=== PATIENT | female | born 1990 | race Caucasian/White ===

== ENCOUNTER 2023-03-22 18:08 | Observation (INO) ==
--- NOTE | 2023-03-22 18:42 | ED Triage Note ---
Date of Service March 22, 2023 History of Present Illness This patient was briefly evaluated while in triage. An abbreviated physical exam was performed. This patient is a 32-year-old Female who presents to the ED for evaluation of yellowing of her skin and eyes. She states she noticed it about a week ago. She denies any history of liver disease but states it runs in her family. She states she was drinking every day but does not state how much. She has not been drinking recently. She reports slight upper abdominal pain. Physical Exam VITALS: Vitals are noted on the nurse's note and reviewed by myself. GENERAL: This is a 32-year-old female, in no acute distress, well-developed well-nourished. SKIN: Jaundice noted. EYES: Scleral icterus noted. NEURO: Patient was alert and oriented to person place and time. Initial orders for labs and / or imaging were placed and patient was placed in the waiting area until a bed is available. Please see further documentation for the full ED course.
[2023-03-22 21:02] LABS: Basophils # (auto) 0.07 K/uL (0.00-0.20); Basophils % (auto) 0.7 %; Eosinophils # (auto) 0.07 K/uL (0.00-0.50); Eosinophils % (auto) 0.7 %; Hematocrit (blood only) 33.6 % (37.0-47.0); Hemoglobin 12.5 g/dl (12.0-16.0); Immature Granulocytes # (auto) 0.15 K/uL (0.01-0.20); Immature Granulocytes % (auto) 1.4 %; Lymphocytes # (auto) 1.87 K/uL (1.20-3.40); Mean Corpuscular Hemoglobin 39.7 pg (25.0-34.0); Mean Corpuscular Hgb Conc 37.2 g/dL (32.0-36.0); Mean Corpuscular Volume 106.7 fL (80.0-100.0); Mean Platelet Volume 12.1 fL (9.4-12.4); Monocytes # (auto) 0.95 K/uL (0.11-0.59); Monocytes % (auto) 9.1 %; Neutrophils % (auto) 70.1 %; Platelet Count 245 K/uL (130-400); RDW Coefficient of Variation 20.1 % (11.5-14.5); RDW Standard Deviation 78.6 fL (36.4-46.3); Red Blood Count 3.15 M/uL (4.20-5.40); White Blood Count 10.41 K/ul (4.8-10.8)
[2023-03-22 21:22] LABS: BUN Creatinine Ratio 14.3 (10-20); Calcium 9.5 mg/dl (8.6-10.3); Creatinine Clr Calc Pharmacy 95.1 ml/min; Potassium 3.5 mmol/L (3.5-5.1)
[2023-03-22 21:42] LABS: Albumin Level 3.6 gm/dl (3.4-5.0); Bilirubin,Total 20.4 mg/dl (0.2-1.0); Total Protein 7.2 gm/dl (6.0-8.3)
[2023-03-22 22:10] LABS: INR 1.3 (0.9-1.1); Prothrombin Time 13.8 Seconds (9.0-12.0)
--- NOTE | 2023-03-22 22:29 | Emergency Department Note ---
History of Present Illness General Chief complaint: Illness Stated complaint: JAUNDICE SKIN, EYES YELLOW,TOP ABDOMEN/BACK PAIN Time Seen by Provider: 03/22/23 22:27 History of Present Illness This is a 32-year-old female presenting to the emergency department for evaluation of jaundice that started over the past several days. Patient believes herself to be usually healthy, and has been living in the [facility] for the past 3 years. She does not regularly follow with a family doctor, but is under the care of a methadone clinic. She does not take other medications or herbal supplements. Patient states that she did have a period over the past few weeks where she has been drinking heavily, often third of a bottle of hard liquor a day. No fevers or chills. She is with some mild epigastric discomfort but no pain. She is without history of abdominal surgery. She presents today as her eyes became yellow. Allergies Allergy/AdvReac Type Severity Reaction Status Date / Time adhesive Allergy Hives Verified 03/23/23 03:03 Past Med/Surg History Medical History Methadone use Surgical History No significant past surgical history Social History Smoking Status: Current every day smoker Tobacco Type: Cigarettes Do You Dip or Chew Tobacco: No; Hx Alcohol Use: Yes Alcohol type: hard liquor Hx Substance Use: No Preferred Language: Kiswahili Communication Ability: Effective Professor Of Graphic Design Required: No Beliefs That Will Affect Care: None Current Living Situation: Family Other Information That Helps Us Care for You: No Feels Safe at Home: Yes Safety Concerns: Feels Safe At This Time Assistive Devices: None Review of Systems A total of 10 systems reviewed and were otherwise negative Physical Exam Vital Signs Vital Signs - 24 hr 03/22/23 18:41 03/22/23 21:10 03/22/23 22:48 Temperature 36.5 C Temperature Source Temporal Artery Scan Pulse Rate 111 H 110 H Pulse Rate [Finger] 85 Pulse Rate from SpO2 Sensor Respiratory Rate 19 Blood Pressure 118/80 Blood Pressure [Right Arm] 110/87 Blood Pressure Mean 92 Blood Pressure Mean [Right Arm] 94 Pulse Oximetry 96 97 Oxygen Delivery Method Room Air Room Air Sepsis Recent Fever Within 48 Hours No Sepsis New/Unexplained Change in Mental Status N/A Sepsis Action Taken by Nursing No Action Required 03/22/23 22:49 03/22/23 23:00 03/23/23 00:00 Temperature Temperature Source Pulse Rate 111 H 104 H 91 H Pulse Rate [Finger] Pulse Rate from SpO2 Sensor 111 H 103 H Respiratory Rate 14 15 18 Blood Pressure 125/98 122/86 119/81 Blood Pressure [Right Arm] Blood Pressure Mean 107 98 93 Blood Pressure Mean [Right Arm] Pulse Oximetry 95 95 93 Oxygen Delivery Method Sepsis Recent Fever Within 48 Hours Sepsis New/Unexplained Change in Mental Status Sepsis Action Taken by Nursing 03/23/23 01:00 Temperature Temperature Source Pulse Rate 87 Pulse Rate [Finger] Pulse Rate from SpO2 Sensor 88 Respiratory Rate 17 Blood Pressure 97/70 L Blood Pressure [Right Arm] Blood Pressure Mean 79 Blood Pressure Mean [Right Arm] Pulse Oximetry 93 Oxygen Delivery Method Sepsis Recent Fever Within 48 Hours Sepsis New/Unexplained Change in Mental Status Sepsis Action Taken by Nursing VITALS: Vitals are noted on the nurse's note and reviewed by myself. Vital signs stable. GENERAL: Ill-appearing white female who is answering questions appropriately. HEAD: Normocephalic atraumatic. EARS: External ear normal. External auditory canals clear, tympanic membranes pearly aguilar without erythema or effusion bilaterally. EYES: Pupils equal round and reactive to light and accommodation. Conjunctivae with marked icterus NOSE: Patent, turbinates without inflammation or discharge. MOUTH: Mucous membranes moist. Tonsils are not enlarged. Pharynx without erythema, blood, or exudate. Uvula midline. Airway patent. NECK: Supple without nuchal rigidity. No lymphadenopathy. No thyromegaly. Cervical spine is nontender. HEART: Regular rate and rhythm without murmurs gallops or rubs. LUNGS: Clear to auscultation bilaterally without wheezes, rales or rhonchi. No retractions or accessory muscle use. ABDOMEN: Positive normal bowel sounds x 4. Soft, nontender, without masses or organomegaly. No guarding or rebound tenderness. MUSCULOSKELETAL: No muscle atrophy, erythema, or edema noted. Full range of motion in all extremities. NEURO: Patient was alert and oriented to person place and time. CN II through XII grossly intact. GCS 15. SKIN: The skin was with diffuse jaundice Course Administered Medications Discontinued Medications Ioversol (Optiray 320 100ml) 100 ml IV ONCE ONE Stop: 03/22/23 23:39 Last Admin: 03/22/23 23:38 Dose: 90 ml Documented By: CYNTHIA Medical Decision Making Differential Diagnosis Differential diagnosis: Etiologies such as biliary colic, cholecystitis, hepatitis, pancreatitis, cardiac disease, pancreatitis, gastritis, peptic ulcer disease, appendicitis, cystitis, diverticulitis, mesenteric ischemia, inflammatory bowel disease, ileus, bowel obstruction, testicular/adnexal torsion, aortic pathology, shingles, as well as others were considered Laboratory Data 03/22/23 20:40 03/22/23 20:40 Lab Results 03/22/23 03/22/23 03/22/23 Range/Units 20:40 20:40 20:40 WBC 10.41 (4.8-10.8) K/ul RBC 3.15 L (4.20-5.40) M/uL Hgb 12.5 (12.0-16.0) g/dl Hct 33.6 L (37.0-47.0) % MCV 106.7 H (80.0-100.0) fL MCH 39.7 H (25.0-34.0) pg MCHC 37.2 H (32.0-36.0) g/dL RDW Std Deviation 78.6 H (36.4-46.3) fL RDW Coeff of Sylvester 20.1 H (11.5-14.5) % Plt Count 245 (130-400) K/uL MPV 12.1 (9.4-12.4) fL Immature Gran % (Auto) 1.4 % Neut % (Auto) 70.1 % Lymph % (Auto) 18.0 % [place] % (Auto) 9.1 % Eos % (Auto) 0.7 % Baso % (Auto) 0.7 % Neut # (Auto) 7.30 H (1.40-6.50) K/uL Lymph # (Auto) 1.87 (1.20-3.40) K/uL [place] # (Auto) 0.95 H (0.11-0.59) K/uL Eos # (Auto) 0.07 (0.00-0.50) K/uL Baso # (Auto) 0.07 (0.00-0.20) K/uL Immature Gran # (Auto) 0.15 (0.01-0.20) K/uL Polychromasia 2+ Macrocytosis Present Target Cells 2+ ESR (0-20) mm/hr PT 13.8 H (9.0-12.0) Seconds INR 1.3 H (0.9-1.1) Sodium 135 L (136-145) mmol/L Potassium 3.5 (3.5-5.1) mmol/L Chloride 95 L (98-107) mmol/L Carbon Dioxide 29 (21-32) mmol/L Anion Gap 11 (3-11) BUN 10 (6-23) mg/dl Creatinine 0.70 (0.6-1.2) mg/dl Est Cr Clr Drug Dosing 95.1 ml/min Est GFR ( Amer) 131.0 ml/min Est GFR (Non-Af Amer) 113.0 ml/min BUN/Creatinine Ratio 14.3 (10-20) Glucose 89 (70-99(Fasting)) mg/dl Calcium 9.5 (8.6-10.3) mg/dl Total Bilirubin 20.4 H (0.2-1.0) mg/dl Direct Bilirubin 12.1 H (0-0.2) mg/dl AST 591 H (13-39) U/L ALT 136 H (7-52) U/L Alkaline Phosphatase 297 H (34-104) U/L Ammonia C-Reactive Protein 4.73 H (0-0.5) mg/dl Total Protein 7.2 (6.0-8.3) gm/dl Albumin 3.6 (3.4-5.0) gm/dl HCG, Qual (Negative) Urine Color Urine Appearance (Clear) Urine pH (4.5-7.5) Ur Specific [place] (1.000-1.030) Urine Protein (Negative) Urine Glucose (UA) (Negative) Urine Ketones (Negative) Urine Blood (Negative) Urine Nitrite (Negative) Urine Bilirubin (Negative) Urine Urobilinogen (Negative) Ur Leukocyte Esterase (Negative) Urine RBC (0-4) /hpf Urine WBC (0-5) /hpf Ur Epithelial Cells (0-5) /lpf Ur Renal Epithelial Cell (0-5) /lpf Amorphous Sediment (None Prsent) Urine Bacteria (Negative) Salicylates (3.0-30) mg/dl Urine Opiates Screen (Neg) Ur Methadone, Qual (Neg) Acetaminophen (10-30) ug/ml Urine Barbiturates (Neg) Ur Phencyclidine (PCP) (Neg) U Amphetamin/Meth Scrn (Neg) MDMA (Ecstasy) Screen (Neg) U Benzodiazepines Scrn (Neg) Ur Cocaine Metabolite (Neg) U Marijuana (THC) Screen (Neg) Ethyl Alcohol mg/dL (<10.0) mg/dl Adenovirus (PCR) (NotDetected) Anaplasma Smear B. pertussis DNA (PCR) (NotDetected) B.parapertussis DNA PCR (NotDetected) C. pneumoniae DNA (PCR) (NotDetected) Coronavirus OC43 (PCR) (NotDetected) Coronavirus HKU1 (PCR) (NotDetected) Coronavirus 229E (PCR) (NotDetected) SARS-CoV-2 (PCR) (NotDetected) Coronavirus NL63 (PCR) (NotDetected) Monoscreen (Negative) Human Metapneumovir PCR (NotDetected) Influenza Type A (PCR) (NotDetected) Influenza Type B (PCR) (NotDetected) M. pneumoniae (PCR) (NotDetected) Parainfluenza 1 (PCR) (NotDetected) Parainfluenza 2 (PCR) (NotDetected) Parainfluenza 3 (PCR) (NotDetected) Parainfluenza 4 (PCR) (NotDetected) RSV (PCR) (NotDetected) Entero/Rhino (PCR) (NotDetected) 03/22/23 03/22/23 03/22/23 Range/Units 20:40 20:40 22:50 WBC (4.8-10.8) K/ul RBC (4.20-5.40) M/uL Hgb (12.0-16.0) g/dl Hct (37.0-47.0) % MCV (80.0-100.0) fL MCH (25.0-34.0) pg MCHC (32.0-36.0) g/dL RDW Std Deviation (36.4-46.3) fL RDW Coeff of Sylvester (11.5-14.5) % Plt Count (130-400) K/uL MPV (9.4-12.4) fL Immature Gran % (Auto) % Neut % (Auto) % Lymph % (Auto) % [place] % (Auto) % Eos % (Auto) % Baso % (Auto) % Neut # (Auto) (1.40-6.50) K/uL Lymph # (Auto) (1.20-3.40) K/uL [place] # (Auto) (0.11-0.59) K/uL Eos # (Auto) (0.00-0.50) K/uL Baso # (Auto) (0.00-0.20) K/uL Immature Gran # (Auto) (0.01-0.20) K/uL Polychromasia Macrocytosis Target Cells ESR 94 H (0-20) mm/hr PT (9.0-12.0) Seconds INR (0.9-1.1) Sodium (136-145) mmol/L Potassium (3.5-5.1) mmol/L Chloride (98-107) mmol/L Carbon Dioxide (21-32) mmol/L Anion Gap (3-11) BUN (6-23) mg/dl Creatinine (0.6-1.2) mg/dl Est Cr Clr Drug Dosing ml/min Est GFR ( Amer) ml/min Est GFR (Non-Af Amer) ml/min BUN/Creatinine Ratio (10-20) Glucose (70-99(Fasting)) mg/dl Calcium (8.6-10.3) mg/dl Total Bilirubin (0.2-1.0) mg/dl Direct Bilirubin (0-0.2) mg/dl AST (13-39) U/L ALT (7-52) U/L Alkaline Phosphatase (34-104) U/L Ammonia C-Reactive Protein (0-0.5) mg/dl Total Protein (6.0-8.3) gm/dl Albumin (3.4-5.0) gm/dl HCG, Qual Negative (Negative) Urine Color Urine Appearance (Clear) Urine pH (4.5-7.5) Ur Specific [place] (1.000-1.030) Urine Protein (Negative) Urine Glucose (UA) (Negative) Urine Ketones (Negative) Urine Blood (Negative) Urine Nitrite (Negative) Urine Bilirubin (Negative) Urine Urobilinogen (Negative) Ur Leukocyte Esterase (Negative) Urine RBC (0-4) /hpf Urine WBC (0-5) /hpf Ur Epithelial Cells (0-5) /lpf Ur Renal Epithelial Cell (0-5) /lpf Amorphous Sediment (None Prsent) Urine Bacteria (Negative) Salicylates (3.0-30) mg/dl Urine Opiates Screen (Neg) Ur Methadone, Qual (Neg) Acetaminophen (10-30) ug/ml Urine Barbiturates (Neg) Ur Phencyclidine (PCP) (Neg) U Amphetamin/Meth Scrn (Neg) MDMA (Ecstasy) Screen (Neg) U Benzodiazepines Scrn (Neg) Ur Cocaine Metabolite (Neg) U Marijuana (THC) Screen (Neg) Ethyl Alcohol mg/dL (<10.0) mg/dl Adenovirus (PCR) Not Detected (NotDetected) Anaplasma Smear B. pertussis DNA (PCR) Not Detected (NotDetected) B.parapertussis DNA PCR Not Detected (NotDetected) C. pneumoniae DNA (PCR) Not Detected (NotDetected) Coronavirus OC43 (PCR) Not Detected (NotDetected) Coronavirus HKU1 (PCR) Not Detected (NotDetected) Coronavirus 229E (PCR) Not Detected (NotDetected) SARS-CoV-2 (PCR) Not Detected (NotDetected) Coronavirus NL63 (PCR) Not Detected (NotDetected) Monoscreen (Negative) Human Metapneumovir PCR Not Detected (NotDetected) Influenza Type A (PCR) Not Detected (NotDetected) Influenza Type B (PCR) Not Detected (NotDetected) M. pneumoniae (PCR) Not Detected (NotDetected) Parainfluenza 1 (PCR) Not Detected (NotDetected) Parainfluenza 2 (PCR) Not Detected (NotDetected) Parainfluenza 3 (PCR) Not Detected (NotDetected) Parainfluenza 4 (PCR) Not Detected (NotDetected) RSV (PCR) Not Detected (NotDetected) Entero/Rhino (PCR) Not Detected (NotDetected) 08/28/23 08/28/23 08/28/23 Range/Units 22:50 22:50 23:06 WBC (4.8-10.8) K/ul RBC (4.20-5.40) M/uL Hgb (12.0-16.0) g/dl Hct (37.0-47.0) % MCV (80.0-100.0) fL MCH (25.0-34.0) pg MCHC (32.0-36.0) g/dL RDW Std Deviation (36.4-46.3) fL RDW Coeff of Sylvester (11.5-14.5) % Plt Count (130-400) K/uL MPV (9.4-12.4) fL Immature Gran % (Auto) % Neut % (Auto) % Lymph % (Auto) % [place] % (Auto) % Eos % (Auto) % Baso % (Auto) % Neut # (Auto) (1.40-6.50) K/uL Lymph # (Auto) (1.20-3.40) K/uL [place] # (Auto) (0.11-0.59) K/uL Eos # (Auto) (0.00-0.50) K/uL Baso # (Auto) (0.00-0.20) K/uL Immature Gran # (Auto) (0.01-0.20) K/uL Polychromasia Macrocytosis Target Cells ESR (0-20) mm/hr PT (9.0-12.0) Seconds INR (0.9-1.1) Sodium (136-145) mmol/L Potassium (3.5-5.1) mmol/L Chloride (98-107) mmol/L Carbon Dioxide (21-32) mmol/L Anion Gap (3-11) BUN (6-23) mg/dl Creatinine (0.6-1.2) mg/dl Est Cr Clr Drug Dosing ml/min Est GFR ( Amer) ml/min Est GFR (Non-Af Amer) ml/min BUN/Creatinine Ratio (10-20) Glucose (70-99(Fasting)) mg/dl Calcium (8.6-10.3) mg/dl Total Bilirubin (0.2-1.0) mg/dl Direct Bilirubin (0-0.2) mg/dl AST (13-39) U/L ALT (7-52) U/L Alkaline Phosphatase (34-104) U/L Ammonia TNP C-Reactive Protein (0-0.5) mg/dl Total Protein (6.0-8.3) gm/dl Albumin (3.4-5.0) gm/dl HCG, Qual (Negative) Urine Color Brown Urine Appearance Cloudy A (Clear) Urine pH (4.5-7.5) Ur Specific [place] 1.026 (1.000-1.030) Urine Protein (Negative) Urine Glucose (UA) (Negative) Urine Ketones (Negative) Urine Blood (Negative) Urine Nitrite (Negative) Urine Bilirubin (Negative) Urine Urobilinogen (Negative) Ur Leukocyte Esterase (Negative) Urine RBC 0-4 (0-4) /hpf Urine WBC 0-5 (0-5) /hpf Ur Epithelial Cells 5-10 H (0-5) /lpf Ur Renal Epithelial Cell 10-20 H (0-5) /lpf Amorphous Sediment Present A (None Prsent) Urine Bacteria 1+ H (Negative) Salicylates (3.0-30) mg/dl Urine Opiates Screen Neg (Neg) Ur Methadone, Qual Pos H (Neg) Acetaminophen (10-30) ug/ml Urine Barbiturates Neg (Neg) Ur Phencyclidine (PCP) Neg (Neg) U Amphetamin/Meth Scrn Neg (Neg) MDMA (Ecstasy) Screen Neg (Neg) U Benzodiazepines Scrn Neg (Neg) Ur Cocaine Metabolite Neg (Neg) U Marijuana (THC) Screen Neg (Neg) Ethyl Alcohol mg/dL (<10.0) mg/dl Adenovirus (PCR) (NotDetected) Anaplasma Smear B. pertussis DNA (PCR) (NotDetected) B.parapertussis DNA PCR (NotDetected) C. pneumoniae DNA (PCR) (NotDetected) Coronavirus OC43 (PCR) (NotDetected) Coronavirus HKU1 (PCR) (NotDetected) Coronavirus 229E (PCR) (NotDetected) SARS-CoV-2 (PCR) (NotDetected) Coronavirus NL63 (PCR) (NotDetected) Monoscreen (Negative) Human Metapneumovir PCR (NotDetected) Influenza Type A (PCR) (NotDetected) Influenza Type B (PCR) (NotDetected) M. pneumoniae (PCR) (NotDetected) Parainfluenza 1 (PCR) (NotDetected) Parainfluenza 2 (PCR) (NotDetected) Parainfluenza 3 (PCR) (NotDetected) Parainfluenza 4 (PCR) (NotDetected) RSV (PCR) (NotDetected) Entero/Rhino (PCR) (NotDetected) 03/22/23 03/22/23 03/23/23 Range/Units 23:06 23:06 00:02 WBC (4.8-10.8) K/ul RBC (4.20-5.40) M/uL Hgb (12.0-16.0) g/dl Hct (37.0-47.0) % MCV (80.0-100.0) fL MCH (25.0-34.0) pg MCHC (32.0-36.0) g/dL RDW Std Deviation (36.4-46.3) fL RDW Coeff of Sylvester (11.5-14.5) % Plt Count (130-400) K/uL MPV (9.4-12.4) fL Immature Gran % (Auto) % Neut % (Auto) % Lymph % (Auto) % [place] % (Auto) % Eos % (Auto) % Baso % (Auto) % Neut # (Auto) (1.40-6.50) K/uL Lymph # (Auto) (1.20-3.40) K/uL [place] # (Auto) (0.11-0.59) K/uL Eos # (Auto) (0.00-0.50) K/uL Baso # (Auto) (0.00-0.20) K/uL Immature Gran # (Auto) (0.01-0.20) K/uL Polychromasia Macrocytosis Target Cells ESR (0-20) mm/hr PT (9.0-12.0) Seconds INR (0.9-1.1) Sodium (136-145) mmol/L Potassium (3.5-5.1) mmol/L Chloride (98-107) mmol/L Carbon Dioxide (21-32) mmol/L Anion Gap (3-11) BUN (6-23) mg/dl Creatinine (0.6-1.2) mg/dl Est Cr Clr Drug Dosing ml/min Est GFR ( Amer) ml/min Est GFR (Non-Af Amer) ml/min BUN/Creatinine Ratio (10-20) Glucose (70-99(Fasting)) mg/dl Calcium (8.6-10.3) mg/dl Total Bilirubin (0.2-1.0) mg/dl Direct Bilirubin (0-0.2) mg/dl AST (13-39) U/L ALT (7-52) U/L Alkaline Phosphatase (34-104) U/L Ammonia C-Reactive Protein (0-0.5) mg/dl Total Protein (6.0-8.3) gm/dl Albumin (3.4-5.0) gm/dl HCG, Qual (Negative) Urine Color Urine Appearance (Clear) Urine pH (4.5-7.5) Ur Specific [place] (1.000-1.030) Urine Protein (Negative) Urine Glucose (UA) (Negative) Urine Ketones (Negative) Urine Blood (Negative) Urine Nitrite (Negative) Urine Bilirubin (Negative) Urine Urobilinogen (Negative) Ur Leukocyte Esterase (Negative) Urine RBC (0-4) /hpf Urine WBC (0-5) /hpf Ur Epithelial Cells (0-5) /lpf Ur Renal Epithelial Cell (0-5) /lpf Amorphous Sediment (None Prsent) Urine Bacteria (Negative) Salicylates < 3.0 L (3.0-30) mg/dl Urine Opiates Screen (Neg) Ur Methadone, Qual (Neg) Acetaminophen < 3 L (10-30) ug/ml Urine Barbiturates (Neg) Ur Phencyclidine (PCP) (Neg) U Amphetamin/Meth Scrn (Neg) MDMA (Ecstasy) Screen (Neg) U Benzodiazepines Scrn (Neg) Ur Cocaine Metabolite (Neg) U Marijuana (THC) Screen (Neg) Ethyl Alcohol mg/dL 10.3 H (<10.0) mg/dl Adenovirus (PCR) (NotDetected) Anaplasma Smear B. pertussis DNA (PCR) (NotDetected) B.parapertussis DNA PCR (NotDetected) C. pneumoniae DNA (PCR) (NotDetected) Coronavirus OC43 (PCR) (NotDetected) Coronavirus HKU1 (PCR) (NotDetected) Coronavirus 229E (PCR) (NotDetected) SARS-CoV-2 (PCR) (NotDetected) Coronavirus NL63 (PCR) (NotDetected) Monoscreen Negative (Negative) Human Metapneumovir PCR (NotDetected) Influenza Type A (PCR) (NotDetected) Influenza Type B (PCR) (NotDetected) M. pneumoniae (PCR) (NotDetected) Parainfluenza 1 (PCR) (NotDetected) Parainfluenza 2 (PCR) (NotDetected) Parainfluenza 3 (PCR) (NotDetected) Parainfluenza 4 (PCR) (NotDetected) RSV (PCR) (NotDetected) Entero/Rhino (PCR) (NotDetected) 03/23/23 Range/Units 00:02 WBC (4.8-10.8) K/ul RBC (4.20-5.40) M/uL Hgb (12.0-16.0) g/dl Hct (37.0-47.0) % MCV (80.0-100.0) fL MCH (25.0-34.0) pg MCHC (32.0-36.0) g/dL RDW Std Deviation (36.4-46.3) fL RDW Coeff of Sylvester (11.5-14.5) % Plt Count (130-400) K/uL MPV (9.4-12.4) fL Immature Gran % (Auto) % Neut % (Auto) % Lymph % (Auto) % [place] % (Auto) % Eos % (Auto) % Baso % (Auto) % Neut # (Auto) (1.40-6.50) K/uL Lymph # (Auto) (1.20-3.40) K/uL [place] # (Auto) (0.11-0.59) K/uL Eos # (Auto) (0.00-0.50) K/uL Baso # (Auto) (0.00-0.20) K/uL Immature Gran # (Auto) (0.01-0.20) K/uL Polychromasia Macrocytosis Target Cells ESR (0-20) mm/hr PT (9.0-12.0) Seconds INR (0.9-1.1) Sodium (136-145) mmol/L Potassium (3.5-5.1) mmol/L Chloride (98-107) mmol/L Carbon Dioxide (21-32) mmol/L Anion Gap (3-11) BUN (6-23) mg/dl Creatinine (0.6-1.2) mg/dl Est Cr Clr Drug Dosing ml/min Est GFR ( Amer) ml/min Est GFR (Non-Af Amer) ml/min BUN/Creatinine Ratio (10-20) Glucose (70-99(Fasting)) mg/dl Calcium (8.6-10.3) mg/dl Total Bilirubin (0.2-1.0) mg/dl Direct Bilirubin (0-0.2) mg/dl AST (13-39) U/L ALT (7-52) U/L Alkaline Phosphatase (34-104) U/L Ammonia C-Reactive Protein (0-0.5) mg/dl Total Protein (6.0-8.3) gm/dl Albumin (3.4-5.0) gm/dl HCG, Qual (Negative) Urine Color Urine Appearance (Clear) Urine pH (4.5-7.5) Ur Specific [place] (1.000-1.030) Urine Protein (Negative) Urine Glucose (UA) (Negative) Urine Ketones (Negative) Urine Blood (Negative) Urine Nitrite (Negative) Urine Bilirubin (Negative) Urine Urobilinogen (Negative) Ur Leukocyte Esterase (Negative) Urine RBC (0-4) /hpf Urine WBC (0-5) /hpf Ur Epithelial Cells (0-5) /lpf Ur Renal Epithelial Cell (0-5) /lpf Amorphous Sediment (None Prsent) Urine Bacteria (Negative) Salicylates (3.0-30) mg/dl Urine Opiates Screen (Neg) Ur Methadone, Qual (Neg) Acetaminophen (10-30) ug/ml Urine Barbiturates (Neg) Ur Phencyclidine (PCP) (Neg) U Amphetamin/Meth Scrn (Neg) MDMA (Ecstasy) Screen (Neg) U Benzodiazepines Scrn (Neg) Ur Cocaine Metabolite (Neg) U Marijuana (THC) Screen (Neg) Ethyl Alcohol mg/dL (<10.0) mg/dl Adenovirus (PCR) (NotDetected) Anaplasma Smear See Comment B. pertussis DNA (PCR) (NotDetected) B.parapertussis DNA PCR (NotDetected) C. pneumoniae DNA (PCR) (NotDetected) Coronavirus OC43 (PCR) (NotDetected) Coronavirus HKU1 (PCR) (NotDetected) Coronavirus 229E (PCR) (NotDetected) SARS-CoV-2 (PCR) (NotDetected) Coronavirus NL63 (PCR) (NotDetected) Monoscreen (Negative) Human Metapneumovir PCR (NotDetected) Influenza Type A (PCR) (NotDetected) Influenza Type B (PCR) (NotDetected) M. pneumoniae (PCR) (NotDetected) Parainfluenza 1 (PCR) (NotDetected) Parainfluenza 2 (PCR) (NotDetected) Parainfluenza 3 (PCR) (NotDetected) Parainfluenza 4 (PCR) (NotDetected) RSV (PCR) (NotDetected) Entero/Rhino (PCR) (NotDetected) Imaging Data Radiologist's Impression: Abdomen/Pelvis CT 03/22/23 22:32 Exam(s): CT ABDOMEN + PELVIS With Contrast IV Amt: 90 ML OPTIRAY 320 EXAM: CT Abdomen and Pelvis With Intravenous Contrast CLINICAL HISTORY: Reason for exam: jaundice, elevated bilirubin. TECHNIQUE: Axial computed tomography images of the abdomen and pelvis with intravenous contrast. Automated exposure control was utilized for the study. A dose lowering technique was utilized adhering to the principles of ALARA. CONTRAST: Patient received 90 ML OPTIRAY 320 of IV contrast COMPARISON: No relevant prior studies available. FINDINGS: Lung bases: Unremarkable. No mass. No consolidation. ABDOMEN: Liver: There is advanced severe hepatic steatosis, please correlate for steatohepatitis. Gallbladder and bile ducts: Moderate distention of the gallbladder is noted. No calcified stones. No ductal dilation. Pancreas: Unremarkable. No mass. No ductal dilation. Spleen: Unremarkable. No splenomegaly. Adrenals: Unremarkable. No mass. Kidneys and ureters: Unremarkable. No solid mass. No hydronephrosis. Stomach and bowel: Unremarkable. No obstruction. No mucosal thickening. PELVIS: Appendix: No findings to suggest acute appendicitis. Bladder: Unremarkable. No mass. Reproductive: Unremarkable as visualized. ABDOMEN and PELVIS: Intraperitoneal space: Unremarkable. No free air. No significant fluid collection. Bones/joints: No acute fracture. No dislocation. Soft tissues: There is an umbilical piercing. Vasculature: Unremarkable. No abdominal aortic aneurysm. Lymph nodes: Unremarkable. No enlarged lymph nodes. IMPRESSION: There is advanced severe hepatic steatosis with engorgement of the liver, please correlate for steatohepatitis. Electronically signed by: Maldonado Lockhart MD 03/22/23 23:47 PM MDM Narrative Physical exam and history were performed. Nursing notes, EMR, and Medication List were personally reviewed. No social concerns were identified as barriers to patients care. Patient appears to have jaundice bringing her to the ER. On examination the patient does not appear well. She is markedly jaundiced. History is concerning as this could be related to alcohol use or some other underlying condition. IV access was established and labs were obtained. She was hydrated with normal saline and sent to CT scan for imaging of her belly. Patient's blood work is as above and was reviewed.She does not have an elevated white blood cell count. She is without significant anemia. Transaminases are markedly elevated with an AST of 591, ALT 136, and alk phos 297. Inflammatory markers are elevated as well. INR is 1.3. Sodium is 135. She is not . Urine is without evidence of infection. Drug abuse screen is positive for methadone, which was expected. Tylenol and salicylate testing is negative. Alc ohol is detected at 10.3. Bio fire negative. [place] negative. Hepatitis panel is pending at the time of this dictation. CT scan of the abdomen and pelvis is as above and was reviewed. It does not show obvious acute surgical process explaining her discomfort. Ammonia was ordered, however her bilirubin is 20, and the ammonia will need to be a send out lab to get results. Overall the patient does not appear well for discharge home. Her calculated MELD-Na score is 22 placing her at significant 3-month mortality. The case was discussed with the on-call hospitalist team, who agreed to evaluate the patient here in the ER. Please see their dictation for further patient course, plan, or disposition. The chart was completed utilizing [employer] Voice [employer]ognition Software. Grammatical errors, random word insertions, pronoun errors, and incomplete sentences are an occasional consequence of this system due to software limitations, ambient noise, and hardware issues. Any formal questions or concerns about the content, text, or information contained within the body of this dictation should be directly addressed to the provider for clarification. . Impression & Plan Elevated LFTs, Jaundice, Elevated bilirubin, Alcohol use Discharge Plan Visit Data Chief Complaint: Illness Stated Complaint: JAUNDICE SKIN, EYES YELLOW,TOP ABDOMEN/BACK PAIN ED Provider: Delta Granado ED Midlevel Provider: Thompson Nascimento Discharge Problem: Elevated LFTs, Jaundice, Elevated bilirubin, Alcohol use Patient Disposition: Admitted As Inpatient Discharge Instructions Interventions: ED Discharge Assessment Last Done: 03/23/23 02:19
[2023-03-22 22:54] LABS: Pregnancy Test, Serum Negative (Negative)
[2023-03-22 23:01] LABS: C Reactive Protein 4.73 mg/dl (0-0.5)
[2023-03-22 23:08] LABS: Macrocytosis Present; Polychromasia 2+; Target Cells 2+
[2023-03-22 23:10] LABS: Appearance Urine Cloudy (Clear); Color Urine Brown; Specific Gravity Urine 1.026 (1.000-1.030)
[2023-03-22 23:13] LABS: Bilirubin Direct 12.1 mg/dl (0-0.2)
[2023-03-22 23:15] LABS: Amorphous Sediment Urine Present (None Prsent); Bacteria Urine 1+ (Negative); RBC Urine 0-4 /hpf (0-4); WBC Urine 0-5 /hpf (0-5)
[2023-03-22] MEDS ORDERED: OPTIRAY 320 100ml IV ONE (23:38)
--- NOTE | 2023-03-22 23:49 | CT Scan Report ---
Exam(s): CT ABDOMEN + PELVIS With Contrast IV Amt: 90 ML OPTIRAY 320 EXAM: CT Abdomen and Pelvis With Intravenous Contrast CLINICAL HISTORY: Reason for exam: jaundice, elevated bilirubin. TECHNIQUE: Axial computed tomography images of the abdomen and pelvis with intravenous contrast. Automated exposure control was utilized for the study. A dose lowering technique was utilized adhering to the principles of ALARA. CONTRAST: Patient received 90 ML OPTIRAY 320 of IV contrast COMPARISON: No relevant prior studies available. FINDINGS: Lung bases: Unremarkable. No mass. No consolidation. ABDOMEN: Liver: There is advanced severe hepatic steatosis, please correlate for steatohepatitis. Gallbladder and bile ducts: Moderate distention of the gallbladder is noted. No calcified stones. No ductal dilation. Pancreas: Unremarkable. No mass. No ductal dilation. Spleen: Unremarkable. No splenomegaly. Adrenals: Unremarkable. No mass. Kidneys and ureters: Unremarkable. No solid mass. No hydronephrosis. Stomach and bowel: Unremarkable. No obstruction. No mucosal thickening. PELVIS: Appendix: No findings to suggest acute appendicitis. Bladder: Unremarkable. No mass. Reproductive: Unremarkable as visualized. ABDOMEN and PELVIS: Intraperitoneal space: Unremarkable. No free air. No significant fluid collection. Bones/joints: No acute fracture. No dislocation. Soft tissues: There is an umbilical piercing. Vasculature: Unremarkable. No abdominal aortic aneurysm. Lymph nodes: Unremarkable. No enlarged lymph nodes. IMPRESSION: There is advanced severe hepatic steatosis with engorgement of the liver, please correlate for steatohepatitis. Electronically signed by: Maldonado Lockhart MD 03/22/23 23:47 PM
[2023-03-23 00:03] LABS: Adenovirus PCR Not Detected (NotDetected); Bordetella parapertussis PCR Not Detected (NotDetected); Bordetella pertussis PCR Not Detected (NotDetected); Chlamydia pneumoniae PCR Not Detected (NotDetected); Coronavirus 229E PCR Not Detected (NotDetected); Coronavirus CoV-2 (COVID19)PCR Not Detected (NotDetected); Coronavirus HKU1 PCR Not Detected (NotDetected); Coronavirus NL63 PCR Not Detected (NotDetected); Coronavirus OC43PCR Not Detected (NotDetected); Human Metapneumovirus PCR Not Detected (NotDetected); Influenza A PCR Not Detected (NotDetected); Influenza B PCR Not Detected (NotDetected); Mycoplasma pneumoniae PCR Not Detected (NotDetected); Parainfluenza Virus 1 PCR Not Detected (NotDetected); Parainfluenza Virus 2 PCR Not Detected (NotDetected); Parainfluenza Virus 3 PCR Not Detected (NotDetected); Parainfluenza Virus 4 PCR Not Detected (NotDetected); Respiratory Syncytial VirusPCR Not Detected (NotDetected); Rhinovirus/Enterovirus PCR Not Detected (NotDetected)
[2023-03-23 00:14] LABS: Amphetamines+Metham, Urine Neg (Neg); Barbiturates, Urine Neg (Neg); Benzodiazepine, Urine Neg (Neg); Cocaine, Urine Neg (Neg); MDMA (Ecstacy), Urine Neg (Neg); Methadone, Urine Pos (Neg); Opiate, Urine Neg (Neg); Phencyclidine, Urine Neg (Neg)
[2023-03-23 00:30] LABS: Acetaminophen < 3 ug/ml (10-30); Salicylate < 3.0 mg/dl (3.0-30)
--- NOTE | 2023-03-23 01:35 | History & Physical Report ---
Date of Service March 23, 2023 Assessment & Plan (1) Jaundice: Plan: 32 year old female w/ PmHx methadone use admitted for severe hepatic steatosis and hyperbilirubinemia. Jaundice: -AST 591, ALT 136, T bili 20.4, D bili 12.1, INR 1.3, PT 13.8. -CT A&P w/ evidence for severe hepatic steatosis w/ engorgement of liver. -History and lab work points towards alcohol induced hyperbilirubinemia and transaminitis. -Last drink 03/17 (6 days ago), alcohol level 10.3, no withdrawal symptoms currently. Will put on AWSS protocol. -MELD score 22, Maddrey 28.3. Will start patient on prednisolone 40mg daily. -Daily thiamine, folate PO ordered. -Consulted GI, will appreciate recs. -Admit to med/surg. Abnormal urinalysis: -UA with difficulty reading due to bilirubin/discoloration. -No urinary symptoms currently, will hold off on treatment for now. Elevated MCV: -MCV 106.7 in the ED, hgb 12.5. -Will obtain B12, Folate, MMA to rule out deficiency. Methadone use: -Continued home methadone 68mg daily. F/E/N/GI: Regular diet. DVT Prophylaxis: patient ambulatory, no need for chemoprophylaxis currently. Code status: Full Dispo: Med/surg (2) Methadone use: (3) Abnormal urinalysis: (4) Elevated MCV: History of Present Illness Chief Complaint: Jaundice Primary Care Provider: NO PCP Shraddha is a 32 year old female with a past medical history of methadone use and alcohol use disorder coming in for jaundice that had been going on for a couple weeks. Patient states that she has been drinking more heavily the past year to year and half mostly everyday when she gets home from work where she'll drink a quarter of vodka. She says that she did not used to drink this much before however started drinking when she came up here and felt lonely being away from most of her family and friends. She has never gone to rehab for alcohol use disorder and has not had issues with alcohol use in the past. She does have a history of alcohol abuse in her father and liver disease in her family. She states a couple weeks ago she started to notice her urine getting darker and more brown, this then followed with yellowing of her eyes and then yellowing of her skin. She became concerned about this and decided to come to the ED. She has also had accompanying abdominal pain in the upper quadrants that is an ache and comes and goes. She has not had much bowel issues however has had constipation over the past few days. She has a past history of UTI's and accompanying back pain at times due to these. She has not had the chance to establish with a PCP in the area since moving to [place] from [place]. She said she moved to escape drug abuse issues for her kids sake however found it was somewhat prevalent here too to her surprise. She moved to the area with her two sons, their father and his parents. She feels safe at home but is just lonely, no thoughts of harming herself or suicidal ideation. She has felt a few chills and some shaky hands at times but not persistent. Her last drink was last Wednesday (03/17 6 days prior). She takes methadone and is on 68mg daily of the liquid, following with a provider in the area for this. She states she would like to get off the methadone. She was willing to establish with a provider in the area for PCP but was not interested at this time in pursuin alcohol rehab saying she doesn't think she needs it and that this is a good wake up call for her. Denies any urinary symptoms such as dysuria, frequency, incontinence however has intermittent back pain. In the ED Hgb 12.5, MCV 106.7, WBC 10.41, PT 13.8, INR 1.3, AST 591, ALT 136, T. bili 20.4, D. bili 12.1, alk phos 297, alcohol level 10.3. CT A&P had evidence for advanced severe hepatic steatosis w/ engorgement of liver. Allergies Allergy/AdvReac Type Severity Reaction Status Date / Time adhesive Allergy Hives Verified 03/23/23 03:03 Home Medications Medication Instructions Recorded Confirmed Type methadone 68 mg PO DAILY 03/23/23 03/23/23 History Past Med/Surg History Medical History Methadone use Surgical History No significant past surgical history Social History Smoking Status: Current every day smoker Tobacco Type: Cigarettes Do You Dip or Chew Tobacco: No; Hx Alcohol Use: Yes Alcohol type: hard liquor Hx Substance Use: No Preferred Language: Pashto Communication Ability: Effective Drafting Detailer Required: No Beliefs That Will Affect Care: None Current Living Situation: Family Other Information That Helps Us Care for You: No Feels Safe at Home: Yes Safety Concerns: Feels Safe At This Time Assistive Devices: None Review of Systems Review of Systems: As per HPI. Physical Exam Constitutional: WD/WN, vitals as above Eyes: PERRLA, icteric sclera Respiratory: normal respiratory effort, lungs clear to auscultation Cardiovascular: RRR, no murmur, no edema Gastrointestinal (Abdomen): BS+, soft, tender to palpation in the upper quadrants with palpable liver 1cm below the rib cage. Skin: Jaundiced skin. Neurologic: No asterixis present. Psychiatric: A+Ox3, euthymic affect Results & Data Results & Data Vital Signs (Past 12 Hours) Vital Signs Temp Pulse Pulse Resp BP BP Pulse Ox 03/23/23 00:00 91 H 18 119/81 93 03/22/23 23:00 104 H 15 122/86 95 03/22/23 22:49 111 H 14 125/98 95 03/22/23 22:48 110 H 03/22/23 21:10 85 110/87 97 03/22/23 18:41 36.5 C 111 H 19 118/80 96 O2 Del Method 03/23/23 00:00 03/22/23 23:00 03/22/23 22:49 03/22/23 22:48 03/22/23 21:10 Room Air 03/22/23 18:41 Room Air Supervising Physician Co-Signing Physician Notes Attending addendum: I have physically seen this patient, have supervised the medical residents activities, and agree with the H&P unless as otherwise noted. Assessment and Plan: Alcoholic liver failure/severe hepatic steatosis/h yperbilirubinemia/transaminitis- She reports her last alcohol intake was 6 days ago Alcohol level on admission 10.3 Urine drug screen positive for methadone Viral PCR negative Infectious hepatitis panel: A, B, C all pending Thiamine 100 mg IV daily Folic acid 1 mg IV daily SANTOS S protocol MELD score 22, Maryann 28.3. Start prednisone 40 mg p.o. daily Consult gastroenterology Methadone use-verify dose Reports methadone 68 mg daily remaining orders and notations as noted Resident Activity Tracking Resident Involvement: Resident Care Provided Care Provided: Adult [facility]
[2023-03-23] MEDS ORDERED: POLYETHYLENE (MIRALAX) 17 GM PACK PO PRN (02:39)
[2023-03-23] MEDS ORDERED: ONDANSETRON INJ 2 MG/ML 2 ML VIAL IV PRN (02:39)
[2023-03-23] MEDS ORDERED: LORazepam 2 MG/1 ML VIAL IV PRN (02:39)
[2023-03-23] MEDS ORDERED: Patient's ALLERGY Info needs ENTERED SCH (02:45)
--- NOTE | 2023-03-23 07:14 | Hospitalist Progress Note ---
Date of Service March 23, 2023 Assessment & Plan (1) Jaundice: Plan: 32 year old female w/ PmHx methadone use admitted for severe hepatic steatosis and hyperbilirubinemia. Jaundice Alcohol hepatitis Severe hepatic stenosis -AST 512, ALT 113, T Bili 19.2 decreasing trend on admission -CT A&P w/ evidence for severe hepatic steatosis w/ engorgement of liver. -History and lab work points towards alcohol induced hyperbilirubinemia and t ransaminitis. -Last drink 03/17 (6 days ago), alcohol level 10.3, no withdrawal symptoms currently. Will put on AWSS protocol. -MELD score 22 (predict mortality), Maddrey 28.3. Will start patient on prednisolone 40mg daily. -Today Maddrey score: 27.5. On prednisolone 40 mg daily -> 32 will benefit of glucocorticoids -Daily thiamine, folate PO ordered. -Consulted GI, She will need for close GI follow-up as an outpatient. Alcohol use disorder -The patient is an alcoholic and admits to one third of a bottle of vodka daily for greater than 1 year. -Mild symptoms of withdrawal at the moment: anxiety, restlessness, headaches -Last drink 03/17 (6 days ago), alcohol level 10.3, no withdrawal symptoms currently. Will put on AWSS protocol. -MELD score 22 (predict mortality), Maddrey 28.3. Will start patient on prednisolone 40mg daily. -Today Maddrey score: 27.5. On prednisolone 40 mg daily -> 32 will benefit of glucocorticoids -Patient contemplating quitting alcohol, do not want to start rehab at the moment. -AWSS: 1 (low risk) -Case management on case Elevated MCV: -MCV 106.7 in the ED, hgb 12.5. -Will obtain B12, Folate, MMA to rule out deficiency. - Low folate levels B12: 1148 -Continue Folic acid vitamin Abnormal urinalysis: -UA with difficulty reading due to bilirubin/discoloration. -UA contaminated -No urinary symptoms currently, will hold off on treatment for now. Elevated MCV: -MCV 106.7 in the ED, hgb 12.5. -Will obtain B12, Folate, MMA to rule out deficiency. - Low folate levels B12: 1148 MEthylmalonic acid: pending Methadone use: -9 years -[facility] -Continued home methadone 68mg daily. Patient need to return methadone that was given to he on that Clinic. Hypokalemia K of 3.0 Potassium Chloride 40 meq PO given today Follow labs am F/E/N/GI: Regular diet. DVT Prophylaxis: patient ambulatory, no need for chemoprophylaxis currently. Code status: Full Dispo: Med/surg (2) Methadone use: (3) Abnormal urinalysis: (4) Elevated MCV: Admission and Anticipated Discharge Date Admission Date: March 23, 2023 Supervising Physician Co-Signing Physician Notes I personally examined the patient and verified all jose points of history and exam, discussed case, and agree with decision making with Dr Vaughn Danielle feeling OK lots of bloating vitals noted nad quite jaundiced CT reviewed very large liver acute EtOH hepatitis superimposed on chronic EtOH steatohepatitis - steroids for now, supportive care, EtOH cessation Subjective Shraddha is a 32 year old female with a past medical history of methadone use and alcohol use disorder coming in for jaundice that had been going on for a couple weeks. Patient states that she has been drinking more heavily the past year to year and half mostly everyday when she gets home from work where she'll drink a third of vodka. She has never gone to rehab for alcohol use disorder and has not had issues with alcohol use in the past. She does have a history of alcohol abuse in her father and liver disease in her family. She states a couple weeks ago she started to notice her urine getting darker and more brown, this then followed with yellowing of her eyes and then yellowing of her skin. She became concerned about this and decided to come to the ED. She has also had accompanying abdominal pain in the upper quadrants that is an ache and comes and goes. She has not had much bowel issues however has had constipation over the past few days. She has a past history of UTI's and accompanying back pain at times due to these. She has not had the chance to establish with a PCP in the area since moving to [place] from [place]. She said she moved to escape drug abuse issues for her kids sake however found it was somewhat prevalent here too to her surprise. She moved to the area with her two sons, their father and his parents. She feels safe at home but is just lonely, no thoughts of harming herself or suicidal ideation. She has felt a few chills and some shaky hands at times but not persistent. Her last drink was last Wednesday (03/17 6 days prior). She takes methadone and is on 68mg daily of the liquid, following with a provider in the area for this. She states she would like to get off the methadone. She was willing to establish with a provider in the area for PCP but was not interested at this time in pursuing alcohol rehab saying she doesn't think she needs it and that this is a good wake up call for her. Denies any urinary symptoms such as dysuria, frequency, incontinence however has intermittent back pain. Review of Systems Review of Systems: As per HPI Physical Exam Constitutional: WD/WN, vitals as above Eyes: PERRLA, She is visibly jaundiced and skin and sclera. Respiratory: normal respiratory effort, lungs clear to auscultation Cardiovascular: RRR, no murmur, no edema Gastrointestinal (Abdomen): Inspection/Auscultation: abdomen normal to inspection and normal bowel sounds Percussion/Palpation: + abdomen rigid and + hepatosplenomegaly BS+, Abdomen softly rounded. Skin: Jaundiced skin. Neurologic: No asterixis present. Psychiatric: A+Ox3, euthymic affect Results & Data Results & Data Vital Signs (Past 12 Hours) Vital Signs Temp Pulse Pulse Resp BP BP BP 03/23/23 02:39 37.2 C 82 16 113/75 03/23/23 02:00 89 17 102/67 03/23/23 01:00 87 17 97/70 L 03/23/23 00:00 91 H 18 119/81 03/22/23 23:00 104 H 15 122/86 03/22/23 22:49 111 H 14 125/98 03/22/23 22:48 110 H 03/22/23 21:10 85 110/87 Pulse Ox O2 Del Method 03/23/23 02:39 95 Room Air 03/23/23 02:00 94 03/23/23 01:00 93 03/23/23 00:00 93 03/22/23 23:00 95 03/22/23 22:49 95 03/22/23 22:48 03/22/23 21:10 97 Room Air Resident Activity Tracking Resident Involvement: Resident Care Provided Care Provided: Adult Hospital Medicine
[2023-03-23 07:28] LABS: Basophils # (auto) 0.07 K/uL (0.00-0.20); Eosinophils # (auto) 0.08 K/uL (0.00-0.50); Eosinophils % (auto) 1.1 %; Hematocrit (blood only) 30.2 % (37.0-47.0); Hemoglobin 11.2 g/dl (12.0-16.0); Immature Granulocytes # (auto) 0.08 K/uL (0.01-0.20); Immature Granulocytes % (auto) 1.1 %; Lymphocytes # (auto) 1.63 K/uL (1.20-3.40); Lymphocytes % (auto) 22.9 %; Mean Corpuscular Hemoglobin 39.4 pg (25.0-34.0); Mean Corpuscular Hgb Conc 37.1 g/dL (32.0-36.0); Mean Corpuscular Volume 106.3 fL (80.0-100.0); Mean Platelet Volume 12.1 fL (9.4-12.4); Monocytes # (auto) 0.74 K/uL (0.11-0.59); Monocytes % (auto) 10.4 %; Neutrophils # (auto) 4.51 K/uL (1.40-6.50); Neutrophils % (auto) 63.5 %; Nucleated RBC # (auto) 0.03 K/uL (0.00-0.12); Nucleated RBC % (auto) 0.4 %; Platelet Count 200 K/uL (130-400); RDW Coefficient of Variation 20.1 % (11.5-14.5); RDW Standard Deviation 78.6 fL (36.4-46.3); Red Blood Count 2.84 M/uL (4.20-5.40); White Blood Count 7.11 K/ul (4.8-10.8)
[2023-03-23 07:50] LABS: Albumin Level 3.1 gm/dl (3.4-5.0); BUN Creatinine Ratio 13.3 (10-20); Bilirubin,Total 19.2 mg/dl (0.2-1.0); Calcium 8.7 mg/dl (8.6-10.3); Creatinine Clr Calc Pharmacy 110.8 ml/min; Est GFR (African American) 137.8 ml/min; Est GFR (Non-African American) 118.9 ml/min; Total Protein 6.1 gm/dl (6.0-8.3)
[2023-03-23 07:51] LABS: Macrocytosis Present; Polychromasia 1+; Target Cells 2+
[2023-03-23 08:07] LABS: Folate (Folic Acid),Ser orPlas 2.96 ng/ml (>5.38)
[2023-03-23] MEDS: THIAMINE HCL 100 MG TAB PO SCH (08:15)
[2023-03-23] MEDS: FOLIC ACID 1 MG TAB PO SCH (08:15)
[2023-03-23] MEDS: LIDOCAINE 5% 1 PATCH TD SCH (08:16)
[2023-03-23] MEDS: prednisoLONE sod phosphate 15 MG/5 ML PO SCH (08:17)
--- NOTE | 2023-03-23 09:03 | Gastrointestinal Consultation ---
Supervising physician's note Case discussed with Radha Nascimento NP, chart reviewed, patient seen and examined. Pleasant young woman who has been drinking heavily, daily over the past year or more due to "depression". Came to the hospital because of jaundice. Has no symptoms from her GI tract other than fullness in stomach on pressure. No nausea or vomiting. No fever or chills. Never had issues like this before Profoundly icteric She has alcoholic hepatitis and has been started on prednisone. She really has no reason she needs to be in the hospital without any symptoms that keep her here. Jaundice does not mean a patient needs to be in the hospital. The only issue of concern will be if she withdraws. I have emphasized to her that she will not survive if she keeps drinking the way she is. I have spent a total of 20 minutes of discrete time in the activities of this case today Figueroa Clifton Jr, MD, FACG Date of Consultation March 23, 2023 Assessment & Plan (1) Elevated LFTs: Elevated LFTs: The patient presented to the emergency department due to jaundice was found to have significant transaminitis, hyperbilirubinemia (TB 19.2, AST 512, ALT 113, AP 236) consistent with alcoholic hepatitis. CT abdomen pelvis demonstrated hepatomegaly and severe hepatic steatosis. The patient is an alcoholic and admits to one third of a bottle of vodka daily for greater than 1 year. She was started on prednisone 40 mg daily due to Maddrey score of 28.3 by hospitalist service. Her MELD score on admission was 22. Stressed the importance of alcohol cessation. Patient is reluctant to do inpatient alcohol rehab or outpatient therapy. Supportive care measures while inpatient and monitor for withdrawal symptoms. She will need for close GI follow-up as an outpatient. Elevated MCV: Likely related to alcohol use Case reviewed with Dr. Clifton. Please refer to supervising physician addendum for further recommendations. I have spent 45 minutes of discrete time performing the activities of this visit which include but are not limited to review of the medical record, obtaining a history, physical exam, and entering information in the electronic record. (2) Elevated bilirubin: (3) Alcohol use: (4) Jaundice: History of Present Illness Attending Physician: Vladislav Meyers DO History of Present Illness Patient is a pleasant 32-year-old female who presented to the emergency department after increasing jaundice over several weeks. She was subsequently admitted due to transaminitis, jaundice, hyperbilirubinemia. The GI service was consulted due to history. The patient reports that she has been drinking about a third of a bottle of vodka daily for greater than 1 year. 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 She states after moving to the area from [place], she lost her support system and began drinking. She is interested in quitting but reluctant to do inpatient rehab or outpatient intensive therapy. Her last drink was Wednesday or last week. The patient denies any fever, chills, night sweats, weight loss. She has had some intermittent heartburn. Denies nausea or vomiting. No anticoagulation, aspirin, NSAID, APAP use routinely. Denies any herbal supplementation or [id number] supplementation. She has some tenderness in her upper abdomen. Last bowel movement was approximately 2 days ago. Denies any melena or hematochezia. She is visibly jaundiced and skin and sclera. Abdomen softly rounded. She is unmarried with 2 children ages 7 and 12. 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 She has worked there approximately 3 years. She is a current smoker smoking 6 to 8 cigarettes/day. Denies any recreational drug use. Alcohol history as noted above. Allergies Allergy/AdvReac Type Severity Reaction Status Date / Time adhesive Allergy Hives Verified 03/23/23 03:03 Home Medications Medication Instructions Recorded Confirmed Type methadone 68 mg PO DAILY 03/23/23 03/23/23 History Patient History Medical History Methadone use Surgical History No significant past surgical history Social History Smoking Status: Current every day smoker Tobacco Type: Cigarettes Do You Dip or Chew Tobacco: No; Hx Alcohol Use: Yes Alcohol type: hard liquor Hx Substance Use: No Preferred Language: Mongolian Communication Ability: Effective It Consultant Required: No Beliefs That Will Affect Care: None Current Living Situation: Family Other Information That Helps Us Care for You: No Feels Safe at Home: Yes Safety Concerns: Feels Safe At This Time Assistive Devices: None Review of Systems Review of Systems: All systems reviewed & are unremarkable except as noted in Subjective Physical Exam Constitutional: WD/WN, vitals as above Eyes: + scleral abnormality (jaundice) Neck: normal visual inspection Respiratory: normal respiratory effort, lungs clear to auscultation Cardiovascular: RRR, no murmur, no edema Gastrointestinal (Abdomen): Inspection/Auscultation: abdomen normal to inspection and normal bowel sounds Percussion/Palpation: + abdomen tender (bilateral upper abdomen), abdomen soft and + hepatomegaly; no guarding and abdomen not rigid Musculoskeletal: no cyanosis or clubbing, extremities motor strength 5/5 Skin: + jaundice Neurologic: PERRL, EOMI, accommodation nl, no face palsy, no dysarthria Psychiatric: A+Ox3, euthymic affect Results & Data Vital Signs (Past 12 Hours) Vital Signs Temp Pulse Pulse Resp BP BP BP 03/23/23 08:14 36.8 C 71 17 102/65 03/23/23 02:39 37.2 C 82 16 113/75 03/23/23 02:00 89 17 102/67 03/23/23 01:00 87 17 97/70 L 03/23/23 00:00 91 H 18 119/81 03/22/23 23:00 104 H 15 122/86 03/22/23 22:49 111 H 14 125/98 03/22/23 22:48 110 H 03/22/23 21:10 85 110/87 Pulse Ox O2 Del Method 03/23/23 08:14 93 Room Air 03/23/23 02:39 95 Room Air 03/23/23 02:00 94 03/23/23 01:00 93 03/23/23 00:00 93 03/22/23 23:00 95 03/22/23 22:49 95 03/22/23 22:48 03/22/23 21:10 97 Room Air Laboratory Results Laboratory Results - last 24 hr 03/22/23 03/22/23 03/22/23 20:40 20:40 20:40 WBC 10.41 RBC 3.15 L Hgb 12.5 Hct 33.6 L MCV 106.7 H MCH 39.7 H MCHC 37.2 H RDW Std Deviation 78.6 H RDW Coeff of Sylvester 20.1 H Plt Count 245 MPV 12.1 Immature Gran % (Auto) 1.4 Neut % (Auto) 70.1 Lymph % (Auto) 18.0 [place] % (Auto) 9.1 Eos % (Auto) 0.7 Baso % (Auto) 0.7 Neut # (Auto) 7.30 H Lymph # (Auto) 1.87 [place] # (Auto) 0.95 H Eos # (Auto) 0.07 Baso # (Auto) 0.07 Immature Gran # (Auto) 0.15 Absolute Nucleated RBC Nucleated RBC % (auto) Polychromasia 2+ Macrocytosis Present Target Cells 2+ ESR PT 13.8 H INR 1.3 H Sodium 135 L Potassium 3.5 Chloride 95 L Carbon Dioxide 29 Anion Gap 11 BUN 10 Creatinine 0.70 Est Cr Clr Drug Dosing 95.1 Est GFR ( Amer) 131.0 Est GFR (Non-Af Amer) 113.0 BUN/Creatinine Ratio 14.3 Glucose 89 Calcium 9.5 Total Bilirubin 20.4 H Direct Bilirubin 12.1 H AST 591 H ALT 136 H Alkaline Phosphatase 297 H Ammonia C-Reactive Protein 4.73 H Total Protein 7.2 Albumin 3.6 Globulin Albumin/Globulin Ratio Vitamin B12 Methylmalonic Acid Folate HCG, Qual Urine Color Urine Appearance Urine pH Ur Specific [place] Urine Protein Urine Glucose (UA) Urine Ketones Urine Blood Urine Nitrite Urine Bilirubin Urine Urobilinogen Ur Leukocyte Esterase Urine RBC Urine WBC Ur Epithelial Cells Ur Renal Epithelial Cell Amorphous Sediment Urine Bacteria Salicylates Urine Opiates Screen Ur Methadone, Qual U Methadone Metabolites Ur Methadone Confirm Acetaminophen Urine Barbiturates Ur Phencyclidine (PCP) U Amphetamin/Meth Scrn MDMA (Ecstasy) Screen U Benzodiazepines Scrn Ur Cocaine Metabolite U Marijuana (THC) Screen Drug Screen Comment Ethyl Alcohol mg/dL Adenovirus (PCR) Anaplasma Smear A. phagocytophilum DNA B. pertussis DNA (PCR) B.parapertussis DNA PCR C. pneumoniae DNA (PCR) Coronavirus OC43 (PCR) Coronavirus HKU1 (PCR) Coronavirus 229E (PCR) SARS-CoV-2 (PCR) Coronavirus NL63 (PCR) Hepatitis A IgM Ab Hep Bs Antigen Hep Bs Ag Confirmation Hep B Core IgM Ab Hepatitis C Ab (EIA) Monoscreen Human Metapneumovir PCR Influenza Type A (PCR) Influenza Type B (PCR) M. pneumoniae (PCR) Parainfluenza 1 (PCR) Parainfluenza 2 (PCR) Parainfluenza 3 (PCR) Parainfluenza 4 (PCR) RSV (PCR) Entero/Rhino (PCR) Miscellaneous Test 03/22/23 03/22/23 03/22/23 20:40 20:40 22:50 WBC RBC Hgb Hct MCV MCH MCHC RDW Std Deviation RDW Coeff of Sylvester Plt Count MPV Immature Gran % (Auto) Neut % (Auto) Lymph % (Auto) [place] % (Auto) Eos % (Auto) Baso % (Auto) Neut # (Auto) Lymph # (Auto) [place] # (Auto) Eos # (Auto) Baso # (Auto) Immature Gran # (Auto) Absolute Nucleated RBC Nucleated RBC % (auto) Polychromasia Macrocytosis Target Cells ESR 94 H PT INR Sodium Potassium Chloride Carbon Dioxide Anion Gap BUN Creatinine Est Cr Clr Drug Dosing Est GFR ( Amer) Est GFR (Non-Af Amer) BUN/Creatinine Ratio Glucose Calcium Total Bilirubin Direct Bilirubin AST ALT Alkaline Phosphatase Ammonia C-Reactive Protein Total Protein Albumin Globulin Albumin/Globulin Ratio Vitamin B12 Methylmalonic Acid Folate HCG, Qual Negative Urine Color Urine Appearance Urine pH Ur Specific [place] Urine Protein Urine Glucose (UA) Urine Ketones Urine Blood Urine Nitrite Urine Bilirubin Urine Urobilinogen Ur Leukocyte Esterase Urine RBC Urine WBC Ur Epithelial Cells Ur Renal Epithelial Cell Amorphous Sediment Urine Bacteria Salicylates Urine Opiates Screen Ur Methadone, Qual U Methadone Metabolites Ur Methadone Confirm Acetaminophen Urine Barbiturates Ur Phencyclidine (PCP) U Amphetamin/Meth Scrn MDMA (Ecstasy) Screen U Benzodiazepines Scrn Ur Cocaine Metabolite U Marijuana (THC) Screen Drug Screen Comment Ethyl Alcohol mg/dL Adenovirus (PCR) Not Detected Anaplasma Smear A. phagocytophilum DNA B. pertussis DNA (PCR) Not Detected B.parapertussis DNA PCR Not Detected C. pneumoniae DNA (PCR) Not Detected Coronavirus OC43 (PCR) Not Detected Coronavirus HKU1 (PCR) Not Detected Coronavirus 229E (PCR) Not Detected SARS-CoV-2 (PCR) Not Detected Coronavirus NL63 (PCR) Not Detected Hepatitis A IgM Ab Hep Bs Antigen Hep Bs Ag Confirmation Hep B Core IgM Ab Hepatitis C Ab (EIA) Monoscreen Human Metapneumovir PCR Not Detected Influenza Type A (PCR) Not Detected Influenza Type B (PCR) Not Detected M. pneumoniae (PCR) Not Detected Parainfluenza 1 (PCR) Not Detected Parainfluenza 2 (PCR) Not Detected Parainfluenza 3 (PCR) Not Detected Parainfluenza 4 (PCR) Not Detected RSV (PCR) Not Detected Entero/Rhino (PCR) Not Detected Miscellaneous Test 03/22/23 03/22/23 03/22/23 22:50 22:50 22:50 WBC RBC Hgb Hct MCV MCH MCHC RDW Std Deviation RDW Coeff of Sylvester Plt Count MPV Immature Gran % (Auto) Neut % (Auto) Lymph % (Auto) [place] % (Auto) Eos % (Auto) Baso % (Auto) Neut # (Auto) Lymph # (Auto) [place] # (Auto) Eos # (Auto) Baso # (Auto) Immature Gran # (Auto) Absolute Nucleated RBC Nucleated RBC % (auto) Polychromasia Macrocytosis Target Cells ESR PT INR Sodium Potassium Chloride Carbon Dioxide Anion Gap BUN Creatinine Est Cr Clr Drug Dosing Est GFR ( Amer) Est GFR (Non-Af Amer) BUN/Creatinine Ratio Glucose Calcium Total Bilirubin Direct Bilirubin AST ALT Alkaline Phosphatase Ammonia C-Reactive Protein Total Protein Albumin Globulin Albumin/Globulin Ratio Vitamin B12 Methylmalonic Acid Folate HCG, Qual Urine Color Brown Urine Appearance Cloudy A Urine pH Ur Specific [place] 1.026 Urine Protein Urine Glucose (UA) Urine Ketones Urine Blood Urine Nitrite Urine Bilirubin Urine Urobilinogen Ur Leukocyte Esterase Urine RBC 0-4 Urine WBC 0-5 Ur Epithelial Cells 5-10 H Ur Renal Epithelial Cell 10-20 H Amorphous Sediment Present A Urine Bacteria 1+ H Salicylates Urine Opiates Screen Neg Ur Methadone, Qual Pos H U Methadone Metabolites Pending Ur Methadone Confirm Pending Acetaminophen Urine Barbiturates Neg Ur Phencyclidine (PCP) Neg U Amphetamin/Meth Scrn Neg MDMA (Ecstasy) Screen Neg U Benzodiazepines Scrn Neg Ur Cocaine Metabolite Neg U Marijuana (THC) Screen Neg Drug Screen Comment Pending Ethyl Alcohol mg/dL Adenovirus (PCR) Anaplasma Smear A. phagocytophilum DNA B. pertussis DNA (PCR) B.parapertussis DNA PCR C. pneumoniae DNA (PCR) Coronavirus OC43 (PCR) Coronavirus HKU1 (PCR) Coronavirus 229E (PCR) SARS-CoV-2 (PCR) Coronavirus NL63 (PCR) Hepatitis A IgM Ab Hep Bs Antigen Hep Bs Ag Confirmation Hep B Core IgM Ab Hepatitis C Ab (EIA) Monoscreen Human Metapneumovir PCR Influenza Type A (PCR) Influenza Type B (PCR) M. pneumoniae (PCR) Parainfluenza 1 (PCR) Parainfluenza 2 (PCR) Parainfluenza 3 (PCR) Parainfluenza 4 (PCR) RSV (PCR) Entero/Rhino (PCR) Miscellaneous Test 03/22/23 03/22/23 03/22/23 23:06 23:06 23:06 WBC RBC Hgb Hct MCV MCH MCHC RDW Std Deviation RDW Coeff of Sylvester Plt Count MPV Immature Gran % (Auto) Neut % (Auto) Lymph % (Auto) [place] % (Auto) Eos % (Auto) Baso % (Auto) Neut # (Auto) Lymph # (Auto) [place] # (Auto) Eos # (Auto) Baso # (Auto) Immature Gran # (Auto) Absolute Nucleated RBC Nucleated RBC % (auto) Polychromasia Macrocytosis Target Cells ESR PT INR Sodium Potassium Chloride Carbon Dioxide Anion Gap BUN Creatinine Est Cr Clr Drug Dosing Est GFR ( Amer) Est GFR (Non-Af Amer) BUN/Creatinine Ratio Glucose Calcium Total Bilirubin Direct Bilirubin AST ALT Alkaline Phosphatase Ammonia TNP C-Reactive Protein Total Protein Albumin Globulin Albumin/Globulin Ratio Vitamin B12 Methylmalonic Acid Folate HCG, Qual Urine Color Urine Appearance Urine pH Ur Specific [place] Urine Protein Urine Glucose (UA) Urine Ketones Urine Blood Urine Nitrite Urine Bilirubin Urine Urobilinogen Ur Leukocyte Esterase Urine RBC Urine WBC Ur Epithelial Cells Ur Renal Epithelial Cell Amorphous Sediment Urine Bacteria Salicylates < 3.0 L Urine Opiates Screen Ur Methadone, Qual U Methadone Metabolites Ur Methadone Confirm Acetaminophen < 3 L Urine Barbiturates Ur Phencyclidine (PCP) U Amphetamin/Meth Scrn MDMA (Ecstasy) Screen U Benzodiazepines Scrn Ur Cocaine Metabolite U Marijuana (THC) Screen Drug Screen Comment Ethyl Alcohol mg/dL 10.3 H Adenovirus (PCR) Anaplasma Smear A. phagocytophilum DNA B. pertussis DNA (PCR) B.parapertussis DNA PCR C. pneumoniae DNA (PCR) Coronavirus OC43 (PCR) Coronavirus HKU1 (PCR) Coronavirus 229E (PCR) SARS-CoV-2 (PCR) Coronavirus NL63 (PCR) Hepatitis A IgM Ab Hep Bs Antigen Hep Bs Ag Confirmation Hep B Core IgM Ab Hepatitis C Ab (EIA) Monoscreen Human Metapneumovir PCR Influenza Type A (PCR) Influenza Type B (PCR) M. pneumoniae (PCR) Parainfluenza 1 (PCR) Parainfluenza 2 (PCR) Parainfluenza 3 (PCR) Parainfluenza 4 (PCR) RSV (PCR) Entero/Rhino (PCR) Miscellaneous Test 03/22/23 03/23/23 03/23/23 23:06 00:02 00:02 WBC RBC Hgb Hct MCV MCH MCHC RDW Std Deviation RDW Coeff of Sylvester Plt Count MPV Immature Gran % (Auto) Neut % (Auto) Lymph % (Auto) [place] % (Auto) Eos % (Auto) Baso % (Auto) Neut # (Auto) Lymph # (Auto) [place] # (Auto) Eos # (Auto) Baso # (Auto) Immature Gran # (Auto) Absolute Nucleated RBC Nucleated RBC % (auto) Polychromasia Macrocytosis Target Cells ESR PT INR Sodium Potassium Chloride Carbon Dioxide Anion Gap BUN Creatinine Est Cr Clr Drug Dosing Est GFR ( Amer) Est GFR (Non-Af Amer) BUN/Creatinine Ratio Glucose Calcium Total Bilirubin Direct Bilirubin AST ALT Alkaline Phosphatase Ammonia C-Reactive Protein Total Protein Albumin Globulin Albumin/Globulin Ratio Vitamin B12 Methylmalonic Acid Folate HCG, Qual Urine Color Urine Appearance Urine pH Ur Specific [place] Urine Protein Urine Glucose (UA) Urine Ketones Urine Blood Urine Nitrite Urine Bilirubin Urine Urobilinogen Ur Leukocyte Esterase Urine RBC Urine WBC Ur Epithelial Cells Ur Renal Epithelial Cell Amorphous Sediment Urine Bacteria Salicylates Urine Opiates Screen Ur Methadone, Qual U Methadone Metabolites Ur Methadone Confirm Acetaminophen Urine Barbiturates Ur Phencyclidine (PCP) U Amphetamin/Meth Scrn MDMA (Ecstasy) Screen U Benzodiazepines Scrn Ur Cocaine Metabolite U Marijuana (THC) Screen Drug Screen Comment Ethyl Alcohol mg/dL Adenovirus (PCR) Anaplasma Smear A. phagocytophilum DNA Pending B. pertussis DNA (PCR) B.parapertussis DNA PCR C. pneumoniae DNA (PCR) Coronavirus OC43 (PCR) Coronavirus HKU1 (PCR) Coronavirus 229E (PCR) SARS-CoV-2 (PCR) Coronavirus NL63 (PCR) Hepatitis A IgM Ab Pending Hep Bs Antigen Pending Hep Bs Ag Confirmation Pending Hep B Core IgM Ab Pending Hepatitis C Ab (EIA) Pending Monoscreen Negative Human Metapneumovir PCR Influenza Type A (PCR) Influenza Type B (PCR) M. pneumoniae (PCR) Parainfluenza 1 (PCR) Parainfluenza 2 (PCR) Parainfluenza 3 (PCR) Parainfluenza 4 (PCR) RSV (PCR) Entero/Rhino (PCR) Miscellaneous Test 03/23/23 03/23/23 03/23/23 00:02 02:10 06:45 WBC 7.11 RBC 2.84 L Hgb 11.2 L Hct 30.2 L MCV 106.3 H MCH 39.4 H MCHC 37.1 H RDW Std Deviation 78.6 H RDW Coeff of Sylvester 20.1 H Plt Count 200 MPV 12.1 Immature Gran % (Auto) 1.1 Neut % (Auto) 63.5 Lymph % (Auto) 22.9 [place] % (Auto) 10.4 Eos % (Auto) 1.1 Baso % (Auto) 1.0 Neut # (Auto) 4.51 Lymph # (Auto) 1.63 [place] # (Auto) 0.74 H Eos # (Auto) 0.08 Baso # (Auto) 0.07 Immature Gran # (Auto) 0.08 Absolute Nucleated RBC 0.03 Nucleated RBC % (auto) 0.4 Polychromasia 1+ Macrocytosis Present Target Cells 2+ ESR PT INR Sodium Potassium Chloride Carbon Dioxide Anion Gap BUN Creatinine Est Cr Clr Drug Dosing Est GFR ( Amer) Est GFR (Non-Af Amer) BUN/Creatinine Ratio Glucose Calcium Total Bilirubin Direct Bilirubin AST ALT Alkaline Phosphatase Ammonia C-Reactive Protein Total Protein Albumin Globulin Albumin/Globulin Ratio Vitamin B12 Methylmalonic Acid Folate HCG, Qual Urine Color Urine Appearance Urine pH Ur Specific [place] Urine Protein Urine Glucose (UA) Urine Ketones Urine Blood Urine Nitrite Urine Bilirubin Urine Urobilinogen Ur Leukocyte Esterase Urine RBC Urine WBC Ur Epithelial Cells Ur Renal Epithelial Cell Amorphous Sediment Urine Bacteria Salicylates Urine Opiates Screen Ur Methadone, Qual U Methadone Metabolites Ur Methadone Confirm Acetaminophen Urine Barbiturates Ur Phencyclidine (PCP) U Amphetamin/Meth Scrn MDMA (Ecstasy) Screen U Benzodiazepines Scrn Ur Cocaine Metabolite U Marijuana (THC) Screen Drug Screen Comment Ethyl Alcohol mg/dL Adenovirus (PCR) Anaplasma Smear See Comment A. phagocytophilum DNA B. pertussis DNA (PCR) B.parapertussis DNA PCR C. pneumoniae DNA (PCR) Coronavirus OC43 (PCR) Coronavirus HKU1 (PCR) Coronavirus 229E (PCR) SARS-CoV-2 (PCR) Coronavirus NL63 (PCR) Hepatitis A IgM Ab Hep Bs Antigen Hep Bs Ag Confirmation Hep B Core IgM Ab Hepatitis C Ab (EIA) Monoscreen Human Metapneumovir PCR Influenza Type A (PCR) Influenza Type B (PCR) M. pneumoniae (PCR) Parainfluenza 1 (PCR) Parainfluenza 2 (PCR) Parainfluenza 3 (PCR) Parainfluenza 4 (PCR) RSV (PCR) Entero/Rhino (PCR) Miscellaneous Test Pending 03/23/23 03/23/23 03/23/23 06:45 06:45 06:45 WBC RBC Hgb Hct MCV MCH MCHC RDW Std Deviation RDW Coeff of Sylvester Plt Count MPV Immature Gran % (Auto) Neut % (Auto) Lymph % (Auto) [place] % (Auto) Eos % (Auto) Baso % (Auto) Neut # (Auto) Lymph # (Auto) [place] # (Auto) Eos # (Auto) Baso # (Auto) Immature Gran # (Auto) Absolute Nucleated RBC Nucleated RBC % (auto) Polychromasia Macrocytosis Target Cells ESR PT INR Sodium 136 Potassium 3.0 L Chloride 96 L Carbon Dioxide 30 Anion Gap 10 BUN 8 Creatinine 0.60 Est Cr Clr Drug Dosing 110.8 Est GFR ( Amer) 137.8 Est GFR (Non-Af Amer) 118.9 BUN/Creatinine Ratio 13.3 Glucose 75 Calcium 8.7 Total Bilirubin 19.2 H Direct Bilirubin AST 512 H ALT 113 H Alkaline Phosphatase 236 H Ammonia C-Reactive Protein Total Protein 6.1 Albumin 3.1 L Globulin 3.0 Albumin/Globulin Ratio 1.0 Vitamin B12 1148 H Methylmalonic Acid Pending Folate 2.96 L HCG, Qual Urine Color Urine Appearance Urine pH Ur Specific [place] Urine Protein Urine Glucose (UA) Urine Ketones Urine Blood Urine Nitrite Urine Bilirubin Urine Urobilinogen Ur Leukocyte Esterase Urine RBC Urine WBC Ur Epithelial Cells Ur Renal Epithelial Cell Amorphous Sediment Urine Bacteria Salicylates Urine Opiates Screen Ur Methadone, Qual U Methadone Metabolites Ur Methadone Confirm Acetaminophen Urine Barbiturates Ur Phencyclidine (PCP) U Amphetamin/Meth Scrn MDMA (Ecstasy) Screen U Benzodiazepines Scrn Ur Cocaine Metabolite U Marijuana (THC) Screen Drug Screen Comment Ethyl Alcohol mg/dL Adenovirus (PCR) Anaplasma Smear A. phagocytophilum DNA B. pertussis DNA (PCR) B.parapertussis DNA PCR C. pneumoniae DNA (PCR) Coronavirus OC43 (PCR) Coronavirus HKU1 (PCR) Coronavirus 229E (PCR) SARS-CoV-2 (PCR) Coronavirus NL63 (PCR) Hepatitis A IgM Ab Hep Bs Antigen Hep Bs Ag Confirmation Hep B Core IgM Ab Hepatitis C Ab (EIA) Monoscreen Human Metapneumovir PCR Influenza Type A (PCR) Influenza Type B (PCR) M. pneumoniae (PCR) Parainfluenza 1 (PCR) Parainfluenza 2 (PCR) Parainfluenza 3 (PCR) Parainfluenza 4 (PCR) RSV (PCR) Entero/Rhino (PCR) Miscellaneous Test Diagnostic Findings Abdomen/Pelvis CT 03/22/23 22:32 Exam(s): CT ABDOMEN + PELVIS With Contrast IV Amt: 90 ML OPTIRAY 320 EXAM: CT Abdomen and Pelvis With Intravenous Contrast CLINICAL HISTORY: Reason for exam: jaundice, elevated bilirubin. TECHNIQUE: Axial computed tomography images of the abdomen and pelvis with intravenous contrast. Automated exposure control was utilized for the study. A dose lowering technique was utilized adhering to the principles of ALARA. CONTRAST: Patient received 90 ML OPTIRAY 320 of IV contrast COMPARISON: No relevant prior studies available. FINDINGS: Lung bases: Unremarkable. No mass. No consolidation. ABDOMEN: Liver: There is advanced severe hepatic steatosis, please correlate for steatohepatitis. Gallbladder and bile ducts: Moderate distention of the gallbladder is noted. No calcified stones. No ductal dilation. Pancreas: Unremarkable. No mass. No ductal dilation. Spleen: Unremarkable. No splenomegaly. Adrenals: Unremarkable. No mass. Kidneys and ureters: Unremarkable. No solid mass. No hydronephrosis. Stomach and bowel: Unremarkable. No obstruction. No mucosal thickening. PELVIS: Appendix: No findings to suggest acute appendicitis. Bladder: Unremarkable. No mass. Reproductive: Unremarkable as visualized. ABDOMEN and PELVIS: Intraperitoneal space: Unremarkable. No free air. No significant fluid collection. Bones/joints: No acute fracture. No dislocation. Soft tissues: There is an umbilical piercing. Vasculature: Unremarkable. No abdominal aortic aneurysm. Lymph nodes: Unremarkable. No enlarged lymph nodes. IMPRESSION: There is advanced severe hepatic steatosis with engorgement of the liver, please correlate for steatohepatitis. Electronically signed by: Maldonado Lockhart MD 03/22/23 23:47 PM
[2023-03-23] MEDS ORDERED: POTASSIUM CHLORIDE CRTAB 20 MEQ TABCR PO STA (09:30)
[2023-03-23] MEDS: METHADONE ORAL SOLN 2 MG/ML PO SCH (10:05)
[2023-03-23] MEDS: PATIENT'S OWN CONTROLLED MED 1 PO SCH (10:05)
[2023-03-23] MEDS: NICOTINE 14 MG/24 HR PATCH TD SCH (18:42)
--- NOTE | 2023-03-23 21:26 | Billing Data ---
Date of Service March 23, 2023 Coding Level of Care Code 20684 INT INP/OBS CARE
[2023-03-24 07:15] LABS: Basophils # (auto) 0.07 K/uL (0.00-0.20); Basophils % (auto) 0.8 %; Eosinophils # (auto) 0.06 K/uL (0.00-0.50); Eosinophils % (auto) 0.7 %; Hematocrit (blood only) 30.8 % (37.0-47.0); Hemoglobin 11.6 g/dl (12.0-16.0); Immature Granulocytes # (auto) 0.14 K/uL (0.01-0.20); Immature Granulocytes % (auto) 1.5 %; Lymphocytes # (auto) 2.15 K/uL (1.20-3.40); Lymphocytes % (auto) 23.7 %; Mean Corpuscular Hemoglobin 39.3 pg (25.0-34.0); Mean Corpuscular Hgb Conc 37.7 g/dL (32.0-36.0); Mean Corpuscular Volume 104.4 fL (80.0-100.0); Mean Platelet Volume 12.4 fL (9.4-12.4); Monocytes # (auto) 0.87 K/uL (0.11-0.59); Monocytes % (auto) 9.6 %; Neutrophils # (auto) 5.77 K/uL (1.40-6.50); Neutrophils % (auto) 63.7 %; Platelet Count 221 K/uL (130-400); RDW Coefficient of Variation 20.2 % (11.5-14.5); RDW Standard Deviation 76.4 fL (36.4-46.3); Red Blood Count 2.95 M/uL (4.20-5.40); White Blood Count 9.06 K/ul (4.8-10.8)
[2023-03-24 07:40] LABS: Albumin Level 2.9 gm/dl (3.4-5.0); BUN Creatinine Ratio 17.9 (10-20); Bilirubin,Total 16.9 mg/dl (0.2-1.0); Creatinine Clr Calc Pharmacy 118.7 ml/min; Est GFR (Non-African American) 121.7 ml/min; Magnesium 1.6 mg/dl (1.7-2.4); Potassium 3.3 mmol/L (3.5-5.1); Total Protein 5.9 gm/dl (6.0-8.3)
--- NOTE | 2023-03-24 07:40 | Hospitalist Progress Note ---
Date of Service March 24, 2023 Assessment & Plan (1) Jaundice: Plan: 32 year old female w/ PmHx methadone use admitted for severe hepatic steatosis and hyperbilirubinemia. Jaundice Alcohol hepatitis Severe hepatic stenosis - Bili 19.2 decreasing trend on admission -Transaminis in decreasing trend -CT A&P w/ evidence for severe hepatic steatosis w/ engorgement of liver. -History and lab work points towards alcohol induced hyperbilirubinemia and transaminitis. -Last drink 03/17 (6 days ago), alcohol level 10.3, no withdrawal symptoms currently. Will put on AWSS protocol. -MELD score 22 (predict mortality), Maddrey 28.3. - prednisolone 40mg daily. -Daily thiamine, folate PO ordered. -Consulted GI, She will need for close GI follow-up as an outpatient. Follow up outpatient with PCP was arranged -CMP daily Alcohol use disorder -The patient is an alcoholic and admits to one third of a bottle of vodka daily for greater than 1 year. -Mild symptoms of withdrawal at the moment: anxiety, restlessness, headaches -Last drink 03/17 (6 days ago), alcohol level 10.3, no withdrawal symptoms currently. Will put on AWSS protocol. -MELD score 22 (predict mortality), Maddrey 28.3. Will start patient on prednisolone 40mg daily. -Today Maddrey score: 27.5. On prednisolone 40 mg daily -> 32 will benefit of glucocorticoids -Patient contemplating quitting alcohol, do not want to start rehab at the moment. -AWSS: 1 (low risk) -Case management on case Elevated MCV: -MCV 106.7 in the ED, hgb 12.5. -Will obtain B12, Folate, MMA to rule out deficiency. - Low folate levels B12: 1148 -Continue Folic acid vitamin Abnormal urinalysis: -UA with difficulty reading due to bilirubin/discoloration. -UA contaminated -No urinary symptoms currently, will hold off on treatment for now. Elevated MCV: -MCV 106.7 in the ED, hgb 12.5. -Will obtain B12, Folate, MMA to rule out deficiency. - Low folate levels B12: 1148 MEthylmalonic acid: pending Methadone use: -9 years -[facility] -Continued home methadone 68mg daily. Patient need to return methadone that was given to he on that Clinic. Hypokalemia K of 3.0 Potassium Chloride 40 meq PO given today Follow labs am F/E/N/GI: Regular diet. DVT Prophylaxis: patient ambulatory, no need for chemoprophylaxis currently. Code status: Full Dispo: Med/surg (2) Methadone use: (3) Abnormal urinalysis: (4) Elevated MCV: Admission and Anticipated Discharge Date Admission Date: March 23, 2023 Supervising Physician Co-Signing Physician Notes I personally examined the patient and verified all jose points of history and exam, discussed case, and agree with decision making with Dr Vaughn Danielle Feeling better. Notes that she drinks as self-medication for anxiety. vitals noted nad quite jaundiced but probably a little bit less than yesterday, labs noted, bilirubin trending down. Breathing unlabored no accessory muscle use good effort. acute EtOH hepatitis superimposed on chronic EtOH steatohepatitis - steroids for now, supportive care, EtOH cessation. Discussed alternate means of stress management. Probably home tomorrow. Outpatient follow-up getting set up. Norberto Llanes is a 32 year old female with a past medical history of methadone use and alcohol use disorder coming in for jaundice that had been going on for a couple weeks. Patient states that she has been drinking more heavily the past year to year and half mostly everyday when she gets home from work where she'll drink a third of vodka. She has never gone to rehab for alcohol use disorder and has not had issues with alcohol use in the past. She does have a history of alcohol abuse in her father and liver disease in her family. She states a couple weeks ago she started to notice her urine getting darker and more brown, this then followed with yellowing of her eyes and then yellowing of her skin. She became concerned about this and decided to come to the ED. She has also had accompanying abdominal pain in the upper quadrants that is an ache and comes and goes. She has not had much bowel issues however has had constipation over the past few days. She has a past history of UTI's and accompanying back pain at times due to these. She has not had the chance to establish with a PCP in the area since moving to [place] from [place]. She said she moved to escape drug abuse issues for her kids sake however found it was somewhat prevalent here too to her surprise. She moved to the area with her two sons, their father and his parents. She feels safe at home but is just lonely, no thoughts of harming herself or suicidal ideation. She has felt a few chills and some shaky hands at times but not persistent. Her last drink was last Wednesday (03/17 6 days prior). She takes methadone and is on 68mg daily of the liquid, following with a provider in the area for this. She states she would like to get off the methadone. She was willing to establish with a provider in the area for PCP but was not interested at this time in pursuing alcohol rehab saying she doesn't think she needs it and that this is a good wake up call for her. Denies any urinary symptoms such as dysuria, frequency, incontinence however has intermittent back pain. 03/24 Patient evaluated today, AAOx3. Patient with no previous PCP. We coordinate appointment for 04/[address] Zana Wayne. Patient denied today sob, nausea, vomits, anxiety, diarrhea, abdominal pain or any other symtoms. Review of Systems Review of Systems: per HPI Physical Exam Constitutional: WD/WN, vitals as above Respiratory: normal respiratory effort, lungs clear to auscultation Cardiovascular: RRR, no murmur, no edema Gastrointestinal (Abdomen): Inspection/Auscultation: abdomen normal to in spection and normal bowel sounds Percussion/Palpation: + abdomen rigid and + hepatosplenomegaly Psychiatric: A+Ox3, euthymic affect Results & Data Results & Data Vital Signs (Past 12 Hours) Vital Signs Temp Pulse Resp BP Pulse Ox O2 Del Method 03/24/23 03:30 36.9 C 68 18 101/69 97 Room Air 03/23/23 23:36 36.8 C 58 L 16 107/71 96 Room Air 03/23/23 19:40 36.8 C 63 16 108/68 95 Room Air
[2023-03-24 07:46] LABS: Macrocytosis Present; Polychromasia 1+; Target Cells 2+
[2023-03-24] MEDS: THIAMINE HCL 100 MG TAB PO SCH (08:21)
[2023-03-24] MEDS: FOLIC ACID 1 MG TAB PO SCH (08:21)
[2023-03-24] MEDS: NICOTINE 14 MG/24 HR PATCH TD SCH (08:22)
[2023-03-24] MEDS: LIDOCAINE 5% 1 PATCH TD SCH (08:22)
[2023-03-24] MEDS: prednisoLONE sod phosphate 15 MG/5 ML PO SCH (08:23)
[2023-03-24] MEDS: MAGNESIUM SULFATE / D5W 1 GM/100 ML BAG IV SCH ×2 (08:23→10:12)
[2023-03-24] MEDS: METHADONE ORAL SOLN 2 MG/ML PO SCH (08:23)
[2023-03-24] MEDS: PATIENT'S OWN CONTROLLED MED 1 PO SCH (08:24)
--- NOTE | 2023-03-24 09:04 | Gastroenterology Progress Note ---
Supervising physician's note Case discussed with Radha Nascimento NP, chart reviewed. Patient seen See Radha's notes for full details. She has alcoholic hepatitis and jaundice. No sign of withdrawal. Okay to go home from GI standpoint barring withdrawal symptoms I spent a total of 10 minutes taking care of all details. Figueroa Clifton Jr, MD, [facility] [place] Date of Service March 24, 2023 Assessment & Plan (1) Elevated LFTs: Plan: Alcoholic hepatitis: LFTs improving this morning (TB 16.9, AST 429, ALT 103, AP 223). Prednisone per hospitalist. Stressed the importance of alcohol cessation. Supportive care measures while inpatient and monitor for withdrawal symptoms. She will need for close GI follow-up as an outpatient. Elevated MCV: Likely related to alcohol use Case reviewed with Dr. Clifton. Please refer to supervising physician addendum for further recommendations. I have spent 15 minutes of discrete time performing the activities of this visit which include but are not limited to review of the medical record, obtaining a history, physical exam, and entering information in the electronic record. (2) Elevated bilirubin: (3) Alcohol use: (4) Jaundice: Admission and Anticipated Discharge Date Admission Date: March 23, 2023 Subjective Patient awake alert and oriented this morning. Sitting position of comfort on the bed eating her breakfast. Has 0 complaints this morning. Denies nausea or vomiting. Some upper abdominal pressure and bloating feeling continues. She has not had bowel movement. Continues MiraLAX. Review of Systems Review of Systems: All systems reviewed & are unremarkable except as noted in Subjective Physical Exam Gastrointestinal (Abdomen): Inspection/Auscultation: abdomen normal to inspection and normal bowel sounds Percussion/Palpation: + abdomen tender (bilateral upper abdomen), abdomen soft and + hepatomegaly; no guarding and abdomen not rigid Results & Data Vital Signs (Past 12 Hours) Vital Signs Temp Pulse Resp BP Pulse Ox O2 Del Method 03/24/23 07:45 36.5 C 60 20 97/62 L 96 Room Air 03/24/23 03:30 36.9 C 68 18 101/69 97 Room Air 03/23/23 23:36 36.8 C 58 L 16 107/71 96 Room Air Laboratory Results Laboratory Results - last 24 hr 03/24/23 03/24/23 06:31 06:31 WBC 9.06 RBC 2.95 L Hgb 11.6 L Hct 30.8 L MCV 104.4 H MCH 39.3 H MCHC 37.7 H RDW Std Deviation 76.4 H RDW Coeff of Sylvester 20.2 H Plt Count 221 MPV 12.4 Immature Gran % (Auto) 1.5 Neut % (Auto) 63.7 Lymph % (Auto) 23.7 [place] % (Auto) 9.6 Eos % (Auto) 0.7 Baso % (Auto) 0.8 Neut # (Auto) 5.77 Lymph # (Auto) 2.15 [place] # (Auto) 0.87 H Eos # (Auto) 0.06 Baso # (Auto) 0.07 Immature Gran # (Auto) 0.14 Polychromasia 1+ Macrocytosis Present Target Cells 2+ Sodium 136 Potassium 3.3 L Chloride 99 Carbon Dioxide 31 Anion Gap 6 BUN 10 Creatinine 0.56 L Est Cr Clr Drug Dosing 118.7 Est GFR ( Amer) 141.0 Est GFR (Non-Af Amer) 121.7 BUN/Creatinine Ratio 17.9 Glucose 64 L Calcium 9.0 Magnesium 1.6 L Total Bilirubin 16.9 H AST 429 H ALT 103 H Alkaline Phosphatase 223 H Total Protein 5.9 L Albumin 2.9 L Globulin 3.0 Albumin/Globulin Ratio 1.0
[2023-03-24 11:27] LABS: HBSAG NON-REACTIVE (NON-REACTIVE); Hepatitis A Antibody IgM NON-REACTIVE (NON-REACTIVE); Hepatitis B Core Antibody IgM NON-REACTIVE (NON-REACTIVE)
[2023-03-24] MEDS ORDERED: POLYETHYLENE (MIRALAX) 17 GM PACK PO STA (15:43)
[2023-03-24 16:13] LABS: Methadone, Ur Metabolite >10000 ng/mL (<100)
[2023-03-24] MEDS ORDERED: POLYETHYLENE (MIRALAX) 17 GM PACK PO PRN (18:33)
--- NOTE | 2023-03-24 19:33 | Billing Data ---
Date of Service March 24, 2023 Coding Level of Care Code 05319 SUB INP/OBS CARE MIN
--- NOTE | 2023-03-25 07:45 | Hospitalist Progress Note ---
Date of Service March 25, 2023 Assessment & Plan (1) Jaundice: Plan: 32 year old female w/ PmHx methadone use admitted for severe hepatic steatosis and hyperbilirubinemia. Jaundice Alcohol hepatitis Severe hepatic stenosis - Bili 19.2 decreasing trend on admission -Transaminis in decreasing trend -CT A&P w/ evidence for severe hepatic steatosis w/ engorgement of liver. -History and lab work points towards alcohol induced hyperbilirubinemia and transaminitis. -Last drink 03/17 (6 days ago), alcohol level 10.3, no withdrawal symptoms currently. Will put on AWSS protocol. -MELD score 22 (predict mortality), Maddrey 28.3. - prednisolone 40mg daily. -Daily thiamine, folate PO ordered. -Consulted GI, She will need for close GI follow-up as an outpatient. Follow up outpatient with PCP was arranged -CMP daily Alcohol use disorder -The patient is an alcoholic and admits to one third of a bottle of vodka daily for greater than 1 year. -Mild symptoms of withdrawal at the moment: anxiety, restlessness, headaches -Last drink 03/17 (6 days ago), alcohol level 10.3, no withdrawal symptoms currently. Will put on AWSS protocol. -MELD score 22 (predict mortality), Maddrey 28.3. Will start patient on prednisolone 40mg daily. -Today Maddrey score: 27.5. On prednisolone 40 mg daily -> 32 will benefit of glucocorticoids -Patient contemplating quitting alcohol, do not want to start rehab at the moment. -AWSS: 1 (low risk) -Case management on case Elevated MCV: -MCV 106.7 in the ED, hgb 12.5. -Will obtain B12, Folate, MMA to rule out deficiency. - Low folate levels B12: 1148 -Continue Folic acid vitamin Abnormal urinalysis: -UA with difficulty reading due to bilirubin/discoloration. -UA contaminated -No urinary symptoms currently, will hold off on treatment for now. Elevated MCV: -MCV 106.7 in the ED, hgb 12.5. -Will obtain B12, Folate, MMA to rule out deficiency. - Low folate levels B12: 1148 MEthylmalonic acid: pending Methadone use: -9 years -[facility] -Continued home methadone 68mg daily. Patient need to return methadone that was given to he on that Clinic. Hypokalemia K of 3.0 Potassium Chloride 40 meq PO given today Follow labs am F/E/N/GI: Regular diet. DVT Prophylaxis: patient ambulatory, no need for chemoprophylaxis currently. Code status: Full Dispo: Med/surg (2) Methadone use: (3) Abnormal urinalysis: (4) Elevated MCV: Admission and Anticipated Discharge Date Admission Date: March 23, 2023 Norberto Llanes is a 32 year old female with a past medical history of methadone use and alcohol use disorder coming in for jaundice that had been going on for a couple weeks. Patient states that she has been drinking more heavily the past year to year and half mostly everyday when she gets home from work where she'll drink a third of vodka. She has never gone to rehab for alcohol use disorder and has not had issues with alcohol use in the past. She does have a history of alcohol abuse in her father and liver disease in her family. She states a couple weeks ago she started to notice her urine getting darker and more brown, this then followed with yellowing of her eyes and then yellowing of her skin. She became concerned about this and decided to come to the ED. She has also had accompanying abdominal pain in the upper quadrants that is an ache and comes and goes. She has not had much bowel issues however has had constipation over the past few days. She has a past history of UTI's and accompanying back pain at times due to these. She has not had the chance to establish with a PCP in the area since moving to [place] from [place]. She said she moved to escape drug abuse issues for her kids sake however found it was somewhat prevalent here too to her surprise. She moved to the area with her two sons, their father and his parents. She feels safe at home but is just lonely, no thoughts of harming herself or suicidal ideation. She has felt a few chills and some shaky hands at times but not persistent. Her last drink was last Wednesday (03/17 6 days prior). She takes methadone and is on 68mg daily of the liquid, following with a provider in the area for this. She states she would like to get off the methadone. She was willing to establish with a provider in the area for PCP but was not interested at this time in pursuing alcohol rehab saying she doesn't think she needs it and that this is a good wake up call for her. Denies any urinary symptoms such as dysuria, frequency, incontinence however has intermittent back pain. 03/24 Patient evaluated today, AAOx3. Patient with no previous PCP. We coordinate appointment for 04/[address] Zana Wayne. Patient denied today sob, nausea, vomits, anxiety, diarrhea, abdominal pain or any other symtoms. Physical Exam Constitutional: WD/WN, vitals as above Respiratory: normal respiratory effort, lungs clear to auscultation Cardiovascular: RRR, no murmur, no edema Gastrointestinal (Abdomen): Inspection/Auscultation: abdomen normal to inspection and normal bowel sounds Percussion/Palpation: + abdomen rigid and + hepatosplenomegaly Psychiatric: A+Ox3, euthymic affect Results & Data Results & Data Vital Signs (Past 12 Hours) Vital Signs Temp Pulse Resp BP Pulse Ox O2 Del Method 03/24/23 21:30 36.8 C 67 18 106/73 97 Room Air
[2023-03-25] MEDS: THIAMINE HCL 100 MG TAB PO SCH (08:30)
[2023-03-25] MEDS: NICOTINE 14 MG/24 HR PATCH TD SCH (08:30)
[2023-03-25] MEDS: LIDOCAINE 5% 1 PATCH TD SCH (08:31)
[2023-03-25] MEDS: FOLIC ACID 1 MG TAB PO SCH (08:31)
[2023-03-25] MEDS: prednisoLONE sod phosphate 15 MG/5 ML PO SCH (08:32)
[2023-03-25] MEDS: PATIENT'S OWN CONTROLLED MED 1 PO SCH ×2 (08:33→10:11)
[2023-03-25 08:41] LABS: Basophils # (auto) 0.05 K/uL (0.00-0.20); Basophils % (auto) 0.6 %; Eosinophils # (auto) 0.07 K/uL (0.00-0.50); Eosinophils % (auto) 0.8 %; Hematocrit (blood only) 35.2 % (37.0-47.0); Hemoglobin 12.6 g/dl (12.0-16.0); Immature Granulocytes # (auto) 0.17 K/uL (0.01-0.20); Lymphocytes # (auto) 2.29 K/uL (1.20-3.40); Lymphocytes % (auto) 26.4 %; Mean Corpuscular Hemoglobin 39.1 pg (25.0-34.0); Mean Corpuscular Hgb Conc 35.8 g/dL (32.0-36.0); Mean Corpuscular Volume 109.3 fL (80.0-100.0); Mean Platelet Volume 12.3 fL (9.4-12.4); Monocytes % (auto) 8.1 %; Neutrophils # (auto) 5.41 K/uL (1.40-6.50); Neutrophils % (auto) 62.1 %; Platelet Count 253 K/uL (130-400); RDW Coefficient of Variation 19.8 % (11.5-14.5); RDW Standard Deviation 80.5 fL (36.4-46.3); Red Blood Count 3.22 M/uL (4.20-5.40); White Blood Count 8.69 K/ul (4.8-10.8)
[2023-03-25 09:07] LABS: Albumin Globulin Ratio 0.9 (0.9-2); Albumin Level 3.1 gm/dl (3.4-5.0); BUN Creatinine Ratio 18.6 (10-20); Bilirubin,Total 15.2 mg/dl (0.2-1.0); Calcium 8.9 mg/dl (8.6-10.3); Creatinine Clr Calc Pharmacy 112.7 ml/min; Est GFR (African American) 138.6 ml/min; Est GFR (Non-African American) 119.6 ml/min; Globulin 3.3 gm/dl (2.5-4.0); Potassium 3.2 mmol/L (3.5-5.1); Total Protein 6.4 gm/dl (6.0-8.3)
[2023-03-25 09:08] LABS: INR 1.3 (0.9-1.1); Prothrombin Time 13.6 Seconds (9.0-12.0)
[2023-03-25] MEDS: METHADONE ORAL SOLN 2 MG/ML PO SCH ×2 (10:04→10:09)
--- NOTE | 2023-03-25 12:04 | Discharge Summary ---
Date of Service March 25, 2023 Admission HPI Per Admitting Provider Shraddha is a 32 year old female with a past medical history of methadone use and alcohol use disorder coming in for jaundice that had been going on for a couple weeks. Patient states that she has been drinking more heavily the past year to year and half mostly everyday when she gets home from work where she'll drink a quarter of vodka. She says that she did not used to drink this much before however started drinking when she came up here and felt lonely being away from most of her family and friends. She has never gone to rehab for alcohol use disorder and has not had issues with alcohol use in the past. She does have a history of alcohol abuse in her father and liver disease in her family. She states a couple weeks ago she started to notice her urine getting darker and more brown, this then followed with yellowing of her eyes and then yellowing of her skin. She became concerned about this and decided to come to the ED. She has also had accompanying abdominal pain in the upper quadrants that is an ache and comes and goes. She has not had much bowel issues however has had constipation over the past few days. She has a past history of UTI's and accompanying back pain at times due to these. She has not had the chance to establish with a PCP in the area since moving to [place] from [place]. She said she moved to escape drug abuse issues for her kids sake however found it was somewhat prevalent here too to her surprise. She moved to the area with her two sons, their father and his parents. She feels safe at home but is just lonely, no thoughts of harming herself or suicidal ideation. She has felt a few chills and some shaky hands at times but not persistent. Her last drink was last Wednesday (03/17 6 days prior). She takes methadone and is on 68mg daily of the liquid, following with a provider in the area for this. She states she would like to get off the methadone. She was willing to establish with a provider in the area for PCP but was not interested at this time in pursuin alcohol rehab saying she doesn't think she needs it and that this is a good wake up call for her. Denies any urinary symptoms such as dysuria, frequency, incontinence however has intermittent back pain. In the ED Hgb 12.5, MCV 106.7, WBC 10.41, PT 13.8, INR 1.3, AST 591, ALT 136, T. bili 20.4, D. bili 12.1, alk phos 297, alcohol level 10.3. CT A&P had evidence for advanced severe hepatic steatosis w/ engorgement of liver. Admission Exam Per Admitting Provider Constitutional: WD/WN, vitals as above Eyes: PERRLA, icteric sclera Respiratory: normal respiratory effort, lungs clear to auscultation Cardiovascular: RRR, no murmur, no edema Gastrointestinal (Abdomen): BS+, soft, tender to palpation in the upper quadrants with palpable liver 1cm below the rib cage. Skin: Jaundiced skin. Neurologic: No asterixis present. Psychiatric: A+Ox3, euthymic affect Principal Diagnosis Severe hepatic stenosis Alcoholic hepatitis Discharge Exam Constitutional WD/WN, vitals as above Eyes + anicteric sclerae ENMT external ear and nose normal, oropharynx normal Respiratory normal respiratory effort, lungs clear to auscultation Cardiovascular RRR, no murmur, no edema Gastrointestinal (Abdomen) Inspection/Auscultation: abdomen normal to inspection Percussion/Palpation: abdomen soft and + hepatosplenomegaly Musculoskeletal no cyanosis or clubbing, extremities motor strength 5/5 Neurologic PERRL, EOMI, accommodation nl, no face palsy, no dysarthria Psychiatric A+Ox3, euthymic affect Discharge Data Allergies Allergy/AdvReac Type Severity Reaction Status Date / Time adhesive Allergy Hives Verified 03/23/23 03:03 Consultations 03/23/23 01:03 ED Decision to Admit Stat 03/23/23 02:39 Consult Gastroenterology Routine Ordered Studies Labs 03/22/23 03/22/23 03/22/23 20:40 20:40 20:40 WBC 10.41 RBC 3.15 L Hgb 12.5 Hct 33.6 L MCV 106.7 H MCH 39.7 H MCHC 37.2 H RDW Std Deviation 78.6 H RDW Coeff of Sylvester 20.1 H Plt Count 245 MPV 12.1 Immature Gran % (Auto) 1.4 Neut % (Auto) 70.1 Lymph % (Auto) 18.0 [place]verse % (Auto) 9.1 Eos % (Auto) 0.7 Baso % (Auto) 0.7 Neut # (Auto) 7.30 H Lymph # (Auto) 1.87 Traverse # (Auto) 0.95 H Eos # (Auto) 0.07 Baso # (Auto) 0.07 Immature Gran # (Auto) 0.15 Absolute Nucleated RBC Nucleated RBC % (auto) Polychromasia 2+ Macrocytosis Present Target Cells 2+ ESR PT 13.8 H INR 1.3 H Sodium 135 L Potassium 3.5 Chloride 95 L Carbon Dioxide 29 Anion Gap 11 BUN 10 Creatinine 0.70 Est Cr Clr Drug Dosing 95.1 Est GFR ( Amer) 131.0 Est GFR (Non-Af Amer) 113.0 BUN/Creatinine Ratio 14.3 Glucose 89 Calcium 9.5 Magnesium Total Bilirubin 20.4 H Direct Bilirubin 12.1 H AST 591 H ALT 136 H Alkaline Phosphatase 297 H Ammonia C-Reactive Protein 4.73 H Total Protein 7.2 Albumin 3.6 Globulin Albumin/Globulin Ratio Vitamin B12 Folate HCG, Qual Urine Color Urine Appearance Urine pH Ur Specific [place] Urine Protein Urine Glucose (UA) Urine Ketones Urine Blood Urine Nitrite Urine Bilirubin Urine Urobilinogen Ur Leukocyte Esterase Urine RBC Urine WBC Ur Epithelial Cells Ur Renal Epithelial Cell Amorphous Sediment Urine Bacteria Salicylates Urine Opiates Screen Ur Methadone, Qual U Methadone Metabolites Ur Methadone Confirm Acetaminophen Urine Barbiturates Ur Phencyclidine (PCP) U Amphetamin/Meth Scrn MDMA (Ecstasy) Screen U Benzodiazepines Scrn Ur Cocaine Metabolite U Marijuana (THC) Screen Drug Screen Comment Ethyl Alcohol mg/dL Adenovirus (PCR) Anaplasma Smear B. pertussis DNA (PCR) B.parapertussis DNA PCR C. pneumoniae DNA (PCR) Coronavirus OC43 (PCR) Coronavirus HKU1 (PCR) Coronavirus 229E (PCR) SARS-CoV-2 (PCR) Coronavirus NL63 (PCR) Hepatitis A IgM Ab Hep Bs Antigen Hep Bs Ag Confirmation Hep B Core IgM Ab Hepatitis C Ab (EIA) Monoscreen Human Metapneumovir PCR Influenza Type A (PCR) Influenza Type B (PCR) M. pneumoniae (PCR) Parainfluenza 1 (PCR) Parainfluenza 2 (PCR) Parainfluenza 3 (PCR) Parainfluenza 4 (PCR) RSV (PCR) Entero/Rhino (PCR) Miscellaneous Test 03/22/23 03/22/23 03/22/23 20:40 20:40 22:50 WBC RBC Hgb Hct MCV MCH MCHC RDW Std Deviation RDW Coeff of Sylvester Plt Count MPV Immature Gran % (Auto) Neut % (Auto) Lymph % (Auto) [place] % (Auto) Eos % (Auto) Baso % (Auto) Neut # (Auto) Lymph # (Auto) [place] # (Auto) Eos # (Auto) Baso # (Auto) Immature Gran # (Auto) Absolute Nucleated RBC Nucleated RBC % (auto) Polychromasia Macrocytosis Target Cells ESR 94 H PT INR Sodium Potassium Chloride Carbon Dioxide Anion Gap BUN Creatinine Est Cr Clr Drug Dosing Est GFR ( Amer) Est GFR (Non-Af Amer) BUN/Creatinine Ratio Glucose Calcium Magnesium Total Bilirubin Direct Bilirubin AST ALT Alkaline Phosphatase Ammonia C-Reactive Protein Total Protein Albumin Globulin Albumin/Globulin Ratio Vitamin B12 Folate HCG, Qual Negative Urine Color Urine Appearance Urine pH Ur Specific [place] Urine Protein Urine Glucose (UA) Urine Ketones Urine Blood Urine Nitrite Urine Bilirubin Urine Urobilinogen Ur Leukocyte Esterase Urine RBC Urine WBC Ur Epithelial Cells Ur Renal Epithelial Cell Amorphous Sediment Urine Bacteria Salicylates Urine Opiates Screen Ur Methadone, Qual U Methadone Metabolites Ur Methadone Confirm Acetaminophen Urine Barbiturates Ur Phencyclidine (PCP) U Amphetamin/Meth Scrn MDMA (Ecstasy) Screen U Benzodiazepines Scrn Ur Cocaine Metabolite U Marijuana (THC) Screen Drug Screen Comment Ethyl Alcohol mg/dL Adenovirus (PCR) Not Detected Anaplasma Smear B. pertussis DNA (PCR) Not Detected B.parapertussis DNA PCR Not Detected C. pneumoniae DNA (PCR) Not Detected Coronavirus OC43 (PCR) Not Detected Coronavirus HKU1 (PCR) Not Detected Coronavirus 229E (PCR) Not Detected SARS-CoV-2 (PCR) Not Detected Coronavirus NL63 (PCR) Not Detected Hepatitis A IgM Ab Hep Bs Antigen Hep Bs Ag Confirmation Hep B Core IgM Ab Hepatitis C Ab (EIA) Monoscreen Human Metapneumovir PCR Not Detected Influenza Type A (PCR) Not Detected Influenza Type B (PCR) Not Detected M. pneumoniae (PCR) Not Detected Parainfluenza 1 (PCR) Not Detected Parainfluenza 2 (PCR) Not Detected Parainfluenza 3 (PCR) Not Detected Parainfluenza 4 (PCR) Not Detected RSV (PCR) Not Detected Entero/Rhino (PCR) Not Detected Miscellaneous Test 03/22/23 03/22/23 03/22/23 22:50 22:50 22:50 WBC RBC Hgb Hct MCV MCH MCHC RDW Std Deviation RDW Coeff of Sylvester Plt Count MPV Immature Gran % (Auto) Neut % (Auto) Lymph % (Auto) [place] % (Auto) Eos % (Auto) Baso % (Auto) Neut # (Auto) Lymph # (Auto) [place] # (Auto) Eos # (Auto) Baso # (Auto) Immature Gran # (Auto) Absolute Nucleated RBC Nucleated RBC % (auto) Polychromasia Macrocytosis Target Cells ESR PT INR Sodium Potassium Chloride Carbon Dioxide Anion Gap BUN Creatinine Est Cr Clr Drug Dosing Est GFR ( Amer) Est GFR (Non-Af Amer) BUN/Creatinine Ratio Glucose Calcium Magnesium Total Bilirubin Direct Bilirubin AST ALT Alkaline Phosphatase Ammonia C-Reactive Protein Total Protein Albumin Globulin Albumin/Globulin Ratio Vitamin B12 Folate HCG, Qual Urine Color Brown Urine Appearance Cloudy A Urine pH Ur Specific [place] 1.026 Urine Protein Urine Glucose (UA) Urine Ketones Urine Blood Urine Nitrite Urine Bilirubin Urine Urobilinogen Ur Leukocyte Esterase Urine RBC 0-4 Urine WBC 0-5 Ur Epithelial Cells 5-10 H Ur Renal Epithelial Cell 10-20 H Amorphous Sediment Present A Urine Bacteria 1+ H Salicylates Urine Opiates Screen Neg Ur Methadone, Qual Pos H U Methadone Metabolites >55579 H Ur Methadone Confirm 8740 H Acetaminophen Urine Barbiturates Neg Ur Phencyclidine (PCP) Neg U Amphetamin/Meth Scrn Neg MDMA (Ecstasy) Screen Neg U Benzodiazepines Scrn Neg Ur Cocaine Metabolite Neg U Marijuana (THC) Screen Neg Drug Screen Comment SEE NOTE Ethyl Alcohol mg/dL Adenovirus (PCR) Anaplasma Smear B. pertussis DNA (PCR) B.parapertussis DNA PCR C. pneumoniae DNA (PCR) Coronavirus OC43 (PCR) Coronavirus HKU1 (PCR) Coronavirus 229E (PCR) SARS-CoV-2 (PCR) Coronavirus NL63 (PCR) Hepatitis A IgM Ab Hep Bs Antigen Hep Bs Ag Confirmation Hep B Core IgM Ab Hepatitis C Ab (EIA) Monoscreen Human Metapneumovir PCR Influenza Type A (PCR) Influenza Type B (PCR) M. pneumoniae (PCR) Parainfluenza 1 (PCR) Parainfluenza 2 (PCR) Parainfluenza 3 (PCR) Parainfluenza 4 (PCR) RSV (PCR) Entero/Rhino (PCR) Miscellaneous Test 03/22/23 03/22/23 03/22/23 23:06 23:06 23:06 WBC RBC Hgb Hct MCV MCH MCHC RDW Std Deviation RDW Coeff of Sylvester Plt Count MPV Immature Gran % (Auto) Neut % (Auto) Lymph % (Auto) [place] % (Auto) Eos % (Auto) Baso % (Auto) Neut # (Auto) Lymph # (Auto) [place] # (Auto) Eos # (Auto) Baso # (Auto) Immature Gran # (Auto) Absolute Nucleated RBC Nucleated RBC % (auto) Polychromasia Macrocytosis Target Cells ESR PT INR Sodium Potassium Chloride Carbon Dioxide Anion Gap BUN Creatinine Est Cr Clr Drug Dosing Est GFR ( Amer) Est GFR (Non-Af Amer) BUN/Creatinine Ratio Glucose Calcium Magnesium Total Bilirubin Direct Bilirubin AST ALT Alkaline Phosphatase Ammonia TNP C-Reactive Protein Total Protein Albumin Globulin Albumin/Globulin Ratio Vitamin B12 Folate HCG, Qual Urine Color Urine Appearance Urine pH Ur Specific [place] Urine Protein Urine Glucose (UA) Urine Ketones Urine Blood Urine Nitrite Urine Bilirubin Urine Urobilinogen Ur Leukocyte Esterase Urine RBC Urine WBC Ur Epithelial Cells Ur Renal Epithelial Cell Amorphous Sediment Urine Bacteria Salicylates < 3.0 L Urine Opiates Screen Ur Methadone, Qual U Methadone Metabolites Ur Methadone Confirm Acetaminophen < 3 L Urine Barbiturates Ur Phencyclidine (PCP) U Amphetamin/Meth Scrn MDMA (Ecstasy) Screen U Benzodiazepines Scrn Ur Cocaine Metabolite U Marijuana (THC) Screen Drug Screen Comment Ethyl Alcohol mg/dL 10.3 H Adenovirus (PCR) Anaplasma Smear B. pertussis DNA (PCR) B.parapertussis DNA PCR C. pneumoniae DNA (PCR) Coronavirus OC43 (PCR) Coronavirus HKU1 (PCR) Coronavirus 229E (PCR) SARS-CoV-2 (PCR) Coronavirus NL63 (PCR) Hepatitis A IgM Ab Hep Bs Antigen Hep Bs Ag Confirmation Hep B Core IgM Ab Hepatitis C Ab (EIA) Monoscreen Human Metapneumovir PCR Influenza Type A (PCR) Influenza Type B (PCR) M. pneumoniae (PCR) Parainfluenza 1 (PCR) Parainfluenza 2 (PCR) Parainfluenza 3 (PCR) Parainfluenza 4 (PCR) RSV (PCR) Entero/Rhino (PCR) Miscellaneous Test 03/22/23 03/23/23 03/23/23 23:06 00:02 00:02 WBC RBC Hgb Hct MCV MCH MCHC RDW Std Deviation RDW Coeff of Sylvester Plt Count MPV Immature Gran % (Auto) Neut % (Auto) Lymph % (Auto) [place] % (Auto) Eos % (Auto) Baso % (Auto) Neut # (Auto) Lymph # (Auto) [place] # (Auto) Eos # (Auto) Baso # (Auto) Immature Gran # (Auto) Absolute Nucleated RBC Nucleated RBC % (auto) Polychromasia Macrocytosis Target Cells ESR PT INR Sodium Potassium Chloride Carbon Dioxide Anion Gap BUN Creatinine Est Cr Clr Drug Dosing Est GFR ( Amer) Est GFR (Non-Af Amer) BUN/Creatinine Ratio Glucose Calcium Magnesium Total Bilirubin Direct Bilirubin AST ALT Alkaline Phosphatase Ammonia C-Reactive Protein Total Protein Albumin Globulin Albumin/Globulin Ratio Vitamin B12 Folate HCG, Qual Urine Color Urine Appearance Urine pH Ur Specific [place] Urine Protein Urine Glucose (UA) Urine Ketones Urine Blood Urine Nitrite Urine Bilirubin Urine Urobilinogen Ur Leukocyte Esterase Urine RBC Urine WBC Ur Epithelial Cells Ur Renal Epithelial Cell Amorphous Sediment Urine Bacteria Salicylates Urine Opiates Screen Ur Methadone, Qual U Methadone Metabolites Ur Methadone Confirm Acetaminophen Urine Barbiturates Ur Phencyclidine (PCP) U Amphetamin/Meth Scrn MDMA (Ecstasy) Screen U Benzodiazepines Scrn Ur Cocaine Metabolite U Marijuana (THC) Screen Drug Screen Comment Ethyl Alcohol mg/dL Adenovirus (PCR) Anaplasma Smear See Comment B. pertussis DNA (PCR) B.parapertussis DNA PCR C. pneumoniae DNA (PCR) Coronavirus OC43 (PCR) Coronavirus HKU1 (PCR) Coronavirus 229E (PCR) SARS-CoV-2 (PCR) Coronavirus NL63 (PCR) Hepatitis A IgM Ab NON-REACTIVE Hep Bs Antigen NON-REACTIVE Hep Bs Ag Confirmation TNP Hep B Core IgM Ab NON-REACTIVE Hepatitis C Ab (EIA) NON-REACTIVE Monoscreen Negative Human Metapneumovir PCR Influenza Type A (PCR) Influenza Type B (PCR) M. pneumoniae (PCR) Parainfluenza 1 (PCR) Parainfluenza 2 (PCR) Parainfluenza 3 (PCR) Parainfluenza 4 (PCR) RSV (PCR) Entero/Rhino (PCR) Miscellaneous Test 03/23/23 03/23/23 03/23/23 02:10 06:45 06:45 WBC 7.11 RBC 2.84 L Hgb 11.2 L Hct 30.2 L MCV 106.3 H MCH 39.4 H MCHC 37.1 H RDW Std Deviation 78.6 H RDW Coeff of Sylvester 20.1 H Plt Count 200 MPV 12.1 Immature Gran % (Auto) 1.1 Neut % (Auto) 63.5 Lymph % (Auto) 22.9 [place] % (Auto) 10.4 Eos % (Auto) 1.1 Baso % (Auto) 1.0 Neut # (Auto) 4.51 Lymph # (Auto) 1.63 [place] # (Auto) 0.74 H Eos # (Auto) 0.08 Baso # (Auto) 0.07 Immature Gran # (Auto) 0.08 Absolute Nucleated RBC 0.03 Nucleated RBC % (auto) 0.4 Polychromasia 1+ Macrocytosis Present Target Cells 2+ ESR PT INR Sodium 136 Potassium 3.0 L Chloride 96 L Carbon Dioxide 30 Anion Gap 10 BUN 8 Creatinine 0.60 Est Cr Clr Drug Dosing 110.8 Est GFR ( Amer) 137.8 Est GFR (Non-Af Amer) 118.9 BUN/Creatinine Ratio 13.3 Glucose 75 Calcium 8.7 Magnesium Total Bilirubin 19.2 H Direct Bilirubin AST 512 H ALT 113 H Alkaline Phosphatase 236 H Ammonia C-Reactive Protein Total Protein 6.1 Albumin 3.1 L Globulin 3.0 Albumin/Globulin Ratio 1.0 Vitamin B12 Folate HCG, Qual Urine Color Urine Appearance Urine pH Ur Specific [place] Urine Protein Urine Glucose (UA) Urine Ketones Urine Blood Urine Nitrite Urine Bilirubin Urine Urobilinogen Ur Leukocyte Esterase Urine RBC Urine WBC Ur Epithelial Cells Ur Renal Epithelial Cell Amorphous Sediment Urine Bacteria Salicylates Urine Opiates Screen Ur Methadone, Qual U Methadone Metabolites Ur Methadone Confirm Acetaminophen Urine Barbiturates Ur Phencyclidine (PCP) U Amphetamin/Meth Scrn MDMA (Ecstasy) Screen U Benzodiazepines Scrn Ur Cocaine Metabolite U Marijuana (THC) Screen Drug Screen Comment Ethyl Alcohol mg/dL Adenovirus (PCR) Anaplasma Smear B. pertussis DNA (PCR) B.parapertussis DNA PCR C. pneumoniae DNA (PCR) Coronavirus OC43 (PCR) Coronavirus HKU1 (PCR) Coronavirus 229E (PCR) SARS-CoV-2 (PCR) Coronavirus NL63 (PCR) Hepatitis A IgM Ab Hep Bs Antigen Hep Bs Ag Confirmation Hep B Core IgM Ab Hepatitis C Ab (EIA) Monoscreen Human Metapneumovir PCR Influenza Type A (PCR) Influenza Type B (PCR) M. pneumoniae (PCR) Parainfluenza 1 (PCR) Parainfluenza 2 (PCR) Parainfluenza 3 (PCR) Parainfluenza 4 (PCR) RSV (PCR) Entero/Rhino (PCR) Miscellaneous Test Cancelled 03/23/23 03/24/23 03/24/23 06:45 06:31 06:31 WBC 9.06 RBC 2.95 L Hgb 11.6 L Hct 30.8 L MCV 104.4 H MCH 39.3 H MCHC 37.7 H RDW Std Deviation 76.4 H RDW Coeff of Sylvester 20.2 H Plt Count 221 MPV 12.4 Immature Gran % (Auto) 1.5 Neut % (Auto) 63.7 Lymph % (Auto) 23.7 [place] % (Auto) 9.6 Eos % (Auto) 0.7 Baso % (Auto) 0.8 Neut # (Auto) 5.77 Lymph # (Auto) 2.15 [place] # (Auto) 0.87 H Eos # (Auto) 0.06 Baso # (Auto) 0.07 Immature Gran # (Auto) 0.14 Absolute Nucleated RBC Nucleated RBC % (auto) Polychromasia 1+ Macrocytosis Present Target Cells 2+ ESR PT INR Sodium 136 Potassium 3.3 L Chloride 99 Carbon Dioxide 31 Anion Gap 6 BUN 10 Creatinine 0.56 L Est Cr Clr Drug Dosing 118.7 Est GFR ( Amer) 141.0 Est GFR (Non-Af Amer) 121.7 BUN/Creatinine Ratio 17.9 Glucose 64 L Calcium 9.0 Magnesium 1.6 L Total Bilirubin 16.9 H Direct Bilirubin AST 429 H ALT 103 H Alkaline Phosphatase 223 H Ammonia C-Reactive Protein Total Protein 5.9 L Albumin 2.9 L Globulin 3.0 Albumin/Globulin Ratio 1.0 Vitamin B12 1148 H Folate 2.96 L HCG, Qual Urine Color Urine Appearance Urine pH Ur Specific [place] Urine Protein Urine Glucose (UA) Urine Ketones Urine Blood Urine Nitrite Urine Bilirubin Urine Urobilinogen Ur Leukocyte Esterase Urine RBC Urine WBC Ur Epithelial Cells Ur Renal Epithelial Cell Amorphous Sediment Urine Bacteria Salicylates Urine Opiates Screen Ur Methadone, Qual U Methadone Metabolites Ur Methadone Confirm Acetaminophen Urine Barbiturates Ur Phencyclidine (PCP) U Amphetamin/Meth Scrn MDMA (Ecstasy) Screen U Benzodiazepines Scrn Ur Cocaine Metabolite U Marijuana (THC) Screen Drug Screen Comment Ethyl Alcohol mg/dL Adenovirus (PCR) Anaplasma Smear B. pertussis DNA (PCR) B.parapertussis DNA PCR C. pneumoniae DNA (PCR) Coronavirus OC43 (PCR) Coronavirus HKU1 (PCR) Coronavirus 229E (PCR) SARS-CoV-2 (PCR) Coronavirus NL63 (PCR) Hepatitis A IgM Ab Hep Bs Antigen Hep Bs Ag Confirmation Hep B Core IgM Ab Hepatitis C Ab (EIA) Monoscreen Human Metapneumovir PCR Influenza Type A (PCR) Influenza Type B (PCR) M. pneumoniae (PCR) Parainfluenza 1 (PCR) Parainfluenza 2 (PCR) Parainfluenza 3 (PCR) Parainfluenza 4 (PCR) RSV (PCR) Entero/Rhino (PCR) Miscellaneous Test 03/24/23 03/25/23 03/25/23 11:24 08:02 08:02 WBC 8.69 RBC 3.22 L Hgb 12.6 Hct 35.2 L MCV 109.3 H MCH 39.1 H MCHC 35.8 RDW Std Deviation 80.5 H RDW Coeff of Sylvester 19.8 H Plt Count 253 MPV 12.3 Immature Gran % (Auto) 2.0 Neut % (Auto) 62.1 Lymph % (Auto) 26.4 [place] % (Auto) 8.1 Eos % (Auto) 0.8 Baso % (Auto) 0.6 Neut # (Auto) 5.41 Lymph # (Auto) 2.29 [place] # (Auto) 0.70 H Eos # (Auto) 0.07 Baso # (Auto) 0.05 Immature Gran # (Auto) 0.17 Absolute Nucleated RBC Nucleated RBC % (auto) Polychromasia Macrocytosis Target Cells ESR PT INR Sodium 135 L Potassium 3.2 L Chloride 97 L Carbon Dioxide 32 Anion Gap 6 BUN 11 Creatinine 0.59 L Est Cr Clr Drug Dosing 112.7 Est GFR ( Amer) 138.6 Est GFR (Non-Af Amer) 119.6 BUN/Creatinine Ratio 18.6 Glucose 65 L Calcium 8.9 Magnesium 2.0 Total Bilirubin 15.2 H Direct Bilirubin AST 408 H ALT 109 H Alkaline Phosphatase 228 H Ammonia C-Reactive Protein Total Protein 6.4 Albumin 3.1 L Globulin 3.3 Albumin/Globulin Ratio 0.9 Vitamin B12 Folate HCG, Qual Urine Color Urine Appearance Urine pH Ur Specific [place] Urine Protein Urine Glucose (UA) Urine Ketones Urine Blood Urine Nitrite Urine Bilirubin Urine Urobilinogen Ur Leukocyte Esterase Urine RBC Urine WBC Ur Epithelial Cells Ur Renal Epithelial Cell Amorphous Sediment Urine Bacteria Salicylates Urine Opiates Screen Ur Methadone, Qual U Methadone Metabolites Ur Methadone Confirm Acetaminophen Urine Barbiturates Ur Phencyclidine (PCP) U Amphetamin/Meth Scrn MDMA (Ecstasy) Screen U Benzodiazepines Scrn Ur Cocaine Metabolite U Marijuana (THC) Screen Drug Screen Comment Ethyl Alcohol mg/dL Adenovirus (PCR) Anaplasma Smear B. pertussis DNA (PCR) B.parapertussis DNA PCR C. pneumoniae DNA (PCR) Coronavirus OC43 (PCR) Coronavirus HKU1 (PCR) Coronavirus 229E (PCR) SARS-CoV-2 (PCR) Coronavirus NL63 (PCR) Hepatitis A IgM Ab Hep Bs Antigen Hep Bs Ag Confirmation Hep B Core IgM Ab Hepatitis C Ab (EIA) Monoscreen Human Metapneumovir PCR Influenza Type A (PCR) Influenza Type B (PCR) M. pneumoniae (PCR) Parainfluenza 1 (PCR) Parainfluenza 2 (PCR) Parainfluenza 3 (PCR) Parainfluenza 4 (PCR) RSV (PCR) Entero/Rhino (PCR) Miscellaneous Test REPORT 03/25/23 08:02 WBC RBC Hgb Hct MCV MCH MCHC RDW Std Deviation RDW Coeff of Sylvester Plt Count MPV Immature Gran % (Auto) Neut % (Auto) Lymph % (Auto) [place] % (Auto) Eos % (Auto) Baso % (Auto) Neut # (Auto) Lymph # (Auto) [place] # (Auto) Eos # (Auto) Baso # (Auto) Immature Gran # (Auto) Absolute Nucleated RBC Nucleated RBC % (auto) Polychromasia Macrocytosis Target Cells ESR PT 13.6 H INR 1.3 H Sodium Potassium Chloride Carbon Dioxide Anion Gap BUN Creatinine Est Cr Clr Drug Dosing Est GFR ( Amer) Est GFR (Non-Af Amer) BUN/Creatinine Ratio Glucose Calcium Magnesium Total Bilirubin Direct Bilirubin AST ALT Alkaline Phosphatase Ammonia C-Reactive Protein Total Protein Albumin Globulin Albumin/Globulin Ratio Vitamin B12 Folate HCG, Qual Urine Color Urine Appearance Urine pH Ur Specific [place] Urine Protein Urine Glucose (UA) Urine Ketones Urine Blood Urine Nitrite Urine Bilirubin Urine Urobilinogen Ur Leukocyte Esterase Urine RBC Urine WBC Ur Epithelial Cells Ur Renal Epithelial Cell Amorphous Sediment Urine Bacteria Salicylates Urine Opiates Screen Ur Methadone, Qual U Methadone Metabolites Ur Methadone Confirm Acetaminophen Urine Barbiturates Ur Phencyclidine (PCP) U Amphetamin/Meth Scrn MDMA (Ecstasy) Screen U Benzodiazepines Scrn Ur Cocaine Metabolite U Marijuana (THC) Screen Drug Screen Comment Ethyl Alcohol mg/dL Adenovirus (PCR) Anaplasma Smear B. pertussis DNA (PCR) B.parapertussis DNA PCR C. pneumoniae DNA (PCR) Coronavirus OC43 (PCR) Coronavirus HKU1 (PCR) Coronavirus 229E (PCR) SARS-CoV-2 (PCR) Coronavirus NL63 (PCR) Hepatitis A IgM Ab Hep Bs Antigen Hep Bs Ag Confirmation Hep B Core IgM Ab Hepatitis C Ab (EIA) Monoscreen Human Metapneumovir PCR Influenza Type A (PCR) Influenza Type B (PCR) M. pneumoniae (PCR) Parainfluenza 1 (PCR) Parainfluenza 2 (PCR) Parainfluenza 3 (PCR) Parainfluenza 4 (PCR) RSV (PCR) Entero/Rhino (PCR) Miscellaneous Test Abdomen/Pelvis CT 03/22/23 22:32 Exam(s): CT ABDOMEN + PELVIS With Contrast IV Amt: 90 ML OPTIRAY 320 EXAM: CT Abdomen and Pelvis With Intravenous Contrast CLINICAL HISTORY: Reason for exam: jaundice, elevated bilirubin. TECHNIQUE: Axial computed tomography images of the abdomen and pelvis with intravenous contrast. Automated exposure control was utilized for the study. A dose lowering technique was utilized adhering to the principles of ALARA. CONTRAST: Patient received 90 ML OPTIRAY 320 of IV contrast COMPARISON: No relevant prior studies available. FINDINGS: Lung bases: Unremarkable. No mass. No consolidation. ABDOMEN: Liver: There is advanced severe hepatic steatosis, please correlate for steatohepatitis. Gallbladder and bile ducts: Moderate distention of the gallbladder is noted. No calcified stones. No ductal dilation. Pancreas: Unremarkable. No mass. No ductal dilation. Spleen: Unremarkable. No splenomegaly. Adrenals: Unremarkable. No mass. Kidneys and ureters: Unremarkable. No solid mass. No hydronephrosis. Stomach and bowel: Unremarkable. No obstruction. No mucosal thickening. PELVIS: Appendix: No findings to suggest acute appendicitis. Bladder: Unremarkable. No mass. Reproductive: Unremarkable as visualized. ABDOMEN and PELVIS: Intraperitoneal space: Unremarkable. No free air. No significant fluid collection. Bones/joints: No acute fracture. No dislocation. Soft tissues: There is an umbilical piercing. Vasculature: Unremarkable. No abdominal aortic aneurysm. Lymph nodes: Unremarkable. No enlarged lymph nodes. IMPRESSION: There is advanced severe hepatic steatosis with engorgement of the liver, please correlate for steatohepatitis. Electronically signed by: Maldonado Lockhart MD 03/22/23 23:47 PM 03/22/23 22:32 CT abd pelvis IV con only Stat Hospital Course (1) Jaundice: (2) Methadone use: (3) Abnormal urinalysis: (4) Elevated MCV: (5) Elevated LFTs: (6) Elevated bilirubin: Plan This is a 32-year-old female with PMH of alcohol use disorder and methadone user that was admitted due to jaundice, nausea and abdominal pain. Patient was found to have Severe hepatic stenosis (on CT abdomen/pelvis) and hepatitis believed to be due to her current alcohol consumption On admission her AST 591, ALT 136, T bili 20.4, D bili 12.1, INR 1.3, PT 13.8. -MELD score 22, Maddrey 28.3. We start her on prednisolone 40mg daily. during the admission her abdominal pain improved, the transaminitis and the bilirubin were trending down. We discharge today with prescription to continue Prednisolone 40 mg daily for 4 days more (7 in total) and instructions to follow up CMP and INR/PT after the last day of steroid. She was also encourage to continue Folic Acid and Thiamine supplementations. If her Maddrey score improved she may discontinue the steroids Alcohol use disorder -The patient is an alcoholic and admits to one third of a bottle of vodka daily for greater than 1 year. -Mild symptoms of withdrawal during the admission: anxiety, restlessness, headaches -Last drink 03/17, alcohol level 10.3 on admission. -Patient contemplating quitting alcohol, do not want to start rehab at the moment. Elevated MCV: -MCV 106.7 in the ED, hgb 12.5. - Low folate levels, B12: 1148 -Continue Folic acid vitamin B12 Methadone use: -9 years -[facility] -Continued home methadone 68mg daily. Patient need to return the methadone from the days that she was admitted here to the clinic Hypokalemia K of 3.0 Resolved Potassium Chloride 40 meq PO given today Follow labs am Total Time Total Time Spent Total Time Spent (In Minutes): <30 Discharge Plan Discharge Items Patient Disposition: Home - Self-Care Reason For Visit: JAUNDICE Discharge Diagnosis: Severe hepatic stenosis Alcoholic hepatitis Activity: Resume your previous activity Non-emergency contact: Primary Care Provider Call non-emergency contact if: you have any medication questions Follow-up/Referrals: Zana Wayne PA-C [Outside Practitioners] - 04/05/23 10:30 am (Hospital follow up appointment CORRECT ADDRESS: [facility]: [address] [id number] ) PCP,NO [Primary Care Provider] - Diet: Regular Ambulatory Orders: Comprehensive Metabolic Panel (Routine) Timeframe: 20230330 Location: Determined by Patient Ordered By: Kumar Danielle Prothrombin Time INR (Routine) Timeframe: 20230330 Location: Determined by Patient Ordered By: Kumar Danielle Addtl Attending Provider Instructions: Yo presented to the emergency department for evaluation of jaundice that started day before. You were found with Severe hepatic stenosis and alcohol hepatitis (high levels of liver enzymes). You were treated with Prednisolone daily, this is helping you decreased inflammation on your liver. Your liver enzymes are in decreasing trend. Its very important for you to follow up with your PCP DEB Carvajal on April 05. You need to repeat your blood work the day after you finished your Prednisolone. We encourage you to stop your alcohol consumption for better response of the medication and full recover of your symptoms. New Medications Prednisolone Sodium 40 mg Daily for 4 days more Folic Acid Thiamin supplementation Continue these medications -Methadone 68 mg daily Take your medications as instructed; do not skip a dose of your medicines. Make sure all of your doctors know every medicine you are taking (including ulbc-kmh-ocupdyv medicines, vitamins, and supplements). Call your primary care provider before taking any new medicines (including prds-czq-keaahsm medicines, vitamins, and supplements), because some of these may interact with your current medications, or may make your symptoms worse. Tell your primary care provider if you cannot afford your medications. CALL 911 OR GO TO THE EMERGENCY DEPARTMENT if you experience any of the following: Sudden, severe abdominal pain or nausea/vomiting Severe chest pain, or chest pain that radiates (moves) to your jaw or arm Sudden, severe shortness of breath or difficulty breathing Thank you for allowing us to participate in your care. Pending Studies at Discharge: No Stand-Alone Forms: My [facility] [employer], Smoking Cessation Medications and DC Order Prescriptions: New folic acid 1 mg Tablet 1 mg PO QAM Qty: 30 0RF thiamine HCl (vitamin B1) 100 mg tablet 100 mg PO DAILY Qty: 30 0RF prednisolone sodium phosphate 15 mg/5 mL (3 mg/mL) Solution 40 mg PO DAILY 7 Days Qty: 93.333 0RF Continued methadone 68 mg PO DAILY Admission Data Admit Date/Time: 03/23/23 01:50 Attending Provider: Vladislav Meyers Admit Provider: Taz Gregg Primary Care Provider: PCP,NO Other Providers: Figueroa Clifton Jr ; Ian Gipson Supervising Physician Co-Signing Physician Notes I personally examined the patient and verified all jose points of history and exam, discussed case, and agree with decision making with Dr Vaughn Danielle Feeling better. feels up to going home. discussed stress management tools beyond EtOH vitals noted nad quite jaundiced but probably a little bit less than yesterday, labs noted, bilirubin trending down. Breathing unlabored no accessory muscle use good effort. acute EtOH hepatitis superimposed on chronic EtOH steatohepatitis - steroids for 7 days total, labs next week, EtOH cessation. Discussed alternate means of stress management. home today. Resident Activity Tracking Resident Involvement: Resident Care Provided Care Provided: Adult Hospital Medicine
[2023-03-25] MEDS ORDERED: POTASSIUM CHLORIDE CRTAB 20 MEQ TABCR PO STA (12:29)
--- NOTE | 2023-03-25 13:31 | Billing Data ---
Date of Service March 25, 2023 Coding Level of Care Code 34144 IN/OBS DISCH 30 MIN/LESS
== END 2023-03-25 15:59 | disposition home or self-care (01) ==
LOC: ED 18:08 → INTOOBSV 03-23 01:50 → 3W 03-23 01:50 → SUATTDRO 03-23 01:50 → 3W 03-23 02:19

== ENCOUNTER 2023-11-01 20:19 | Inpatient (IN) ==
--- NOTE | 2023-11-01 20:25 | ED Triage Note ---
Date of Service November 01, 2023 Provider in Triage Author: Lauro Purdy History of Present Illness This patient was briefly evaluated while in triage. An abbreviated physical exam was performed. This patient is a 33-year-old Female who presents to the ED for evaluation of jaundice. Patient does report a history of liver problems. Patient denies any nausea, vomiting or diarrhea. Patient reports that the jaundice started a week ago in her eyes. Quick review of prior medical record shows that the patient was admitted last February 2023 for jaundice secondary to severe hepatic steatosis. Patient also has a history of alcohol abuse. Physical Exam CONSTITUTIONAL: Healthy and well nourished. Alert and oriented X 3. HEENT: Scleral icterus is noted. RESPIRATORY: Clear to auscultation bilaterally with no wheezing, crackles, rhonchi or stridor. CARDIOVASCULAR: Regular rate and rhythm with no murmurs, rubs or gallops. GASTROINTESTINAL: Bowel sounds present in all quadrants. INTEGUMENTARY: Patient is jaundiced without any additional rash or other significant dermatologic conditions noted. HEMATOLOGIC: No ecchymosis or petechiae. PSYCHIATRIC: Positive affect. NEUROLOGIC: No focal neurologic deficits noted. Initial orders for labs and / or imaging were placed and patient was placed in the waiting area until a bed is available. Please see further documentation for the full ED course.
[2023-11-01] MEDS: SODIUM CHLORIDE 0.9% 1,000 ML IV STA (21:44)
[2023-11-01 22:14] LABS: Basophils # (auto) 0.08 K/uL (0.00-0.20); Basophils % (auto) 0.6 %; Eosinophils # (auto) 0.05 K/uL (0.00-0.50); Eosinophils % (auto) 0.4 %; Hematocrit (blood only) 33.6 % (37.0-47.0); Hemoglobin 11.8 g/dl (12.0-16.0); Immature Granulocytes # (auto) 0.12 K/uL (0.01-0.20); Lymphocytes # (auto) 1.32 K/uL (1.20-3.40); Lymphocytes % (auto) 10.6 %; Mean Corpuscular Hemoglobin 34.3 pg (25.0-34.0); Mean Corpuscular Hgb Conc 35.1 g/dL (32.0-36.0); Mean Corpuscular Volume 97.7 fL (80.0-100.0); Mean Platelet Volume 12.2 fL (9.4-12.4); Monocytes % (auto) 12.8 %; Neutrophils # (auto) 9.29 K/uL (1.40-6.50); Neutrophils % (auto) 74.6 %; Nucleated RBC # (auto) 0.02 K/uL (0.00-0.12); Nucleated RBC % (auto) 0.2 %; Platelet Count 226 K/uL (130-400); RDW Coefficient of Variation 17.2 % (11.5-14.5); RDW Standard Deviation 58.7 fL (36.4-46.3); Red Blood Count 3.44 M/uL (4.20-5.40); White Blood Count 12.46 K/ul (4.8-10.8)
[2023-11-01 22:15] LABS: Appearance Urine Cloudy (Clear); Color Urine Brown; Specific Gravity Urine 1.026 (1.000-1.030)
[2023-11-01 22:29] LABS: Bacteria Urine 2+ (None Seen); Mucus Urine Present (None Prsent); WBC Urine 21-50 /hpf (0-5)
--- NOTE | 2023-11-01 22:32 | Emergency Department Note ---
History of Present Illness General Chief complaint: Skin Problem Stated complaint: JAUNDICE/DISCOLORATION, LIVER Time Seen by Provider: 11/01/23 22:31 History of Present Illness This is a 33-year-old female presenting to the emergency department for evaluation of skin discoloration. The patient is an alcoholic, drinks roughly half of a cup to a full cup of hard liquor on a regular basis. Patient states that she had been doing better recently, only having alcohol on the weekends. Unfortunately the patient has increased to daily use. Patient states she has not had any alcohol to drink in the past 4 days, however when she got up this morning to get ready for work she noticed that her skin was very yellow. She does not have significant fevers or chills. No abdominal pain. Home Medications Medication Instructions Recorded Confirmed Type methadone 68 mg PO DAILY 03/23/23 03/23/23 History folic acid 1 mg tablet 1 mg PO QAM #30 tabs 03/25/23 Rx thiamine HCl (vitamin B1) 100 mg 100 mg PO DAILY #30 tabs 03/25/23 Rx tablet Allergies Allergy/AdvReac Type Severity Reaction Status Date / Time adhesive Allergy Hives Verified 03/23/23 03:03 Past Med/Surg History Medical History (Updated 11/02/23 @ 05:14 by Thompson Nascimento PA-C) Alcohol use disorder Elevated MCV Methadone use Surgical History No significant past surgical history Social History Smoking Status: Never smoker Tobacco Type: Cigarettes Do You Dip or Chew Tobacco: No; Hx Alcohol Use: Yes Alcohol type: hard liquor Hx Substance Use: No Preferred Language: Burundian Communication Ability: Effective Kelp [employer] 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 Required: No Beliefs That Will Affect Care: None Current Living Situation: Family Feels Safe at Home: Yes Assistive Devices: None Review of Systems A total of 10 systems reviewed and were otherwise negative Physical Exam Vital Signs Vital Signs - 24 hr 11/01/23 20:23 11/01/23 23:41 11/01/23 23:44 Temperature 37 C Temperature Source Temporal Artery Scan Pulse Rate 122 H 82 Pulse Rate [Apical] 82 Pulse Rate from SpO2 Sensor 80 Pulse Rhythm Regular Pulse Rhythm [Apical] Regular Pulse Strength Normal Pulse Strength [Apical] Normal Respiratory Rate 18 14 14 Respiratory Effort / Characteristics Non-Labored Spontaneous Non-Labored Respiratory Depth Normal Normal Respiratory Pattern Regular Regular Blood Pressure 161/97 H Blood Pressure [Right Arm] 94/70 L Blood Pressure Mean 118 Blood Pressure Mean [Right Arm] 78 Blood Pressure Position Sitting Blood Pressure Position [Right Arm] Sitting Pulse Oximetry 97 96 95 Oxygen Delivery Method Room Air Room Air Sepsis Recent Fever Within 48 Hours No Sepsis New/Unexplained Change in Mental Status N/A Sepsis Action Taken by Nursing No Action Required 11/01/23 23:44 11/02/23 00:00 11/02/23 00:07 Temperature Temperature Source Pulse Rate 77 86 84 Pulse Rate [Apical] Pulse Rate from SpO2 Sensor Pulse Rhythm Regular Pulse Rhythm [Apical] Pulse Strength Pulse Strength [Apical] Respiratory Rate 22 Respiratory Effort / Characteristics Respiratory Depth Respiratory Pattern Blood Pressure Blood Pressure [Right Arm] Blood Pressure Mean Blood Pressure Mean [Right Arm] Blood Pressure Position Blood Pressure Position [Right Arm] Pulse Oximetry 94 Oxygen Delivery Method Room Air Sepsis Recent Fever Within 48 Hours Sepsis New/Unexplained Change in Mental Status Sepsis Action Taken by Nursing 11/02/23 00:30 11/02/23 01:00 Temperature Temperature Source Pulse Rate 83 86 Pulse Rate [Apical] Pulse Rate from SpO2 Sensor 81 85 Pulse Rhythm Pulse Rhythm [Apical] Pulse Strength Pulse Strength [Apical] Respiratory Rate 17 13 Respiratory Effort / Characteristics Respiratory Depth Respiratory Pattern Blood Pressure Blood Pressure [Right Arm] Blood Pressure Mean Blood Pressure Mean [Right Arm] Blood Pressure Position Blood Pressure Position [Right Arm] Pulse Oximetry 95 96 Oxygen Delivery Method Sepsis Recent Fever Within 48 Hours Sepsis New/Unexplained Change in Mental Status Sepsis Action Taken by Nursing VITALS: Vitals are noted on the nurse's note and reviewed by myself. Vital signs stable. GENERAL: Well-developed, well-nourished, white female, who is in moderate distress. She appears somewhat anxious due to her stated complaints. HEAD: Normocephalic atraumatic. EARS: External ear normal. External auditory canals clear, tympanic membranes pearly aguilar without erythema or effusion bilaterally. EYES: Pupils equal round and reactive to light and accommodation. Conjunctivae with notable icterus. NOSE: Patent, turbinates without inflammation or discharge. MOUTH: Mucous membranes moist. Tonsils are not enlarged. Pharynx without erythema, blood, or exudate. Uvula midline. Airway patent. NECK: Supple without nuchal rigidity. No lymphadenopathy. No thyromegaly. Cervical spine is nontender. HEART: Regular rate and rhythm without murmurs gallops or rubs. LUNGS: Clear to auscultation bilaterally without wheezes, rales or rhonchi. No retractions or accessory muscle use. ABDOMEN: Positive normal bowel sounds x 4. Soft, nontender, without masses or organomegaly. No guarding or rebound tenderness. MUSCULOSKELETAL: No muscle atrophy, erythema, or edema noted. Full range of motion in all extremities. No tenderness to palpation. Normal gait. Strength 5/5 throughout. NEURO: Patient was alert and oriented to person place and time. CN II through XII grossly intact. SKIN: The skin was with profound jaundice Course Administered Medications Discontinued Medications Sodium Chloride (Nss) 1,000 mls @ 999 mls/hr IV .Q1H1M STA Stop: 11/01/23 21:26 Last Infusion: 11/01/23 22:46 Dose: Infused Documented By: Admin: 11/01/23 21:44 Dose: 999 mls/hr Documented By: BRISSA Multivitamins 10 ml/ Thiamine HCl 100 mg/ Folic Acid 1 mg/Sodium Chloride 1,011.2 mls @ 500 mls/hr IV .Q2H2M ONE Stop: 11/02/23 04:11 Last Admin: 11/02/23 03:10 Dose: 500 mls/hr Documented By: LOLI Phytonadione 10 mg/ Dextrose 51 mls @ 102 mls/hr IV ONE ONE Stop: 11/02/23 02:39 Last Infusion: 11/02/23 03:10 Dose: Infused Documented By: Admin: 11/02/23 02:32 Dose: 102 mls/hr Documented By: LOLI Ioversol (Optiray 320 100ml) 100 ml IV ONCE ONE Stop: 11/01/23 23:01 Last Admin: 11/01/23 23:00 Dose: 90 ml Documented By: CYNTHIA Potassium Chloride (Potassium Chloride Crtab 20 Meq Tabcr) 80 meq PO NOW STA Stop: 11/02/23 02:11 Last Admin: 11/02/23 02:31 Dose: 80 meq Documented By: LOLI Prednisolone Sodium Phosphate (Prednisolone Sod Phosphate 15 Mg/5 Ml) 40 mg PO DAILY STA Stop: 11/02/23 02:11 Last Admin: 11/02/23 02:32 Dose: 40 mg Documented By: PADDYW Medical Decision Making Differential Diagnosis Differential diagnosis: Etiologies such as biliary colic, cholecystitis, hepatitis, pancreatitis, cardiac disease, pancreatitis, gastritis, peptic ulcer disease, appendicitis, cystitis, diverticulitis, mesenteric ischemia, inflammatory bowel disease, ileus, bowel obstruction, testicular/adnexal torsion, aortic pathology, shingles, as well as others were considered Laboratory Data 11/02/23 02:54 11/02/23 02:54 Lab Results 11/01/23 11/01/23 Range/Units 21:38 21:42 WBC 12.46 H (4.8-10.8) K/ul RBC 3.44 L (4.20-5.40) M/uL Hgb 11.8 L (12.0-16.0) g/dl Hct 33.6 L (37.0-47.0) % MCV 97.7 (80.0-100.0) fL MCH 34.3 H (25.0-34.0) pg MCHC 35.1 (32.0-36.0) g/dL RDW Std Deviation 58.7 H (36.4-46.3) fL RDW Coeff of Sylvester 17.2 H (11.5-14.5) % Plt Count 226 (130-400) K/uL MPV 12.2 (9.4-12.4) fL Immature Gran % (Auto) 1.0 % Neut % (Auto) 74.6 % Lymph % (Auto) 10.6 % [place] % (Auto) 12.8 % Eos % (Auto) 0.4 % Baso % (Auto) 0.6 % Neut # (Auto) 9.29 H (1.40-6.50) K/uL Lymph # (Auto) 1.32 (1.20-3.40) K/uL [place] # (Auto) 1.60 H (0.11-0.59) K/uL Eos # (Auto) 0.05 (0.00-0.50) K/uL Baso # (Auto) 0.08 (0.00-0.20) K/uL Immature Gran # (Auto) 0.12 (0.01-0.20) K/uL Absolute Nucleated RBC 0.02 (0.00-0.12) K/uL Nucleated RBC % (auto) 0.2 % PT 23.5 H (9.0-12.0) Seconds INR 2.3 H (0.9-1.1) Sodium 133 L (136-145) mmol/L Potassium 3.1 L (3.5-5.1) mmol/L Chloride 92 L (98-107) mmol/L Carbon Dioxide 30 (21-32) mmol/L Anion Gap 11 (3-11) BUN 15 (6-23) mg/dl Creatinine 0.85 (0.6-1.2) mg/dl Est Cr Clr Drug Dosing 75.7 ml/min Est GFR ( Amer) 102.9 ml/min Est GFR (Non-Af Amer) 88.8 ml/min BUN/Creatinine Ratio 17.6 (10-20) Glucose 77 (70-99(Fasting)) mg/dl Calcium 9.2 (8.6-10.3) mg/dl Total Bilirubin 19.5 H (0.2-1.0) mg/dl AST 348 H (13-39) U/L ALT 92 H (7-52) U/L Alkaline Phosphatase 327 H (34-104) U/L Troponin I High Sens 9.2 (0-14) pg/ml Total Protein 7.2 (6.0-8.3) gm/dl Albumin 3.5 (3.4-5.0) gm/dl Globulin 3.7 (2.5-4.0) gm/dl Albumin/Globulin Ratio 0.9 (0.9-2) Lipase TNP Urine Color Brown Urine Appearance Cloudy A (Clear) Urine pH (4.5-7.5) Ur Specific [place] 1.026 (1.000-1.030) Urine Protein (Negative) Urine Glucose (UA) (Negative) Urine Ketones (Negative) Urine Blood (Negative) Urine Nitrite (Negative) Urine Bilirubin (Negative) Urine Urobilinogen (Negative) Ur Leukocyte Esterase (Negative) Urine RBC 6-10 H (0-2) /hpf Urine WBC 21-50 H (0-5) /hpf Ur Epithelial Cells 11-20 H (0-2) /hpf Urine Bacteria 2+ H (None Seen) Urine Mucus Present A (None Prsent) Ethyl Alcohol mg/dL < 10.0 (<10.0) mg/dl Imaging Data Radiologist's Impression: Abdomen/Pelvis CT 04/08/24 20:26 Exam(s): CT ABDOMEN + PELVIS With Contrast IV Amt: 90 ML OPTIRAY 320 EXAM: CT Abdomen and Pelvis With Intravenous Contrast CLINICAL HISTORY: Reason for exam: Jaundice. TECHNIQUE: Axial computed tomography images of the abdomen and pelvis with intravenous contrast. Automated exposure control was utilized for the study. A dose lowering technique was utilized adhering to the principles of ALARA. CONTRAST: Patient received 90 ML OPTIRAY 320 of IV contrast COMPARISON: 03/22/2023 FINDINGS: Lung bases: Unremarkable. No mass. No consolidation. ABDOMEN: Liver: Heterogeneous enhancement of the liver. Marked hepatomegaly.. There is edematous change to the hepatic resulting in compression of the retrohepatic IVC without its occlusion. Gallbladder and bile ducts: Unremarkable. No calcified stones. No ductal dilation. Pancreas: Unremarkable. No mass. No ductal dilation. Spleen: Unremarkable. No splenomegaly. Adrenals: Unremarkable. No mass. Kidneys and ureters: Unremarkable. No solid mass. No hydronephrosis. Stomach and bowel: Unremarkable. No obstruction. No mucosal thickening. PELVIS: Appendix: No findings to suggest acute appendicitis. Bladder: Unremarkable. No mass. Reproductive: Unremarkable as visualized. ABDOMEN and PELVIS: Intraperitoneal space: Unremarkable. No free air. No significant fluid collection. Bones/joints: No acute fracture. No dislocation. Soft tissues: Unremarkable. Vasculature: See above. Lymph nodes: Unremarkable. No enlarged lymph nodes. IMPRESSION: No significant interval change since 03/22/2023. Advanced severe hepatic steatosis is the most likely diagnosis. Electronically signed by: Vladislav Stevenson MD 11/02/23 00:13 AM [facility] [place] Narrative Physical exam and history were performed. Nursing notes, EMR, and Medication List were personally reviewed. No social concerns were identified as barriers to patients care. Patient appears to have jaundice on physical examination. Patient's presentation is quite concerning. IV access was established and labs were obtained. She was hydrated with normal saline. Patient's blood work is as above and was reviewed. She does not have a significantly elevated white blood cell count. She is not with significant anemia. She has a marked elevation of her transaminases or bilirubin. This would correlate with her clinical picture. Alcohol is negative. Patient's MELD score is 27, and MELD NA score is 29. This essentially puts her at 19.6% 3-month mortality. Overall the patient does not appear well for discharge home. Case was discussed with the on-call hospitalist who agreed to evaluate the patient here in the ER. Please see the hospitalist dictation for further patient course, plan, disposition. The chart was completed utilizing [employer] Speech Voice Recognition Software. Grammatical errors, random word insertions, pronoun errors, and incomplete sentences are an occasional consequence of this system due to software limitations, ambient noise, and hardware issues. Any formal questions or concerns about the content, text, or information contained within the body of this dictation should be directly addressed to the provider for clarification. . Impression & Plan Jaundice, Elevated LFTs, Elevated bilirubin, Alcohol use disorder Discharge Plan Visit Data Chief Complaint: Skin Problem Stated Complaint: JAUNDICE/DISCOLORATION, LIVER ED Provider: Jeff Reece ED Midlevel Provider: Thompson Nascimento Discharge Problem: Jaundice, Elevated LFTs, Elevated bilirubin, Alcohol use disorder Discharge Instructions Interventions: ED Discharge Assessment Last Done: 11/02/23 02:13
[2023-11-01 22:38] LABS: INR 2.3 (0.9-1.1); Prothrombin Time 23.5 Seconds (9.0-12.0)
[2023-11-01 22:43] LABS: Alanine Aminotransferase 92 U/L (7-52); Albumin Globulin Ratio 0.9 (0.9-2); Albumin Level 3.5 gm/dl (3.4-5.0); Alkaline Phosphatase 327 U/L (34-104); Anion Gap 11 (3-11); Aspartate Aminotransferase 348 U/L (13-39); BUN Creatinine Ratio 17.6 (10-20); Bilirubin,Total 19.5 mg/dl (0.2-1.0); Blood Urea Nitrogen 15 mg/dl (6-23); Calcium 9.2 mg/dl (8.6-10.3); Carbon Dioxide 30 mmol/L (21-32); Chloride 92 mmol/L (98-107); Creatinine Clr Calc Pharmacy 75.7 ml/min; Est GFR (African American) 102.9 ml/min; Est GFR (Non-African American) 88.8 ml/min; Globulin 3.7 gm/dl (2.5-4.0); Glucose 77 mg/dl (70-99(Fasting)); Potassium 3.1 mmol/L (3.5-5.1); Sodium 133 mmol/L (136-145); Total Protein 7.2 gm/dl (6.0-8.3); Troponin I High Sensitivity 9.2 pg/ml (0-14)
[2023-11-01] MEDS: OPTIRAY 320 100ml IV ONE (23:00)
--- NOTE | 2023-11-02 00:14 | CT Scan Report ---
Exam(s): CT ABDOMEN + PELVIS With Contrast IV Amt: 90 ML OPTIRAY 320 EXAM: CT Abdomen and Pelvis With Intravenous Contrast CLINICAL HISTORY: Reason for exam: Jaundice. TECHNIQUE: Axial computed tomography images of the abdomen and pelvis with intravenous contrast. Automated exposure control was utilized for the study. A dose lowering technique was utilized adhering to the principles of ALARA. CONTRAST: Patient received 90 ML OPTIRAY 320 of IV contrast COMPARISON: 03/22/2023 FINDINGS: Lung bases: Unremarkable. No mass. No consolidation. ABDOMEN: Liver: Heterogeneous enhancement of the liver. Marked hepatomegaly.. There is edematous change to the hepatic resulting in compression of the retrohepatic IVC without its occlusion. Gallbladder and bile ducts: Unremarkable. No calcified stones. No ductal dilation. Pancreas: Unremarkable. No mass. No ductal dilation. Spleen: Unremarkable. No splenomegaly. Adrenals: Unremarkable. No mass. Kidneys and ureters: Unremarkable. No solid mass. No hydronephrosis. Stomach and bowel: Unremarkable. No obstruction. No mucosal thickening. PELVIS: Appendix: No findings to suggest acute appendicitis. Bladder: Unremarkable. No mass. Reproductive: Unremarkable as visualized. ABDOMEN and PELVIS: Intraperitoneal space: Unremarkable. No free air. No significant fluid collection. Bones/joints: No acute fracture. No dislocation. Soft tissues: Unremarkable. Vasculature: See above. Lymph nodes: Unremarkable. No enlarged lymph nodes. IMPRESSION: No significant interval change since 03/22/2023. Advanced severe hepatic steatosis is the most likely diagnosis. Electronically signed by: Vladislav Stevenson MD 11/02/23 00:13 AM
--- NOTE | 2023-11-02 01:09 | History & Physical Report ---
Date of Service November 02, 2023 Assessment & Plan (1) Alcoholic hepatitis: Plan: 33yo female with EtOh use disorder presenting with acute alcoholic hepatitis. Patient reports drinking 3 large glasses of vodka daily (uncertain of amount, estimate to be appx 24 drinks daily). Her last drink was 5 days ago. She presents today with several days of progressive jaundice and scleral icterus. Labs are significant for elevated WBC=12.46, Hgb of 11.8 and Hct=33.6. Charo telets are normal at 226 INR elevated at 2.3, PT=23.5 Ro=862 DDH=520, ALT=92, VP=857, Tbili=19.5 CT of the abdomen as above Patient with MELD score of 29 points correlating with a 19.6% 3 month mortality Maddrey's Discriminant function markedly elevated at 77 points No ascites present on exam or mentioned on imaging. No evidence of encephalopathy at present. No evidence of infection or SBP. -Admit to PCU -Check Acetaminophen level. Check acute hepatitis panel. -Check Mg and PO4 now and daily -Vitamin K 10mEq IV administered - repeat INR in AM -Banana bag x 500mL -Protonix 40mg po daily - Thiamine 100mg po daily -Folate 1mg po daily -Will initiate steroid therapy for acute alcoholic hepatitis with elevated MDF=77. Prednisolone 40mg/day. -GI Consultation appreciated to assist with management. (2) Alcohol use disorder: Plan: Patient has not tried AA or rehab in the past. She is interested in AA at this time. I briefly discussed with her the importance of complete abstinence from EtOH and her high risk of mortality if she does not stop drinking. -Monitor closely for EtOH withdrawal - AWSS protocols in place -Monitor electrolytes for possible refeeding syndrome -Consider Case management consultation prior to discharge to assist with services available to her F/E/N - Banana bag x 500mL, K repletion, repeat BMP in AM, Low Na diet as tolerated Ppx - SCDs Code - Full Dispo - Admit to PCU History of Present Illness Chief Complaint: jaundice and icterus Primary Care Provider: Zana Wayne PA-C Shraddha Remy is a 33yo female with history of EtOH abuse presenting with scleral icterus and jaundice. Patient with history of EtOH abuse, fatty liver, on methadone currently. She was hospitalized at [facility] from 03/20/23 - 03/25/23 after presenting with acute alcoholic hepatitis. She reports that after being discharged from that hospital stay she was able to stay sober for 5 months. Over the last two months she has started drinking an increasingly large amount of vodka per day. Patient reports drinking 3 large glasses of vodka daily (difficult to fully quantify but her hand measures what appears to be an 8 oz glass - ?24 drinks/day). Her last drink was 5 days ago. She denies withdrawal symptoms - shakes, hallucinations, seizures or uneasiness. Over the last 3-4 days she has noted yellowing of her skin and eyes. Her urine has been dark in color. She had several episodes of diarrhea which were dark in color but did not appear to be bloody. She also reports some abdominal distention. She denies fever, chills, chest pain, cough or SOB. Denies abdominal pain, nausea, vomiting, constipation, melena/hematochezia or hematemesis. Denies swelling, orthopnea. Patient reports she has a referral to see GI/Hepatology in [place] but has not yet seen them. She has never participated in AA nor has she been to rehab. She is interested in AA now. 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 In the ER she is afebrile, tachycardic and hypertensive on arrival ER Course: NSS x 1L KCl 80mEq Vitamin K 10mg IV Prednisolone 40mg Allergies Allergy/AdvReac Type Severity Reaction Status Date / Time adhesive Allergy Hives Verified 03/23/23 03:03 Home Medications Medication Instructions Recorded Confirmed Type methadone 68 mg PO DAILY 03/23/23 03/23/23 History folic acid 1 mg tablet 1 mg PO QAM #30 tabs 03/25/23 Rx thiamine HCl (vitamin B1) 100 mg 100 mg PO DAILY #30 tabs 03/25/23 Rx tablet Past Med/Surg History Medical History (Updated 11/02/23 @ 02:51 by Kimmie Krueger DO) Alcohol use disorder Elevated MCV Methadone use Surgical History No significant past surgical history Social History Smoking Status: Never smoker Tobacco Type: Cigarettes Do You Dip or Chew Tobacco: No; Hx Alcohol Use: Yes Alcohol type: hard liquor Hx Substance Use: No Preferred Language: Spanish Communication Ability: Effective Utilization Review Nurse Required: No Beliefs That Will Affect Care: None Current Living Situation: Family Feels Safe at Home: Yes Assistive Devices: None Review of Systems Review of Systems: All systems reviewed & are unremarkable except as noted in HPI & below Physical Exam Physical Exam: General: patient appears slightly disheveled, ill in appearance, AA&O x 4 Skin: warm, dry, intact, +Scleral icterus, +Jaundice, +spider angiomata on chest, petechial rash on ankles bilaterally HEENT: NC/AT, PERRL, EOMI, +Scleral icterus, conjunctiva without injection, external ear normal to inspection and nontender, nares patent, moist mucus membranes, dentition intact, no oropharyngeal lesions, neck supple, trachea midline, no LAD, no thyromegaly, no JVD Heart: +S1/S2, regular, tachycardic, no m/r/g Lungs: equal air entry bilaterally, no rales/rhonchi/wheezes Abd: +BS, soft, NT, mildly distended, tympanic to percussion, no masses, +hepatomegaly Ext: warm, 2+ pulses in UE/LE bilaterally, no clubbing/cyanosis or edema Neuro: nonfocal, patient AA&O x 4, speech intact, no facial droop, moving all extremities on command with equal strength 5/5, no asterixis Results & Data Results & Data Vital Signs (Past 12 Hours) Vital Signs Temp Pulse Pulse Resp BP BP Pulse Ox 11/02/23 00:07 84 94 11/02/23 00:00 86 22 11/01/23 23:44 77 11/01/23 23:44 82 14 95 11/01/23 23:41 82 14 94/70 L 96 11/01/23 20:23 37 C 122 H 18 161/97 H 97 O2 Del Method 11/02/23 00:07 Room Air 11/02/23 00:00 11/01/23 23:44 11/01/23 23:44 11/01/23 23:41 Room Air 11/01/23 20:23 Room Air Laboratory Results Laboratory Results WBC 12.46 K/ul (4.8-10.8) H 11/01/23 21:42 RBC 3.44 M/uL (4.20-5.40) L 11/01/23 21:42 Hgb 11.8 g/dl (12.0-16.0) L 11/01/23 21:42 Hct 33.6 % (37.0-47.0) L 11/01/23 21:42 MCV 97.7 fL (80.0-100.0) 11/01/23 21:42 MCH 34.3 pg (25.0-34.0) H 11/01/23 21:42 MCHC 35.1 g/dL (32.0-36.0) 11/01/23 21:42 RDW Std Deviation 58.7 fL (36.4-46.3) H 11/01/23 21:42 RDW Coeff of Sylvester 17.2 % (11.5-14.5) H 11/01/23 21:42 Plt Count 226 K/uL (130-400) 11/01/23 21:42 MPV 12.2 fL (9.4-12.4) 11/01/23 21:42 Immature Gran % (Auto) 1.0 % 11/01/23 21:42 Neut % (Auto) 74.6 % 11/01/23 21:42 Lymph % (Auto) 10.6 % 11/01/23 21:42 Perkins % (Auto) 12.8 % 11/01/23 21:42 Eos % (Auto) 0.4 % 11/01/23 21:42 Baso % (Auto) 0.6 % 11/01/23 21:42 Neut # (Auto) 9.29 K/uL (1.40-6.50) H 11/01/23 21:42 Lymph # (Auto) 1.32 K/uL (1.20-3.40) 11/01/23 21:42 Perkins # (Auto) 1.60 K/uL (0.11-0.59) H 11/01/23 21:42 Eos # (Auto) 0.05 K/uL (0.00-0.50) 11/01/23 21:42 Baso # (Auto) 0.08 K/uL (0.00-0.20) 11/01/23 21:42 Immature Gran # (Auto) 0.12 K/uL (0.01-0.20) 11/01/23 21:42 Absolute Nucleated RBC 0.02 K/uL (0.00-0.12) 11/01/23 21:42 Nucleated RBC % (auto) 0.2 % 11/01/23 21:42 PT 23.5 Seconds (9.0-12.0) H 11/01/23 21:42 INR 2.3 (0.9-1.1) H 11/01/23 21:42 Sodium 133 mmol/L (136-145) L 11/01/23 21:42 Potassium 3.1 mmol/L (3.5-5.1) L 11/01/23 21:42 Chloride 92 mmol/L (98-107) L 11/01/23 21:42 Carbon Dioxide 30 mmol/L (21-32) 11/01/23 21:42 Anion Gap 11 (3-11) 11/01/23 21:42 BUN 15 mg/dl (6-23) 11/01/23 21:42 Creatinine 0.85 mg/dl (0.6-1.2) 11/01/23 21:42 Est Cr Clr Drug Dosing 75.7 ml/min 11/01/23 21:42 Est GFR ( Amer) 102.9 ml/min 11/01/23 21:42 Est GFR (Non-Af Amer) 88.8 ml/min 11/01/23 21:42 BUN/Creatinine Ratio 17.6 (10-20) 11/01/23 21:42 Glucose 77 mg/dl (70-99(Fasting)) 11/01/23 21:42 Calcium 9.2 mg/dl (8.6-10.3) 11/01/23 21:42 Total Bilirubin 19.5 mg/dl (0.2-1.0) H 11/01/23 21:42 AST 348 U/L (13-39) H 11/01/23 21:42 ALT 92 U/L (7-52) H 11/01/23 21:42 Alkaline Phosphatase 327 U/L (34-104) H 11/01/23 21:42 Troponin I High Sens 9.2 pg/ml (0-14) 11/01/23 21:42 Total Protein 7.2 gm/dl (6.0-8.3) 11/01/23 21:42 Albumin 3.5 gm/dl (3.4-5.0) 11/01/23 21:42 Globulin 3.7 gm/dl (2.5-4.0) 11/01/23 21:42 Albumin/Globulin Ratio 0.9 (0.9-2) 11/01/23 21:42 Lipase TNP 11/01/23 21:42 Urine Color Brown 11/01/23 21:38 Urine Appearance Cloudy (Clear) A 11/01/23 21:38 Urine pH (4.5-7.5) 11/01/23 21:38 Ur Specific Belmond 1.026 (1.000-1.030) 11/01/23 21:38 Urine Protein (Negative) 11/01/23 21:38 Urine Glucose (UA) (Negative) 11/01/23 21:38 Urine Ketones (Negative) 11/01/23 21:38 Urine Blood (Negative) 11/01/23 21:38 Urine Nitrite (Negative) 11/01/23 21:38 Urine Bilirubin (Negative) 11/01/23 21:38 Urine Urobilinogen (Negative) 11/01/23 21:38 Ur Leukocyte Esterase (Negative) 11/01/23 21:38 Urine RBC 6-10 /hpf (0-2) H 11/01/23 21:38 Urine WBC 21-50 /hpf (0-5) H 11/01/23 21:38 Ur Epithelial Cells 11-20 /hpf (0-2) H 11/01/23 21:38 Urine Bacteria 2+ (None Seen) H 11/01/23 21:38 Urine Mucus Present (None Prsent) A 11/01/23 21:38 Ethyl Alcohol mg/dL < 10.0 mg/dl (<10.0) 11/01/23 21:42 Impressions Abdomen/Pelvis CT 11/01/23 20:26 Exam(s): CT ABDOMEN + PELVIS With Contrast IV Amt: 90 ML OPTIRAY 320 EXAM: CT Abdomen and Pelvis With Intravenous Contrast CLINICAL HISTORY: Reason for exam: Jaundice. TECHNIQUE: Axial computed tomography images of the abdomen and pelvis with intravenous contrast. Automated exposure control was utilized for the study. A dose lowering technique was utilized adhering to the principles of ALARA. CONTRAST: Patient received 90 ML OPTIRAY 320 of IV contrast COMPARISON: 03/22/2023 FINDINGS: Lung bases: Unremarkable. No mass. No consolidation. ABDOMEN: Liver: Heterogeneous enhancement of the liver. Marked hepatomegaly.. There is edematous change to the hepatic resulting in compression of the retrohepatic IVC without its occlusion. Gallbladder and bile ducts: Unremarkable. No calcified stones. No ductal dilation. Pancreas: Unremarkable. No mass. No ductal dilation. Spleen: Unremarkable. No splenomegaly. Adrenals: Unremarkable. No mass. Kidneys and ureters: Unremarkable. No solid mass. No hydronephrosis. Stomach and bowel: Unremarkable. No obstruction. No mucosal thickening. PELVIS: Appendix: No findings to suggest acute appendicitis. Bladder: Unremarkable. No mass. Reproductive: Unremarkable as visualized. ABDOMEN and PELVIS: Intraperitoneal space: Unremarkable. No free air. No significant fluid collection. Bones/joints: No acute fracture. No dislocation. Soft tissues: Unremarkable. Vasculature: See above. Lymph nodes: Unremarkable. No enlarged lymph nodes. IMPRESSION: No significant interval change since 03/22/2023. Advanced severe hepatic steatosis is the most likely diagnosis. Electronically signed by: Vladislav Stevenson MD 11/02/23 00:13 AM Diagnostic Findings Laboratory Results WBC 12.46 K/ul (4.8-10.8) H 11/01/23 21:42 RBC 3.44 M/uL (4.20-5.40) L 11/01/23 21:42 Hgb 11.8 g/dl (12.0-16.0) L 11/01/23 21:42 Hct 33.6 % (37.0-47.0) L 11/01/23 21:42 MCV 97.7 fL (80.0-100.0) 11/01/23 21:42 MCH 34.3 pg (25.0-34.0) H 11/01/23 21:42 MCHC 35.1 g/dL (32.0-36.0) 11/01/23 21:42 RDW Std Deviation 58.7 fL (36.4-46.3) H 11/01/23 21:42 RDW Coeff of Sylvester 17.2 % (11.5-14.5) H 11/01/23 21:42 Plt Count 226 K/uL (130-400) 11/01/23 21:42 MPV 12.2 fL (9.4-12.4) 11/01/23 21:42 Immature Gran % (Auto) 1.0 % 11/01/23 21:42 Neut % (Auto) 74.6 % 11/01/23 21:42 Lymph % (Auto) 10.6 % 11/01/23 21:42 Perkins % (Auto) 12.8 % 11/01/23 21:42 Eos % (Auto) 0.4 % 11/01/23 21:42 Baso % (Auto) 0.6 % 11/01/23 21:42 Neut # (Auto) 9.29 K/uL (1.40-6.50) H 11/01/23 21:42 Lymph # (Auto) 1.32 K/uL (1.20-3.40) 11/01/23 21:42 Perkins # (Auto) 1.60 K/uL (0.11-0.59) H 11/01/23 21:42 Eos # (Auto) 0.05 K/uL (0.00-0.50) 11/01/23 21:42 Baso # (Auto) 0.08 K/uL (0.00-0.20) 11/01/23 21:42 Immature Gran # (Auto) 0.12 K/uL (0.01-0.20) 11/01/23 21:42 Absolute Nucleated RBC 0.02 K/uL (0.00-0.12) 11/01/23 21:42 Nucleated RBC % (auto) 0.2 % 11/01/23 21:42 PT 23.5 Seconds (9.0-12.0) H 11/01/23 21:42 INR 2.3 (0.9-1.1) H 11/01/23 21:42 Sodium 133 mmol/L (136-145) L 11/01/23 21:42 Potassium 3.1 mmol/L (3.5-5.1) L 11/01/23 21:42 Chloride 92 mmol/L (98-107) L 11/01/23 21:42 Carbon Dioxide 30 mmol/L (21-32) 11/01/23 21:42 Anion Gap 11 (3-11) 11/01/23 21:42 BUN 15 mg/dl (6-23) 11/01/23 21:42 Creatinine 0.85 mg/dl (0.6-1.2) 11/01/23 21:42 Est Cr Clr Drug Dosing 75.7 ml/min 11/01/23 21:42 Est GFR ( Amer) 102.9 ml/min 11/01/23 21:42 Est GFR (Non-Af Amer) 88.8 ml/min 11/01/23 21:42 BUN/Creatinine Ratio 17.6 (10-20) 11/01/23 21:42 Glucose 77 mg/dl (70-99(Fasting)) 11/01/23 21:42 Calcium 9.2 mg/dl (8.6-10.3) 11/01/23 21:42 Total Bilirubin 19.5 mg/dl (0.2-1.0) H 11/01/23 21:42 AST 348 U/L (13-39) H 11/01/23 21:42 ALT 92 U/L (7-52) H 11/01/23 21:42 Alkaline Phosphatase 327 U/L (34-104) H 11/01/23 21:42 Troponin I High Sens 9.2 pg/ml (0-14) 11/01/23 21:42 Total Protein 7.2 gm/dl (6.0-8.3) 11/01/23 21:42 Albumin 3.5 gm/dl (3.4-5.0) 11/01/23 21:42 Globulin 3.7 gm/dl (2.5-4.0) 11/01/23 21:42 Albumin/Globulin Ratio 0.9 (0.9-2) 11/01/23 21:42 Lipase TNP 11/01/23 21:42 Urine Color Brown 11/01/23 21:38 Urine Appearance Cloudy (Clear) A 11/01/23 21:38 Urine pH (4.5-7.5) 11/01/23 21:38 Ur Specific Belmond 1.026 (1.000-1.030) 11/01/23 21:38 Urine Protein (Negative) 11/01/23 21:38 Urine Glucose (UA) (Negative) 11/01/23 21:38 Urine Ketones (Negative) 11/01/23 21:38 Urine Blood (Negative) 11/01/23 21:38 Urine Nitrite (Negative) 11/01/23 21:38 Urine Bilirubin (Negative) 11/01/23 21:38 Urine Urobilinogen (Negative) 11/01/23 21:38 Ur Leukocyte Esterase (Negative) 11/01/23 21:38 Urine RBC 6-10 /hpf (0-2) H 11/01/23 21:38 Urine WBC 21-50 /hpf (0-5) H 11/01/23 21:38 Ur Epithelial Cells 11-20 /hpf (0-2) H 11/01/23 21:38 Urine Bacteria 2+ (None Seen) H 11/01/23 21:38 Urine Mucus Present (None Prsent) A 11/01/23 21:38 Ethyl Alcohol mg/dL < 10.0 mg/dl (<10.0) 11/01/23 21:42 Impressions Abdomen/Pelvis CT 11/01/23 20:26 Exam(s): CT ABDOMEN + PELVIS With Contrast IV Amt: 90 ML OPTIRAY 320 EXAM: CT Abdomen and Pelvis With Intravenous Contrast CLINICAL HISTORY: Reason for exam: Jaundice. TECHNIQUE: Axial computed tomography images of the abdomen and pelvis with intravenous contrast. Automated exposure control was utilized for the study. A dose lowering technique was utilized adhering to the principles of ALARA. CONTRAST: Patient received 90 ML OPTIRAY 320 of IV contrast COMPARISON: 03/22/2023 FINDINGS: Lung bases: Unremarkable. No mass. No consolidation. ABDOMEN: Liver: Heterogeneous enhancement of the liver. Marked hepatomegaly.. There is edematous change to the hepatic resulting in compression of the retrohepatic IVC without its occlusion. Gallbladder and bile ducts: Unremarkable. No calcified stones. No ductal dilation. Pancreas: Unremarkable. No mass. No ductal dilation. Spleen: Unremarkable. No splenomegaly. Adrenals: Unremarkable. No mass. Kidneys and ureters: Unremarkable. No solid mass. No hydronephrosis. Stomach and bowel: Unremarkable. No obstruction. No mucosal thickening. PELVIS: Appendix: No findings to suggest acute appendicitis. Bladder: Unremarkable. No mass. Reproductive: Unremarkable as visualized. ABDOMEN and PELVIS: Intraperitoneal space: Unremarkable. No free air. No significant fluid collection. Bones/joints: No acute fracture. No dislocation. Soft tissues: Unremarkable. Vasculature: See above. Lymph nodes: Unremarkable. No enlarged lymph nodes. IMPRESSION: No significant interval change since 03/22/2023. Advanced severe hepatic steatosis is the most likely diagnosis. Electronically signed by: Vladislav Stevenson MD 11/02/23 00:13 AM ECG Additional Comments: EKG shows NSR at 100bpm, QA=125, QRS=78, KKi=147 Code Status & VTE Plan VTE Prophylaxis Plan VTE Prophylaxis will be ordered: No PG Care Time/CCT Total # of Minutes Spent Total Time Spent with Patient: Total time spent is greater than 50% in coordination of care (as documented) at patient's floor/unit and/or counseling patient: Coding Level of Care Code 93455 INT INP/OBS CARE 3/75MIN Diagnoses Alcoholic hepatitis without ascites K70.10 Ascites presence: without ascites Alcohol use disorder F10.90 (1) Alcoholic hepatitis Ascites presence: without ascites Qualified Code(s): K70.10 - Alcoholic hepatitis without ascites
[2023-11-02] MEDS ORDERED: ONDANSETRON INJ 2 MG/ML 2 ML VIAL IV PRN (02:10)
[2023-11-02] MEDS: POTASSIUM CHLORIDE CRTAB 20 MEQ TABCR PO STA ×2 (02:31→10:40)
[2023-11-02] MEDS: PHYTONADIONE 10 MG in DEXTROSE 5% 50 ML IV ONE (02:32)
[2023-11-02] MEDS: prednisoLONE sod phosphate 15 MG/5 ML PO STA (02:32)
[2023-11-02] MEDS: MULTI-VITAMIN INFUSION 10 ML, THIAMINE HCL 100 MG, FOLIC ACID 1 MG in SODIUM CHLORIDE 0... IV ONE (03:10)
[2023-11-02 03:24] LABS: Basophils # (auto) 0.05 K/uL (0.00-0.20); Basophils % (auto) 0.5 %; Eosinophils # (auto) 0.14 K/uL (0.00-0.50); Eosinophils % (auto) 1.4 %; Hemoglobin 11.1 g/dl (12.0-16.0); Immature Granulocytes # (auto) 0.08 K/uL (0.01-0.20); Immature Granulocytes % (auto) 0.8 %; Lymphocytes # (auto) 1.43 K/uL (1.20-3.40); Lymphocytes % (auto) 14.4 %; Mean Corpuscular Hemoglobin 34.8 pg (25.0-34.0); Mean Corpuscular Hgb Conc 35.8 g/dL (32.0-36.0); Mean Corpuscular Volume 97.2 fL (80.0-100.0); Mean Platelet Volume 12.1 fL (9.4-12.4); Monocytes # (auto) 1.36 K/uL (0.11-0.59); Monocytes % (auto) 13.7 %; Neutrophils # (auto) 6.88 K/uL (1.40-6.50); Neutrophils % (auto) 69.2 %; Platelet Count 170 K/uL (130-400); RDW Coefficient of Variation 17.2 % (11.5-14.5); RDW Standard Deviation 59.5 fL (36.4-46.3); Red Blood Count 3.19 M/uL (4.20-5.40); White Blood Count 9.94 K/ul (4.8-10.8)
[2023-11-02 03:39] LABS: BUN Creatinine Ratio 15.9 (10-20); Calcium 8.4 mg/dl (8.6-10.3); Creatinine Clr Calc Pharmacy 78.4 ml/min; Est GFR (African American) 107.5 ml/min; Est GFR (Non-African American) 92.7 ml/min; Potassium 3.4 mmol/L (3.5-5.1)
[2023-11-02 03:50] LABS: Albumin Level 3.1 gm/dl (3.4-5.0); Bilirubin,Total 17.4 mg/dl (0.2-1.0); Magnesium 1.3 mg/dl (1.7-2.4); Phosphorus 3.1 mg/dl (2.5-4.9); Total Protein 6.3 gm/dl (6.0-8.3)
[2023-11-02 03:52] LABS: INR 2.3 (0.9-1.1); Prothrombin Time 23.8 Seconds (9.0-12.0)
[2023-11-02 04:59] LABS: Bilirubin Direct 12.5 mg/dl (0-0.2)
--- NOTE | 2023-11-02 08:12 | XRay Report ---
XR chest 1V portable HISTORY: Generalized abdominal pain. COMPARISON: None. FINDINGS: The lungs are clear. Cardiac silhouette is normal in size. No pleural effusions. No pneumot horax. IMPRESSION: No acute process. ACT 112: Negative or not required by law. Electronically signed by: Pola Dickinson M.D. 11/02/2023 8:10 AM
[2023-11-02] MEDS: THIAMINE HCL 100 MG TAB PO SCH (08:50)
[2023-11-02] MEDS: FOLIC ACID 1 MG TAB PO SCH (08:50)
[2023-11-02] MEDS: PANTOprazole 40 MG TAB PO SCH (08:50)
[2023-11-02] MEDS: NICOTINE 14 MG/24 HR PATCH TD SCH (08:50)
[2023-11-02] MEDS ORDERED: PATIENT'S OWN CONTROLLED MED 1 PO SCH (09:00)
[2023-11-02] MEDS: METHADONE ORAL SOLN 2 MG/ML PO SCH (09:12)
[2023-11-02] MEDS: MAGNESIUM SULFATE / D5W 1 GM/100 ML BAG IV SCH (10:40)
--- NOTE | 2023-11-02 13:01 | Gastrointestinal Consultation ---
Date of Consultation November 02, 2023 Assessment & Plan (1) Alcoholic hepatitis: 33 year old woman with alcoholic hepatitis. Already started on steroids for alcoholic hepatitis by primary team that may or may not work. There is no intervention from GI for this problem. Her liver will recover slowly. If it continues to worsen can consider referral for transplant consideration but she isn't much of a candidate because of her failure to remain abstinent and failure to attempt treatment yet. If her labs remain stable I would consider she going through inpatient treatment but that is her decision. History of Present Illness Reason for Consultation: alcoholic hepatitis Attending Physician: Ariane Luis MD History of Present Illness 33 year old female who was in the hospital last Fall with alcoholic hepatitis said she did well for about 5 months and then fell back into issues again. She has turned jaundiced and developed bloating so she is back for admission. She denies any GI complaints other than bloating Allergies Allergy/AdvReac Type Severity Reaction Status Date / Time adhesive Allergy Hives Verified 03/23/23 03:03 Home Medications Medication Instructions Recorded Confirmed Type folic acid 1 mg tablet 1 mg PO QAM #30 tabs 03/25/23 11/02/23 Rx thiamine HCl (vitamin B1) 100 mg 100 mg PO DAILY #30 tabs 03/25/23 11/02/23 Rx tablet methadone 10 mg/mL oral concentrate 64 mg PO DAILY 11/02/23 11/02/23 History Patient History Medical History Alcohol use disorder Elevated MCV Methadone use Surgical History No significant past surgical history Social History Smoking Status: Current every day smoker Tobacco Type: Cigarettes Do You Dip or Chew Tobacco: No; Hx Alcohol Use: Yes Alcohol type: hard liquor Hx Substance Use: Yes (+10 years ago) Preferred Language: Belarusian Communication Ability: Effective Police Shift Commander Required: No Beliefs That Will Affect Care: None Current Living Situation: Family Feels Safe at Home: Yes Safety Concerns: Feels Safe At This Time Assistive Devices: None Review of Systems Review of Systems: All systems reviewed & are unremarkable except as noted in HPI & below Physical Exam Physical Exam: markedly icteric, fidgety Constitutional: WD/WN, vitals as above Eyes: sclerae not anicteric Neck: trachea midline, no thyromegaly Respiratory: normal respiratory effort, lungs clear to auscultation Cardiovascular: RRR, no murmur, no edema Gastrointestinal (Abdomen): normal bowel sounds, soft, nontender, no hepatosplenomegaly Results & Data Vital Signs (Past 12 Hours) Vital Signs Temp Pulse Pulse Resp BP BP Pulse Ox 11/02/23 12:00 79 18 96 11/02/23 12:00 109/79 11/02/23 11:00 98/66 L 11/02/23 11:00 77 13 96 11/02/23 10:47 106/82 11/02/23 10:47 95 H 16 96 11/02/23 10:00 17 11/02/23 09:00 93 H 29 H 11/02/23 09:00 96/73 L 11/02/23 08:00 91/64 L 11/02/23 08:00 66 14 11/02/23 07:32 70 11/02/23 07:00 91/61 L 11/02/23 07:00 69 17 11/02/23 06:00 102/61 11/02/23 06:00 78 15 11/02/23 05:28 37.2 C 74 14 99/78 L 98 11/02/23 05:15 99/78 L 11/02/23 05:15 89 16 11/02/23 05:00 71 15 11/02/23 05:00 98/56 L 11/02/23 04:00 94/55 L 11/02/23 04:00 81 18 11/02/23 03:40 75 16 87/55 L 98 11/02/23 03:30 73 13 11/02/23 03:08 87/55 L 11/02/23 03:08 73 11/02/23 02:10 11/02/23 01:30 96 H 15 97 11/02/23 01:00 86 13 96 Pulse Ox O2 Del Method O2 Del Method 11/02/23 12:00 11/02/23 12:00 11/02/23 11:00 11/02/23 11:00 11/02/23 10:47 11/02/23 10:47 11/02/23 10:00 11/02/23 09:00 11/02/23 09:00 11/02/23 08:00 11/02/23 08:00 11/02/23 07:32 11/02/23 07:00 11/02/23 07:00 11/02/23 06:00 11/02/23 06:00 11/02/23 05:28 Room Air 11/02/23 05:15 11/02/23 05:15 11/02/23 05:00 11/02/23 05:00 11/02/23 04:00 11/02/23 04:00 11/02/23 03:40 Room Air 11/02/23 03:30 11/02/23 03:08 11/02/23 03:08 11/02/23 02:10 97 Room Air 11/02/23 01:30 11/02/23 01:00 Laboratory Results 11/02/23 11/02/23 11/01/23 Range/Units 04:10 02:54 21:42 WBC 9.94 12.46 H (4.8-10.8) K/ul RBC 3.19 L 3.44 L (4.20-5.40) M/uL Hgb 11.1 L 11.8 L (12.0-16.0) g/dl Hct 31.0 L 33.6 L (37.0-47.0) % MCV 97.2 97.7 (80.0-100.0) fL MCH 34.8 H 34.3 H (25.0-34.0) pg MCHC 35.8 35.1 (32.0-36.0) g/dL RDW Std Deviation 59.5 H 58.7 H (36.4-46.3) fL RDW Coeff of Sylvester 17.2 H 17.2 H (11.5-14.5) % Plt Count 170 226 (130-400) K/uL MPV 12.1 12.2 (9.4-12.4) fL Immature Gran % (Auto) 0.8 1.0 % Neut % (Auto) 69.2 74.6 % Lymph % (Auto) 14.4 10.6 % [place] % (Auto) 13.7 12.8 % Eos % (Auto) 1.4 0.4 % Baso % (Auto) 0.5 0.6 % Neut # (Auto) 6.88 H 9.29 H (1.40-6.50) K/uL Lymph # (Auto) 1.43 1.32 (1.20-3.40) K/uL [place] # (Auto) 1.36 H 1.60 H (0.11-0.59) K/uL Eos # (Auto) 0.14 0.05 (0.00-0.50) K/uL Baso # (Auto) 0.05 0.08 (0.00-0.20) K/uL Immature Gran # (Auto) 0.08 0.12 (0.01-0.20) K/uL Absolute Nucleated RBC 0.02 (0.00-0.12) K/uL Nucleated RBC % (auto) 0.2 % PT 23.8 H 23.5 H (9.0-12.0) Seconds INR 2.3 H 2.3 H (0.9-1.1) Sodium 132 L 133 L (136-145) mmol/L Potassium 3.4 L 3.1 L (3.5-5.1) mmol/L Chloride 96 L 92 L (98-107) mmol/L Carbon Dioxide 29 30 (21-32) mmol/L Anion Gap 7 11 (3-11) BUN 13 15 (6-23) mg/dl Creatinine 0.82 0.85 (0.6-1.2) mg/dl Est Cr Clr Drug Dosing 78.4 75.7 ml/min Est GFR ( Amer) 107.5 102.9 ml/min Est GFR (Non-Af Amer) 92.7 88.8 ml/min BUN/Creatinine Ratio 15.9 17.6 (10-20) Glucose 67 L 77 (70-99(Fasting)) mg/dl Calcium 8.4 L 9.2 (8.6-10.3) mg/dl Phosphorus 3.1 (2.5-4.9) mg/dl Magnesium 1.3 L (1.7-2.4) mg/dl Total Bilirubin 17.4 H 19.5 H (0.2-1.0) mg/dl Direct Bilirubin 12.5 H (0-0.2) mg/dl AST 303 H 348 H (13-39) U/L ALT 82 H 92 H (7-52) U/L Alkaline Phosphatase 281 H 327 H (34-104) U/L Troponin I High Sens 9.2 (0-14) pg/ml Total Protein 6.3 7.2 (6.0-8.3) gm/dl Albumin 3.1 L 3.5 (3.4-5.0) gm/dl Globulin 3.7 (2.5-4.0) gm/dl Albumin/Globulin Ratio 0.9 (0.9-2) Lipase TNP Urine Color Urine Appearance (Clear) Urine pH (4.5-7.5) Ur Specific [place] (1.000-1.030) Urine Protein (Negative) Urine Glucose (UA) (Negative) Urine Ketones (Negative) Urine Blood (Negative) Urine Nitrite (Negative) Urine Bilirubin (Negative) Urine Urobilinogen (Negative) Ur Leukocyte Esterase (Negative) Urine RBC (0-2) /hpf Urine WBC (0-5) /hpf Ur Epithelial Cells (0-2) /hpf Urine Bacteria (None Seen) Urine Mucus (None Prsent) Acetaminophen < 3 L (10-30) ug/ml Ethyl Alcohol mg/dL < 10.0 (<10.0) mg/dl Hepatitis A IgM Ab Pending Hep Bs Antigen Pending Hep Bs Ag Confirmation Pending Hep B Core IgM Ab Pending Hepatitis C Ab (EIA) Pending 11/01/23 Range/Units 21:38 WBC (4.8-10.8) K/ul RBC (4.20-5.40) M/uL Hgb (12.0-16.0) g/dl Hct (37.0-47.0) % MCV (80.0-100.0) fL MCH (25.0-34.0) pg MCHC (32.0-36.0) g/dL RDW Std Deviation (36.4-46.3) fL RDW Coeff of Sylvester (11.5-14.5) % Plt Count (130-400) K/uL MPV (9.4-12.4) fL Immature Gran % (Auto) % Neut % (Auto) % Lymph % (Auto) % [place] % (Auto) % Eos % (Auto) % Baso % (Auto) % Neut # (Auto) (1.40-6.50) K/uL Lymph # (Auto) (1.20-3.40) K/uL [place] # (Auto) (0.11-0.59) K/uL Eos # (Auto) (0.00-0.50) K/uL Baso # (Auto) (0.00-0.20) K/uL Immature Gran # (Auto) (0.01-0.20) K/uL Absolute Nucleated RBC (0.00-0.12) K/uL Nucleated RBC % (auto) % PT (9.0-12.0) Seconds INR (0.9-1.1) Sodium (136-145) mmol/L Potassium (3.5-5.1) mmol/L Chloride (98-107) mmol/L Carbon Dioxide (21-32) mmol/L Anion Gap (3-11) BUN (6-23) mg/dl Creatinine (0.6-1.2) mg/dl Est Cr Clr Drug Dosing ml/min Est GFR ( Amer) ml/min Est GFR (Non-Af Amer) ml/min BUN/Creatinine Ratio (10-20) Glucose (70-99(Fasting)) mg/dl Calcium (8.6-10.3) mg/dl Phosphorus (2.5-4.9) mg/dl Magnesium (1.7-2.4) mg/dl Total Bilirubin (0.2-1.0) mg/dl Direct Bilirubin (0-0.2) mg/dl AST (13-39) U/L ALT (7-52) U/L Alkaline Phosphatase (34-104) U/L Troponin I High Sens (0-14) pg/ml Total Protein (6.0-8.3) gm/dl Albumin (3.4-5.0) gm/dl Globulin (2.5-4.0) gm/dl Albumin/Globulin Ratio (0.9-2) Lipase Urine Color Brown Urine Appearance Cloudy A (Clear) Urine pH (4.5-7.5) Ur Specific [place] 1.026 (1.000-1.030) Urine Protein (Negative) Urine Glucose (UA) (Negative) Urine Ketones (Negative) Urine Blood (Negative) Urine Nitrite (Negative) Urine Bilirubin (Negative) Urine Urobilinogen (Negative) Ur Leukocyte Esterase (Negative) Urine RBC 6-10 H (0-2) /hpf Urine WBC 21-50 H (0-5) /hpf Ur Epithelial Cells 11-20 H (0-2) /hpf Urine Bacteria 2+ H (None Seen) Urine Mucus Present A (None Prsent) Acetaminophen (10-30) ug/ml Ethyl Alcohol mg/dL (<10.0) mg/dl Hepatitis A IgM Ab Hep Bs Antigen Hep Bs Ag Confirmation Hep B Core IgM Ab Hepatitis C Ab (EIA) Diagnostic Findings Abdomen/Pelvis CT 11/01/23 20:26 Exam(s): CT ABDOMEN + PELVIS With Contrast IV Amt: 90 ML OPTIRAY 320 EXAM: CT Abdomen and Pelvis With Intravenous Contrast CLINICAL HISTORY: Reason for exam: Jaundice. TECHNIQUE: Axial computed tomography images of the abdomen and pelvis with intravenous contrast. Automated exposure control was utilized for the study. A dose lowering technique was utilized adhering to the principles of ALARA. CONTRAST: Patient received 90 ML OPTIRAY 320 of IV contrast COMPARISON: 03/22/2023 FINDINGS: Lung bases: Unremarkable. No mass. No consolidation. ABDOMEN: Liver: Heterogeneous enhancement of the liver. Marked hepatomegaly.. There is edematous change to the hepatic resulting in compression of the retrohepatic IVC without its occlusion. Gallbladder and bile ducts: Unremarkable. No calcified stones. No ductal dilation. Pancreas: Unremarkable. No mass. No ductal dilation. Spleen: Unremarkable. No splenomegaly. Adrenals: Unremarkable. No mass. Kidneys and ureters: Unremarkable. No solid mass. No hydronephrosis. Stomach and bowel: Unremarkable. No obstruction. No mucosal thickening. PELVIS: Appendix: No findings to suggest acute appendicitis. Bladder: Unremarkable. No mass. Reproductive: Unremarkable as visualized. ABDOMEN and PELVIS: Intraperitoneal space: Unremarkable. No free air. No significant fluid collection. Bones/joints: No acute fracture. No dislocation. Soft tissues: Unremarkable. Vasculature: See above. Lymph nodes: Unremarkable. No enlarged lymph nodes. IMPRESSION: No significant interval change since 03/22/2023. Advanced severe hepatic steatosis is the most likely diagnosis. Electronically signed by: Vladislav Stevenson MD 11/02/23 00:13 AM Chest X-Ray 11/01/23 20:26 XR chest 1V portable HISTORY: Generalized abdominal pain. COMPARISON: None. FINDINGS: The lungs are clear. Cardiac silhouette is normal in size. No pleural effusions. No pneumothorax. IMPRESSION: No acute process. ACT 112: Negative or not required by law. Electronically signed by: Pola Dickinson M.D. 11/02/2023 8:10 AM (1) Alcoholic hepatitis Ascites presence: without ascites Qualified Code(s): K70.10 - Alcoholic hepatitis without ascites
[2023-11-02] MEDS: PATIENT'S OWN CONTROLLED MED 1 PO SCH (15:43)
[2023-11-02] MEDS: cefTRIAXone SODIUM 1,000 MG in DEXTROSE 5 % MINI-B 50 ML IV SCH (16:44)
--- NOTE | 2023-11-02 17:26 | History & Physical Bridge Note ---
Date of Service November 02, 2023 History & Physical Bridge Note I have examined the patient, reviewed the History & Physical and in the interval since the performance of the History & Physical I have noted the following changes of clinical significance: Pt feeling ok, has some pain in RUQ with slouching from hepatomegaly, no LE swelling or pain. No signs of withdrawal-no shaking or AH/VH, tremor, no HTN or tachycardia LFTs improving Continue prednisolone 40mg daily, Protonix for GI protection Appreciate GI consultation Follow CBC, LFTs, BMP, INR, MELD score f/u hep panel when available replace K+ po
--- NOTE | 2023-11-02 17:35 | Communication Note ---
Date of Service: November 02, 2023 With dysuria, abnormal UA, start ceftriaxone, follow urine cx
[2023-11-03 07:23] LABS: Basophils # (auto) 0.05 K/uL (0.00-0.20); Basophils % (auto) 0.4 %; Eosinophils # (auto) 0.17 K/uL (0.00-0.50); Eosinophils % (auto) 1.4 %; Hematocrit (blood only) 32.6 % (37.0-47.0); Hemoglobin 11.5 g/dl (12.0-16.0); Immature Granulocytes # (auto) 0.27 K/uL (0.01-0.20); Immature Granulocytes % (auto) 2.3 %; Lymphocytes # (auto) 1.53 K/uL (1.20-3.40); Mean Corpuscular Hemoglobin 35.6 pg (25.0-34.0); Mean Corpuscular Hgb Conc 35.3 g/dL (32.0-36.0); Mean Corpuscular Volume 100.9 fL (80.0-100.0); Mean Platelet Volume 11.8 fL (9.4-12.4); Monocytes # (auto) 1.56 K/uL (0.11-0.59); Monocytes % (auto) 13.3 %; Neutrophils # (auto) 8.18 K/uL (1.40-6.50); Neutrophils % (auto) 69.6 %; Platelet Count 243 K/uL (130-400); RDW Coefficient of Variation 18.2 % (11.5-14.5); RDW Standard Deviation 64.2 fL (36.4-46.3); Red Blood Count 3.23 M/uL (4.20-5.40); White Blood Count 11.76 K/ul (4.8-10.8)
[2023-11-03 08:02] LABS: INR 1.4 (0.9-1.1); Prothrombin Time 15.2 Seconds (9.0-12.0)
[2023-11-03 08:57] LABS: Albumin Level 3.2 gm/dl (3.4-5.0); BUN Creatinine Ratio 22.2 (10-20); Bilirubin,Total 18.6 mg/dl (0.2-1.0); Calcium 8.7 mg/dl (8.6-10.3); Creatinine Clr Calc Pharmacy 104.9 ml/min; Est GFR (African American) 134.7 ml/min; Est GFR (Non-African American) 116.2 ml/min; Magnesium 2.1 mg/dl (1.7-2.4); Phosphorus 1.4 mg/dl (2.5-4.9); Potassium 4.4 mmol/L (3.5-5.1); Total Protein 6.6 gm/dl (6.0-8.3)
[2023-11-03] MEDS ORDERED: SODIUM PHOSPHATE 3 MMOL/1 ML INFUSION IV STA (09:01)
[2023-11-03] MEDS: prednisoLONE sod phosphate 15 MG/5 ML PO SCH (09:21)
[2023-11-03] MEDS: SODIUM PHOSPHATE 21 MMOL in DEXTROSE 5% 500 ML IV ONE (10:11)
[2023-11-03 11:53] LABS: Bilirubin Direct 13.1 mg/dl (0-0.2)
[2023-11-03 14:32] LABS: HBSAG NON-REACTIVE (NON-REACTIVE); Hepatitis A Antibody IgM NON-REACTIVE (NON-REACTIVE); Hepatitis B Core Antibody IgM NON-REACTIVE (NON-REACTIVE)
[2023-11-03] MEDS: LORazepam 1 MG in SYRINGE 0.5 ML IV PRN (15:08)
[2023-11-03] MEDS ORDERED: LORazepam 1 MG in SYRINGE 0.5 ML IV PRN (15:21)
[2023-11-03] MEDS ORDERED: chlordiazePOXIDE ALCOHOL WITHDRAWL 25MG PO STA (15:21)
[2023-11-03] MEDS ORDERED: Ativan IV Alcohol Withdrawal--Active Protocol IV PRN (15:21)
--- NOTE | 2023-11-03 15:32 | Hospitalist Progress Note ---
Date of Service November 03, 2023 Assessment & Plan (1) Alcoholic hepatitis: Plan: 33yo female with EtOh use disorder presenting with acute alcoholic hepatitis. Patient reports drinking 3 large glasses of vodka daily (uncertain of amount, estimate to be appx 24 oz daily). Her last drink was 5 days prior to admission and EtOH level undetectable on admission. She presents with several days of progressive jaundice and scleral icterus. On admission, labs are significant for elevated WBC=12.46, Hgb of 11.8 and Hct=33.6. Platelets are normal at 226 INR elevated at 2.3, PT=23.5 Ch=239 BIV=408, ALT=92, KI=570, Tbili=19.5 [address] level not detectable CT of the abdomen with massive hepatomegaly and edema, compressing IVC but no occlusion Patient with MELD score of 29 points correlating with a 19.6% 3 month mortality Maddrey's Discriminant function markedly elevated at 77 points and now down to 33 No ascites present on exam or mentioned on imaging Now with EtOH withdrawal LFTs stable but still quite elevated, INR improving, phos low -f/u acute hepatitis panel-pending -replace phos -change to high dose IV thiamine given worsening mentation in case of Wernicke's -Protonix 40mg po daily -Folate 1mg po daily -continue steroid therapy for acute alcoholic hepatitis with elevated MDF=77. Prednisolone 40mg/day. -GI Consultation appreciated to assist with management (2) Alcohol use disorder: Plan: Patient has not tried AA or rehab in the past. She is interested in AA at this time. I briefly discussed with her the importance of complete abstinence from EtOH and her high risk of mortality if she does not stop drinking. -Monitor closely for EtOH withdrawal - AWSS protocols in place -Monitor electrolytes for possible refeeding syndrome -Consider Case management consultation prior to discharge to assist with services available to her (3) Alcohol withdrawal delirium: Plan: began having withdrawal symptoms on 11/02-hallucinations, significant agitation, confusion giving prn ativan with AWSS protocol start Librium taper lower dose due to liver issues transfer to ICU for Precedex gtt (4) UTI (urinary tract infection): Plan: UA abnormal, with dysuria treating with ceftriaxone and already feels improvement Ur cx with GNR, sens pending-follow (5) Methadone use: Plan: continue usual home dose (6) Electrolyte abnormality: Plan: low phos, low Na+ replace with IV sodium phos follow BMP (7) Hyponatremia: Plan: as above Plan DVT proph-SCDs Dispo-transfer to ICU Admission and Anticipated Discharge Date Admission Date: November 02, 2023 Subjective Pt hallucinating today, confused, talking about things off topic. I saw her earlier in the day and she was able to tell me she fetl confused and was seeing peopl ein room that weren't there. She reported ongoing pain in RUQ with leaning over and sitting up. Then by evening, I saw her a second time after multiple doses of ativan were given for increasing AWSS scores and she was agitated, combative, trying to rip out her IV, very confused. SHe was given extra IV ativan and transferred to ICU for precedex gtt. I discussed her care with Project Development Director. Tele with NSR, rates 70-80s Physical Exam Constitutional: WD/WN, vitals as above Respiratory: normal respiratory effort, lungs clear to auscultation Cardiovascular: RRR, no murmur, no edema Gastrointestinal (Abdomen): Inspection/Auscultation: normal bowel sounds; abdomen not distended Percussion/Palpation: abdomen soft and + hepatomegaly; abdomen nontender Neurologic: moves all extremities, awake and + confused Psychiatric: Orientation: alert and oriented to person; + not oriented to place, + not oriented to time and + uncooperative Thought Process: + thought process not clear or coherent Results & Data Results & Data Vital Signs (Past 12 Hours) Vital Signs Temp Pulse Pulse Resp BP BP Pulse Ox 11/03/23 10:54 36.9 C 81 18 109/74 95 11/03/23 08:36 36.9 C 62 18 93/63 L 98 11/03/23 07:10 75 O2 Del Method 11/03/23 10:54 Room Air 11/03/23 08:36 Room Air 11/03/23 07:10 Laboratory Results CBC, CMP, INR, phos, mag reviewed Ur cx GNR PG Care Time/CCT Total # of Minutes Spent Total Time Spent with Patient: Total time spent is greater than 50% in coordination of care (as documented) at patient's floor/unit and/or counseling patient: Coding Level of Care Code 40159 SUB INP/OBS CARE 3/50MIN Diagnoses Alcoholic hepatitis without ascites K70.10 Ascites presence: without ascites Alcohol use disorder F10.90 Alcohol withdrawal delirium F10.931 UTI (urinary tract infection) N39.0 Methadone use F11.90 Electrolyte abnormality E87.8 Hyponatremia E87.1 (1) Alcoholic hepatitis Ascites presence: without ascites Qualified Code(s): K70.10 - Alcoholic hepatitis without ascites
--- NOTE | 2023-11-03 16:28 | Gastroenterology Progress Note ---
Date of Service November 03, 2023 Assessment & Plan (1) Alcoholic hepatitis: Plan: Going through withdrawals. LFT's are stable. Nothing further to add. Will sign off. If GI needed again please call Admission and Anticipated Discharge Date Admission Date: November 02, 2023 Subjective "not a good day" seeing things. No pain though. Labs are stable Physical Exam Physical Exam: agitated but in no distress Constitutional: WD/WN, vitals as above Results & Data Vital Signs (Past 12 Hours) Vital Signs Temp Pulse Pulse Resp BP BP Pulse Ox 11/03/23 16:08 75 11/03/23 15:50 36.8 C 101 H 16 109/75 97 11/03/23 10:54 36.9 C 81 18 109/74 95 11/03/23 08:36 36.9 C 62 18 93/63 L 98 11/03/23 07:10 75 O2 Del Method 11/03/23 16:08 11/03/23 15:50 Room Air 11/03/23 10:54 Room Air 11/03/23 08:36 Room Air 11/03/23 07:10 (1) Alcoholic hepatitis Ascites presence: without ascites Qualified Code(s): K70.10 - Alcoholic hepatitis without ascites
[2023-11-03] MEDS: LACTATED RINGER'S 1,000 ML IV SCH (17:16)
[2023-11-03] MEDS: chlordiazePOXIDE HCl 25 MG CAP PO SCH (17:16)
[2023-11-03] MEDS: LORazepam 3 MG in SYRINGE 1.5 ML IV PRN (17:35)
[2023-11-03] MEDS: LORazepam 2 MG in SYRINGE 1 ML IV STA ×2 (18:24→18:48)
[2023-11-03] MEDS ORDERED: LORazepam 3 MG in SYRINGE 1.5 ML IV PRN (18:45)
[2023-11-03] MEDS ORDERED: STAT IV Infusion **Titration per Protocol STA (19:14)
[2023-11-03] MEDS: LORazepam 2 MG in SYRINGE 1 ML IV PRN (19:16)
[2023-11-03] MEDS: dexMEDEtomidine 200 MCG/50 ML BAG IV SCH (19:20)
--- NOTE | 2023-11-03 19:30 | Critical Care Consultation ---
Date of Consultation November 03, 2023 Assessment & Plan (1) Alcohol withdrawal delirium: Reason Critically Ill: 33-year-old female presents to the ICU with refractory delirium tremens secondary to alcohol withdrawal, currently requiring IV Ativan and Precedex drip Neuro - Refractory delirium tremenspatient presents with encephalopathy and agitation history of EtOH abuse. Suspect alcohol withdrawal -EtOH negative on admission. Patient reports drinking up to 24 ounces of vodka per day -Was taking methadone inpatient, noted to have empty bottle and belongings. Methadone overdose? -Medication on hold -Monitoring closely. No indication for intubation at this time as patient is currently protecting airway. Will add end-tidal CO2 monitoring -Received 500 banana bag in the emergency department on admission. Continue with folic acid, high-dose thiamine -Ammonia pending, underlying liver disease may require lactulose -CT head negative for acute intracranial findings -Continue SANTOS S scale with IV Ativan in addition to Precedex drip. Wean Precedex as tolerated -Admitted to ICU for further management. Cardiac - Tachycardiasecondary to agitation and drawl. Patient hemodynamically stable. This has been improved following administration of Precedex drip. Continuous monitoring on telemetry Respiratory - No history of pulmonary disease. Currently maintaining oxygen saturation on room air. Will add end-tidal CO2 monitoring in addition to continuous pulse ox monitoring while receiving sedation. GI - Acute alcoholic hepatitispatient with transaminitis, elevated INR. Initial meld of 29 -Did receive vitamin K on admission with improvement in INR. Will continue to trend for now -Acetaminophen negative -Hepatitis panel negative -Currently on prednisone. May have to transition to IV steroids in a.m. given encephalopathy -LFTs stable. Continue to trend -GI consulted, no further recommendations. RENAL/LYTES - Creatinine within normal limits. Electrolyte abnormalities likely due to EtOH abuse. Continue to monitor routine BMPs and replete as indicated LR at 125 mL/h - Strict I's and O's ENDO - No history of diabetes or thyroid disease. ICU hyperglycemic protocol HEME - H&H stable, no thrombocytopenia. Monitor routine CBC ID - Uncomplicated UTIcontinue ceftriaxone LINES/IV ACCESS - Peripheral IVs DVT PROPHYLAXIS - SCDs, hold anticoagulation in the setting of elevated INR I have personally spent 45 minutes of critical care time in the direct management of this patient. This is a life/limb threatening event. This includes time spent evaluating patient, direct bedside care, chart review, placing orders, interpretation of diagnostic studies, discussion with consultants, patient, and family members, as well as other required patient management activities. This time is exclusive of all separately billable procedures, and teaching time and separate from and in addition to any other critical care service time. Thank you for allowing us to participate in the care of this patient. Please refer to my attending physician's documentation for any further recommendations. (2) Alcoholic hepatitis: (3) UTI (urinary tract infection): (4) Electrolyte abnormality: History of Present Illness Attending Physician: Ariane Luis MD History of Present Illness 33-year-old female with past medical history of EtOH abuse and and admitted to the hospital yesterday with acute alcoholic hepatitis. Patient initially presented with progressive jaundice and scleral icterus, stating that her last drink was 5 days ago and reported drinking approximately 24 drinks daily. EtOH was negative on admission. She did have moderately elevated LFTs with a meld of 29 and Madrey's discriminant function elevated at 77.6. She was placed on prednisone, received banana bag, vitamin K for elevated INR is undergoing treatment on PCU. Of note, also receiving ceftriaxone for UTI. Patient became increasingly encephalopathic today with hallucinations and undergoing treatment with IV Ativan on SANTOS S score for delirium tremens. She became increasingly combative this evening despite receiving 8 mg IV Ativan over the past 2 hours. She is now being transferred to ICU for refractory DTs, requiring Precedex drip in addition to IV Ativan. Patient did undergo CT head which was negative for acute intracranial findings. Patient to remain in ICU for further management at this time. Allergies Allergy/AdvReac Type Severity Reaction Status Date / Time adhesive Allergy Hives Verified 03/23/23 03:03 Home Medications Medication Instructions Recorded Confirmed Type folic acid 1 mg tablet 1 mg PO QAM #30 tabs 03/25/23 11/02/23 Rx thiamine HCl (vitamin B1) 100 mg 100 mg PO DAILY #30 tabs 03/25/23 11/02/23 Rx tablet methadone 10 mg/mL oral concentrate 64 mg PO DAILY 11/02/23 11/02/23 History Patient History Medical History Alcohol use disorder Elevated MCV Methadone use Surgical History No significant past surgical history Social History Smoking Status: Current every day smoker Tobacco Type: Cigarettes Do You Dip or Chew Tobacco: No; Hx Alcohol Use: Yes Alcohol type: hard liquor Hx Substance Use: Yes (+10 years ago) Preferred Language: Vietnamese Communication Ability: Effective Rn Or Lpn Required: No Beliefs That Will Affect Care: None Current Living Situation: Family Feels Safe at Home: Yes Safety Concerns: Feels Safe At This Time Assistive Devices: None Review of Systems Review of Systems: All systems reviewed & are unremarkable except as noted in HPI & below Physical Exam 2 Constitutional: + combative; + uncooperative Eyes: PERRL, conjunctivae normal, anicteric sclerae ENMT: external ear and nose normal, oropharynx normal Neck: trachea midline, no thyromegaly Respiratory: normal respiratory effort, lungs clear to auscultation Cardiovascular: Rate/Rhythm: regular rate and + tachycardic Heart Sounds: normal S1 and normal S2; no murmur Gastrointestinal (Abdomen): normal bowel sounds, soft, nontender, no hepatosplenomegaly Musculoskeletal: no cyanosis or clubbing, extremities motor strength 5/5 Skin: no rashes, warm and dry Neurologic: moves all extremities and + confused; no focal motor deficits Motor/Sensory: + tremor Psychiatric: Orientation: + uncooperative Results & Data Results & Data Vital Signs (Past 12 Hours) Vital Signs Temp Pulse Pulse Resp BP BP Pulse Ox 11/03/23 17:00 36.9 C 100 H 19 108/76 95 11/03/23 16:08 75 11/03/23 15:50 36.8 C 101 H 16 109/75 97 11/03/23 10:54 36.9 C 81 18 109/74 95 11/03/23 08:36 36.9 C 62 18 93/63 L 98 O2 Del Method 11/03/23 17:00 Room Air 11/03/23 16:08 11/03/23 15:50 Room Air 11/03/23 10:54 Room Air 11/03/23 08:36 Room Air Coding Level of Care Code 04827 CRITICAL CARE 1ST 30-74M Diagnoses Alcohol withdrawal delirium F10.931 Alcoholic hepatitis without ascites K70.10 Ascites presence: without ascites UTI (urinary tract infection) N39.0 Electrolyte abnormality E87.8 (2) Alcoholic hepatitis Ascites presence: without ascites Qualified Code(s): K70.10 - Alcoholic hepatitis without ascites
[2023-11-03] MEDS: THIAMINE HCL 500 MG in SODIUM CHLORIDE 0.9% 50 ML IV SCH (19:46)
[2023-11-03] MEDS: LORazepam 2 MG/1 ML VIAL ONE (20:37)
--- NOTE | 2023-11-03 21:18 | CT Scan Report ---
Exam(s): CT HEAD Without Contrast EXAM: CT Head Without Intravenous Contrast CLINICAL HISTORY: Reason for exam: AMS. TECHNIQUE: Axial computed tomography images of the head/brain without intravenous contrast. CTDI is 36.31 mGy and DLP is 624.41 mGy-cm. Automated exposure control was utilized for the study. A dose lowering technique was utilized adhering to the principles of ALARA. COMPARISON: None FINDINGS: Brain: No acute infarct or hemorrhage. No extra-axial fluid collection. No mass effect or midline shift. Ventricles and sulci: Normal. No ventriculomegaly or intraventricular hemorrhage. Bones: Normal. No bony lesion or acute fracture. Subcutaneous tissues: Normal. Sinuses: Normal. No air-fluid levels or mucosal thickening. Mastoid air cells: Normal. Orbits: Grossly unremarkable. IMPRESSION: No acute intracranial abnormality. Electronically signed by: Warner Abel M.D. 11/03/23 21:17 PM
[2023-11-04 00:05] LABS: Albumin Globulin Ratio 0.9 (0.9-2); Albumin Level 2.7 gm/dl (3.4-5.0); Bilirubin,Total 15.8 mg/dl (0.2-1.0); Est GFR (African American) 139.2 ml/min; Est GFR (Non-African American) 120.1 ml/min; Phosphorus 3.9 mg/dl (2.5-4.9); Potassium 3.4 mmol/L (3.5-5.1); Total Protein 5.7 gm/dl (6.0-8.3)
[2023-11-04 04:19] LABS: Amphetamines+Metham, Urine Neg (Neg); Barbiturates, Urine Neg (Neg); Benzodiazepine, Urine Neg (Neg); Cocaine, Urine Neg (Neg); MDMA (Ecstacy), Urine Neg (Neg); Marijuana, Urine Neg (Neg); Methadone, Urine Pos (Neg); Opiate, Urine Neg (Neg); Phencyclidine, Urine Neg (Neg)
[2023-11-04 04:51] LABS: Basophils # (auto) 0.02 K/uL (0.00-0.20); Basophils % (auto) 0.2 %; Eosinophils # (auto) 0.05 K/uL (0.00-0.50); Eosinophils % (auto) 0.6 %; Hematocrit (blood only) 28.1 % (37.0-47.0); Immature Granulocytes # (auto) 0.11 K/uL (0.01-0.20); Immature Granulocytes % (auto) 1.4 %; Lymphocytes # (auto) 1.17 K/uL (1.20-3.40); Lymphocytes % (auto) 14.6 %; Mean Corpuscular Hemoglobin 35.1 pg (25.0-34.0); Mean Corpuscular Hgb Conc 35.6 g/dL (32.0-36.0); Mean Corpuscular Volume 98.6 fL (80.0-100.0); Mean Platelet Volume 11.8 fL (9.4-12.4); Monocytes # (auto) 0.93 K/uL (0.11-0.59); Monocytes % (auto) 11.6 %; Neutrophils # (auto) 5.73 K/uL (1.40-6.50); Neutrophils % (auto) 71.6 %; Platelet Count 203 K/uL (130-400); RDW Coefficient of Variation 18.9 % (11.5-14.5); RDW Standard Deviation 65.9 fL (36.4-46.3); Red Blood Count 2.85 M/uL (4.20-5.40); White Blood Count 8.01 K/ul (4.8-10.8)
[2023-11-04 05:24] LABS: INR 1.5 (0.9-1.1); Prothrombin Time 15.8 Seconds (9.0-12.0)
[2023-11-04 05:40] LABS: Albumin Globulin Ratio 0.9 (0.9-2); Albumin Level 2.6 gm/dl (3.4-5.0); BUN Creatinine Ratio 15.8 (10-20); Est GFR (African American) 139.2 ml/min; Est GFR (Non-African American) 120.1 ml/min; Phosphorus 3.2 mg/dl (2.5-4.9); Potassium 3.7 mmol/L (3.5-5.1); Total Protein 5.6 gm/dl (6.0-8.3)
[2023-11-04] MEDS: DEXTROSE 50% 50 ML SYRINGE IV ONE (05:54)
--- NOTE | 2023-11-04 07:36 | Critical Care Progress Note ---
Date of Service November 04, 2023 Assessment & Plan (1) Hyponatremia: (2) Electrolyte abnormality: (3) Alcohol withdrawal delirium: (4) UTI (urinary tract infection): (5) Alcoholic hepatitis: (6) Abnormal LFTs: (7) Alcohol use disorder: (8) Elevated LFTs: (9) Elevated bilirubin: (10) Jaundice: (11) Methadone use: Plan Reason Critically Ill: 33-year-old female presents to the ICU with refractory delirium tremens secondary to alcohol withdrawal, currently requiring IV Ativan and Precedex drip Neuro - Refractory delirium tremenspatient presents with encephalopathy and agitation history of EtOH abuse. Suspect alcohol withdrawal -EtOH negative on admission. Patient reports drinking up to 24 ounces of vodka per day -Was taking methadone inpatient, noted to have empty bottle and belongings. Methadone level pending -Medication on hold -Monitoring closely. No indication for intubation at this time as patient is currently protecting airway. Continue end-tidal CO2 monitoring -Received 500 banana bag in the emergency department on admission. Continue with folic acid, high-dose thiamine -Ammonia pending, underlying liver disease may require lactulose -CT head negative for acute intracranial findings -Continue SANTOS S scale with IV Ativan in addition to Precedex drip. -Precedex stopped -Admitted to ICU for further management. -Ammonia level drawn and performed, not reported by lab Cardiac - Tachycardiasecondary to agitation and drawl. Patient hemodynamically stable. This has been improved following administration of Precedex drip. Continuous monitoring on telemetry Respiratory - No history of pulmonary disease. Currently maintaining oxygen saturation on room air. Will add end-tidal CO2 monitoring in addition to continuous pulse ox monitoring while receiving sedation. GI - Acute alcoholic hepatitispatient with transaminitis, elevated INR. Initial meld of 29 -Did receive vitamin K on admission with improvement in INR. Will continue to trend for now -Acetaminophen negative -Hepatitis panel negative -Currently on prednisone. May have to transition to IV steroids in a.m. given encephalopathy -LFTs stable. Continue to trend -GI consulted, no further recommendations. RENAL/LYTES - Creatinine within normal limits. Electrolyte abnormalities likely due to EtOH abuse. Continue to monitor routine BMPs and replete as indicated LR at 125 mL/h - Strict I's and O's ENDO - No history of diabetes or thyroid disease. ICU hyperglycemic protocol HEME - H&H stable, no thrombocytopenia. Monitor routine CBC ID - Uncomplicated UTIcontinue ceftriaxone LINES/IV ACCESS - Peripheral IVs DVT PROPHYLAXIS - SCDs, hold anticoagulation in the setting of elevated INR Thank you for allowing us to participate in the care of this patient. Please refer to my attending physician's documentation for any further recommendations. Admission and Anticipated Discharge Date Admission Date: November 02, 2023 Supervising Physician Co-Signing Physician Notes Dr. Chamberlain was resident physician during care of patient. I separately evaluated patient for jose portions of the history and the exam. I was present during the critical portion of medical decision making, and I discussed the case with the resident. I generally agree with the findings and plan. Ammonia not reportable secondary to icteric serum, ammonia by enlarge part is not going to be actionable no need to send for reference value. We will empirically start her on lactulose to assist with ammonia clearance empirically. Discontinue supplemental fluids, adjusting thiamine dosing to daily supplementation. Empiric Librium, would give additional Librium for breakthrough if desired avoiding Ativan until discriminant function decreases or more evidence of increased synthetic function of the liver. Adding Lovenox for DVT prophylaxis, can wear SCDs. De-escalate from ceftriaxone to p.o. amoxicillin for UTI. Subjective Patient seen and evaluated at bedside this morning. No acute events overnight. Pt remains obtunded. Review of Systems Review of Systems: reviewed, per HPI Physical Exam Physical Exam: Constitutional: ill appearing, jaundiced, obtunded HEENT: NCAT, + scleral icterus CV: regular rhythm, no murmur appreciated, extremities well-perfused, no LE edema Resp: CTABL, no wheezes/rales/rhonchi appreciated, no increased work of breathing GI: soft, +distended, nontende MSK: no gross deformities appreciated Skin: jaundiced Neuro: obtunded Results & Data Results & Data Vital Signs (Past 12 Hours) Vital Signs Temp Pulse Pulse Resp BP BP Pulse Ox 11/04/23 04:00 91/55 L 11/04/23 04:00 67 14 95 11/04/23 03:00 69 14 95 11/04/23 03:00 93/61 L 11/04/23 02:00 63 13 95 11/04/23 02:00 36.4 C L 90/61 L 11/04/23 01:00 63 14 95 11/04/23 01:00 94/67 L 04/11/24 00:02 36.4 C L 62 14 104/71 93 11/04/23 00:00 104/71 11/04/23 00:00 66 12 92 11/03/23 23:45 60 11/03/23 23:00 60 14 93 11/03/23 23:00 94/65 L 11/03/23 22:14 63 14 93 11/03/23 22:14 91/63 L 11/03/23 22:12 85/61 L 11/03/23 22:12 62 14 93 11/03/23 22:00 87/58 L 11/03/23 22:00 62 13 93 11/03/23 22:00 36.4 C L 61 16 91/63 L 94 11/03/23 21:18 61 14 87/58 L 92 11/03/23 21:00 87/61 L 11/03/23 21:00 61 12 92 11/03/23 20:30 11/03/23 20:25 64 18 92 11/03/23 20:25 91/52 L 11/03/23 20:17 67 19 94 11/03/23 20:17 87/54 L 11/03/23 20:15 67 19 92 11/03/23 20:15 83/51 L 11/03/23 20:13 71 16 O2 Del Method O2 Flow Rate 11/04/23 04:00 11/04/23 04:00 Nasal Cannula 2 11/04/23 03:00 Nasal Cannula 2 11/04/23 03:00 11/04/23 02:00 Nasal Cannula 2 11/04/23 02:00 11/04/23 01:00 Nasal Cannula 2 11/04/23 01:00 11/04/23 00:02 Room Air 11/04/23 00:00 11/04/23 00:00 Nasal Cannula 2 11/03/23 23:45 11/03/23 23:00 Room Air 11/03/23 23:00 11/03/23 22:14 11/03/23 22:14 11/03/23 22:12 11/03/23 22:12 11/03/23 22:00 11/03/23 22:00 11/03/23 22:00 Room Air 11/03/23 21:18 Room Air 11/03/23 21:00 11/03/23 21:00 Room Air 11/03/23 20:30 Room Air, Nasal CPAP 11/03/23 20:25 11/03/23 20:25 11/03/23 20:17 Room Air 11/03/23 20:17 11/03/23 20:15 11/03/23 20:15 11/03/23 20:13 Resident Activity Tracking Resident Involvement: Resident Care Provided Care Provided: Adult Hospital Medicine (5) Alcoholic hepatitis Ascites presence: without ascites Qualified Code(s): K70.10 - Alcoholic hepatitis without ascites
[2023-11-04 09:54] LABS: Bilirubin Direct 8.6 mg/dl (0-0.2)
--- NOTE | 2023-11-04 09:55 | Billing Data ---
Date of Service November 04, 2023 Coding Level of Care Code 23850 SUB INP/OBS CARE MIN
[2023-11-04] MEDS: ENOXAPARIN INJ 30 MG/0.3 ML SYR SQ SCH (11:37)
[2023-11-04] MEDS: LACTULOSE SYRUP 30 GM/45 ML UDP PO SCH (11:40)
[2023-11-04] MEDS: chlordiazePOXIDE HCl 25 MG CAP PO SCH (18:50)
--- NOTE | 2023-11-04 19:43 | Hospitalist Progress Note ---
Date of Service November 04, 2023 Assessment & Plan (1) Alcoholic hepatitis: Plan: 33yo female with EtOh use disorder presenting with acute alcoholic hepatitis. Patient reports drinking 3 large glasses of vodka daily (uncertain of amount, estimate to be appx 24 oz daily). Her last drink was 5 days prior to admission and EtOH level undetectable on admission. She presents with several days of progressive jaundice and scleral icterus. On admission, labs are significant for elevated WBC=12.46, Hgb of 11.8 and Hct=33.6. Platelets are normal at 226 INR elevated at 2.3, PT=23.5 Cy=036 IRE=984, ALT=92, XO=573, Tbili=19.5 [address] level not detectable CT of the abdomen with massive hepatomegaly and edema, compressing IVC but no occlusion Patient with MELD score of 29 points correlating with a 19.6% 3 month mortality Maddrey's Discriminant function markedly elevated at 77 points and now down to 32.5 No ascites present on exam or mentioned on imaging Now with EtOH withdrawal requiring transfer to the ICU for Precedex drip. Started on Librium taper and using as needed Ativan-now much improved LFTs and INR improving, platelets remain stable, acute hepatitis panel negative Giving high dose IV thiamine given worsening mentation in case of Wernicke's and will reduced to 200 mg daily after 3 days Continue Protonix 40mg po daily Continue folate 1mg po daily Continue steroid therapy for acute alcoholic hepatitis with elevated MDF=77 on admission. Prednisolone 40mg/day. GI Consultation appreciated to assist with management-signed off (2) Alcohol use disorder: Plan: Patient has not tried AA or rehab in the past. She is interested in AA and outpatient alcohol rehab at this time. I briefly discussed with her the importance of complete abstinence from EtOH and her high risk of mortality if she does not stop drinking. Monitor electrolytes for possible refeeding syndrome-replete as needed Case management Has provided resources for alcohol rehabs (3) Alcohol withdrawal delirium: Plan: began having withdrawal symptoms on 11/02-hallucinations, significant agitation, confusion As above, in ICU on Precedex drip for 1 night, now on Librium taper and improving, no Ativan needed today Continue AWSS protocol Continue high-dose thiamine Giving lactulose to move bowels (4) UTI (urinary tract infection): Plan: UA abnormal, with dysuria treating with ceftriaxone and already feels improvement Ur cx with E. coli, resistant to Bactrim but otherwise pansensitive Transition to amoxicillin and finish out 7-day course on 11/08 (5) Methadone use: Plan: continue usual home dose-placed on hold while encephalopathic, monitor for withdrawal (6) Electrolyte abnormality: Plan: low phos, low Na+ now resolved Stop maintenance IV fluids follow BMP (7) Hyponatremia: Plan: as above, resolved Plan DVT proph-SCDs, Lovenox added Dispo-continued stay in ICU but can likely downgrade to PCU tomorrow as long as does not require further Precedex Admission and Anticipated Discharge Date Admission Date: November 02, 2023 Subjective Patient weaned off Precedex this morning and is tolerating p.o., denies abdominal pain. Is much less agitated today but still remains lethargic and mildly confused at times. She is eating. She is moving her bowels. Physical Exam Constitutional: WD/WN, vitals as above Eyes: + scleral abnormality (Icterus) Respiratory: normal respiratory effort, lungs clear to auscultation Cardiovascular: RRR, no murmur, no edema Gastrointestinal (Abdomen): Inspection/Auscultation: normal bowel sounds; abdomen not distended Percussion/Palpation: abdomen soft and + hepatomegaly; abdomen nontender Skin: + jaundice Neurologic: moves all extremities, awake and + confused Psychiatric: Orientation: alert, oriented to person and oriented to place Results & Data Results & Data Vital Signs (Past 12 Hours) Vital Signs Pulse Resp BP Pulse Ox O2 Del Method 11/04/23 15:00 81 12 98/59 L 11/04/23 14:01 88 12 101/68 11/04/23 13:00 106 H 12 98/67 L 91 11/04/23 12:00 89 11 L 99/65 L 90 Room Air 11/04/23 11:14 69 11/04/23 11:00 78 12 85/52 L 94 Room Air 11/04/23 10:00 81 12 89/54 L 98 11/04/23 09:03 74 12 94/55 L 95 11/04/23 08:00 65 7 L 91/56 L 95 Room Air Laboratory Results CBC, CMP, hepatitis panel, INR, urine culture, and urine drug screen reviewed Diagnostic Findings CT head reviewed PG Care Time/CCT Total # of Minutes Spent Total Time Spent with Patient: Total time spent is greater than 50% in coordination of care (as documented) at patient's floor/unit and/or counseling patient: Coding Level of Care Code 08127 SUB INP/OBS CARE MIN Diagnoses Alcoholic hepatitis without ascites K70.10 Ascites presence: without ascites Alcohol use disorder F10.90 Alcohol withdrawal delirium F10.931 UTI (urinary tract infection) N39.0 Methadone use F11.90 Electrolyte abnormality E87.8 Hyponatremia E87.1 (1) Alcoholic hepatitis Ascites presence: without ascites Qualified Code(s): K70.10 - Alcoholic hepatitis without ascites
[2023-11-04] MEDS: AMOXICILLIN 500 MG CAP PO SCH (20:18)
--- NOTE | 2023-11-04 22:39 | Electrocardiogram Report ---
Test Reason : Blood Pressure : / mmHG Vent. Rate : 100 BPM Atrial Rate : 100 BPM P-R Int : 122 ms QRS Dur : 078 ms QT Int : 338 ms P-R-T Axes : 073 002 036 degrees QTc Int : 436 ms Normal sinus rhythm Possible Left atrial enlargement Nonspecific T wave abnormality No previous ECGs available Confirmed by Sky Carmen ([id number]) on 11/04/2023 10:38:40 PM Referred By: REFERRED SELF Confirmed By:Sky Carmen
[2023-11-05 04:08] LABS: Basophils # (auto) 0.02 K/uL (0.00-0.20); Basophils % (auto) 0.2 %; Eosinophils # (auto) 0.09 K/uL (0.00-0.50); Hematocrit (blood only) 29.6 % (37.0-47.0); Hemoglobin 10.5 g/dl (12.0-16.0); Immature Granulocytes # (auto) 0.26 K/uL (0.01-0.20); Lymphocytes % (auto) 15.1 %; Mean Corpuscular Hemoglobin 35.1 pg (25.0-34.0); Mean Corpuscular Hgb Conc 35.5 g/dL (32.0-36.0); Mean Platelet Volume 11.7 fL (9.4-12.4); Monocytes % (auto) 11.6 %; Neutrophils # (auto) 5.93 K/uL (1.40-6.50); Neutrophils % (auto) 69.1 %; Nucleated RBC # (auto) 0.03 K/uL (0.00-0.12); Nucleated RBC % (auto) 0.3 %; Platelet Count 247 K/uL (130-400); RDW Coefficient of Variation 20.2 % (11.5-14.5); RDW Standard Deviation 69.4 fL (36.4-46.3); Red Blood Count 2.99 M/uL (4.20-5.40)
[2023-11-05 04:21] LABS: Albumin Globulin Ratio 0.8 (0.9-2); Albumin Level 2.7 gm/dl (3.4-5.0); BUN Creatinine Ratio 13.5 (10-20); Bilirubin,Total 15.2 mg/dl (0.2-1.0); Calcium 8.3 mg/dl (8.6-10.3); Creatinine Clr Calc Pharmacy 88.5 ml/min; Est GFR (African American) 121.7 ml/min; Globulin 3.2 gm/dl (2.5-4.0); Potassium 3.5 mmol/L (3.5-5.1); Total Protein 5.9 gm/dl (6.0-8.3)
[2023-11-05 04:27] LABS: INR 1.4 (0.9-1.1); Prothrombin Time 15.1 Seconds (9.0-12.0)
[2023-11-05 04:44] LABS: Anisocytosis Present; Rouleaux 1+; Target Cells 2+
--- NOTE | 2023-11-05 07:15 | Critical Care Progress Note ---
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 Suspect alcohol withdrawal -EtOH negative on admission. Patient reports drinking up to 24 ounces of vodka per day -Methadone restarted today -AAOx4 -folic acid, high-dose thiamine -Continue lactulose, ammonia unmeasurable - Tbili 15.2 -CT head negative for acute intracranial findings -Continue SANTOS S scale with IV Ativan -Precedex stopped Cardiac - Intermittently tachycardic Continuous monitoring on telemetry Respiratory - No history of pulmonary disease. Currently maintaining oxygen saturation on room air. Continuous pulse ox GI - Acute alcoholic hepatitispatient with transaminitis, elevated INR. Initial meld of 29 -Did receive vitamin K on admission with improvement in INR. INR stable -Acetaminophen negative -Hepatitis panel negative -Continue prednisolone -LFTs stable. Continue to trend -GI consulted, no further recommendations. RENAL/LYTES - Creatinine within normal limits. Electrolyte abnormalities likely due to EtOH abuse. Continue to monitor routine BMPs and replete as indicated LR at 125 mL/h - Strict I's and O's ENDO - No history of diabetes or thyroid disease. ICU hyperglycemic protocol HEME - H&H stable, no thrombocytopenia. Monitor routine CBC ID - Uncomplicated UTIcontinue ceftriaxone LINES/IV ACCESS - Peripheral IVs DVT PROPHYLAXIS - Pt ambulatory in room Stable for downgrade from ICU status at this time Thank you for allowing us to participate in the care of this patient. Please refer to my attending physician's documentation for any further recommendations. Admission and Anticipated Discharge Date Admission Date: November 02, 2023 Supervising Physician Co-Signing Physician Notes Dr. Chamberlain was resident physician during care of patient. I separately evaluated patient for jose portions of the history and the exam. I was present during the critical portion of medical decision making, and I discussed the case with the resident. I generally agree with the findings and plan. Patient moving bowels. Labs continue to improve, stable for downgrade out of ICU Subjective Patient seen and evaluated at bedside this morning. No acute events overnight. Much more alert this AM. Has good insight. Remains jaundiced and icteric. LFTs stable. Review of Systems Review of Systems: reviewed, per HPI Physical Exam Physical Exam: Constitutional: ill appearing, jaundiced, obtunded HEENT: NCAT, + scleral icterus CV: regular rhythm, no murmur appreciated, extremities well-perfused, no LE edema Resp: CTABL, no wheezes/rales/rhonchi appreciated, no increased work of breathing GI: soft, +distended, nontende MSK: no gross deformities appreciated Skin: jaundiced Neuro: obtunded Results & Data Results & Data Vital Signs (Past 12 Hours) Vital Signs Temp Pulse Resp BP Pulse Ox 11/05/23 06:00 77 0 L 93 11/05/23 06:00 93/63 L 11/05/23 05:00 92/63 L 11/05/23 05:00 72 0 L 90 11/05/23 04:00 77 0 L 92 11/05/23 04:00 99/62 L 11/05/23 04:00 36.9 C 11/05/23 03:00 98/61 L 11/05/23 03:00 78 0 L 91 11/05/23 02:00 89/64 L 11/05/23 02:00 74 0 L 92 11/05/23 01:00 91/54 L 11/05/23 01:00 69 0 L 91 11/05/23 00:00 86/53 L 11/05/23 00:00 72 0 L 91 11/05/23 00:00 36.6 C 11/04/23 23:13 74 11/04/23 23:00 91/58 L 11/04/23 23:00 77 0 L 92 11/04/23 22:00 93/65 L 11/04/23 22:00 78 0 L 91 11/04/23 21:00 92 H 0 L 11/04/23 20:31 37.2 C 11/04/23 20:16 103/71 11/04/23 20:16 84 0 L 11/04/23 20:00 85 0 L Resident Activity Tracking Resident Involvement: Resident Care Provided Care Provided: Adult Hospital Medicine (5) Alcoholic hepatitis Ascites presence: without ascites Qualified Code(s): K70.10 - Alcoholic hepatitis without ascites
[2023-11-05] MEDS ORDERED: POTASSIUM PHOS 3 MMOL/1 ML INFUSION IV STA (09:11)
[2023-11-05] MEDS ORDERED: POTASSIUM PHOSPHATE 30 MMOL in SODIUM CHLORIDE 0.9% 500 ML IV ONE (09:30)
--- NOTE | 2023-11-05 10:00 | Billing Data ---
Date of Service November 05, 2023 Coding Level of Care Code 45886 SUB INP/OBS CARE
[2023-11-05] MEDS: POTASSIUM PHOSPHATE 15 MMOL in SODIUM CHLORIDE 0.9% 250 ML IV ONE (10:22)
--- NOTE | 2023-11-05 18:20 | Hospitalist Progress Note ---
Date of Service November 05, 2023 Assessment & Plan (1) Alcoholic hepatitis: Plan: 33yo female with EtOh use disorder presenting with acute alcoholic hepatitis. Patient reports drinking 3 large glasses of vodka daily (uncertain of amount, estimate to be appx 24 oz daily). Her last drink was 5 days prior to admission and EtOH level undetectable on admission. She presents with several days of progressive jaundice and scleral icterus. On admission, labs are significant for elevated WBC=12.46, Hgb of 11.8 and Hct=33.6. Platelets are normal at 226 INR elevated at 2.3, PT=23.5 Nn=732 JCK=549, ALT=92, RY=458, Tbili=19.5 [address]AP level not detectable CT of the abdomen with massive hepatomegaly and edema, compressing IVC but no occlusion Patient with MELD score of 29 points correlating with a 19.6% 3 month mortality Maddrey's Discriminant function markedly elevated at 77 points and now down to 32.5 No ascites present on exam or mentioned on imaging Now with EtOH withdrawal requiring transfer to the ICU for Precedex drip. Started on Librium taper and using as needed Ativan-now much improved and not requiring any further Ativan LFTs and INR stable from previous, platelets remain normal, acute hepatitis panel negative Gave high dose IV thiamine given worsening mentation in case of Wernicke's and will reduce to 200 mg daily starting tomorrow Continue Protonix 40mg po daily Continue folate 1mg po daily Continue steroid therapy for acute alcoholic hepatitis with elevated MDF=77 on admission. Prednisolone 40mg/day. GI Consultation appreciated to assist with management-signed off Stable for downgrade out of ICU (2) Alcohol use disorder: Plan: Patient has not tried AA or rehab in the past. She is interested in AA and outpatient alcohol rehab at this time. I briefly discussed with her the importance of complete abstinence from EtOH and her high risk of mortality if she does not stop drinking. Monitor electrolytes for possible refeeding syndrome-replete as needed Case management Has provided resources for alcohol rehabs (3) Alcohol withdrawal delirium: Plan: began having withdrawal symptoms on 11/02-hallucinations, significant agitation, confusion As above, in ICU on Precedex drip for 1 night, now on Librium taper and improving, no Ativan needed today Continue AWSS protocol Continue thiamine, folic acid Giving lactulose to move bowels (4) UTI (urinary tract infection): Plan: UA abnormal, with dysuria treating with ceftriaxone and already feels improvement Ur cx with E. coli, resistant to Bactrim but otherwise pansensitive Transition to amoxicillin and finish out 7-day course on 11/08 (5) Methadone use: Plan: Resumed usual home dose of methadone now but encephalopathy improved (6) Electrolyte abnormality: Plan: low phos replaced with oral phosphorus, low Na+ now resolved follow BMP (7) Hyponatremia: Plan: as above, resolved Plan DVT proph-SCDs, Lovenox Dispo-I downgrade out of ICU to PCU, continued stay Admission and Anticipated Discharge Date Admission Date: November 02, 2023 Subjective Patient has not required Ativan all day, feels generally weak and shaky when she is on her feet. She is washing herself up and getting to the bathroom independently. She denies any nausea or vomiting, she is moving her bowels. Denies abdominal pain. Physical Exam Constitutional: WD/WN, vitals as above Eyes: + scleral abnormality (Icterus) Respiratory: normal respiratory effort, lungs clear to auscultation Cardiovascular: RRR, no murmur, no edema Gastrointestinal (Abdomen): Inspection/Auscultation: normal bowel sounds; abdomen not distended Percussion/Palpation: abdomen soft and + hepatomegaly; abdomen nontender Skin: + jaundice Neurologic: moves all extremities and awake; not confused Psychiatric: Orientation: alert, oriented to person, oriented to place and cooperative Results & Data Results & Data Vital Signs (Past 12 Hours) Vital Signs Temp Pulse Pulse Resp BP BP BP 11/05/23 16:44 67 16 103/67 11/05/23 16:00 36.9 C 11/05/23 15:40 67 11/05/23 12:00 36.9 C 68 16 112/62 11/05/23 08:13 36.6 C 11/05/23 08:07 97/58 L 11/05/23 08:07 93 H 11/05/23 07:00 89/53 L 11/05/23 07:00 76 0 L 11/05/23 06:48 71 Pulse Ox O2 Del Method 11/05/23 16:44 93 Room Air 11/05/23 16:00 11/05/23 15:40 11/05/23 12:00 95 Room Air 11/05/23 08:13 04/12/24 08:07 11/05/23 08:07 94 11/05/23 07:00 11/05/23 07:00 92 11/05/23 06:48 Laboratory Results CBC, CMP, INR, magnesium, phosphorus reviewed PG Care Time/CCT Total # of Minutes Spent Total Time Spent with Patient: Total time spent is greater than 50% in coordination of care (as documented) at patient's floor/unit and/or counseling patient: Coding Level of Care Code 65192 SUB INP/OBS CARE 3/50MIN Diagnoses Alcoholic hepatitis without ascites K70.10 Ascites presence: without ascites Alcohol use disorder F10.90 Alcohol withdrawal delirium F10.931 UTI (urinary tract infection) N39.0 Methadone use F11.90 Electrolyte abnormality E87.8 Hyponatremia E87.1 (1) Alcoholic hepatitis Ascites presence: without ascites Qualified Code(s): K70.10 - Alcoholic hepatitis without ascites
[2023-11-06 04:59] LABS: Basophils # (auto) 0.03 K/uL (0.00-0.20); Basophils % (auto) 0.3 %; Eosinophils # (auto) 0.11 K/uL (0.00-0.50); Eosinophils % (auto) 1.2 %; Hematocrit (blood only) 29.4 % (37.0-47.0); Hemoglobin 10.3 g/dl (12.0-16.0); Immature Granulocytes # (auto) 0.23 K/uL (0.01-0.20); Immature Granulocytes % (auto) 2.4 %; Lymphocytes # (auto) 1.15 K/uL (1.20-3.40); Mean Corpuscular Hemoglobin 35.5 pg (25.0-34.0); Mean Corpuscular Volume 101.4 fL (80.0-100.0); Mean Platelet Volume 12.1 fL (9.4-12.4); Monocytes # (auto) 0.96 K/uL (0.11-0.59); Neutrophils # (auto) 7.08 K/uL (1.40-6.50); Neutrophils % (auto) 74.1 %; Nucleated RBC # (auto) 0.03 K/uL (0.00-0.12); Nucleated RBC % (auto) 0.3 %; Platelet Count 252 K/uL (130-400); RDW Coefficient of Variation 21.2 % (11.5-14.5); RDW Standard Deviation 76.1 fL (36.4-46.3); White Blood Count 9.56 K/ul (4.8-10.8)
[2023-11-06 05:15] LABS: Albumin Globulin Ratio 0.8 (0.9-2); Albumin Level 2.6 gm/dl (3.4-5.0); BUN Creatinine Ratio 14.1 (10-20); Bilirubin,Total 13.4 mg/dl (0.2-1.0); Calcium 8.3 mg/dl (8.6-10.3); Creatinine Clr Calc Pharmacy 92.5 ml/min; Est GFR (African American) 127.9 ml/min; Est GFR (Non-African American) 110.4 ml/min; Globulin 3.1 gm/dl (2.5-4.0); Phosphorus 2.4 mg/dl (2.5-4.9); Potassium 3.6 mmol/L (3.5-5.1); Total Protein 5.7 gm/dl (6.0-8.3)
[2023-11-06 05:43] LABS: INR 1.4 (0.9-1.1); Prothrombin Time 15.2 Seconds (9.0-12.0)
[2023-11-06 05:51] LABS: Anisocytosis Present; Rouleaux 1+; Target Cells 2+
[2023-11-06] MEDS: THIAMINE HCL 100 MG TAB PO SCH (08:02)
--- NOTE | 2023-11-06 15:01 | Hospitalist Progress Note ---
Date of Service November 06, 2023 Assessment & Plan (1) Alcoholic hepatitis: Plan: 33yo female with EtOh use disorder presenting with acute alcoholic hepatitis. Patient reports drinking 3 large glasses of vodka daily (uncertain of amount, estimate to be appx 24 oz daily). Her last drink was 5 days prior to admission and EtOH level undetectable on admission. She presents with several days of progressive jaundice and scleral icterus. On admission, labs are significant for elevated WBC=12.46, Hgb of 11.8 and Hct=33.6. Platelets are normal at 226 INR elevated at 2.3, PT=23.5 Nq=029 PWH=987, ALT=92, NN=345, Tbili=19.5 APAP level not detectable and alcohol level undetectable Urine drug screen with methadone CT of the abdomen with massive hepatomegaly and edema, compressing IVC but no occlusion Patient with MELD score of 29 points correlating with a 19.6% 3 month mortality Maddrey's Discriminant function markedly elevated at 77 points on admission and she was started on prednisolone-it is now down to 28 and she is improving No ascites present on exam or mentioned on imaging Developed EtOH withdrawal requiring transfer to the ICU for Precedex drip. Started on Librium taper and using as needed Ativan-now much improved and not requiring any further Ativan LFTs improving, platelets remain normal, acute hepatitis panel negative Gave high dose IV thiamine given worsening mentation in case of Wernicke's and now continues on 200 mg daily Continue Protonix 40mg po daily Continue folate 1mg po daily Continue steroid therapy for acute alcoholic hepatitis with elevated MDF=77 on admission. Prednisolone 40mg/day and would continue for 28 days GI Consultation appreciated to assist with management-signed off (2) Alcohol use disorder: Plan: Patient has not tried AA or rehab in the past. She is interested in AA and outpatient alcohol rehab at this time. I discussed with her the importance of complete abstinence from EtOH and her high risk of mortality if she does not stop drinking. Case management Has provided resources for alcohol rehabs (3) Alcohol withdrawal delirium: Plan: began having withdrawal symptoms on 11/02-hallucinations, significant agitation, confusion As above, in ICU on Precedex drip for 1 night, now on Librium taper and much improved, not requiring Ativan and 2 days Continue AWSS protocol Continue thiamine, folic acid Giving lactulose to move bowels again today (4) UTI (urinary tract infection): Plan: UA abnormal, with dysuria treating with ceftriaxone and now improved Ur cx with E. coli, resistant to Bactrim but otherwise pansensitive Transitioned to amoxicillin and finish out 7-day course on 11/08 (5) Methadone use: Plan: Continue usual home dose of methadone Urine drug screen otherwise negative (6) Electrolyte abnormality: Plan: low phos replaced with oral phosphorus, low Na+ now resolved follow BMP Hyponatremia now resolved Plan DVT proph-SCDs, Lovenox Dispo-continued stay on PCU, slowly improving, expect discharge to home in 2 to 3 days. I would like her to call the outpatient rehab on Wednesday to make arrangements as part of her disposition plan Admission and Anticipated Discharge Date Admission Date: November 02, 2023 Subjective Patient feeling better today, no nausea or abdominal pain. She is ambulating the halls with nursing. She is feeling constipated. She is interested in doing outpatient alcohol rehab and we discussed this further. Telemetry no arrhythmias, sinus rhythm Physical Exam Constitutional: WD/WN, vitals as above Eyes: + scleral abnormality (Icterus) Respiratory: normal respiratory effort, lungs clear to auscultation Cardiovascular: RRR, no murmur, no edema Gastrointestinal (Abdomen): Inspection/Auscultation: normal bowel sounds; abdomen not distended Percussion/Palpation: abdomen soft and + hepatomegaly; abdomen nontender Skin: + jaundice Neurologic: moves all extremities and awake; not confused Psychiatric: Orientation: alert and cooperative Results & Data Results & Data Vital Signs (Past 12 Hours) Vital Signs Temp Pulse Pulse Resp BP BP Pulse Ox 11/06/23 14:26 71 11/06/23 11:15 37 C 83 13 107/71 95 11/06/23 08:00 87 11/06/23 08:00 11/06/23 07:40 36.9 C 93 H 13 97/62 L 94 11/06/23 06:00 82 0 L 11/06/23 04:50 0 L 94 11/06/23 04:50 94/62 L 11/06/23 04:00 72 0 L 11/06/23 04:00 36.9 C O2 Del Method 11/06/23 14:26 11/06/23 11:15 Room Air 11/06/23 08:00 11/06/23 08:00 Room Air 11/06/23 07:40 Room Air 11/06/23 06:00 11/06/23 04:50 11/06/23 04:50 11/06/23 04:00 11/06/23 04:00 Laboratory Results CBC, BMP, LFTs, phosphorus, INR reviewed PG Care Time/CCT Total # of Minutes Spent Total Time Spent with Patient: Total time spent is greater than 50% in coordination of care (as documented) at patient's floor/unit and/or counseling patient: Coding Level of Care Code 72852 SUB INP/OBS CARE 2/35MIN Diagnoses Alcoholic hepatitis without ascites K70.10 Ascites presence: without ascites Alcohol use disorder F10.90 Alcohol withdrawal delirium F10.931 UTI (urinary tract infection) N39.0 Methadone use F11.90 Electrolyte abnormality E87.8 (1) Alcoholic hepatitis Ascites presence: without ascites Qualified Code(s): K70.10 - Alcoholic hepatitis without ascites
[2023-11-06] MEDS: LACTULOSE SYRUP 30 GM/45 ML UDP PO STA (15:27)
[2023-11-06] MEDS: chlordiazePOXIDE HCl 5 MG CAP PO SCH (21:42)
[2023-11-07 06:45] LABS: Basophils # (auto) 0.04 K/uL (0.00-0.20); Basophils % (auto) 0.4 %; Eosinophils # (auto) 0.15 K/uL (0.00-0.50); Eosinophils % (auto) 1.4 %; Hematocrit (blood only) 31.7 % (37.0-47.0); Immature Granulocytes # (auto) 0.38 K/uL (0.01-0.20); Immature Granulocytes % (auto) 3.5 %; Lymphocytes # (auto) 1.61 K/uL (1.20-3.40); Lymphocytes % (auto) 14.7 %; Mean Corpuscular Hemoglobin 35.6 pg (25.0-34.0); Mean Corpuscular Hgb Conc 34.7 g/dL (32.0-36.0); Mean Corpuscular Volume 102.6 fL (80.0-100.0); Mean Platelet Volume 11.6 fL (9.4-12.4); Monocytes # (auto) 0.95 K/uL (0.11-0.59); Monocytes % (auto) 8.7 %; Neutrophils # (auto) 7.83 K/uL (1.40-6.50); Neutrophils % (auto) 71.3 %; Nucleated RBC # (auto) 0.02 K/uL (0.00-0.12); Nucleated RBC % (auto) 0.2 %; Platelet Count 282 K/uL (130-400); RDW Coefficient of Variation 21.7 % (11.5-14.5); RDW Standard Deviation 78.3 fL (36.4-46.3); Red Blood Count 3.09 M/uL (4.20-5.40); White Blood Count 10.96 K/ul (4.8-10.8)
[2023-11-07 07:08] LABS: INR 1.4 (0.9-1.1); Prothrombin Time 14.9 Seconds (9.0-12.0)
[2023-11-07 07:32] LABS: Albumin Level 2.7 gm/dl (3.4-5.0); BUN Creatinine Ratio 20.7 (10-20); Bilirubin,Total 12.1 mg/dl (0.2-1.0); Calcium 8.5 mg/dl (8.6-10.3); Est GFR (African American) 138.4 ml/min; Est GFR (Non-African American) 119.4 ml/min; Potassium 3.6 mmol/L (3.5-5.1); Total Protein 5.9 gm/dl (6.0-8.3)
[2023-11-07 07:47] LABS: Polychromasia 1+; Target Cells 2+
--- NOTE | 2023-11-07 11:38 | Hospitalist Progress Note ---
Date of Service November 07, 2023 Assessment & Plan (1) Alcoholic hepatitis: Plan: 33yo female with EtOh use disorder presenting with acute alcoholic hepatitis. Patient reports drinking 3 large glasses of vodka daily (uncertain of amount, estimate to be appx 24 oz daily). Her last drink was 5 days prior to admission and EtOH level undetectable on admission. She presents with several days of progressive jaundice and scleral icterus. On admission, labs are significant for elevated WBC=12.46, Hgb of 11.8 and Hct=33.6. Platelets are normal at 226 INR elevated at 2.3, PT=23.5 Md=161 MRM=704, ALT=92, KI=182, Tbili=19.5 APAP level not detectable and alcohol level undetectable Urine drug screen with methadone CT of the abdomen with massive hepatomegaly and edema, compressing IVC but no occlusion Patient with MELD score of 29 points correlating with a 19.6% 3 month mortality Maddrey's Discriminant function markedly elevated at 77 points on admission and she was started on prednisolone-it is now further down to 25.4 No ascites present on exam or mentioned on imaging Developed EtOH withdrawal requiring transfer to the ICU for Precedex drip. Started on Librium taper and using as needed Ativan-now much improved and not requiring any further Ativan LFTs continue to be improving, platelets remain normal, acute hepatitis panel negative Gave high dose IV thiamine given worsening mentation in case of Wernicke's and now continues on 200 mg daily Continue Protonix 40mg po daily Continue folate 1mg po daily Continue steroid therapy for acute alcoholic hepatitis with elevated MDF=77 on admission. Prednisolone 40mg/day and would continue for 28 days GI Consultation appreciated to assist with management-signed off (2) Alcohol use disorder: Plan: Patient has not tried AA or rehab in the past. She is interested in AA and outpatient alcohol rehab at this time. I discussed with her the importance of complete abstinence from EtOH and her high risk of mortality if she does not stop drinking. Case management Has provided resources for alcohol rehabs-she is to call on Wednesday to get an appt for first visit (3) Alcohol withdrawal delirium: Plan: began having withdrawal symptoms on 11/02-hallucinations, significant agitation, confusion As above, in ICU on Precedex drip for 1 night, now on Librium taper and much improved, not requiring Ativan and 2 days Continue AWSS protocol Continue thiamine, folic acid Giving lactulose to move bowels again today (4) UTI (urinary tract infection): Plan: UA abnormal, with dysuria treating with ceftriaxone and now improved Ur cx with E. coli, resistant to Bactrim but otherwise pansensitive Transitioned to amoxicillin and finish out 7-day course on 11/08 (5) Methadone use: Plan: Continue usual home dose of methadone Urine drug screen otherwise negative (6) Electrolyte abnormality: Plan: low phos ongoing--> replaced with oral phosphorus, low Na+ now resolved follow BMP, Mag, phos Plan DVT proph-SCDs, Lovenox Dispo-continued stay on PCU, continue to be improving, expect discharge to home 1-2 days if LFTs continue to improve and no acute issues. I would like her to call the outpatient rehab on Wednesday to make arrangements as part of her disposition plan Admission and Anticipated Discharge Date Admission Date: November 02, 2023 Subjective Pt denies abd pain, denies dysuria. Moved her bowels but still feels constipated. Not requiring ativan. Tele with NSR normal rates Physical Exam Constitutional: WD/WN, vitals as above Eyes: + scleral abnormality (Icterus) Respiratory: normal respiratory effort, lungs clear to auscultation Cardiovascular: RRR, no murmur, no edema Gastrointestinal (Abdomen): Inspection/Auscultation: normal bowel sounds Percussion/Palpation: abdomen soft and + hepatomegaly; abdomen nontender Skin: + jaundice Neurologic: moves all extremities and awake; not confused Psychiatric: Orientation: alert, oriented to person, oriented to place and cooperative Results & Data Results & Data Vital Signs (Past 12 Hours) Vital Signs Temp Pulse Pulse Resp BP BP Pulse Ox 11/07/23 11:14 37.0 C 69 18 99/63 L 93 11/07/23 07:17 67 11/07/23 07:12 37.0 C 69 18 97/62 L 96 11/07/23 02:37 37.2 C 61 18 100/64 95 O2 Del Method 11/07/23 11:14 Room Air 11/07/23 07:17 11/07/23 07:12 Room Air 11/07/23 02:37 Room Air Laboratory Results CBC< CMP, mag, phos reviewed PG Care Time/CCT Total # of Minutes Spent Total Time Spent with Patient: Total time spent is greater than 50% in coordination of care (as documented) at patient's floor/unit and/or counseling patient: Coding Level of Care Code 50226 SUB INP/OBS CARE 2/35MIN Diagnoses Alcoholic hepatitis without ascites K70.10 Ascites presence: without ascites Alcohol use disorder F10.90 Alcohol withdrawal delirium F10.931 UTI (urinary tract infection) N39.0 Methadone use F11.90 Electrolyte abnormality E87.8 (1) Alcoholic hepatitis Ascites presence: without ascites Qualified Code(s): K70.10 - Alcoholic hepatitis without ascites
[2023-11-07] MEDS: LACTULOSE SYRUP 30 GM/45 ML UDP PO STA (12:07)
[2023-11-07] MEDS: POT PHOSPHATE MONOBASIC W/ SOD TAB PO SCH (13:44)
[2023-11-07 16:00] LABS: Methadone, Ur Metabolite 6490 ng/mL (<100); Methadone, Ur Verification 3450 ng/mL (<100)
[2023-11-08 07:19] LABS: Basophils # (auto) 0.03 K/uL (0.00-0.20); Basophils % (auto) 0.3 %; Eosinophils # (auto) 0.13 K/uL (0.00-0.50); Eosinophils % (auto) 1.1 %; Hematocrit (blood only) 30.4 % (37.0-47.0); Hemoglobin 10.7 g/dl (12.0-16.0); Immature Granulocytes # (auto) 0.35 K/uL (0.01-0.20); Lymphocytes # (auto) 1.53 K/uL (1.20-3.40); Lymphocytes % (auto) 13.2 %; Mean Corpuscular Hgb Conc 35.2 g/dL (32.0-36.0); Mean Corpuscular Volume 102.4 fL (80.0-100.0); Mean Platelet Volume 11.8 fL (9.4-12.4); Monocytes # (auto) 0.97 K/uL (0.11-0.59); Monocytes % (auto) 8.4 %; Neutrophils # (auto) 8.58 K/uL (1.40-6.50); Nucleated RBC # (auto) 0.02 K/uL (0.00-0.12); Nucleated RBC % (auto) 0.2 %; Platelet Count 296 K/uL (130-400); RDW Coefficient of Variation 22.2 % (11.5-14.5); RDW Standard Deviation 79.2 fL (36.4-46.3); Red Blood Count 2.97 M/uL (4.20-5.40); White Blood Count 11.59 K/ul (4.8-10.8)
[2023-11-08 07:46] LABS: Albumin Level 2.7 gm/dl (3.4-5.0); BUN Creatinine Ratio 16.9 (10-20); Bilirubin Direct 6.1 mg/dl (0-0.2); Bilirubin,Total 10.8 mg/dl (0.2-1.0); Calcium 8.5 mg/dl (8.6-10.3); Creatinine Clr Calc Pharmacy 111.5 ml/min; Est GFR (African American) 137.6 ml/min; Est GFR (Non-African American) 118.7 ml/min; Magnesium 1.9 mg/dl (1.7-2.4); Phosphorus 3.5 mg/dl (2.5-4.9); Potassium 4.1 mmol/L (3.5-5.1); Total Protein 5.9 gm/dl (6.0-8.3)
[2023-11-08 07:51] LABS: INR 1.3 (0.9-1.1); Prothrombin Time 13.7 Seconds (9.0-12.0)
[2023-11-08 08:13] LABS: Anisocytosis Present; Macrocytosis Present; Target Cells 2+
--- NOTE | 2023-11-08 13:32 | Hospitalist Progress Note ---
Date of Service November 08, 2023 Assessment & Plan (1) Alcoholic hepatitis: Plan: 33yo female with EtOh use disorder presenting with acute alcoholic hepatitis. Patient reports drinking 3 large glasses of vodka daily (uncertain of amount, estimate to be appx 24 oz daily). Her last drink was 5 days prior to admission and EtOH level undetectable on admission. She presents with several days of progressive jaundice and scleral icterus. On admission, labs are significant for elevated WBC=12.46, Hgb of 11.8 and Hct=33.6. Platelets are normal at 226 INR elevated at 2.3, PT=23.5 Uw=545 XQG=893, ALT=92, TE=511, Tbili=19.5 APAP level not detectable and alcohol level undetectable Urine drug screen with methadone CT of the abdomen with massive hepatomegaly and edema, compressing IVC but no occlusion Patient with MELD score of 29 points correlating with a 19.6% 3 month mortality Maddrey's Discriminant function markedly elevated at 77 points on admission and she was started on prednisolone- Overall showing slow but steady improvement No ascites present on exam or mentioned on imaging Developed EtOH withdrawal requiring transfer to the ICU for Precedex drip. Started on Librium taper and using as needed Ativan-now much improved and not requiring any further Ativan Gave high dose IV thiamine given worsening mentation in case of Wernicke's and now continues on 200 mg daily Continue Protonix 40mg po daily Continue folate 1mg po daily Continue steroid therapy for acute alcoholic hepatitis with elevated MDF=77 on admission. Prednisolone 40mg/day and would continue for 28 days GI Consultation appreciated to assist with management-signed off overall showing slow but steady improvement. Discussed discharge in the near futureshe does not yet feel readyI believe this is largely because she wants to have a bit more of a plan for sobriety and anxiety management after dischargesee below (2) Alcohol use disorder: Plan: Patient has not tried AA or rehab in the past. She is interested in AA and outpatient alcohol rehab at this time. applauded her looking at options, tried to offer guidance to the best that I could (3) Anxiety and depression: Plan: as we have discussed in the past, she relates that she believes anxiety/depression to be the root cause of her drinkingwith a heavy overlay of very symptomatic insomnia making it hard to not drink in the evenings. We discussed looking at her sobriety plan with this type of a lensfocusing on treating the anxiety/depression as much is the "addiction" given that a focus on the root cause would likely be of more benefit. We discussed that medication management rarely is the definitive treatment for anxiety/depression, but rather counseling/cognitive behavioral therapy and lifestyle changes, with medications being somewhat helpful at best. Discussed different counseling optionsdiscussed ideally having somebody who works with "dual diagnoses" so they could focus on both the anxiety/depression and addiction, but that getting to know her story, the main focus would likely benefit her more if it is on the anxiety/depression. Extensive discussion of alcohol as a maladaptive coping tool for anxiety/depressionand discussed techniques for both active and quiet/meditative stress management as tools she could start practicing with even as soon as today to try to have more productive coping tools for her anxiety/depression. Discussed med management (and reiterated the limitations of medications to "fix" anxiety/depression), discussed right now probably limited on options due to her current liver function, discussed that something such as trazodone could be helpful at bedtime at least with the insomnia, even if it would not necessarily help her anxiety depression symptoms all that much. Discussed having a physician look after her for medication management as it relates to anxiety/depression, but also that the counseling aspect and lifestle/self management would be far more important. (4) Alcohol withdrawal delirium: Plan: began having withdrawal symptoms on 11/02-hallucinations, significant agitation, confusion As above, in ICU on Precedex drip for 1 night, now on Librium taper and much improved, not requiring Ativan and 2 days this appears to have resolved (5) UTI (urinary tract infection): Plan: UA abnormal, with dysuria treating with ceftriaxone and now improved Ur cx with E. coli, resistant to Bactrim but otherwise pansensitive Transitioned to amoxicillin now off of antibiotics, having no urinary complaints. Follow clinically. (6) Methadone use: Plan: Continue usual home dose of methadone Urine drug screen otherwise negative (7) Electrolyte abnormality: Plan: Due to alcohol abuse Plan DVT proph-SCDs, Lovenox Dispo-stable for med/surg. showing good improvement. discussed would probably be medically stable for dc today on ongoing PO steroids and close outpt f/u but she noted not feeling ready yet (understandable) - encouraged to build more of her plan (counselling, as well as accountability/daily check-in -- be it a family member who could both show her love and accountability or a group like that sets her up with a sponsor for exactly such purposes) Admission and Anticipated Discharge Date Admission Date: November 02, 2023 Subjective feeling better overall. Looking through rehab/drug and alcohol options. Definitely wants to do something outpatient. Lives with family, notes she has good family support. Notes that she drinks largely as self-medication for anxiety and depression, and insomnia from anxiety and depression really makes it hard to not drink. She would very much like to maintain sobriety, however. Review of Systems Review of Systems: All systems reviewed & are unremarkable except as noted in HPI & below Physical Exam Physical Exam: Awake and alert, fatigued, no distress. HEENT normocephalic atraumatic mucous membranes moist. Breathing unlabored no accessory muscle use good effort. Skin with visible jaundice (she also has very notable scleral icterus) but no other rashes, no pallor. Neuro with no focal deficits. Mental status shows her to be pleasantly anxious but with good insight. Results & Data Results & Data Vital Signs (Past 12 Hours) Vital Signs Temp Pulse Pulse Resp BP BP Pulse Ox 11/08/23 10:51 98.2 F 71 18 102/68 97 11/08/23 07:52 61 11/08/23 07:40 98.2 F 68 16 104/65 96 11/08/23 02:48 98.4 F 63 16 96/65 L 95 O2 Del Method 11/08/23 10:51 Room Air 11/08/23 07:52 11/08/23 07:40 Room Air 11/08/23 02:48 Room Air PG Care Time/CCT Total # of Minutes Spent Total Time Spent with Patient: Total time spent is greater than 50% in coordination of care (as documented) at patient's floor/unit and/or counseling patient: Coding Level of Care Code 02478 SUB INP/OBS CARE 3/50MIN Diagnoses Alcoholic hepatitis without ascites K70.10 Ascites presence: without ascites Alcohol use disorder F10.90 Anxiety and depression F41.9; F32.A Alcohol withdrawal delirium F10.931 UTI (urinary tract infection) N39.0 Methadone use F11.90 Electrolyte abnormality E87.8 (1) Alcoholic hepatitis Ascites presence: without ascites Qualified Code(s): K70.10 - Alcoholic hepatitis without ascites
[2023-11-09 06:36] LABS: Basophils # (auto) 0.02 K/uL (0.00-0.20); Basophils % (auto) 0.2 %; Eosinophils # (auto) 0.14 K/uL (0.00-0.50); Eosinophils % (auto) 1.2 %; Hematocrit (blood only) 32.9 % (37.0-47.0); Hemoglobin 11.3 g/dl (12.0-16.0); Immature Granulocytes # (auto) 0.26 K/uL (0.01-0.20); Immature Granulocytes % (auto) 2.2 %; Lymphocytes # (auto) 1.62 K/uL (1.20-3.40); Mean Corpuscular Hemoglobin 35.4 pg (25.0-34.0); Mean Corpuscular Hgb Conc 34.3 g/dL (32.0-36.0); Mean Corpuscular Volume 103.1 fL (80.0-100.0); Mean Platelet Volume 11.8 fL (9.4-12.4); Monocytes # (auto) 0.77 K/uL (0.11-0.59); Monocytes % (auto) 6.7 %; Neutrophils # (auto) 8.75 K/uL (1.40-6.50); Neutrophils % (auto) 75.7 %; Platelet Count 288 K/uL (130-400); RDW Coefficient of Variation 21.8 % (11.5-14.5); RDW Standard Deviation 79.1 fL (36.4-46.3); Red Blood Count 3.19 M/uL (4.20-5.40); White Blood Count 11.56 K/ul (4.8-10.8)
[2023-11-09 06:38] LABS: Albumin Globulin Ratio 0.9 (0.9-2); Albumin Level 2.8 gm/dl (3.4-5.0); BUN Creatinine Ratio 18.5 (10-20); Bilirubin,Total 9.4 mg/dl (0.2-1.0); Calcium 8.5 mg/dl (8.6-10.3); Creatinine Clr Calc Pharmacy 121.8 ml/min; Est GFR (African American) 141.7 ml/min; Est GFR (Non-African American) 122.3 ml/min; Globulin 3.2 gm/dl (2.5-4.0); Potassium 3.7 mmol/L (3.5-5.1)
[2023-11-09 06:57] LABS: INR 1.2 (0.9-1.1); Prothrombin Time 13.1 Seconds (9.0-12.0)
[2023-11-09 07:55] LABS: Anisocytosis Present; Polychromasia 1+; Target Cells 2+
--- NOTE | 2023-11-09 12:08 | Hospitalist Progress Note ---
Date of Service November 09, 2023 Assessment & Plan (1) Alcoholic hepatitis: Plan: This is a 33yo female with EtOh use disorder presenting with acute alcoholic hepatitis. Patient reports drinking 3 large glasses of vodka daily (uncertain of amount, estimate to be appx 24 oz daily). Her last drink was 5 days prior to admission and EtOH level undetectable on admission. She presents with several days of progressive jaundice and scleral icterus. On admission, labs are significant for elevated WBC=12.46, Hgb of 11.8 and Hct=33.6. Platelets are normal at 226 INR elevated at 2.3, PT=23.5 Di=509 PVM=166, ALT=92, JN=803, Tbili=19.5 APAP level not detectable and alcohol level undetectable Urine drug screen with methadone CT of the abdomen with massive hepatomegaly and edema, compressing IVC but no occlusion Patient with MELD score of 29 points correlating with a 19.6% 3 month mortality Maddrey's Discriminant function markedly elevated at 77 points on admission and she was started on prednisolone- Overall showing slow but steady improvement No ascites present on exam or mentioned on imaging Developed EtOH withdrawal requiring transfer to the ICU for Precedex drip. Started on Librium taper and using as needed Ativan-now much improved and not requiring any further Ativan Gave high dose IV thiamine given worsening mentation in case of Wernicke's and now continues on 200 mg daily Continue Protonix 40mg po daily Continue folate 1mg po daily Continue steroid therapy for acute alcoholic hepatitis with elevated MDF=77 on admission. Prednisolone 40mg/day and would continue for 28 days GI Consultation appreciated to assist with management-signed off Today on assessment, overall showing slow but steady improvement. T. bili 9.4 today, AST 196 ALT 95 alkaline phosphatase 199 Minimal tremors on exam, but some gait instability upon walking (2) Alcohol use disorder: Plan: Patient has not tried AA or rehab in the past. She is interested in AA and outpatient alcohol rehab at this time. (3) Anxiety and depression: Plan: Patient admits that anxiety and depression are a huge part of her problems leading to drinking. She has been ordered to follow-up with a psychiatrist outpatient and also behavioral counselors (4) Alcohol withdrawal delirium: Plan: Spent some time in the ICU on Precedex drip, now resolved Patient currently stable on the floors. (5) UTI (urinary tract infection): Plan: Urine cultures grew E. coli Patient completed a course of antibiotics (6) Methadone use: Plan: Continue usual home dose of methadone Urine drug screen otherwise negative (7) Electrolyte abnormality: Plan: Due to alcohol abuse Plan DVT proph-SCDs, Lovenox Dispo-hopefully discharge in next couple of days Admission and Anticipated Discharge Date Admission Date: November 02, 2023 Subjective Patient seen and examined, sitting up in a chair clinically much improved however states she still feels unsteady whenever she walks around. Review of Systems Review of Systems: All systems reviewed are negative, apart from the ones contained in the history. Physical Exam Physical Exam: The patient is awake, alert and oriented 3, well developed and well nourished, normocephalic and atraumatic, lying in bed and in no acute distress. HEENT--PERRL, EOMI, jaundice+++ Neck--supple. No JVD. No bruits. Thyroid normal, trachea midline, no adenopathy. Heart--normal S1 and S2. No murmurs, rubs or gallops. Lungs--clear bilaterally, no respiratory distress, no accessory muscle use. Abdomen--normal bowel sounds and soft. Extremities--no cyanosis or clubbing. No edema. Dermatologic--normal skin turgor, normal color, no abnormal lymph nodes, no rash. Neurologic--cranial nerves II through XII grossly intact. Rheumatologic--normal range of motion. Psychiatric--normal affect. Results & Data Results & Data Vital Signs (Past 12 Hours) Vital Signs Temp Pulse Resp BP Pulse Ox O2 Del Method 11/09/23 07:39 98.1 F 73 18 91/62 L 97 Room Air PG Care Time/CCT Total # of Minutes Spent Total Time Spent with Patient: Total time spent is greater than 50% in coordination of care (as documented) at patient's floor/unit and/or counseling patient: Coding Level of Care Code 66697 SUB INP/OBS CARE 2/35MIN Diagnoses Alcoholic hepatitis without ascites K70.10 Ascites presence: without ascites Alcohol use disorder F10.90 Anxiety and depression F41.9; F32.A Alcohol withdrawal delirium F10.931 UTI (urinary tract infection) N39.0 Methadone use F11.90 Electrolyte abnormality E87.8 Time Spent (min) 35 (1) Alcoholic hepatitis Ascites presence: without ascites Qualified Code(s): K70.10 - Alcoholic h epatitis without ascites
[2023-11-10 07:38] LABS: Albumin Globulin Ratio 0.8 (0.9-2); Albumin Level 2.7 gm/dl (3.4-5.0); BUN Creatinine Ratio 19.2 (10-20); Bilirubin,Total 8.5 mg/dl (0.2-1.0); Calcium 8.6 mg/dl (8.6-10.3); Creatinine Clr Calc Pharmacy 126.5 ml/min; Est GFR (African American) 143.5 ml/min; Est GFR (Non-African American) 123.8 ml/min; Globulin 3.2 gm/dl (2.5-4.0); Potassium 3.4 mmol/L (3.5-5.1); Total Protein 5.9 gm/dl (6.0-8.3)
--- NOTE | 2023-11-10 13:35 | Discharge Summary ---
Date of Service November 10, 2023 Admission HPI Per Admitting Provider Shraddha Remy is a 33yo female with history of EtOH abuse presenting with scleral icterus and jaundice. Patient with history of EtOH abuse, fatty liver, on methadone currently. She was hospitalized at [facility] from 03/20/23 - 03/25/23 after presenting with acute alcoholic hepatitis. She reports that after being discharged from that hospital stay she was able to stay sober for 5 months. Over the last two months she has started drinking an increasingly large amount of vodka per day. Patient reports drinking 3 large glasses of vodka daily (difficult to fully quantify but her hand measures what appears to be an 8 oz glass - ?24 drinks/day). Her last drink was 5 days ago. She denies withdrawal symptoms - shakes, hallucinations, seizures or uneasiness. Over the last 3-4 days she has noted yellowing of her skin and eyes. Her urine has been dark in color. She had several episodes of diarrhea which were dark in color but did not appear to be bloody. She also reports some abdominal distention. She denies fever, chills, chest pain, cough or SOB. Denies abdominal pain, nausea, vomiting, constipation, melena/hematochezia or hematemesis. Denies swelling, orthopnea. Patient reports she has a referral to see GI/Hepatology in [place] but has not yet seen them. She has never participated in AA nor has she been to rehab. She is interested in AA now. 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 In the ER she is afebrile, tachycardic and hypertensive on arrival ER Course: NSS x 1L KCl 80mEq Vitamin K 10mg IV Prednisolone 40mg Principal Diagnosis Alcoholic hepatitis Discharge Exam The patient is awake, alert and oriented 3, well developed and well nourished, normocephalic and atraumatic, lying in bed and in no acute distress. HEENT--PERRL, EOMI, jaundice+++ Neck--supple. No JVD. No bruits. Thyroid normal, trachea midline, no adenopathy. Heart--normal S1 and S2. No murmurs, rubs or gallops. Lungs--clear bilaterally, no respiratory distress, no accessory muscle use. Abdomen--normal bowel sounds and soft. Extremities--no cyanosis or clubbing. No edema. Dermatologic--normal skin turgor, normal color, no abnormal lymph nodes, no rash. Neurologic--cranial nerves II through XII grossly intact. Rheumatologic--normal range of motion. Psychiatric--normal affect. Discharge Data Allergies Allergy/AdvReac Type Severity Reaction Status Date / Time adhesive Allergy Hives Verified 03/23/23 03:03 Consultations 11/02/23 00:29 ED Decision to Admit Stat 11/02/23 01:08 Consult Gastroenterology Routine 11/03/23 19:56 Consult Casing Mixer Stat Ordered Studies 11/01/23 20:26 CT abd pelvis IV con only Stat 11/03/23 19:14 CT head/brain wo con Stat Hospital Course (1) Alcoholic hepatitis: This is a 33yo female with EtOh use disorder presenting with acute alcoholic hepatitis. Patient reports drinking 3 large glasses of vodka daily (uncertain of amount, estimate to be appx 24 oz daily). Her last drink was 5 days prior to admission and EtOH level undetectable on admission. She presents with several days of progressive jaundice and scleral icterus. On admission, labs are significant for elevated WBC=12.46, Hgb of 11.8 and Hct=33.6. Platelets are normal at 226 INR elevated at 2.3, PT=23.5 Tk=813 ZVX=337, ALT=92, SE=620, Tbili=19.5 APAP level not detectable and alcohol level undetectable Urine drug screen with methadone CT of the abdomen with massive hepatomegaly and edema, compressing IVC but no occlusion Patient with MELD score of 29 points correlating with a 19.6% 3 month mortality Maddrey's Discriminant function markedly elevated at 77 points on admission and she was started on prednisolone- Overall showing slow but steady improvement No ascites present on exam or mentioned on imaging Developed EtOH withdrawal requiring transfer to the ICU for Precedex drip. Started on Librium taper and using as needed Ativan-now much improved and not requiring any further Ativan Gave high dose IV thiamine given worsening mentation in case of Wernicke's and now continues on 200 mg daily Continue Protonix 40mg po daily Continue folate 1mg po daily Continue steroid therapy for acute alcoholic hepatitis with elevated MDF=77 on admission. Prednisolone 40mg/day and would continue for 28 days GI Consultation appreciated to assist with management-signed off Today on assessment, overall showing slow but steady improvement. TSharon biltimothy 9.4 today, AST 196 ALT 95 alkaline phosphatase 199 Minimal tremors on exam, but some gait instability upon walking (2) Alcohol use disorder: Patient has not tried AA or rehab in the past. She is interested in AA and outpatient alcohol rehab at this time. (3) Anxiety and depression: Patient admits that anxiety and depression are a huge part of her problems leading to drinking. She has been ordered to follow-up with a psychiatrist outpatient and also behavioral counselors (4) Alcohol withdrawal delirium: Spent some time in the ICU on Precedex drip, now resolved Patient currently stable on the floors. (5) UTI (urinary tract infection): Urine cultures grew E. coli Patient completed a course of antibiotics (6) Methadone use: Continue usual home dose of methadone Urine drug screen otherwise negative (7) Electrolyte abnormality: Due to alcohol abuse Plan DVT proph-SCDs, Lovenox Discharge home Total Time Total Time Spent Total Time Spent (In Minutes): 35 Discharge Plan Discharge Items Patient Disposition: Home - Self-Care Reason For Visit: ALCOHOLIC HEPATITIS Discharge Diagnosis: Alcoholic hepatitis Activity: Resume your previous activity Non-emergency contact: Primary Care Provider and Psychiatrist Call non-emergency contact if: you have any medication questions Follow-up/Referrals: Zana Wayne PA-C [Primary Care Provider] - 11/17/23 10:30 am Diet: Regular Addtl Attending Provider Instructions: Please make appointment to see a psychiatrist regarding anxiety and also prior to enroll in a group for alcohol behavioral therapy. Groups like AA. Most importantly abstain from alcohol Pending Studies at Discharge: No Stand-Alone Forms: [facility], Smoking Cessation Medications and DC Order Prescriptions: New prednisolone sodium phosphate 15 mg/5 mL (3 mg/mL) Solution 40 mg PO QAM 20 Days Qty: 266.666 0RF Continued folic acid 1 mg Tablet 1 mg PO QAM Qty: 30 0RF thiamine HCl (vitamin B1) 100 mg tablet 100 mg PO DAILY Qty: 30 0RF methadone 10 mg/mL Concentrate 64 mg PO DAILY Rx Instructions: [facility] Discharge Orders: Discharge Order (Routine); Ordered 11/10/23 Ordered By: Wesley Perez Admission Data Admit Date/Time: 11/02/23 01:08 Attending Provider: Wesley Perez Admit Provider: Kimmie Krueger Primary Care Provider: Zana Wayne Other Providers: Kimmie Krueger; Figueroa Clifton Jr; John Bean Coding Level of Care Code 28901 INP/OBS DISCH >30 MIN Diagnoses Alcoholic hepatitis without ascites K70.10 Ascites presence: without ascites Alcohol use disorder F10.90 Anxiety and depression F41.9; F32.A Alcohol withdrawal delirium F10.931 UTI (urinary tract infection) N39.0 Methadone use F11.90 Electrolyte abnormality E87.8 Time Spent (min) 35
[2023-11-10] MEDS ORDERED: Nursing to Pharmacy Communication SCH (14:45)
[2023-11-10] MEDS: MoRPHine SULFATE 2 MG/ML CARP IV STA (14:50)
[2023-11-10] MEDS: MoRPHine SULFATE 2 MG/ML CARP IV SCH (15:33)
[2023-11-11] MEDS ORDERED: NICOTINE 14 MG/24 HR PATCH TD SCH (09:00)
== END 2023-11-10 18:10 | disposition home or self-care (01) | DRG 433 ==
LOC: ED 20:19 → EDINP 11-02 01:08 → SUATTDRO 11-02 01:08 → 2S 11-02 02:13 → 1E 11-03 19:09 → 2S 11-06 18:32 → 3N 11-08 15:28

== ENCOUNTER 2024-01-23 11:55 | Inpatient (IN) ==
--- NOTE | 2024-01-23 12:23 | Emergency Department Note ---
Impression & Plan Tachycardia, Chronic liver failure, Jaundice, Elevated liver enzymes, Alcohol abuse ED Provider Note NAME: PERLA RICKS AGE: 33 SEX: F : 1990 ARRIVES VIA: Walk-In INFORMANT: [Patient] ED PROVIDER(S): [Jeff Reece MD] CHIEF COMPLAINT: Abdominal pain HISTORY OF PRESENT ILLNESS: The patient is a 33-year-old female with a history of alcohol abuse and alcoholic hepatitis. She was in our facility inpatient in October for liver failure and alcohol withdrawal. Her bilirubin had been initially around 19 but trended down to 9. She required some time in the ICU for alcohol withdrawal. The patient after discharge did go back to drinking alcohol. She stopped drinking alcohol about a month ago. She states that over the last month, since she stopped drinking, she has noticed increasing abdominal pain, fatigue, some dark urine and yellowness to her skin. She has been more fatigued. She was concerned that she was again having issues with her liver and she presents to the hospital for evaluation. There has been no cough or congestion. No fever or chills. Again, she did stop drinking alcohol about a month ago. She had some shakes but did not have any serious withdrawal symptoms. PMHx/PSHx/Social Hx: See Below PHYSICAL EXAM: GENERAL: Patient is in no acute distress. HEENT: No acute trauma, normocephalic atraumatic, mucous membranes moist, no nasal congestion. Scleral icterus noted. NECK: No stridor, no adenopathy, no meningismus, trachea is midline. LUNGS: Clear to auscultation bilaterally, no wheeze, no rhonchi, breath sounds equal. HEART: Tachycardic with a regular rhythm, no murmurs. ABDOMEN: Firm abdomen with an obviously enlarged liver far below the costal margin. She is diffusely tender about the abdomen. EXTREMITIES: No cyanosis, full range of motion of all the joints without pain or difficulty. Mild bilateral pedal edema. Enlarged, prominent veins in the lower extremities noted. NEUROLOGIC: Oriented x 3, no acute motor or sensory deficits, no focal weakness. SKIN: Moderate jaundice, no diaphoresis. There are spider telangiectasias across her chest. DIFFERENTIAL DIAGNOSIS: Worsening liver disease, ascites, renal failure, electrolyte imbalance, among others. EMERGENCY DEPARTMENT PROCEDURES: MEDICAL DECISION MAKING: There is a mild leukocytosis, this could be consistent with infection or just the stress of today's presentation. A very mild anemia was seen. There was a normal platelet count. INR was elevated, consistent with her liver disease. Her potassium was low, her sodium was low. Her magnesium was low. She had a significantly elevated liver enzymes, bilirubin was over 20. Ammonia level was high at 73, consistent with her liver disease. testing was negative. Urinalysis did not show findings of infection. Alcohol level was undetectable. Urine tox showed marijuana and methadone. Abdominal and pelvis CT shows a markedly enlarged liver. No bowel obstruction or significant ascites. On exam, the patient's abdomen was firm and distended. She was jaundiced. She presented tachycardic. The patient received IV saline with thiamine, folate and multivitamins. She received IV magnesium. The patient's tachycardia has improved, she is currently resting comfortably on the stretcher. The patient has had a marked worsening of her liver enzymes since her discharge from the hospital in October. I did speak with GI. For now, there is no emergent GI intervention required. Hopefully, the patient's liver will improve with conservative measures. I did speak with the patient, I spoke with case management, the on-call hospitalist was consulted. The patient is adamant that she has not had alcohol in a month, if this is the case, she should not have any withdrawal. She will need to be closely watched here in the hospital to ensure she does not develop any withdrawal symptoms. She had significant issues with alcohol withdrawal with her last hospitalization. Prior/Outside records/notes reviewed: Previous discharge summary note from 11/10/2023 discussing her presentation for liver failure and alcohol withdrawal. ECG per my interpretation: Indication was abdominal pain and tachycardia. The ECG shows a sinus tachycardia with a rate of 119. There is some baseline artifact and some nonspecific ST change. There is no acute ST elevation, no PVCs. QTc is 483. Continuous Cardiac Monitoring per my interpretation: An order was placed for continuous cardiac monitoring. The monitor shows a rate of 122 with sinus tachycardia. Imaging/x-ray results per my interpretation: Chest x-ray does not show pneumonia or CHF. Chronic Medical/Social conditions affecting care: History of alcoholism Care/Management discussed with: GI on-call-Dr. Clifton. Case management and the on-call hospitalist. Level of care consideration(s): After review of the information above and other included data: --I believe the patient requires escalation of care to admission DISPOSITION: Admission Past Med/Surg History Problem List Alcohol abuse (Acute) Elevated liver enzymes (Acute) Jaundice (Acute) Chronic liver failure (Acute) Tachycardia (Acute) Dental abscess Hepatic encephalopathy Hypokalemia Anxiety and depression Hyponatremia Electrolyte abnormality Alcohol withdrawal delirium UTI (urinary tract infection) Abnormal LFTs Elevated LFTs (Acute) Elevated bilirubin (Acute) No significant past surgical history Methadone use Medical History Acute liver failure Alcoholic hepatitis Alcohol use disorder Jaundice Elevated MCV Social History Smoking Status: Current every day smoker Tobacco Type: Cigarettes Do You Dip or Chew Tobacco: No; Hx Alcohol Use: Yes (stopped 1 month ago) Alcohol type: hard liquor Hx Substance Use: Yes (+10 years ago) Preferred Language: Frisian Communication Ability: Effective Engraving Plate Maker Required: No Beliefs That Will Affect Care: None Current Living Situation: Family Feels Safe at Home: Yes Assistive Devices: None Allergies Allergies Allergy/AdvReac Type Severity Reaction Status Date / Time adhesive Allergy Intermediate Hives Verified 01/23/24 15:07 Home Meds Home Medications Medication Instructions Recorded Confirmed methadone 10 mg/mL oral concentrate 49 mg PO DAILY 11/02/23 01/23/24 cyanocobalamin (vitamin B-12) 1,000 mcg PO DAILY 01/23/24 01/23/24 1,000 mcg tablet (Vitamin B-12) folic acid 800 mcg tablet 0.8 mg PO DAILY 01/23/24 01/23/24 penicillin V potassium 500 mg 500 mg PO BID 01/23/24 01/23/24 tablet Results & Data (ED) Vital Signs Vital Signs - 24 hr 01/23/24 11:57 01/23/24 12:09 01/23/24 12:18 Temperature 36.8 C Temperature Source Temporal Artery Scan Pulse Rate 136 H 134 H Pulse Rate [Apical] 124 H Respiratory Rate 18 13 Respiratory Effort / Characteristics Non-Labored Spontaneous Non-Labored Spontaneous Respiratory Depth Normal Normal Respiratory Pattern Regular Blood Pressure 111/76 Blood Pressure [Right Arm] 117/88 Blood Pressure Mean 87 Blood Pressure Mean [Right Arm] 97 Blood Pressure Position [Right Arm] Semi-fowlers Pulse Oximetry 95 92 Oxygen Delivery Method Room Air Room Air Sepsis Recent Fever Within 48 Hours No Sepsis New/Unexplained Change in Mental Status N/A Sepsis Action Taken by Nursing No Action Required 01/23/24 12:42 01/23/24 14:03 01/23/24 14:34 Temperature Temperature Source Pulse Rate 112 H Pulse Rate [Apical] 105 H 98 H Respiratory Rate 18 17 18 Respiratory Effort / Characteristics Non-Labored Spontaneous Non-Labored Respiratory Depth Normal Normal Respiratory Pattern Regular Regular Blood Pressure Blood Pressure [Right Arm] 98/69 L 103/75 Blood Pressure Mean Blood Pressure Mean [Right Arm] 78 84 Blood Pressure Position [Right Arm] Semi-fowlers Pulse Oximetry 93 94 94 Oxygen Delivery Method Room Air Room Air Room Air Sepsis Recent Fever Within 48 Hours Sepsis New/Unexplained Change in Mental Status Sepsis Action Taken by [facility] Medications Current Medication List: was personally reviewed by me Laboratory Data Attestation: I reviewed the patient's lab results. 01/23/24 12:35 01/23/24 12:35 Lab Results 01/23/24 01/23/24 01/23/24 Range/Units 12:35 12:58 13:10 WBC 13.93 H (4.8-10.8) K/ul RBC 3.42 L (4.20-5.40) M/uL Hgb 11.3 L (12.0-16.0) g/dl Hct 30.5 L (37.0-47.0) % MCV 89.2 (80.0-100.0) fL MCH 33.0 (25.0-34.0) pg MCHC 37.0 H (32.0-36.0) g/dL RDW Std Deviation 72.4 H (36.4-46.3) fL RDW Coeff of Sylvester 23.4 H (11.5-14.5) % Plt Count 223 (130-400) K/uL MPV 11.9 (9.4-12.4) fL Immature Gran % (Auto) 4.7 % Neut % (Auto) 69.8 % Lymph % (Auto) 10.6 % [place] % (Auto) 13.8 % Eos % (Auto) 0.5 % Baso % (Auto) 0.6 % Neut # (Auto) 9.74 H (1.40-6.50) K/uL Lymph # (Auto) 1.47 (1.20-3.40) K/uL [place] # (Auto) 1.92 H (0.11-0.59) K/uL Eos # (Auto) 0.07 (0.00-0.50) K/uL Baso # (Auto) 0.08 (0.00-0.20) K/uL Immature Gran # (Auto) 0.65 H (0.01-0.20) K/uL Absolute Nucleated RBC 0.03 (0.00-0.12) K/uL Nucleated RBC % (auto) 0.2 % Polychromasia 1+ Anisocytosis Present Target Cells 3+ PT 20.7 H (9.0-12.0) Seconds INR 2.0 H (0.9-1.1) APTT 38 H (21-31) Seconds PTT Ratio 1.4 Sodium 131 L (136-145) mmol/L Potassium 3.1 L (3.5-5.1) mmol/L Chloride 93 L (98-107) mmol/L Carbon Dioxide 28 (21-32) mmol/L Anion Gap 10 (3-11) BUN 8 (6-23) mg/dl Creatinine 0.59 L (0.6-1.2) mg/dl Est Cr Clr Drug Dosing 100.4 ml/min Est GFR ( Amer) 137.6 ml/min Est GFR (Non-Af Amer) 118.7 ml/min BUN/Creatinine Ratio 13.6 (10-20) Glucose 89 (70-99(Fasting)) mg/dl Lactate 1.3 (0.4-2.0) mmol/L Calcium 8.4 L (8.6-10.3) mg/dl Magnesium 1.6 L (1.7-2.4) mg/dl Total Bilirubin 20.9 H (0.2-1.0) mg/dl AST 171 H (13-39) U/L ALT 49 (7-52) U/L Alkaline Phosphatase 273 H (34-104) U/L Ammonia 73.0 H (18-72) umol/L Troponin I High Sens 10.8 (0-14) pg/ml Total Protein 6.7 (6.0-8.3) gm/dl Albumin 3.0 L (3.4-5.0) gm/dl Globulin 3.7 (2.5-4.0) gm/dl Albumin/Globulin Ratio 0.8 L (0.9-2) Lipase TNP HCG, Qual Negative (Negative) Urine Color Dark Yellow Urine Appearance Cloudy A (Clear) Urine pH 6.0 (4.5-7.5) Ur Specific Adams 1.027 (1.000-1.030) Urine Protein 1+ H (Negative) Urine Glucose (UA) Negative (Negative) Urine Ketones Negative (Negative) Urine Blood Negative (Negative) Urine Nitrite Positive A (Negative) Urine Bilirubin 3+ H (Negative) Urine Urobilinogen Negative (Negative) Ur Leukocyte Esterase 1+ H (Negative) Urine WBC (Auto) 0-5 (0-5) /hpf Urine RBC (Auto) 11-20 H (0-2) /hpf U Hyaline Cast (Auto) 0-2 (0-2) /lpf U Epithel Cells (Auto) 6-10 H (0-2) /hpf Urine Bacteria (Auto) 1+ H (None Seen) Urine Mucus Present A (None Prsent) Urine Opiates Screen Neg (Neg) Ur Methadone, Qual Pos H (Neg) Urine Fentanyl Screen Neg (Neg) Urine Barbiturates Neg (Neg) Ur Phencyclidine (PCP) Neg (Neg) U Amphetamin/Meth Scrn Neg (Neg) MDMA (Ecstasy) Screen Neg (Neg) U Benzodiazepines Scrn Neg (Neg) Ur Cocaine Metabolite Neg (Neg) U Marijuana (THC) Screen Pos H (Neg) Ethyl Alcohol mg/dL < 10.0 (<10.0) mg/dl Administered Medications Clindamycin HCl (Clindamycin Hcl 150 Mg Cap) 150 mg PO Q6 YAS Stop: 01/30/24 17:59 Last Admin: 01/23/24 18:23 Dose: 150 mg Documented By: AML Discontinued Medications Multivitamins 10 ml/ Thiamine HCl 100 mg/ Folic Acid 1 mg/Sodium Chloride 1,011.2 mls @ 500 mls/hr IV .Q2H2M ONE Stop: 01/23/24 14:10 Last Infusion: 01/23/24 15:24 Dose: Infused Documented By: Admin: 01/23/24 13:04 Dose: 500 mls/hr Documented By: ZAHIDA Magnesium Sulfate/Dextrose (Magnesium Sulfate / D5w) 1 gm in 100 mls @ 50 mls/hr IV ONE ONE Stop: 01/23/24 17:29 Last Infusion: 01/23/24 17:11 Dose: Infused Documented By: Admin: 01/23/24 15:39 Dose: 50 mls/hr Documented By: ASW Ioversol (Optiray 320 100ml) 94 ml IV ONCE ONE Stop: 01/23/24 13:58 Last Admin: 01/23/24 13:57 Dose: 94 ml Documented By: EDK Potassium Chloride (Potassium Chloride Crtab 20 Meq Tabcr) 40 meq PO NOW STA Stop: 01/23/24 15:22 Last Admin: 01/23/24 15:39 Dose: 40 meq Documented By: ASW Imaging Data Radiologist's Impression: Chest X-Ray 01/23/24 12:09 XR chest 1V portable CLINICAL HISTORY: Abdominal pain. COMPARISON STUDY: Chest radiograph November 01, 2023. FINDINGS: There is mild elevation the right hemidiaphragm. Lungs are clear. There is no pneumothorax or pleural effusion. Cardiac size is normal. Mediastinal contours are normal. There is no evidence for pulmonary edema. No lucency identified on the hemidiaphragms to suggest pneumoperitoneum. IMPRESSION: No acute cardiopulmonary findings. ACT 112: Negative or not required by law. Electronically signed by: Wilbur Swanson M.D. 01/23/2024 12:44 PM Abdomen/Pelvis CT 01/23/24 12:10 CT OF THE ABDOMEN AND PELVIS WITH CONTRAST CLINICAL HISTORY: Abdominal pain, liver disease. COMPARISON STUDY: CT of the abdomen and pelvis November 01, 2023. TECHNIQUE: Following IV administration of 94 mL of Optiray, axial images of the abdomen and pelvis were obtained from the lung bases to the proximal femurs. Images were reviewed in the axial, sagittal, and coronal planes. IV contrast was administered without complication. Automated exposure control was utilized for the study. A dose lowering technique was utilized adhering to the principles of ALARA. CT DOSE: 545.45 mGy.cm FINDINGS: Lung bases are unremarkable. No pneumatosis, free air or portal venous gas is present. Liver parenchyma is markedly heterogeneous with severe hepatic steatosis. The liver is enlarged. Liver surface is lobulated. A 3.3 x 1.7 cm hypodense subcapsular segment 8 hepatic lesion on image 73 of 381 is slightly more conspicuous than on prior exams. This may contain numerous thin septations/small cystic spaces. No additional hepatic lesions are identified. The spleen is mildly enlarged. Varices within the abdomen and pelvis are present. There is trace fluid within the pelvis. There is no abdominal ascites. The main, left and right portal veins are patent. Low-attenuation left renal lesion represents a cyst. There is no hydronephrosis. Adrenal glands and pancreas are unremarkable. Mild gallbladder wall thickening. The gallbladder is not distended. There is no pancreatic ductal dilatation. There is no evidence for a bowel obstruction. Mild right colon wall thickening is present. The appendix is normal. There is no abdominal or pelvic lymphadenopathy. Major vasculature is patent. IMPRESSION: 1. Severe hepatic steatosis and hepatomegaly. Lobular contour of the liver surface suggests cirrhosis. Mild splenomegaly and varices formation consistent with portal hypertension. Trace fluid within the pelvis. No abdominal ascites. 2. 3.3 x 1.7 cm hypodense subcapsular segment 8 hepatic lesion, slightly more conspicuous than on prior exams. This may reflect a complex cystic lesion. Although not overtly suspicious, a nonemergent liver protocol MRI is recommended. 3. Right colon wall thickening. This is likely related to portal hypertension. A nonspecific colitis could appear similar. Normal appendix. No bowel obstruction. 4. Gallbladder wall thickening, a nonspecific finding the setting of liver disease. ACT 112: Positive. There are findings on this exam that require communication between the performing entity and the patient following Patient Test Result Information Act ([place] Act 112) guidelines. Electronically signed by: Wilbur Swanson M.D. 01/23/2024 2:26 PM Discharge Plan Visit Data Chief Complaint: Abdominal Pain Stated Complaint: JAUNDICE ED Provider: Jeff Reece Discharge Problem: Tachycardia, Chronic liver failure, Jaundice, Elevated liver enzymes, Alcohol abuse Patient Disposition: Admitted As Inpatient Condition: Fair Discharge Instructions Interventions: ED Discharge Assessment Last Done: 01/23/24 16:42 Discharge Problem: Chronic liver failure Qualifiers: Hepatic coma status: without hepatic coma Qualified Code(s): K72.10 - Chronic hepatic failure without coma
--- NOTE | 2024-01-23 12:46 | XRay Report ---
XR chest 1V portable CLINICAL HISTORY: Abdominal pain. COMPARISON STUDY: Chest radiograph November 01, 2023. FINDINGS: There is mild elevation the right hemidiaphragm. Lungs are clear. There is no pneumothorax or pleural effusion. Cardiac size is normal. Mediastinal contours are normal. There is no evidence fo r pulmonary edema. No lucency identified on the hemidiaphragms to suggest pneumoperitoneum. IMPRESSION: No acute cardiopulmonary findings. ACT 112: Negative or not required by law. Electronically signed by: Wilbur Swanson M.D. 01/23/2024 12:44 PM
[2024-01-23] MEDS: MULTI-VITAMIN INFUSION 10 ML, THIAMINE HCL 100 MG, FOLIC ACID 1 MG in SODIUM CHLORIDE 0... IV ONE (13:04)
[2024-01-23 13:06] LABS: Basophils # (auto) 0.08 K/uL (0.00-0.20); Basophils % (auto) 0.6 %; Eosinophils # (auto) 0.07 K/uL (0.00-0.50); Eosinophils % (auto) 0.5 %; Hematocrit (blood only) 30.5 % (37.0-47.0); Hemoglobin 11.3 g/dl (12.0-16.0); Immature Granulocytes # (auto) 0.65 K/uL (0.01-0.20); Immature Granulocytes % (auto) 4.7 %; Lymphocytes # (auto) 1.47 K/uL (1.20-3.40); Lymphocytes % (auto) 10.6 %; Mean Corpuscular Volume 89.2 fL (80.0-100.0); Mean Platelet Volume 11.9 fL (9.4-12.4); Monocytes # (auto) 1.92 K/uL (0.11-0.59); Monocytes % (auto) 13.8 %; Neutrophils # (auto) 9.74 K/uL (1.40-6.50); Neutrophils % (auto) 69.8 %; Nucleated RBC # (auto) 0.03 K/uL (0.00-0.12); Nucleated RBC % (auto) 0.2 %; Platelet Count 223 K/uL (130-400); RDW Coefficient of Variation 23.4 % (11.5-14.5); RDW Standard Deviation 72.4 fL (36.4-46.3); Red Blood Count 3.42 M/uL (4.20-5.40); White Blood Count 13.93 K/ul (4.8-10.8)
[2024-01-23 13:13] LABS: Pregnancy Test, Serum Negative (Negative)
[2024-01-23 13:20] LABS: Alanine Aminotransferase 49 U/L (7-52); Albumin Globulin Ratio 0.8 (0.9-2); Alkaline Phosphatase 273 U/L (34-104); Anion Gap 10 (3-11); Aspartate Aminotransferase 171 U/L (13-39); BUN Creatinine Ratio 13.6 (10-20); Bilirubin,Total 20.9 mg/dl (0.2-1.0); Blood Urea Nitrogen 8 mg/dl (6-23); Calcium 8.4 mg/dl (8.6-10.3); Carbon Dioxide 28 mmol/L (21-32); Chloride 93 mmol/L (98-107); Creatinine Clr Calc Pharmacy 100.4 ml/min; Est GFR (African American) 137.6 ml/min; Est GFR (Non-African American) 118.7 ml/min; Globulin 3.7 gm/dl (2.5-4.0); Glucose 89 mg/dl (70-99(Fasting)); Potassium 3.1 mmol/L (3.5-5.1); Sodium 131 mmol/L (136-145); Total Protein 6.7 gm/dl (6.0-8.3)
[2024-01-23 13:23] LABS: Partial Thromboplastin Ratio 1.4; Partial Thromboplastin Time 38 Seconds (21-31); Prothrombin Time 20.7 Seconds (9.0-12.0)
[2024-01-23 13:25] LABS: Troponin I High Sensitivity 10.8 pg/ml (0-14)
[2024-01-23 13:35] LABS: Appearance Urine Cloudy (Clear); Bacteria Urine Automated 1+ (None Seen); Bilirubin Urine 3+ (Negative); Blood Urine Negative (Negative); Cast Urine Automated 0-2 /lpf (0-2); Color Urine Dark Yellow; Glucose Urine UA Negative (Negative); Ketones Urine Negative (Negative); Leukocyte Esterase Urine 1+ (Negative); Mucus Urine Present (None Prsent); Nitrite Urine Positive (Negative); Protein Urine 1+ (Negative); Specific Gravity Urine 1.027 (1.000-1.030); Urobilinogen Urine Negative (Negative); WBC Urine Automated 0-5 /hpf (0-5)
[2024-01-23 13:46] LABS: Anisocytosis Present; Polychromasia 1+; Target Cells 3+
[2024-01-23] MEDS: OPTIRAY 320 100ml IV ONE (13:57)
[2024-01-23 14:19] LABS: Amphetamines+Metham, Urine Neg (Neg); Barbiturates, Urine Neg (Neg); Benzodiazepine, Urine Neg (Neg); Cocaine, Urine Neg (Neg); Fentanyl, Urine Neg (Neg); MDMA (Ecstacy), Urine Neg (Neg); Marijuana, Urine Pos (Neg); Methadone, Urine Pos (Neg); Opiate, Urine Neg (Neg); Phencyclidine, Urine Neg (Neg)
--- NOTE | 2024-01-23 14:29 | CT Scan Report ---
CT OF THE ABDOMEN AND PELVIS WITH CONTRAST CLINICAL HISTORY: Abdominal pain, liver disease. COMPARISON STUDY: CT of the abdomen and pelvis November 01, 2023. TECHNIQUE: Following IV administration of 94 mL of Optiray, axial images of the abdomen and pelvis we re obtained from the lung bases to the proximal femurs. Images were reviewed in the axial, sagittal, and coronal planes. IV contrast was administered without complication. Automated exposure control wa s utilized for the study. A dose lowering technique was utilized adhering to the principles of ALARA . CT DOSE: 545.45 mGy.cm FINDINGS: Lung bases are unremarkable. No pneumatosis, free air or portal venous gas is present. Live r parenchyma is markedly heterogeneous with severe hepatic steatosis. The liver is enlarged. Liver santos rface is lobulated. A 3.3 x 1.7 cm hypodense subcapsular segment 8 hepatic lesion on image 73 of 381 is slightly more conspicuous than on prior exams. This may contain numerous thin septations/small cys tic spaces. No additional hepatic lesions are identified. The spleen is mildly enlarged. Varices with in the abdomen and pelvis are present. There is trace fluid within the pelvis. There is no abdominal ascites. The main, left and right portal veins are patent. Low-attenuation left renal lesion represen ts a cyst. There is no hydronephrosis. Adrenal glands and pancreas are unremarkable. Mild gallbladder wall thickening. The gallbladder is not distended. There is no pancreatic ductal dilatation. There i s no evidence for a bowel obstruction. Mild right colon wall thickening is present. The appendix is n ormal. There is no abdominal or pelvic lymphadenopathy. Major vasculature is patent. IMPRESSION: 1. Severe hepatic steatosis and hepatomegaly. Lobular contour of the liver surface suggests cirrhosis . Mild splenomegaly and varices formation consistent with portal hypertension. Trace fluid within the pelvis. No abdominal ascites. 2. 3.3 x 1.7 cm hypodense subcapsular segment 8 hepatic lesion, slightly more conspicuous than on giancarlo or exams. This may reflect a complex cystic lesion. Although not overtly suspicious, a nonemergent [place] protocol MRI is recommended. 3. Right colon wall thickening. This is likely related to portal hypertension. A nonspecific colitis could appear similar. Normal appendix. No bowel obstruction. 4. Gallbladder wall thickening, a nonspecific finding the setting of liver disease. ACT 112: Positive. There are findings on this exam that require communication between the performing entity and the patient following Patient Test Result Information Act ([place] Act 112) guidelines. Electronically signed by: Wilbur Swanson M.D. 01/23/2024 2:26 PM
[2024-01-23] MEDS ORDERED: ONDANSETRON INJ 2 MG/ML 2 ML VIAL IV PRN (15:14)
[2024-01-23] MEDS ORDERED: LORazepam 1 MG in SYRINGE 0.5 ML IV PRN (15:18)
[2024-01-23] MEDS ORDERED: MULTI-VITAMIN INFUSION 10 ML, THIAMINE HCL 100 MG, FOLIC ACID 1 MG in SODIUM CHLORIDE 0... IV ONE (15:18)
[2024-01-23] MEDS: MAGNESIUM SULFATE / D5W 1 GM/100 ML BAG IV ONE (15:39)
[2024-01-23] MEDS: POTASSIUM CHLORIDE CRTAB 20 MEQ TABCR PO STA (15:39)
[2024-01-23 15:48] LABS: Magnesium 1.6 mg/dl (1.7-2.4)
--- NOTE | 2024-01-23 15:56 | History & Physical Report ---
Date of Service January 23, 2024 Assessment & Plan (1) Acute liver failure: Plan: TB is trending up 9->20 due to use antibiotics? dental infection? IV fluids antibiotics CT (2) Methadone use: Plan: continue methadone (3) Hyponatremia: Plan: due to liver disease (4) Hypokalemia: Plan: supplement (5) Hepatic encephalopathy: Plan: ammonia level 77 start lactulose (6) Dental abscess: Plan: start clindamycin CT History of Present Illness Chief Complaint: reports feeling more jaundiced , left facial swelling, tooth infection Primary Care Provider: Zana Wayne PA-C 33 yo female with alcoholic hepatitis, liver failure presents with increased jaundice, denies drinking alcohol for 1 month, she started having left facial pain, swelling, started taking antibiotics for tooth infection , denies fever, chills. denies nausea, vomiting, diarrhea, reports being more sleepy lately, her ammonia level is elevated. Total bilirubin is 20 from 9. Allergies Allergy/AdvReac Type Severity Reaction Status Date / Time adhesive Allergy Intermediate Hives Verified 01/23/24 15:07 Home Medications Medication Instructions Recorded Confirmed Type methadone 10 mg/mL oral concentrate 49 mg PO DAILY 11/02/23 01/23/24 History cyanocobalamin (vitamin B-12) 1,000 mcg PO DAILY 01/23/24 01/23/24 History 1,000 mcg tablet (Vitamin B-12) folic acid 800 mcg tablet 0.8 mg PO DAILY 01/23/24 01/23/24 History penicillin V potassium 500 mg 500 mg PO BID 01/23/24 01/23/24 History tablet Past Med/Surg History Problem List (Updated 01/23/24 @ 16:21 by Pema Bateman MD) Dental abscess Hepatic encephalopathy Hypokalemia Acute liver failure Anxiety and depression Hyponatremia Electrolyte abnormality Alcohol withdrawal delirium UTI (urinary tract infection) Alcoholic hepatitis Abnormal LFTs Alcohol use disorder (Acute) Elevated LFTs (Acute) Elevated bilirubin (Acute) Jaundice (Acute) No significant past surgical history Methadone use Medical History Alcohol use disorder Elevated MCV Methadone use Surgical History No significant past surgical history Social History Smoking Status: Current every day smoker Tobacco Type: Cigarettes Do You Dip or Chew Tobacco: No; Hx Alcohol Use: Yes Alcohol type: hard liquor Hx Substance Use: Yes (+10 years ago) Preferred Language: [place] Communication Ability: Effective Ad Trafficker Required: No Beliefs That Will Affect Care: None Current Living Situation: Family Feels Safe at Home: Yes Assistive Devices: None Review of Systems Review of Systems: All systems reviewed & are unremarkable except as noted in Subjective Physical Exam Physical Exam: GENERAL: Patient is in no acute distress. HEENT: No acute trauma, normocephalic atraumatic, mucous membranes moist, no nasal congestion. Scleral icterus noted. NECK: No stridor, no adenopathy, no meningismus, trachea is midline. LUNGS: Clear to auscultation bilaterally, no wheeze, no rhonchi, breath sounds equal. HEART: Tachycardic with a regular rhythm, no murmurs. ABDOMEN: Firm abdomen with an obviously enlarged liver far below the costal margin. She is diffusely tender about the abdomen. EXTREMITIES: No cyanosis, full range of motion of all the joints without pain or difficulty. Mild bilateral pedal edema. Enlarged veins in the lower extremities noted. NEUROLOGIC: Oriented x 3, no acute motor or sensory deficits, no focal weakness. SKIN: Moderate jaundice, no diaphoresis. There are spider telangiectasias across her chest. Results & Data Results & Data Vital Signs (Past 12 Hours) Vital Signs Temp Pulse Pulse Resp BP BP Pulse Ox 01/23/24 15:40 88 15 103/75 93 01/23/24 14:34 98 H 18 103/75 94 01/23/24 14:03 105 H 17 98/69 L 94 01/23/24 12:42 112 H 18 93 01/23/24 12:18 134 H 01/23/24 12:09 124 H 13 117/88 92 01/23/24 11:57 36.8 C 136 H 18 111/76 95 O2 Del Method 01/23/24 15:40 Room Air 01/23/24 14:34 Room Air 01/23/24 14:03 Room Air 01/23/24 12:42 Room Air 01/23/24 12:18 01/23/24 12:09 Room Air 01/23/24 11:57 Room Air Laboratory Results Abnormal lab results 01/23/24 01/23/24 01/23/24 Range/Units 12:35 12:58 13:10 WBC 13.93 H (4.8-10.8) K/ul RBC 3.42 L (4.20-5.40) M/uL Hgb 11.3 L (12.0-16.0) g/dl Hct 30.5 L (37.0-47.0) % MCHC 37.0 H (32.0-36.0) g/dL RDW Std Deviation 72.4 H (36.4-46.3) fL RDW Coeff of Sylvester 23.4 H (11.5-14.5) % Neut # (Auto) 9.74 H (1.40-6.50) K/uL Pender # (Auto) 1.92 H (0.11-0.59) K/uL Immature Gran # (Auto) 0.65 H (0.01-0.20) K/uL PT 20.7 H (9.0-12.0) Seconds INR 2.0 H (0.9-1.1) APTT 38 H (21-31) Seconds Sodium 131 L (136-145) mmol/L Potassium 3.1 L (3.5-5.1) mmol/L Chloride 93 L (98-107) mmol/L Creatinine 0.59 L (0.6-1.2) mg/dl Calcium 8.4 L (8.6-10.3) mg/dl Magnesium 1.6 L (1.7-2.4) mg/dl Total Bilirubin 20.9 H (0.2-1.0) mg/dl AST 171 H (13-39) U/L Alkaline Phosphatase 273 H (34-104) U/L Ammonia 73.0 H (18-72) umol/L Albumin 3.0 L (3.4-5.0) gm/dl Albumin/Globulin Ratio 0.8 L (0.9-2) Urine Appearance Cloudy A (Clear) Urine Protein 1+ H (Negative) Urine Nitrite Positive A (Negative) Urine Bilirubin 3+ H (Negative) Ur Leukocyte Esterase 1+ H (Negative) Urine RBC (Auto) 11-20 H (0-2) /hpf U Epithel Cells (Auto) 6-10 H (0-2) /hpf Urine Bacteria (Auto) 1+ H (None Seen) Urine Mucus Present A (None Prsent) Ur Methadone, Qual Pos H (Neg) U Marijuana (THC) Screen Pos H (Neg) Diagnostic Findings Chest X-Ray 01/23/24 12:09 XR chest 1V portable CLINICAL HISTORY: Abdominal pain. COMPARISON STUDY: Chest radiograph November 01, 2023. FINDINGS: There is mild elevation the right hemidiaphragm. Lungs are clear. There is no pneumothorax or pleural effusion. Cardiac size is normal. Mediastinal contours are normal. There is no evidence for pulmonary edema. No lucency identified on the hemidiaphragms to suggest pneumoperitoneum. IMPRESSION: No acute cardiopulmonary findings. ACT 112: Negative or not required by law. Electronically signed by: Wilbur Swanson M.D. 01/23/2024 12:44 PM Abdomen/Pelvis CT 01/23/24 12:10 CT OF THE ABDOMEN AND PELVIS WITH CONTRAST CLINICAL HISTORY: Abdominal pain, liver disease. COMPARISON STUDY: CT of the abdomen and pelvis November 01, 2023. TECHNIQUE: Following IV administration of 94 mL of Optiray, axial images of the abdomen and pelvis were obtained from the lung bases to the proximal femurs. Images were reviewed in the axial, sagittal, and coronal planes. IV contrast was administered without complication. Automated exposure control was utilized for the study. A dose lowering technique was utilized adhering to the principles of ALARA. CT DOSE: 545.45 mGy.cm FINDINGS: Lung bases are unremarkable. No pneumatosis, free air or portal venous gas is present. Liver parenchyma is markedly heterogeneous with severe hepatic steatosis. The liver is enlarged. Liver surface is lobulated. A 3.3 x 1.7 cm hypodense subcapsular segment 8 hepatic lesion on image 73 of 381 is slightly more conspicuous than on prior exams. This may contain numerous thin septations/small cystic spaces. No additional hepatic lesions are identified. The spleen is mildly enlarged. Varices within the abdomen and pelvis are present. There is trace fluid within the pelvis. There is no abdominal ascites. The main, left and right portal veins are patent. Low-attenuation left renal lesion represents a cyst. There is no hydronephrosis. Adrenal glands and pancreas are unremarkable. Mild gallbladder wall thickening. The gallbladder is not distended. There is no pancreatic ductal dilatation. There is no evidence for a bowel obstruction. Mild right colon wall thickening is present. The appendix is normal. There is no abdominal or pelvic lymphadenopathy. Major vasculature is patent. IMPRESSION: 1. Severe hepatic steatosis and hepatomegaly. Lobular contour of the liver surface suggests cirrhosis. Mild splenomegaly and varices formation consistent with portal hypertension. Trace fluid within the pelvis. No abdominal ascites. 2. 3.3 x 1.7 cm hypodense subcapsular segment 8 hepatic lesion, slightly more conspicuous than on prior exams. This may reflect a complex cystic lesion. Al though not overtly suspicious, a nonemergent liver protocol MRI is recommended. 3. Right colon wall thickening. This is likely related to portal hypertension. A nonspecific colitis could appear similar. Normal appendix. No bowel obstruction. 4. Gallbladder wall thickening, a nonspecific finding the setting of liver disease. ACT 112: Positive. There are findings on this exam that require communication between the performing entity and the patient following Patient Test Result Information Act ([place] Act 112) guidelines. Electronically signed by: Wilbur Swanson M.D. 01/23/2024 2:26 PM PG Care Time/CCT Total # of Minutes Spent Total Time Spent with Patient: Total time spent is greater than 50% in coordination of care (as documented) at patient's floor/unit and/or counseling patient: Coding Level of Care Code 40676 INT INP/OBS CARE 3/75MIN Diagnoses Acute liver failure K72.00 Methadone use F11.90 Hyponatremia E87.1 Hypokalemia E87.6 Hepatic encephalopathy K76.82 Dental abscess K04.7
[2024-01-23] MEDS: CLINDAMYCIN HCL 150 MG CAP PO SCH (18:23)
[2024-01-23] MEDS: HYDROmorphone INJ 0.5 MG/0.5 ML SYR IV ONE (19:49)
[2024-01-23] MEDS: PANTOprazole 40 MG TAB PO ONE (19:49)
[2024-01-23] MEDS: LACTULOSE SYRUP 20 GM/30 ML UDC PO SCH (19:50)
--- NOTE | 2024-01-23 22:43 | Electrocardiogram Report ---
Test Reason : Blood Pressure : / mmHG Vent. Rate : 119 BPM Atrial Rate : 119 BPM P-R Int : 128 ms QRS Dur : 088 ms QT Int : 344 ms P-R-T Axes : 064 001 029 degrees QTc Int : 483 ms Sinus tachycardia Right atrial enlargement Nonspecific T wave abnormality When compared with ECG of 01-NOV-2023 21:40, No significant change was found Confirmed by Sky Carmen ([id number]) on 01/23/2024 10:42:56 PM Referred By: Confirmed By:Sky Carmen
[2024-01-24 07:42] LABS: INR 1.9 (0.9-1.1); Prothrombin Time 19.2 Seconds (9.0-12.0)
[2024-01-24] MEDS: METHADONE ORAL SOLN 2 MG/ML PO SCH (07:45)
[2024-01-24] MEDS: PATIENT'S OWN CONTROLLED MED 1 PO SCH (07:45)
[2024-01-24] MEDS: CYANOCOBALAMIN (B-12) 500 MCG TABLET PO SCH (09:09)
[2024-01-24] MEDS: FOLIC ACID 400 MCG TAB PO SCH (09:09)
[2024-01-24] MEDS: PANTOprazole 40 MG TAB PO SCH (09:11)
[2024-01-24] MEDS ORDERED: LORazepam 1 MG in SYRINGE 0.5 ML IV PRN (09:50)
[2024-01-24] MEDS ORDERED: Ativan IV Alcohol Withdrawal--Active Protocol IV PRN (09:50)
[2024-01-24] MEDS ORDERED: LORazepam 3 MG in SYRINGE 1.5 ML IV PRN (09:50)
[2024-01-24] MEDS ORDERED: LORazepam 2 MG in SYRINGE 1 ML IV PRN (09:50)
[2024-01-24] MEDS: MULTIVITAMIN CHEWABLE TAB PO SCH (10:25)
[2024-01-24] MEDS: THIAMINE HCL 100 MG TAB PO SCH (10:25)
[2024-01-24] MEDS: prednisoLONE sod phosphate 15 MG/5 ML PO SCH (10:25)
[2024-01-24 10:52] LABS: Albumin Level 2.8 gm/dl (3.4-5.0); Bilirubin,Total 22.1 mg/dl (0.2-1.0); Calcium 8.2 mg/dl (8.6-10.3); Magnesium 1.9 mg/dl (1.7-2.4); Potassium 3.3 mmol/L (3.5-5.1)
[2024-01-24 10:58] LABS: Albumin Globulin Ratio 0.8 (0.9-2); BUN Creatinine Ratio 12.7 (10-20); Creatinine Clr Calc Pharmacy 107.7 ml/min; Est GFR (African American) 140.8 ml/min; Est GFR (Non-African American) 121.5 ml/min; Globulin 3.4 gm/dl (2.5-4.0); Total Protein 6.2 gm/dl (6.0-8.3)
--- NOTE | 2024-01-24 11:46 | Gastrointestinal Consultation ---
Date of Consultation January 24, 2024 Assessment & Plan (1) Jaundice: Pleasant young woman on a downward course with alcohol abuse and alcoholic hepatitis. She is admitted for jaundice. She has stopped drinking she says for the past thirty days and other than her dental abscess she feels pretty good. I have nothing really to offer her at this time other than encouragement to seek inpatient rehab. She understand she will not survive if she keeps down this path. The rise in her bilirubin may just be the path her alcoholic hepatitis is taking. She did relapse and drink heavily for about a month. Her INR is a little higher than it was in the past but it seems to be stable. From GI standpoint she doesn't need to be hospitalized because of her elevated bilirubin. I will follow while she is here. History of Present Illness Reason for Consultation: jaundice Attending Physician: Ariane Luis MD History of Present Illness 33 year old female known to me from prior admit for alcoholic hepatitis. She tells me she relapsed with alcohol abuse for about a month after she was discharged from her last hospitalization. She realized she was drinking too much and quit and has been abstinent for about 30 days now. However when she decided to quit she noticed she was already turning yellow again. This has progressed and she came to the hospital. She has a little "soreness" on her right side of her abdomen. She is also battling an abscessed tooth now. She has no abdominal pain and no vomiting. Allergies Allergy/AdvReac Type Severity Reaction Status Date / Time adhesive Allergy Intermediate Hives Verified 01/23/24 15:07 Home Medications Medication Instructions Recorded Confirmed Type methadone 10 mg/mL oral concentrate 49 mg PO DAILY 11/02/23 01/23/24 History cyanocobalamin (vitamin B-12) 1,000 mcg PO DAILY 01/23/24 01/23/24 History 1,000 mcg tablet (Vitamin B-12) folic acid 800 mcg tablet 0.8 mg PO DAILY 01/23/24 01/23/24 History penicillin V potassium 500 mg 500 mg PO BID 01/23/24 01/23/24 History tablet Patient History Medical History Acute liver failure Alcoholic hepatitis Alcohol use disorder Jaundice Elevated MCV Social History Smoking Status: Current every day smoker Tobacco Type: Cigarettes Do You Dip or Chew Tobacco: No; Hx Alcohol Use: Yes (stopped 1 month ago) Alcohol type: hard liquor Hx Substance Use: Yes (+10 years ago) Preferred Language: Cymro Communication Ability: Effective Chemical Milling Processor Required: No Beliefs That Will Affect Care: None Current Living Situation: Family Feels Safe at Home: Yes Assistive Devices: None Review of Systems Review of Systems: All systems reviewed & are unremarkable except as noted in HPI & below Physical Exam Constitutional: WD/WN, vitals as above Neck: trachea midline, no thyromegaly Respiratory: normal respiratory effort, lungs clear to auscultation Cardiovascular: RRR, no murmur, no edema Gastrointestinal (Abdomen): normal bowel sounds, soft, nontender, no hepatosplenomegaly Results & Data Vital Signs (Past 12 Hours) Vital Signs Temp Pulse Pulse Resp BP Pulse Ox O2 Del Method 01/24/24 10:28 36.7 C 92 H 17 101/65 92 Room Air 01/24/24 08:00 85 01/24/24 07:33 36.6 C 86 18 100/67 96 Room Air 01/24/24 03:08 36.7 C 78 17 97/60 L 93 Room Air Laboratory Results 01/24/24 01/23/24 01/23/24 Range/Units 05:55 13:10 12:58 WBC (4.8-10.8) K/ul RBC (4.20-5.40) M/uL Hgb (12.0-16.0) g/dl Hct (37.0-47.0) % MCV (80.0-100.0) fL MCH (25.0-34.0) pg MCHC (32.0-36.0) g/dL RDW Std Deviation (36.4-46.3) fL RDW Coeff of Sylvester (11.5-14.5) % Plt Count (130-400) K/uL MPV (9.4-12.4) fL Immature Gran % (Auto) % Neut % (Auto) % Lymph % (Auto) % Edmunds % (Auto) % Eos % (Auto) % Baso % (Auto) % Neut # (Auto) (1.40-6.50) K/uL Lymph # (Auto) (1.20-3.40) K/uL Edmunds # (Auto) (0.11-0.59) K/uL Eos # (Auto) (0.00-0.50) K/uL Baso # (Auto) (0.00-0.20) K/uL Immature Gran # (Auto) (0.01-0.20) K/uL Absolute Nucleated RBC (0.00-0.12) K/uL Nucleated RBC % (auto) % Polychromasia Anisocytosis Target Cells PT 19.2 H (9.0-12.0) Seconds INR 1.9 H (0.9-1.1) APTT (21-31) Seconds PTT Ratio Sodium 133 L (136-145) mmol/L Potassium 3.3 L (3.5-5.1) mmol/L Chloride 97 L (98-107) mmol/L Carbon Dioxide 28 (21-32) mmol/L Anion Gap 8 (3-11) BUN 7 (6-23) mg/dl Creatinine 0.55 L (0.6-1.2) mg/dl Est Cr Clr Drug Dosing 107.7 ml/min Est GFR ( Amer) 140.8 ml/min Est GFR (Non-Af Amer) 121.5 ml/min BUN/Creatinine Ratio 12.7 (10-20) Glucose 55 L (70-99(Fasting)) mg/dl Lactate (0.4-2.0) mmol/L Calcium 8.2 L (8.6-10.3) mg/dl Magnesium 1.9 (1.7-2.4) mg/dl Total Bilirubin 22.1 H (0.2-1.0) mg/dl AST 147 H (13-39) U/L ALT 44 (7-52) U/L Alkaline Phosphatase 239 H (34-104) U/L Ammonia 73.0 H (18-72) umol/L Troponin I High Sens (0-14) pg/ml Total Protein 6.2 (6.0-8.3) gm/dl Albumin 2.8 L (3.4-5.0) gm/dl Globulin 3.4 (2.5-4.0) gm/dl Albumin/Globulin Ratio 0.8 L (0.9-2) Lipase HCG, Qual (Negative) Urine Color Dark Yellow Urine Appearance Cloudy A (Clear) Urine pH 6.0 (4.5-7.5) Ur Specific Ruth 1.027 (1.000-1.030) Urine Protein 1+ H (Negative) Urine Glucose (UA) Negative (Negative) Urine Ketones Negative (Negative) Urine Blood Negative (Negative) Urine Nitrite Positive A (Negative) Urine Bilirubin 3+ H (Negative) Urine Urobilinogen Negative (Negative) Ur Leukocyte Esterase 1+ H (Negative) Urine WBC (Auto) 0-5 (0-5) /hpf Urine RBC (Auto) 11-20 H (0-2) /hpf U Hyaline Cast (Auto) 0-2 (0-2) /lpf U Epithel Cells (Auto) 6-10 H (0-2) /hpf Urine Bacteria (Auto) 1+ H (None Seen) Urine Mucus Present A (None Prsent) Urine Opiates Screen Neg (Neg) Ur Methadone, Qual Pos H (Neg) U Methadone Metabolites Pending Ur Methadone Confirm Pending Urine Fentanyl Screen Neg (Neg) Urine Barbiturates Neg (Neg) Ur Phencyclidine (PCP) Neg (Neg) U Amphetamin/Meth Scrn Neg (Neg) MDMA (Ecstasy) Screen Neg (Neg) U Benzodiazepines Scrn Neg (Neg) Ur Cocaine Metabolite Neg (Neg) U Marijuana (THC) Screen Pos H (Neg) U Marijuana THC Carboxy Pending Drug Screen Comment Pending Ethyl Alcohol mg/dL < 10.0 (<10.0) mg/dl 01/23/24 Range/Units 12:35 WBC 13.93 H (4.8-10.8) K/ul RBC 3.42 L (4.20-5.40) M/uL Hgb 11.3 L (12.0-16.0) g/dl Hct 30.5 L (37.0-47.0) % MCV 89.2 (80.0-100.0) fL MCH 33.0 (25.0-34.0) pg MCHC 37.0 H (32.0-36.0) g/dL RDW Std Deviation 72.4 H (36.4-46.3) fL RDW Coeff of Sylvester 23.4 H (11.5-14.5) % Plt Count 223 (130-400) K/uL MPV 11.9 (9.4-12.4) fL Immature Gran % (Auto) 4.7 % Neut % (Auto) 69.8 % Lymph % (Auto) 10.6 % Edmunds % (Auto) 13.8 % Eos % (Auto) 0.5 % Baso % (Auto) 0.6 % Neut # (Auto) 9.74 H (1.40-6.50) K/uL Lymph # (Auto) 1.47 (1.20-3.40) K/uL Edmunds # (Auto) 1.92 H (0.11-0.59) K/uL Eos # (Auto) 0.07 (0.00-0.50) K/uL Baso # (Auto) 0.08 (0.00-0.20) K/uL Immature Gran # (Auto) 0.65 H (0.01-0.20) K/uL Absolute Nucleated RBC 0.03 (0.00-0.12) K/uL Nucleated RBC % (auto) 0.2 % Polychromasia 1+ Anisocytosis Present Target Cells 3+ PT 20.7 H (9.0-12.0) Seconds INR 2.0 H (0.9-1.1) APTT 38 H (21-31) Seconds PTT Ratio 1.4 Sodium 131 L (136-145) mmol/L Potassium 3.1 L (3.5-5.1) mmol/L Chloride 93 L (98-107) mmol/L Carbon Dioxide 28 (21-32) mmol/L Anion Gap 10 (3-11) BUN 8 (6-23) mg/dl Creatinine 0.59 L (0.6-1.2) mg/dl Est Cr Clr Drug Dosing 100.4 ml/min Est GFR ( Amer) 137.6 ml/min Est GFR (Non-Af Amer) 118.7 ml/min BUN/Creatinine Ratio 13.6 (10-20) Glucose 89 (70-99(Fasting)) mg/dl Lactate 1.3 (0.4-2.0) mmol/L Calcium 8.4 L (8.6-10.3) mg/dl Magnesium 1.6 L (1.7-2.4) mg/dl Total Bilirubin 20.9 H (0.2-1.0) mg/dl AST 171 H (13-39) U/L ALT 49 (7-52) U/L Alkaline Phosphatase 273 H (34-104) U/L Ammonia (18-72) umol/L Troponin I High Sens 10.8 (0-14) pg/ml Total Protein 6.7 (6.0-8.3) gm/dl Albumin 3.0 L (3.4-5.0) gm/dl Globulin 3.7 (2.5-4.0) gm/dl Albumin/Globulin Ratio 0.8 L (0.9-2) Lipase TNP HCG, Qual Negative (Negative) Urine Color Urine Appearance (Clear) Urine pH (4.5-7.5) Ur Specific Ruth (1.000-1.030) Urine Protein (Negative) Urine Glucose (UA) (Negative) Urine Ketones (Negative) Urine Blood (Negative) Urine Nitrite (Negative) Urine Bilirubin (Negative) Urine Urobilinogen (Negative) Ur Leukocyte Esterase (Negative) Urine WBC (Auto) (0-5) /hpf Urine RBC (Auto) (0-2) /hpf U Hyaline Cast (Auto) (0-2) /lpf U Epithel Cells (Auto) (0-2) /hpf Urine Bacteria (Auto) (None Seen) Urine Mucus (None Prsent) Urine Opiates Screen (Neg) Ur Methadone, Qual (Neg) U Methadone Metabolites Ur Methadone Confirm Urine Fentanyl Screen (Neg) Urine Barbiturates (Neg) Ur Phencyclidine (PCP) (Neg) U Amphetamin/Meth Scrn (Neg) MDMA (Ecstasy) Screen (Neg) U Benzodiazepines Scrn (Neg) Ur Cocaine Metabolite (Neg) U Marijuana (THC) Screen (Neg) U Marijuana THC Carboxy Drug Screen Comment Ethyl Alcohol mg/dL (<10.0) mg/dl Diagnostic Findings Chest X-Ray 01/23/24 12:09 XR chest 1V portable CLINICAL HISTORY: Abdominal pain. COMPARISON STUDY: Chest radiograph November 01, 2023. FINDINGS: There is mild elevation the right hemidiaphragm. Lungs are clear. There is no pneumothorax or pleural effusion. Cardiac size is normal. Mediastinal contours are normal. There is no evidence for pulmonary edema. No lucency identified on the hemidiaphragms to suggest pneumoperitoneum. IMPRESSION: No acute cardiopulmonary findings. ACT 112: Negative or not required by law. Electronically signed by: Wilbur Swanson M.D. 01/23/2024 12:44 PM Abdomen/Pelvis CT 01/23/24 12:10 CT OF THE ABDOMEN AND PELVIS WITH CONTRAST CLINICAL HISTORY: Abdominal pain, liver disease. COMPARISON STUDY: CT of the abdomen and pelvis November 01, 2023. TECHNIQUE: Following IV administration of 94 mL of Optiray, axial images of the abdomen and pelvis were obtained from the lung bases to the proximal femurs. Images were reviewed in the axial, sagittal, and coronal planes. IV contrast was administered without complication. Automated exposure control was utilized for the study. A dose lowering technique was utilized adhering to the principles of ALARA. CT DOSE: 545.45 mGy.cm FINDINGS: Lung bases are unremarkable. No pneumatosis, free air or portal venous gas is present. Liver parenchyma is markedly heterogeneous with severe hepatic steatosis. The liver is enlarged. Liver surface is lobulated. A 3.3 x 1.7 cm hypodense subcapsular segment 8 hepatic lesion on image 73 of 381 is slightly more conspicuous than on prior exams. This may contain numerous thin s eptations/small cystic spaces. No additional hepatic lesions are identified. The spleen is mildly enlarged. Varices within the abdomen and pelvis are present. There is trace fluid within the pelvis. There is no abdominal ascites. The main, left and right portal veins are patent. Low-attenuation left renal lesion represents a cyst. There is no hydronephrosis. Adrenal glands and pancreas are unremarkable. Mild gallbladder wall thickening. The gallbladder is not distended. There is no pancreatic ductal dilatation. There is no evidence for a bowel obstruction. Mild right colon wall thickening is present. The appendix is normal. There is no abdominal or pelvic lymphadenopathy. Major vasculature is patent. IMPRESSION: 1. Severe hepatic steatosis and hepatomegaly. Lobular contour of the liver surface suggests cirrhosis. Mild splenomegaly and varices formation consistent with portal hypertension. Trace fluid within the pelvis. No abdominal ascites. 2. 3.3 x 1.7 cm hypodense subcapsular segment 8 hepatic lesion, slightly more conspicuous than on prior exams. This may reflect a complex cystic lesion. Although not overtly suspicious, a nonemergent liver protocol MRI is recommended . 3. Right colon wall thickening. This is likely related to portal hypertension. A nonspecific colitis could appear similar. Normal appendix. No bowel obstruction. 4. Gallbladder wall thickening, a nonspecific finding the setting of liver disease. ACT 112: Positive. There are findings on this exam that require communication between the performing entity and the patient following Patient Test Result Information Act ([place] Act 112) guidelines. Electronically signed by: Wilbur Swanson M.D. 01/23/2024 2:26 PM
[2024-01-24] MEDS: POTASSIUM CHLORIDE CRTAB 20 MEQ TABCR PO STA (12:36)
[2024-01-24] MEDS: NICOTINE 14 MG/24 HR PATCH TD SCH (13:20)
--- NOTE | 2024-01-24 18:34 | Hospitalist Progress Note ---
Date of Service January 24, 2024 Assessment & Plan (1) Acute liver failure: Plan: Pt with recurrent alcoholic hepatitis. CT A/P with evidence of severe fatty liver, with cirrhosis, portal HTN. TBili now up to 22. Maddrey's score 53 which is a very poor prognosis--> start prednisolone 40mg daily GI consult appreciated Needs to continue to abstain from EtOH, f/u outpt with GI Follow CBC, CMP, INR Can stop lactulose as having numerous loose stools Start PPI (2) Dental abscess: Plan: Left maxilla, with pain, swelling, no fevers. Treated a few weeks ago with PCN VK and had improvement but recurred Continue clindamycin for now check CT face and consider consultation of OMFS (3) Hyponatremia: Plan: due to liver disease, improving to 133 today follow BMP (4) Hypokalemia: Plan: mildly low, replace with po KCl follow BMP, mag (5) Methadone use: Plan: continue methadone home dose Plan Dispo-continued stay Admission and Anticipated Discharge Date Admission Date: January 23, 2024 Subjective Pt reports ongoing pain in her left cheek from her dental infection. Also with abdominal fullness and mid back pain. She is moving her bowels quite a bit after taking lactulose. Tele with NSR, ST rates 80-100s Physical Exam Constitutional: + ill appearing; no acute distress and n ot lethargic Eyes: + scleral abnormality (icterus) ENMT: +left facial swelling, +TTP exquisitely over left maxilla, no erythema Respiratory: normal respiratory effort, lungs clear to auscultation Cardiovascular: RRR, no murmur, no edema Gastrointestinal (Abdomen): Inspection/Auscultation: + abdomen distended and normal bowel sounds Percussion/Palpation: + abdomen tender (right side), abdomen soft and + hepatomegaly; no guarding Neurologic: PERRL, EOMI, accommodation nl, no face palsy, no dysarthria Psychiatric: A+Ox3, euthymic affect Results & Data Results & Data Vital Signs (Past 12 Hours) Vital Signs Temp Pulse Pulse Resp BP Pulse Ox O2 Del Method 01/24/24 15:38 36.7 C 76 18 106/70 93 Room Air 01/24/24 13:00 78 01/24/24 10:28 36.7 C 92 H 17 101/65 92 Room Air 01/24/24 08:00 85 01/24/24 07:33 36.6 C 86 18 100/67 96 Room Air Laboratory Results CBC, CMP, INR, magnesium reviewed PG Care Time/CCT Total # of Minutes Spent Total Time Spent with Patient: Total time spent is greater than 50% in coordination of care (as documented) at patient's floor/unit and/or counseling patient: Coding Level of Care Code 82885 SUB INP/OBS CARE 3/50MIN Diagnoses Acute liver failure K72.00 Dental abscess K04.7 Hyponatremia E87.1 Hypokalemia E87.6 Methadone use F11.90
[2024-01-24] MEDS: OPTIRAY 320 100ml IV ONE (19:44)
--- NOTE | 2024-01-24 22:30 | CT Scan Report ---
Exam(s): CT FACIAL With Contrast IV Amt: 93 ml opti 320 EXAM: CT Maxillofacial With Intravenous Contrast CLINICAL HISTORY: Reason for exam: left maxillary dental abscess. TECHNIQUE: Axial computed tomography images of the face with intravenous contrast. CTDI is 8.57 mGy and DLP is 150.66 mGy-cm. Automated exposure control was utilized for the study. A dose lowering technique was utilized adhering to the principles of ALARA. CONTRAST: Patient received 93 ml opti 320 of IV contrast COMPARISON: No relevant prior studies available. FINDINGS: Bones/joints: No acute fracture. Soft tissues: Subcu tissue edema seen in the left malar region. Orbits: Unremarkable. Sinuses: Unremarkable. No air-fluid levels. Dental: There is 1.6 cm diameter abscess seen lateral to the left first maxillary molar periapical abscess. There is extensive dental caries seen and the left first maxillary molar teeth. Periapical abscess seen around the root of first and second right mandibular molar with extensive dental caries. IMPRESSION: Periapical abscess around the root of the left first maxillary molar with adjacent soft tissue abscess Electronically signed by: Gregorio Donis MD 01/24/24 22:29 PM
[2024-01-25 06:28] LABS: Basophils # (auto) 0.07 K/uL (0.00-0.20); Basophils % (auto) 0.6 %; Eosinophils # (auto) 0.09 K/uL (0.00-0.50); Eosinophils % (auto) 0.7 %; Hematocrit (blood only) 30.1 % (37.0-47.0); Hemoglobin 10.6 g/dl (12.0-16.0); Immature Granulocytes # (auto) 0.47 K/uL (0.01-0.20); Immature Granulocytes % (auto) 3.8 %; Lymphocytes # (auto) 1.42 K/uL (1.20-3.40); Lymphocytes % (auto) 11.4 %; Mean Corpuscular Hemoglobin 32.1 pg (25.0-34.0); Mean Corpuscular Hgb Conc 35.2 g/dL (32.0-36.0); Mean Corpuscular Volume 91.2 fL (80.0-100.0); Mean Platelet Volume 11.6 fL (9.4-12.4); Monocytes # (auto) 1.48 K/uL (0.11-0.59); Monocytes % (auto) 11.8 %; Neutrophils # (auto) 8.96 K/uL (1.40-6.50); Neutrophils % (auto) 71.7 %; Nucleated RBC # (auto) 0.03 K/uL (0.00-0.12); Nucleated RBC % (auto) 0.2 %; Platelet Count 260 K/uL (130-400); RDW Coefficient of Variation 25.2 % (11.5-14.5); RDW Standard Deviation 79.4 fL (36.4-46.3); White Blood Count 12.49 K/ul (4.8-10.8)
[2024-01-25 06:55] LABS: INR 1.9 (0.9-1.1); Prothrombin Time 19.9 Seconds (9.0-12.0)
[2024-01-25 06:57] LABS: Anisocytosis Present; Polychromasia 1+; Target Cells 1+
[2024-01-25 07:13] LABS: Potassium 3.8 mmol/L (3.5-5.1)
[2024-01-25 07:14] LABS: Albumin Level 2.6 gm/dl (3.4-5.0); BUN Creatinine Ratio 14.3 (10-20); Bilirubin,Total 17.9 mg/dl (0.2-1.0); Calcium 7.9 mg/dl (8.6-10.3); Creatinine Clr Calc Pharmacy 114.8 ml/min; Est GFR (Non-African American) 120.8 ml/min; Magnesium 1.9 mg/dl (1.7-2.4); Total Protein 5.8 gm/dl (6.0-8.3)
[2024-01-25] MEDS: PATIENT'S OWN CONTROLLED MED 2 PO SCH (10:01)
[2024-01-25] MEDS: cefTRIAXone SODIUM 1,000 MG/50 ML BAG IV SCH (10:36)
[2024-01-25] MEDS: CLINDAMYCIN HCL 150 MG CAP PO SCH (10:36)
[2024-01-25 11:09] LABS: Bilirubin Direct 11.7 mg/dl (0-0.2)
--- NOTE | 2024-01-25 12:30 | Gastroenterology Progress Note ---
Date of Service January 25, 2024 Assessment & Plan (1) Jaundice: Plan: Seems stable. Not much for me to offer her. Should be ready to go home soon Admission and Anticipated Discharge Date Admission Date: January 23, 2024 Subjective She feels better today. Has been thinking about her liver disease. Bilirubin down a little but INR up a little as well. Physical Exam Physical Exam: pleasant, still obviously jaundiced Results & Data Vital Signs (Past 12 Hours) Vital Signs Temp Pulse Pulse Resp BP Pulse Ox O2 Del Method 01/25/24 12:00 36.9 C 82 18 94/60 L 96 Room Air 01/25/24 07:47 36.7 C 80 17 97/61 L 95 Room Air 01/25/24 07:27 70 01/25/24 03:13 36.8 C 74 16 102/67 97 Room Air
--- NOTE | 2024-01-25 15:54 | Oral/Maxillofacial Consult ---
Date of Consultation January 25, 2024 Assessment & Plan (1) Alcohol use disorder: (2) Teeth decayed: (3) Abscess of pulp of tooth: (4) Alcohol abuse: (5) Elevated liver enzymes: History of Present Illness Attending Physician: Ariane Luis MD History of Present Illness Oral Maxillofacial Surgery Exam Present Complaint: I have pain/swelling/drainage from my infected upper left molar # 14. Symptoms have been ongoing for a while. Treated with antibiotics a few weeks ago -- now swollen again Oral Exam: Finding-Swollen tender gingival tissue with deep pocket formation. # 14 is grossly decayed and in a abnormal position and removal is clinical indicated. The facial abscess has spontaneously drained--but ultimately the # 14 needs removed to prevent recurrence. Imaging: CT shows a number of carious and abscessed teeth upper left molar # 14 is fractured to the bone level Soft tissue: The left mucobuccal fold is swollen but draining, this has released the pain and swelling. The floor of the mouth, tongue, hard/soft palate, posterior pharyngeal area all with in normal limits, no pathology or abnormal findings noted. Oral Care: Overall oral care is fair Occlusion: Class I TMJ exam: No pop, clicking, pain, good ROM, No history of TMJ injury or dysfunction Periodontal exam: General mild gingival tissue inflammation with evidence of early periodontal p athology. Head/Neck exam: Neck is supple, FROM, Able to extend and flex neck w/o difficulty, no masses, no abnormalities, no airway issues, no evidence of sleep apnea. Treatment Plan: Will need extraction of the infected # 14 and a wider I&D. Her INR is elevated from the liver inflammation secondary to the ETOH abuse. Will need Medical clearance before setting up the procedure If medically she will require inpatient stay - I will coordinate with medicine to arrange the extraction and I and D later in the week Set up with general anesthesia in hospital due to complexity of the procedure I reviewed the treatment plan and consent with the patient Understanding was expressed. Time was given for questions regarding the surgery, risks and post op care. Discussed alternative to treatment--procedure as planned, Do not do surgery The following teeth are decayed and fractured and removal is indicated ASA P # 14 with I&D Risks discussed: Bleeding,Pain,swelling,infection, dry socket, delayed healing, nerve injury to face,lips,tongue,chin area which could be permanent (rare). TMJ, jaw stiffness, change in bite (rare), ear pain (referred). Sinus problems like fistula or infection. Need to leave a small root fragment in place to avoid injury to nerve or sinus. Relationship of wisdom teeth to nerve/sinus and risk of jaw fracture. Surgery to be set up once her medical condition improves to allow anesthesia I will not be able to preform the procedure until Wednesday AM due to the upcoming holiday Allergies Allergy/AdvReac Type Severity Reaction Status Date / Time adhesive Allergy Intermediate Hives Verified 01/23/24 15:07 Home Medications Medication Instructions Recorded Confirmed Type methadone 10 mg/mL oral concentrate 49 mg PO DAILY 11/02/23 01/23/24 History cyanocobalamin (vitamin B-12) 1,000 mcg PO DAILY 01/23/24 01/23/24 History 1,000 mcg tablet (Vitamin B-12) folic acid 800 mcg tablet 0.8 mg PO DAILY 01/23/24 01/23/24 History penicillin V potassium 500 mg 500 mg PO BID 01/23/24 01/23/24 History tablet Patient History Medical History Acute liver failure Alcoholic hepatitis Alcohol use disorder Jaundice Elevated MCV Social History Smoking Status: Current every day smoker Tobacco Type: Cigarettes Do You Dip or Chew Tobacco: No; Hx Alcohol Use: Yes (stopped 1 month ago) Alcohol type: hard liquor Hx Substance Use: Yes (+10 years ago) Preferred Language: Belarusian Communication Ability: Effective 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 Beliefs That Will Affect Care: None Current Living Situation: Family Feels Safe at Home: Yes Assistive Devices: None Results & Data Vital Signs (Past 12 Hours) Vital Signs Temp Pulse Pulse Resp BP Pulse Ox O2 Del Method 01/25/24 15:15 36.5 C 69 18 100/67 97 Room Air 01/25/24 12:00 36.9 C 82 18 94/60 L 96 Room Air 01/25/24 07:47 36.7 C 80 17 97/61 L 95 Room Air 01/25/24 07:27 70 PG Care Time/CCT Total # of Minutes Spent Total Time Spent with Patient: Total time spent is greater than 50% in coordination of care (as documented) at patient's floor/unit and/or counseling patient: Coding Level of Care Code 09347 OFFICE CONSULT LVL Diagnoses Alcohol use disorder F10.90 Teeth decayed K02.9 Abscess of pulp of tooth K04.01 Alcohol abuse F10.10 Elevated liver enzymes R74.8
--- NOTE | 2024-01-25 18:20 | Hospitalist Progress Note ---
Date of Service January 25, 2024 Assessment & Plan (1) Acute liver failure: Plan: Pt with recurrent alcoholic hepatitis. CT A/P with evidence of severe fatty liver, with likely developing cirrhosis, and evidence of portal HTN with mild splenomegaly and abdominal and pelvic varices. No ascites. There is also a 3.3 x 1.7 cm hypodense subcapsular segment 8 hepatic lesion, slightly more conspicuous than on prior exams. This may reflect a complex cystic lesion. Although not overtly suspicious, a nonemergent liver protocol MRI is recommended. TBili as high as 22. Maddrey's score 53 which is a very poor prognosis--> started prednisolone 40mg daily TBili trending downward today, INR remains elevated GI consult appreciated Needs to continue to abstain from EtOH, f/u outpt with GI-she has an appt in Mar she thinks at [facility] in [place] Follow CBC, CMP, INR Can stop lactulose as having numerous loose stools Continue PPI while on steroids (2) Dental abscess: Plan: Left maxilla, with pain, swelling, no fevers. Treated a few weeks ago with FLORENTINO OTERO and had improvement but recurred CT face shows left maxillary abscess 1.6cm and dental caries Purulent drainage coming out now and pain improving Appreciate OMFS consult-plan for tooth extraction #14 and abscess I&D on Wednesday if liver issues improving Continue clindamycin but increase dose to 300mg po qid (3) UTI (urinary tract infection): Plan: Ur cx with E. coli-start ceftriaxone with urinary symptoms (4) Hyponatremia: Plan: due to liver disease, stable at 132 today follow BMP (5) Methadone use: Plan: continue methadone home dose (6) Alcohol use disorder: Plan: continue AWSS protocol although she states last drink was one month prior. No evidence of withdrawal here thus far continue thiamine, Folic acid, MVI counseled on cessation and encouraged ongoing outpt therapy Plan Dispo-continued stay, downgrade to medical/surgical unit Admission and Anticipated Discharge Date Admission Date: January 23, 2024 Subjective Pt reports her urine has a foul odor and feels like she has a UTI. Is having a lot of loose stool with taking lactulose. Still with a lot of abd pressure and p ains in upper abdomen. Pain in mouth improving and pus draining out. Tele with NSR, rates 80-90s Physical Exam Constitutional: + ill appearing; no acute distress and n ot lethargic Eyes: + scleral abnormality (icterus) Respiratory: normal respiratory effort, lungs clear to auscultation Cardiovascular: RRR, no murmur, no edema Gastrointestinal (Abdomen): Inspection/Auscultation: + abdomen distended and normal bowel sounds Percussion/Palpation: + abdomen tender (right side), abdomen soft and + hepatomegaly; no guarding Skin: + jaundice Psychiatric: A+Ox3, euthymic affect Results & Data Results & Data Vital Signs (Past 12 Hours) Vital Signs Temp Pulse Pulse Resp BP Pulse Ox O2 Del Method 01/25/24 15:15 36.5 C 69 18 100/67 97 Room Air 01/25/24 12:00 36.9 C 82 18 94/60 L 96 Room Air 01/25/24 07:47 36.7 C 80 17 97/61 L 95 Room Air 01/25/24 07:27 70 Laboratory Results CBC, CMP, INR reviewed Ur cx reviewed PG Care Time/CCT Total # of Minutes Spent Total Time Spent with Patient: Total time spent is greater than 50% in coordination of care (as documented) at patient's floor/unit and/or counseling patient: Coding Level of Care Code 91905 SUB INP/OBS CARE 2/35MIN Diagnoses Acute liver failure K72.00 Dental abscess K04.7 UTI (urinary tract infection) N39.0 Hyponatremia E87.1 Methadone use F11.90 Alcohol use disorder F10.90
[2024-01-25] MEDS ORDERED: HYDROmorphone INJ 0.5 MG/0.5 ML SYR IV ONE (19:33)
[2024-01-25] MEDS ORDERED: Nursing to Pharmacy Communication SCH (23:30)
[2024-01-25] MEDS: HYDROmorphone INJ 0.5 MG/0.5 ML SYR IV SCH (23:41)
[2024-01-26 08:29] LABS: Basophils # (auto) 0.05 K/uL (0.00-0.20); Basophils % (auto) 0.4 %; Eosinophils % (auto) 0.7 %; Hematocrit (blood only) 30.3 % (37.0-47.0); Hemoglobin 10.9 g/dl (12.0-16.0); Immature Granulocytes # (auto) 0.57 K/uL (0.01-0.20); Immature Granulocytes % (auto) 4.1 %; Lymphocytes # (auto) 1.69 K/uL (1.20-3.40); Lymphocytes % (auto) 12.3 %; Mean Corpuscular Volume 91.8 fL (80.0-100.0); Mean Platelet Volume 11.4 fL (9.4-12.4); Monocytes # (auto) 1.49 K/uL (0.11-0.59); Monocytes % (auto) 10.8 %; Neutrophils # (auto) 9.84 K/uL (1.40-6.50); Neutrophils % (auto) 71.7 %; Nucleated RBC # (auto) 0.04 K/uL (0.00-0.12); Nucleated RBC % (auto) 0.3 %; Platelet Count 276 K/uL (130-400); RDW Coefficient of Variation 26.1 % (11.5-14.5); RDW Standard Deviation 81.8 fL (36.4-46.3); White Blood Count 13.74 K/ul (4.8-10.8)
[2024-01-26 08:39] LABS: INR 1.9 (0.9-1.1); Prothrombin Time 19.3 Seconds (9.0-12.0)
[2024-01-26 08:43] LABS: Albumin Level 2.6 gm/dl (3.4-5.0); BUN Creatinine Ratio 18.9 (10-20); Bilirubin Direct 8.8 mg/dl (0-0.2); Bilirubin,Total 15.9 mg/dl (0.2-1.0); Creatinine Clr Calc Pharmacy 121.2 ml/min; Est GFR (African American) 142.6 ml/min; Magnesium 1.8 mg/dl (1.7-2.4); Total Protein 5.9 gm/dl (6.0-8.3)
[2024-01-26 08:54] LABS: Target Cells 2+
--- NOTE | 2024-01-26 13:12 | Hospitalist Progress Note ---
Date of Service January 26, 2024 Assessment & Plan (1) Acute liver failure: Plan: Pt with recurrent alcoholic hepatitis. CT A/P with evidence of severe fatty liver, with likely developing cirrhosis, and evidence of portal HTN with mild splenomegaly and abdominal and pelvic varices. No ascites. There is also a 3.3 x 1.7 cm hypodense subcapsular segment 8 hepatic lesion, slightly more conspicuous than on prior exams. This may reflect a complex cystic lesion. Although not overtly suspicious, a nonemergent liver protocol MRI is recommended. TBili as high as 22. Maddrey's score 53 on admission which is a very poor prognosis--> started prednisolone 40mg daily TBili continues to be trending downward today, INR remains elevated GI consult appreciated Needs to continue to abstain from EtOH, f/u outpt with GI-she has an appt in Mar she thinks at [facility] in [place] Follow CBC, CMP, INR Continue Miralax prn for daily BM Continue PPI while on steroids (2) Dental abscess: Plan: Left maxilla, with pain, swelling, no fevers. Treated a few weeks ago with PCN VK and had improvement but recurred CT face shows left maxillary abscess 1.6cm and dental caries Purulent drainage coming out now and pain improving, facial swelling improving Appreciate OMFS consult-plan for tooth extraction #14 and abscess I&D on Wednesday if liver issues improving Continue clindamycin 300mg po qid x 10 day course (3) UTI (urinary tract infection): Plan: Ur cx with E. coli-continue ceftriaxone x 3 day course with urinary symptoms (4) Hyponatremia: Plan: due to liver disease,improving to 133 today follow BMP (5) Methadone use: Plan: continue methadone home dose (6) Alcohol use disorder: Plan: continue AWSS protocol although she states last drink was one month prior. No evidence of withdrawal here thus far continue thiamine, Folic acid, MVI counseled on cessation and encouraged ongoing outpt therapy Plan Dispo-continued stay medical/surgical unit, possible dc after tooth extraction Wednesday Admission and Anticipated Discharge Date Admission Date: January 23, 2024 Subjective Mouth feels raw but face not as swollen. Still has c/o abd distension. Has not moved bowels yet today Is ambulating a bit more today Physical Exam Constitutional: no acute distress Eyes: + scleral abnormality (icterus) Respiratory: normal respiratory effort, lungs clear to auscultation Cardiovascular: RRR, no murmur, no edema Gastrointestinal (Abdomen): Inspection/Auscultation: + abdomen distended and normal bowel sounds Skin: + jaundice Psychiatric: A+Ox3, euthymic affect Results & Data Results & Data Vital Signs (Past 12 Hours) Vital Signs Temp Pulse Resp BP Pulse Ox O2 Del Method 01/26/24 07:22 36.5 C 81 16 97/61 L 95 Room Air Laboratory Results CBC, INR, CMP reviewed PG Care Time/CCT Total # of Minutes Spent Total Time Spent with Patient: Total time spent is greater than 50% in coordination of care (as documented) at patient's floor/unit and/or counseling patient: Coding Level of Care Code 93889 SUB INP/OBS CARE 2/35MIN Diagnoses Acute liver failure K72.00 Dental abscess K04.7 UTI (urinary tract infection) N39.0 Hyponatremia E87.1 Methadone use F11.90 Alcohol use disorder F10.90
[2024-01-26 13:17] LABS: Marijuana Quant, GCMS Urine 98 ng/mL (<5); Methadone, Ur Metabolite >10000 ng/mL (<100); Methadone, Ur Verification 8880 ng/mL (<100)
[2024-01-26] MEDS: HYDROmorphone INJ 0.5 MG/0.5 ML SYR IV ONE (22:53)
[2024-01-27 06:54] LABS: Basophils # (auto) 0.04 K/uL (0.00-0.20); Basophils % (auto) 0.3 %; Eosinophils # (auto) 0.07 K/uL (0.00-0.50); Eosinophils % (auto) 0.5 %; Hematocrit (blood only) 32.1 % (37.0-47.0); Hemoglobin 11.3 g/dl (12.0-16.0); Immature Granulocytes # (auto) 0.55 K/uL (0.01-0.20); Immature Granulocytes % (auto) 3.7 %; Lymphocytes # (auto) 1.51 K/uL (1.20-3.40); Lymphocytes % (auto) 10.1 %; Mean Corpuscular Hemoglobin 32.9 pg (25.0-34.0); Mean Corpuscular Hgb Conc 35.2 g/dL (32.0-36.0); Mean Corpuscular Volume 93.6 fL (80.0-100.0); Mean Platelet Volume 11.4 fL (9.4-12.4); Monocytes # (auto) 1.26 K/uL (0.11-0.59); Monocytes % (auto) 8.4 %; Nucleated RBC # (auto) 0.02 K/uL (0.00-0.12); Nucleated RBC % (auto) 0.1 %; Platelet Count 304 K/uL (130-400); RDW Coefficient of Variation 26.5 % (11.5-14.5); RDW Standard Deviation 84.7 fL (36.4-46.3); Red Blood Count 3.43 M/uL (4.20-5.40); White Blood Count 14.93 K/ul (4.8-10.8)
[2024-01-27 07:09] LABS: Albumin Level 2.7 gm/dl (3.4-5.0); BUN Creatinine Ratio 20.8 (10-20); Bilirubin,Total 14.7 mg/dl (0.2-1.0); Calcium 8.1 mg/dl (8.6-10.3); Creatinine Clr Calc Pharmacy 121.2 ml/min; Est GFR (African American) 142.6 ml/min; Potassium 4.1 mmol/L (3.5-5.1); Total Protein 6.3 gm/dl (6.0-8.3)
[2024-01-27 07:16] LABS: INR 1.9 (0.9-1.1); Prothrombin Time 19.4 Seconds (9.0-12.0)
[2024-01-27 07:29] LABS: Anisocytosis Present; Polychromasia 1+; Target Cells 2+
[2024-01-27] MEDS ORDERED: PATIENT'S OWN CONTROLLED MED 1 PO SCH ×2 (08:00→09:00)
--- NOTE | 2024-01-27 08:07 | Gastroenterology Progress Note ---
Date of Service January 27, 2024 Assessment & Plan (1) Elevated liver enzymes: Plan: Stable and maybe improving from GI standpoint but will take months for LFT's to improve. Nothing further to add. Will sign off. If GI services are needed please consult GI talent acquisition partner as I am going off service tomorrow Admission and Anticipated Discharge Date Admission Date: January 23, 2024 Subjective Seems to be feeling pretty well. Having dental extraction tomorrow. Labs are somewhat improved but basically stable Physical Exam Physical Exam: She looks well, still icteric Constitutional: WD/WN, vitals as above Results & Data Vital Signs (Past 12 Hours) Vital Signs Temp Pulse Resp BP Pulse Ox O2 Del Method 01/27/24 07:25 36.7 C 75 16 91/56 L 95 Room Air 01/26/24 22:14 36.7 C 64 18 98/56 L 98 Room Air
[2024-01-27] MEDS: PATIENT'S OWN CONTROLLED MED 2 PO SCH (08:22)
[2024-01-27] MEDS: POLYETHYLENE (MIRALAX) 17 GM PACK PO PRN (09:27)
--- NOTE | 2024-01-27 14:03 | Hospitalist Progress Note ---
Date of Service January 27, 2024 Assessment & Plan (1) Acute liver failure: Plan: Pt with recurrent alcoholic hepatitis that may have been exacerbated by taking PCN for dental infection vs infection itself? CT A/P with evidence of severe fatty liver, with likely developing cirrhosis, and evidence of portal HTN with mild splenomegaly and abdominal and pelvic varices. No ascites. There is also a 3.3 x 1.7 cm hypodense subcapsular segment 8 hepatic lesion, slightly more conspicuous than on prior exams. This may reflect a complex cystic lesion. Although not overtly suspicious, a nonemergent liver protocol MRI is recommended-can be done as an outpt TBili 22 on admission, INR 2.0--> Maddrey's score 53 on admission which is a very poor prognosis--> started prednisolone 40mg daily TBili continues to be trending downward today to 14, INR remains elevated at 1.9 GI consult appreciated Needs to continue to abstain from EtOH, f/u outpt with GI-she has an appt in Mar she thinks at [facility] in [place] Follow CBC, CMP, INR Continue Miralax prn for daily BM as lactulose made her have explosive diarrhea Continue PPI while on steroids (2) Dental abscess: Plan: Left maxilla, with pain, swelling, no fevers. Treated a few weeks ago with PCN VK and had improvement but recurred CT face shows left maxillary abscess 1.6cm and dental caries Purulent drainage coming out now and pain improving, facial swelling improving Appreciate OMFS consult-plan for tooth extraction #14 and abscess I&D on Wednesday if liver issues improving-make NPO after midnight Continue clindamycin 300mg po qid x 10 day course (3) UTI (urinary tract infection): Plan: Ur cx with E. coli-continue ceftriaxone x 3 day course is now completed with urinary symptoms (4) Hyponatremia: Plan: due to liver disease,improved and stable at 133 follow BMP (5) Methadone use: Plan: continue methadone home dose (6) Alcohol use disorder: Plan: continue AWSS protocol although she states last drink was one month prior. No evidence of withdrawal here thus far continue thiamine, Folic acid, MVI counseled on cessation and encouraged ongoing outpt therapy Plan Dispo-continued stay medical/surgical unit, possible dc after tooth extraction Wednesday Admission and Anticipated Discharge Date Admission Date: January 23, 2024 Subjective Still has the same upper abd distension type pain through to her back. No nausea. No BM in 2 days. Mouth feels sore on left Physical Exam Constitutional: no acute distress Eyes: + scleral abnormality (icterus) ENMT: oropharynx with fractured and missing teeth, no drainage Respiratory: normal respiratory effort, lungs clear to auscultation Cardiovascular: RRR, no murmur, no edema Gastrointestinal (Abdomen): Inspection/Auscultation: + abdomen distended and normal bowel sounds Percussion/Palpation: + abdomen tender (right side), abdomen soft and + hepatomegaly; no guarding Skin: + jaundice Psychiatric: A+Ox3, euthymic affect Results & Data Results & Data Vital Signs (Past 12 Hours) Vital Signs Temp Pulse Resp BP Pulse Ox O2 Del Method 01/27/24 07:25 36.7 C 75 16 91/56 L 95 Room Air Laboratory Results CBC, CMP, INR reviewed PG Care Time/CCT Total # of Minutes Spent Total Time Spent with Patient: Total time spent is greater than 50% in coordination of care (as documented) at patient's floor/unit and/or counseling patient: Coding Level of Care Code 82226 SUB INP/OBS CARE 2/35MIN Diagnoses Acute liver failure K72.00 Dental abscess K04.7 UTI (urinary tract infection) N39.0 Hyponatremia E87.1 Methadone use F11.90 Alcohol use disorder F10.90
[2024-01-28 06:49] LABS: Basophils # (auto) 0.04 K/uL (0.00-0.20); Basophils % (auto) 0.2 %; Eosinophils % (auto) 0.6 %; Hematocrit (blood only) 31.6 % (37.0-47.0); Hemoglobin 11.1 g/dl (12.0-16.0); Immature Granulocytes # (auto) 0.51 K/uL (0.01-0.20); Immature Granulocytes % (auto) 3.2 %; Lymphocytes # (auto) 1.38 K/uL (1.20-3.40); Lymphocytes % (auto) 8.5 %; Mean Corpuscular Hemoglobin 33.2 pg (25.0-34.0); Mean Corpuscular Hgb Conc 35.1 g/dL (32.0-36.0); Mean Corpuscular Volume 94.6 fL (80.0-100.0); Mean Platelet Volume 11.3 fL (9.4-12.4); Monocytes # (auto) 1.16 K/uL (0.11-0.59); Monocytes % (auto) 7.2 %; Neutrophils % (auto) 80.3 %; Nucleated RBC # (auto) 0.02 K/uL (0.00-0.12); Nucleated RBC % (auto) 0.1 %; Platelet Count 295 K/uL (130-400); RDW Coefficient of Variation 26.4 % (11.5-14.5); RDW Standard Deviation 86.3 fL (36.4-46.3); Red Blood Count 3.34 M/uL (4.20-5.40); White Blood Count 16.19 K/ul (4.8-10.8)
[2024-01-28 07:05] LABS: Anisocytosis Present; Polychromasia 2+; Target Cells 2+
[2024-01-28 07:06] LABS: Albumin Level 2.6 gm/dl (3.4-5.0); Bilirubin Direct 7.2 mg/dl (0-0.2); Bilirubin,Total 13.2 mg/dl (0.2-1.0); Calcium 7.9 mg/dl (8.6-10.3); Creatinine Clr Calc Pharmacy 105.3 ml/min; Est GFR (African American) 136.1 ml/min; Est GFR (Non-African American) 117.5 ml/min
[2024-01-28 07:14] LABS: INR 1.8 (0.9-1.1); Prothrombin Time 18.7 Seconds (9.0-12.0)
[2024-01-28 11:33] LABS: Pregnancy Test, Urine Negative (Negative)
--- NOTE | 2024-01-28 12:17 | Anesthesiology Consultation ---
Date of Service January 28, 2024 Assessment & Plan Chart Review Chart Review: Acceptable Risk for Surgery and Patient NOT seen in Pre Admission Testing Consults Requested none History Surgery Operation Date: 01/28/24 13:50 Proposed Procedures p Incision and Drainage of Left Upper Face - Alfredo Pacheco DMD s Extraction of Multiple Teeth - Alfredo Pacheco DMD Height/Weight Height: 5 ft 1 in Weight: 57.9 kg Allergies Allergy/AdvReac Type Severity Reaction Status Date / Time adhesive Allergy Intermediate Hives Verified 01/23/24 15:07 Medications Home Medications Medication Instructions Recorded Confirmed Last Taken methadone 10 mg/mL oral concentrate 49 mg PO DAILY 11/02/23 01/23/24 01/23/24 cyanocobalamin (vitamin B-12) 1,000 mcg PO DAILY 01/23/24 01/23/24 01/23/24 1,000 mcg tablet (Vitamin B-12) folic acid 800 mcg tablet 0.8 mg PO DAILY 01/23/24 01/23/24 01/23/24 penicillin V potassium 500 mg 500 mg PO BID 01/23/24 01/23/24 01/23/24 08:00 tablet Active Medications Generic Name Dose Route Start Last Admin Trade Name Freq PRN Reason Stop Dose Admin Clindamycin HCl 300 mg 01/25/24 12:00 01/28/24 05:42 Clindamycin Hcl 150 Mg Cap PO 02/01/24 11:59 300 mg Q6 YAS Administration Cyanocobalamin 1,000 mcg 01/24/24 09:00 01/28/24 09:08 Cyanocobalamin (B-12) 500 Mcg Tablet PO 02/23/24 08:59 1,000 mcg DAILY YAS Administration Folic Acid 800 mcg 01/24/24 09:00 01/28/24 09:08 Folic Acid 400 Mcg Tab PO 02/23/24 08:59 800 mcg DAILY YAS Administration Methadone HCl 49 mg 01/24/24 08:00 01/28/24 09:08 Methadone Oral Soln 2 Mg/Ml PO 02/07/24 07:59 49 mg Q24H YAS Administration Miscellaneous 1 each 01/25/24 08:59 01/28/24 09:08 Remove Nicoderm Patch N/A 02/24/24 08:58 1 each DAILY@0859 YAS Administration Multivitamins/Folic Acid/Vitamin C 1 tab 01/24/24 10:00 07/05/24 09:08 Multivitamin Chewable Tab PO 02/23/24 09:59 1 tab QAM YAS Administration Nicotine 1 patch 01/24/24 12:45 01/28/24 09:08 Nicotine 14 Mg/24 Hr Patch TD 02/23/24 12:44 1 patch QAM YAS Administration Non-Formulary Medication 1 each 01/27/24 08:00 01/28/24 09:05 Patient's Own Controlled Med 2 PO 02/10/24 07:59 Not Given Q24H YAS Pantoprazole Sodium 40 mg 01/24/24 09:00 01/28/24 09:08 Pantoprazole 40 Mg Tab PO 02/23/24 08:59 40 mg QAM YAS Administration Polyethylene Glycol 17 gm 01/23/24 15:14 01/27/24 09:27 Polyethylene (Miralax) 17 Gm Pack PO 02/22/24 15:13 17 gm DAILY PRN Administration Constipation Prednisolone Sodium Phosphate 40 mg 01/24/24 10:30 01/28/24 09:08 Prednisolone Sod Phosphate 15 Mg/5 Ml PO 02/23/24 09:59 40 mg QAM YAS Administration Thiamine HCl 200 mg 01/24/24 10:00 01/28/24 09:08 Thiamine Hcl 100 Mg Tab PO 02/23/24 09:59 200 mg QAM YAS Administration Past Medical History Medical History Acute liver failure Alcoholic hepatitis Alcohol use disorder Jaundice Elevated MCV Social History Smoking Status: Current every day smoker Do You Dip or Chew Tobacco: No Hx Alcohol Use: Yes (stopped 1 month ago) Alcohol type: hard liquor alcohol intake frequency: 3 or more drinks per day Hx Substance Use: Yes (+10 years ago) substance use type: opiates Physical Exam Vital Signs Last Vital Signs Temp 36.8 C 01/28/24 07:02 Pulse 75 01/28/24 07:02 Resp 16 01/28/24 07:02 BP 94/58 L 01/28/24 07:02 Pulse Ox 96 01/28/24 07:02 O2 Del Method Room Air 01/28/24 07:02 Constitutional WD/WN, vitals as above + ill appearing; no acute distress and not lethargic Eyes + scleral abnormality (icterus) Neck trachea midline, no thyromegaly Respiratory normal respiratory effort, lungs clear to auscultation Cardiovascular RRR, no murmur, no edema Gastrointestinal (Abdomen) normal bowel sounds, soft, nontender, no hepatosplenomegaly Inspection/Auscultation: + abdomen distended and normal bowel sounds Percussion/Palpation: + abdomen tender (right side), abdomen soft and + hepatomegaly; no guarding Skin + jaundice Neurologic PERRL, EOMI, accommodation nl, no face palsy, no dysarthria Psychiatric A+Ox3, euthymic affect Testing Laboratory Results 01/28/24 06:27 01/28/24 06: PT 18.7 Seconds (9.0-12.0) H 01/28/24 06: INR 1.8 (0.9-1.1) H 01/28/24 06: APTT 38 Seconds (21-31) H 01/23/24 12:35 Urine Color Dark Yellow 01/23/24 13:10 Urine Appearance Cloudy (Clear) A 01/23/24 13:10 Urine pH 6.0 (4.5-7.5) 01/23/24 13:10 Ur Specific [place] 1.027 (1.000-1.030) 01/23/24 13:10 Urine Protein 1+ (Negative) H 01/23/24 13:10 Urine Glucose (UA) Negative (Negative) 01/23/24 13:10 Urine Ketones Negative (Negative) 01/23/24 13:10 Urine Nitrite Positive (Negative) A 01/23/24 13:10 Ur Leukocyte Esterase 1+ (Negative) H 01/23/24 13:10 Urine WBC (Auto) 0-5 /hpf (0-5) 01/23/24 13:10 Urine RBC (Auto) 11-20 /hpf (0-2) H 01/23/24 13:10 U Hyaline Cast (Auto) 0-2 /lpf (0-2) 01/23/24 13:10 U Epithel Cells (Auto) 6-10 /hpf (0-2) H 01/23/24 13:10 Urine Bacteria (Auto) 1+ (None Seen) H 01/23/24 13:10 Urine Test Negative (Negative) 01/28/24 Unknown 01/23/24 13:10 Urine Culture - Final Urine,Clean Catch Escherichia coli 01/28/24 Unknown Urine Test Negative
[2024-01-28] MEDS ORDERED: LIDOCAINE 2% 2 ML VIAL/AMP(20MG/ML) INFIL ONE (13:00)
[2024-01-28] MEDS ORDERED: ONDANSETRON INJ 2 MG/ML 2 ML VIAL ONE (13:00)
[2024-01-28] MEDS ORDERED: ROCURONIUM BROMIDE 10 MG/ML 5 ML VIAL IV ONE (13:00)
[2024-01-28] MEDS ORDERED: PROPOFOL IV EMULSION 10 MG/ML 20 ML VIAL IV ONE (13:00)
[2024-01-28] MEDS ORDERED: fentaNYL citrate PF 100 MCG/2 ML VIAL ONE (13:00)
[2024-01-28] MEDS ORDERED: DEXAMETHASONE SOD INJ 4 MG/ML VIAL ONE (13:00)
[2024-01-28] MEDS ORDERED: MIDAZOLAM HCL 1 MG/ML 2ML VIAL ONE (13:00)
[2024-01-28] MEDS ORDERED: GLYCOPYRROLATE 0.2 MG/ML VIAL ONE (13:00)
[2024-01-28] MEDS ORDERED: KETAMINE HCL 10MG/ML SYR ONE (13:01)
[2024-01-28] MEDS ORDERED: ePHEDrine sulfate 50 MG/ML AMP IV PRN (13:41)
[2024-01-28] MEDS ORDERED: ATROPINE SULFATE 0.1 MG/ML 10ML SYR IV PRN (13:41)
--- NOTE | 2024-01-28 13:48 | History & Physical Bridge Note ---
Date of Service January 28, 2024 History & Physical Bridge Note I have examined the patient, reviewed the History & Physical and in the interval since the performance of the History & Physical I have noted the following changes of clinical significance: no changes noted. OK for the planned surgery Upper left I&D Extraction of root fragments throughout the upper and lower jaws.
[2024-01-28] MEDS ORDERED: SUGAMMADEX SODIUM 200 MG/2 ML VIAL IV ONE (14:13)
[2024-01-28] MEDS: SURGICEL ABSORB HEMOSTAT 2IN X 14IN TOP ONE (14:24)
[2024-01-28] MEDS: CHLORHEXIDINE GLUCONATE 0.12% 480 ML MT ONE (14:38)
[2024-01-28] MEDS: BUPIVACAINE/EPINEPHRINE 0.5% 1:200,000 1.8 ML CARP ONE (15:03)
--- NOTE | 2024-01-28 15:29 | Operative Report ---
PG Post Operative Report Pre & Post Diagnosis Operation Date: 01/28/24 13:50 Pre-Op Diagnosis: Teeth decayed, Abscess of pulp of tooth. Post-Op Diagnosis: Teeth decayed, Abscess of pulp of tooth. I identified the patient and participated in the time-out.: Yes Procedure Operation Date: 01/28/24 13:50 Actual Procedures p Incision and Drainage of Left Upper Face, Extraction of Teeth # 14, 18, 19, 30, 31(Left) - Alfredo Pacheco DMD Surgeon Alfredo Pacheco DMD Advanced Practice Professional none Estimated Blood Loss 5 Findings Consistent with Post-Op Diagnosis subperiosteal and buccal space abscess upper left and lower left area # 14, 18,19 Infected and buccal space abscess lower right 30,31 area Specimens none Anesthesia Type General Complications none Indications swollen left face and subperiosteal abscess lower right and left posterior Description of Procedure p Incision and Drainage left maxillary vestibule and infratemporal space Abscess; - Alfredo Pacheco DMD Incision and Drainage left and right mandibular space vestibule abscess Actual Procedures p Incision and Drainage Submandibular Abscess and vestibular space abscess ; Removal teeth 14,18,19,30,31 (Not Applicable) - Alfredo Pacheco DMD ICD 10 K12.2 , L03.211 CPT 71125 I & D of deep subcutaneous abscess of the vestibular space of left maxilla CPT 38076 I & D vestibular space lower right and left mucobuccal and subperiosteal spaces of the mandible D7210 x 5 #14, 18,19,30,31 Once cleared for surgery general anesthesia was achieved, the eyes were protect ed by the anesthesia dept criteria. A time out was take for patient ID, antibiotics, equipment and position verification once all agreed the procedure began. Local anesthesia using Marcaine with a vasoconstrictor ( 1.8 ml per site) given into left posterior maxilla and bilateral mandibular posterior infiltration A throat pack was placed after the oral cavity was irrigated with saline. Once a surgical level of anesthesia was obtained and the local anesthesia was given time for the blocks the surgery was started. I turned my attention to the infection which was located in the in the left raul ek,left vestibule, left tuberosity area, Infraorbital fossa area Incision and Drainage CPT 18651 I & D of deep subcutaneous abscess of the vestibular space of left maxilla Using a 15 blade an incision was made in the posterior aspect of the vestibular area upper left side. Once the incision was made a lot of pus extruded from the site. A curved hemostat was carefully placed superior into the infected space to drain the temporal space. To gain access to the pocket of pus in the cheek another incision was made in the lower posterior vestibule. This allowed further drainage to escape. I palpated the face and cheek area and no further drainage was expressed. The area was irrigated with at least 100 ml of NS solution. Upper surgical extraction (D7210 x 1) # 14 Now using a periosteal elevator the tissue was reflected to expose the alveolar bone. The rongeur was used to remove bone to allow the forceps to engage solid tooth structure. Using a controlled force the tooth was extracted in the standard manner. The extractions were fractured and decayed teeth and root fragments. Once removed the roots were inspected and the socket was curetted. Because of the infection and liver disease for INR was 1.8 . To help with possible post op bleeding Surgicel and sutures were used to help with coagulation. Lower surgical extractions (D7210 x 4) # 18,19,30,31 CPT 45780 I & D vestibular space lower right and left mucobuccal and subperiosteal spaces of the mandible The full thick Muco-periosteal flap was made on the facial aspect from # 17-20 and from 32-29 area The flap was reflected to expose the the subperiosteal space the bone adjacent to the infected teeth and roots. Once the incision was made a lot of pus extruded from the site. The root fragments were removed with a 301 elevator, the mental nerve was intact, there was a large amount of granulation tissue on the apex and some more pus that was expressed. Once the lower sockets were devoid of infection I irrigated and placed Surgicel A 2-0chromic was used to close the flaps over the defects. I attest to the content of the Intraoperative Record and any orders documented therein. Any exceptions are noted below.
--- NOTE | 2024-01-28 15:30 | Post Operative Brief Note ---
PG Immediate Post Op with CF Date of Surgery January 28, 2024 Pre & Post Diagnosis Operation Date: 01/28/24 13:50 Pre-Op Diagnosis: Teeth decayed, Abscess of pulp of tooth. Post-Op Diagnosis: Teeth decayed, Abscess of pulp of tooth. I identified the patient and participated in the time-out.: Yes Procedure Operation Date: 01/28/24 13:50 Actual Procedures p Incision and Drainage of Left Upper Face, Extraction of Teeth # 14, 18, 19, 30, 31(Left) - Alfredo Pacheco DMD Surgeon Alfredo Pacheco, BOGDAN Medical Clerk none Estimated Blood Loss 5 Findings Consistent with Post-Op Diagnosis infection and infected roots and teeth Specimens Specimen Description: None per surgeon. Anesthesia Type General Complications none Disposition Accompanied Patient To Recovery: Yes
[2024-01-28] MEDS: fentaNYL citrate PF 100 MCG/2 ML VIAL IV PRN (15:38)
--- NOTE | 2024-01-28 16:18 | Anesthesiology Progress Note ---
Date of Service January 28, 2024 Anesthesia Post Procedure Vital Signs Vital Signs: Temp Pulse Pulse Resp BP Pulse Ox O2 Del Method 01/28/24 15:50 85 14 113/74 93 Room Air 01/28/24 15:40 92 H 14 108/80 93 Room Air 01/28/24 15:30 96 H 27 H 119/80 100 Room Air 01/28/24 15:20 109 H 19 120/94 100 Oxymask 01/28/24 15:10 96.8 F L 96 H 13 104/78 100 Oxymask 01/28/24 12:45 98.4 F 73 20 102/67 95 Room Air 01/28/24 07:02 98.2 F 75 16 94/58 L 96 Room Air 01/27/24 20:27 98.2 F 71 16 97/63 L 96 Room Air O2 Flow Rate 01/28/24 15:50 01/28/24 15:40 01/28/24 15:30 01/28/24 15:20 3 01/28/24 15:10 6 01/28/24 12:45 01/28/24 07:02 01/27/24 20:27 Pain Intensity Bilateral Abdomen: Pain Intensity: 3 Bilateral Mouth: Pain Intensity: 6 Transfer of Care Handoff Completed per policy Notes Mental Status: alert / awake / arousable and participated in evaluation Patient Amnestic to Procedure: Yes Nausea / Vomiting: adequately controlled Pain: adequately controlled Airway Patency, RR, SpO2: stable & adequate BP & HR: stable & adequate Hydration State: stable & adequate Anesthetic Complications: no major complications apparent and Pt Satisfied with anesthetic care
--- NOTE | 2024-01-28 17:22 | Hospitalist Progress Note ---
Date of Service January 28, 2024 Assessment & Plan (1) Acute liver failure: Plan: Pt with recurrent alcoholic hepatitis that may have been exacerbated by taking PCN for dental infection vs infection itself? CT A/P with evidence of severe fatty liver, with likely developing cirrhosis, and evidence of portal HTN with mild splenomegaly and abdominal and pelvic varices. No ascites. There is also a 3.3 x 1.7 cm hypodense subcapsular segment 8 hepatic lesion, slightly more conspicuous than on prior exams. This may reflect a complex cystic lesion. Although not overtly suspicious, a nonemergent liver protocol MRI is recommended-can be done as an outpt TBili 22 on admission, INR 2.0--> Maddrey's score 53 on admission which is a very poor prognosis--> started prednisolone 40mg daily TBili continues to be trending downward today to 13, INR lower at 1.8 GI consult appreciated Needs to continue to abstain from EtOH, f/u outpt with GI-she has an appt in Mar she thinks at [facility] in [place] Follow CBC, CMP, INR Continue Miralax prn for daily BM as lactulose made her have explosive diarrhea- moved bowels twice on 01/27 Continue PPI while on steroids (2) Dental abscess: Plan: Left maxilla, with pain, swelling, no fevers. Treated a few weeks ago with PCN VK and had improvement but recurred CT face shows left maxillary abscess 1.6cm and dental caries Appreciate OMFS consult-now s/p multiple teeth extracted and I&D of abscesses left maxilla and right lower Continue clindamycin 300mg po qid x 10 day course Add on low dose tylenol and IV toradol prn (3) UTI (urinary tract infection): Plan: Ur cx with E. coli-continue ceftriaxone x 3 day course is now completed with urinary symptoms (4) Hyponatremia: Plan: due to liver disease,improved and stable at 133 follow BMP (5) Methadone use: Plan: continue methadone home dose (6) Alcohol use disorder: Plan: continue AWSS protocol although she states last drink was one month prior. No evidence of withdrawal here thus far-can dc AWSS and IV ativan prn-none needed continue thiamine, Folic acid, MVI counseled on cessation and encouraged ongoing outpt therapy Plan Dispo-continued stay medical/surgical unit, likely dc to home tomorrow Admission and Anticipated Discharge Date Admission Date: January 23, 2024 Anticipated date of discharge: 01/29/24 Subjective Pt just returned from oral surgery, had multiple teeth extracted and abscesses drained. Otherwise has no new complaints except facial pain Physical Exam Constitutional: no acute distress Eyes: + scleral abnormality (icterus) ENMT: clots on gums left upper and lower, right lower bilat cheeks with swelling Respiratory: normal respiratory effort, lungs clear to auscultation Cardiovascular: RRR, no murmur, no edema Gastrointestinal (Abdomen): Inspection/Auscultation: + abdomen distended and normal bowel sounds Percussion/Palpation: + abdomen tender (right side), abdomen soft and + hepatomegaly; no guarding Skin: + jaundice Psychiatric: A+Ox3, euthymic affect Results & Data Results & Data Vital Signs (Past 12 Hours) Vital Signs Temp Pulse Pulse Resp BP Pulse Ox O2 Del Method 01/28/24 16:58 36.4 C L 75 16 108/69 93 Room Air 01/28/24 16:40 80 18 104/69 93 Room Air 01/28/24 16:25 79 12 106/70 93 Room Air 01/28/24 16:10 80 12 109/73 94 Room Air 01/28/24 16:00 36.9 C 82 13 116/76 93 Room Air 01/28/24 15:50 85 14 113/74 93 Room Air 01/28/24 15:40 92 H 14 108/80 93 Room Air 01/28/24 15:30 96 H 27 H 119/80 100 Room Air 01/28/24 15:20 109 H 19 120/94 100 Oxymask 01/28/24 15:10 36 C L 96 H 13 104/78 100 Oxymask 01/28/24 12:45 36.9 C 73 20 102/67 95 Room Air 01/28/24 07:02 36.8 C 75 16 94/58 L 96 Room Air O2 Flow Rate 01/28/24 16:58 01/28/24 16:40 01/28/24 16:25 01/28/24 16:10 01/28/24 16:00 01/28/24 15:50 01/28/24 15:40 01/28/24 15:30 01/28/24 15:20 3 01/28/24 15:10 6 01/28/24 12:45 01/28/24 07:02 Laboratory Results CBC, BMP, LFTs, INR reviewed PG Care Time/CCT Total # of Minutes Spent Total Time Spent with Patient: Total time spent is greater than 50% in coordination of care (as documented) at patient's floor/unit and/or counseling patient: Coding Level of Care Code 81883 SUB INP/OBS CARE 2/35MIN Diagnoses Acute liver failure K72.00 Dental abscess K04.7 UTI (urinary tract infection) N39.0 Hyponatremia E87.1 Methadone use F11.90 Alcohol use disorder F10.90
[2024-01-28] MEDS: KETOROLAC TROMETHAMINE 15 MG/ML VIAL IV PRN (20:06)
[2024-01-29] MEDS: ACETAMINOPHEN 325 MG TAB PO PRN (00:11)
[2024-01-29] MEDS: MELATONIN 3 MG TAB PO PRN (00:12)
[2024-01-29 08:17] LABS: Basophils # (auto) 0.04 K/uL (0.00-0.20); Basophils % (auto) 0.2 %; Eosinophils # (auto) 0.04 K/uL (0.00-0.50); Eosinophils % (auto) 0.2 %; Hematocrit (blood only) 30.9 % (37.0-47.0); Hemoglobin 10.6 g/dl (12.0-16.0); Immature Granulocytes # (auto) 0.53 K/uL (0.01-0.20); Immature Granulocytes % (auto) 2.8 %; Lymphocytes # (auto) 1.35 K/uL (1.20-3.40); Mean Corpuscular Hemoglobin 32.9 pg (25.0-34.0); Mean Corpuscular Hgb Conc 34.3 g/dL (32.0-36.0); Mean Platelet Volume 11.8 fL (9.4-12.4); Monocytes # (auto) 1.19 K/uL (0.11-0.59); Monocytes % (auto) 6.2 %; Neutrophils % (auto) 83.6 %; Platelet Count 301 K/uL (130-400); RDW Coefficient of Variation 26.6 % (11.5-14.5); RDW Standard Deviation 88.2 fL (36.4-46.3); Red Blood Count 3.22 M/uL (4.20-5.40); White Blood Count 19.25 K/ul (4.8-10.8)
[2024-01-29 08:20] LABS: Albumin Globulin Ratio 0.8 (0.9-2); Albumin Level 2.5 gm/dl (3.4-5.0); BUN Creatinine Ratio 19.6 (10-20); Calcium 7.8 mg/dl (8.6-10.3); Creatinine Clr Calc Pharmacy 114.8 ml/min; Est GFR (Non-African American) 120.8 ml/min; Globulin 3.3 gm/dl (2.5-4.0); Potassium 3.6 mmol/L (3.5-5.1); Total Protein 5.8 gm/dl (6.0-8.3)
[2024-01-29 08:43] LABS: Target Cells 2+
--- NOTE | 2024-01-29 09:48 | Oral/Maxillofacial Progress Nt ---
Date of Service January 29, 2024 Assessment & Plan Admission and Anticipated Discharge Date Admission Date: January 23, 2024 Subjective POST OP NOTE at 18 hours post op The patient is doing very well post operatively. Moderate- minimal swelling as expected. Stable clots present--this is the Surgicel that I placed to aid in the coagulation. No sinus or nerve complications noted Excellent ROM Sutures and packing in place, no oozing noted Reviewed oral care=OK for oral care and renee rinsing with Peridex. Reviewed post op soft diet, massage, exercise and continued home/oral care once discharged Overall: Doing well from recent oral surgery Pain controlled No oozing, stable clots I will see Shraddha on Wednesday unless she is D/C She has my contact info to call for follow up in - from date of discharge. Results & Data Vital Signs (Past 12 Hours) Vital Signs Temp Pulse Pulse Resp BP BP Pulse Ox 01/29/24 07:30 36.9 C 73 18 92/61 L 97 01/29/24 05:08 36.8 C 66 16 89/60 L 96 01/29/24 00:27 36.4 C L 65 16 101/68 96 O2 Del Method 01/29/24 07:30 Room Air 01/29/24 05:08 Room Air 01/29/24 00:27 Room Air PG Care Time/CCT Total # of Minutes Spent Total Time Spent with Patient: Total time spent is greater than 50% in coordination of care (as documented) at patient's floor/unit and/or counseling patient: Coding Level of Care Code None
--- NOTE | 2024-01-29 15:21 | Hospitalist Progress Note ---
Date of Service January 29, 2024 Assessment & Plan (1) Acute liver failure: Plan: Pt with recurrent alcoholic hepatitis that may have been exacerbated by taking PCN for dental infection vs infection itself? CT A/P with evidence of severe fatty liver, with likely developing cirrhosis, and evidence of portal HTN with mild splenomegaly and abdominal and pelvic varices. No ascites. There is also a 3.3 x 1.7 cm hypodense subcapsular segment 8 hepatic lesion, slightly more conspicuous than on prior exams. This may reflect a complex cystic lesion. Although not overtly suspicious, a nonemergent liver protocol MRI is recommended-can be done as an outpt TBili 22 on admission, INR 2.0--> Maddrey's score 53 on admission which is a very poor prognosis--> started prednisolone 40mg daily TBili continues to be trending downward today to 12, INR lower at 1.8 GI consult appreciated Needs to continue to abstain from EtOH, f/u outpt with GI-she has an appt in Mar she thinks at [facility] in [place] Follow CBC, CMP, INR Continue Miralax prn for daily BM as lactulose made her have explosive diarrhea- moved bowels twice on 01/27 Continue PPI while on steroids (2) Dental abscess: Plan: Left maxilla, with pain, swelling, no fevers. Treated a few weeks ago with PCN VK and had improvement but recurred CT face shows left maxillary abscess 1.6cm and dental caries Appreciate OMFS consult-now s/p multiple teeth extracted and I&D of abscesses left maxilla and right lower Continue clindamycin 300mg po qid x 10 day course Continue on low dose tylenol and IV toradol prn Continue icing, f/u with OMFS in office after discharge (3) UTI (urinary tract infection): Plan: Ur cx with E. 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 No evidence of withdrawal here thus far-can dc AWSS and IV ativan prn-none needed continue thiamine, Folic acid, MVI counseled on cessation and encouraged ongoing outpt therapy Plan Dispo-continued stay medical/surgical unit for pain control after oral surgery, likely dc to home tomorrow Admission and Anticipated Discharge Date Admission Date: January 23, 2024 Anticipated date of discharge: 01/30/24 Subjective Pt reports a lot of pain in her mouth, has not been able to sleep until mid day took toradol which is helping. Has not moved her bowels today. Does not feel ready to go home. Ate grilled cheese dipped in soup today Physical Exam Constitutional: no acute distress Eyes: + scleral abnormality (icterus) Respiratory: normal respiratory effort, lungs clear to auscultation Cardiovascular: RRR, no murmur, no edema Gastrointestinal (Abdomen): Inspection/Auscultation: + abdomen distended and normal bowel sounds Percussion/Palpation: + abdomen tender (right side), abdomen soft and + hepatomegaly; no guarding Skin: + jaundice Psychiatric: A+Ox3, euthymic affect Results & Data Results & Data Vital Signs (Past 12 Hours) Vital Signs Temp Pulse Pulse Pulse Resp BP BP 01/29/24 14:32 36.6 C 70 14 100/63 01/29/24 12:00 36.8 C 64 14 94/59 L 01/29/24 07:30 36.9 C 73 18 92/61 L 01/29/24 05:08 36.8 C 66 16 89/60 L Pulse Ox O2 Del Method 01/29/24 14:32 95 Room Air 01/29/24 12:00 95 Room Air 01/29/24 07:30 97 Room Air 01/29/24 05:08 96 Room Air Laboratory Results CBC, CMP reviewed PG Care Time/CCT Total # of Minutes Spent Total Time Spent with Patient: Total time spent is greater than 50% in coordination of care (as documented) at patient's floor/unit and/or counseling patient: Coding Level of Care Code 56133 SUB INP/OBS CARE 2/35MIN Diagnoses Acute liver failure K72.00 Dental abscess K04.7 UTI (urinary tract infection) N39.0 Hyponatremia E87.1 Methadone use F11.90 Alcohol use disorder F10.90
[2024-01-30 06:46] LABS: Basophils # (auto) 0.04 K/uL (0.00-0.20); Basophils % (auto) 0.2 %; Eosinophils % (auto) 0.5 %; Hematocrit (blood only) 32.1 % (37.0-47.0); Hemoglobin 11.1 g/dl (12.0-16.0); Immature Granulocytes # (auto) 0.43 K/uL (0.01-0.20); Immature Granulocytes % (auto) 2.4 %; Lymphocytes % (auto) 6.6 %; Mean Corpuscular Hemoglobin 33.8 pg (25.0-34.0); Mean Corpuscular Hgb Conc 34.6 g/dL (32.0-36.0); Mean Corpuscular Volume 97.9 fL (80.0-100.0); Mean Platelet Volume 11.6 fL (9.4-12.4); Monocytes # (auto) 0.92 K/uL (0.11-0.59); Neutrophils # (auto) 15.58 K/uL (1.40-6.50); Neutrophils % (auto) 85.3 %; Platelet Count 275 K/uL (130-400); RDW Coefficient of Variation 26.6 % (11.5-14.5); RDW Standard Deviation 91.2 fL (36.4-46.3); Red Blood Count 3.28 M/uL (4.20-5.40); White Blood Count 18.27 K/ul (4.8-10.8)
[2024-01-30 07:05] LABS: Anisocytosis Present; Polychromasia 1+; Target Cells 2+
[2024-01-30 07:11] LABS: Albumin Level 2.6 gm/dl (3.4-5.0); BUN Creatinine Ratio 16.1 (10-20); Bilirubin Direct 6.4 mg/dl (0-0.2); Bilirubin,Total 11.8 mg/dl (0.2-1.0); Creatinine Clr Calc Pharmacy 114.8 ml/min; Est GFR (Non-African American) 120.8 ml/min; Magnesium 2.1 mg/dl (1.7-2.4); Potassium 3.6 mmol/L (3.5-5.1)
--- NOTE | 2024-01-30 16:53 | Hospitalist Progress Note ---
Date of Service January 30, 2024 Assessment & Plan (1) Acute liver failure: Plan: Pt with recurrent alcoholic hepatitis that may have been exacerbated by taking PCN for dental infection vs infection itself? CT A/P with evidence of severe fatty liver, with likely developing cirrhosis, and evidence of portal HTN with mild splenomegaly and abdominal and pelvic varices. No ascites. There is also a 3.3 x 1.7 cm hypodense subcapsular segment 8 hepatic lesion, slightly more conspicuous than on prior exams. This may reflect a complex cystic lesion. Although not overtly suspicious, a nonemergent liver protocol MRI is recommended-can be done as an outpt TBili 22 on admission, INR 2.0--> Maddrey's score 53 on admission which is a very poor prognosis--> started prednisolone 40mg daily and would continue for one month TBili continues to be trending downward teach -now 11, INR lower at 1.8 GI consult appreciated Needs to continue to abstain from EtOH, f/u outpt with GI-she has an appt in Mar she thinks at [facility] in [place] Follow CBC, CMP, INR Continue Miralax prn for daily BM as lactulose made her have explosive diarrhea- moved bowels twice on 01/27 and again 01/29 Continue PPI while on steroids (2) Dental abscess: Plan: Left maxilla, with pain, swelling, no fevers. Treated a few weeks ago with PCN VK and had improvement but recurred CT face shows left maxillary abscess 1.6cm and dental caries Appreciate OMFS consult-now s/p multiple teeth extracted and I&D of abscesses left maxilla and right lower Continue clindamycin 300mg po qid x 10 day course Continue on low dose tylenol and IV toradol prn Continue icing, f/u with OMFS in office after discharge Still having a lot of facial pain and swelling--> not ready to go home. Would send home Wednesday with ibuprofen, tylenol (3) UTI (urinary tract infection): Plan: Ur cx with E. 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 No evidence of withdrawal here thus far-can dc AWSS and IV ativan prn-none needed continue thiamine, Folic acid, MVI counseled on cessation and encouraged ongoing outpt therapy, AA meetings encouraged Plan Dispo-continued stay medical/surgical unit for pain control after oral surgery, likely dc to home Wednesday Admission and Anticipated Discharge Date Admission Date: January 23, 2024 Subjective Still having a lot of oral pain and facial swelling since oral surgery. Toradol is helping but does not feel ready to go home yet Moving bowels, eating Physical Exam Constitutional: no acute distress Eyes: + scleral abnormality (icterus) ENMT: packing with bloody surgicell in place in molar regions, no drainage bilat facial/cheek swelling Respiratory: normal respiratory effort, lungs clear to auscultation Cardiovascular: RRR, no murmur, no edema Gastrointestinal (Abdomen): Inspection/Auscultation: + abdomen distended (but less so than previous) and normal bowel sounds Percussion/Palpation: + abdomen tender (mid right and upper abdomen but improved), abdomen soft and + hepatomegaly; no guarding Skin: + jaundice Psychiatric: A+Ox3, euthymic affect Results & Data Results & Data Vital Signs (Past 12 Hours) Vital Signs Temp Pulse Resp BP Pulse Ox O2 Del Method 01/30/24 15:41 36.5 C 73 16 94/63 L 97 Room Air 01/30/24 07:10 Room Air 01/30/24 06:53 36.6 C 72 16 96/58 L 96 Room Air Laboratory Results CBC, CMP reviewed PG Care Time/CCT Total # of Minutes Spent Total Time Spent with Patient: Total time spent is greater than 50% in coordination of care (as documented) at patient's floor/unit and/or counseling patient: Coding Level of Care Code 25946 SUB INP/OBS CARE 2/35MIN Diagnoses Acute liver failure K72.00 Dental abscess K04.7 UTI (urinary tract infection) N39.0 Hyponatremia E87.1 Methadone use F11.90 Alcohol use disorder F10.90
[2024-01-31 07:37] LABS: Basophils # (auto) 0.04 K/uL (0.00-0.20); Basophils % (auto) 0.2 %; Eosinophils % (auto) 0.5 %; Hematocrit (blood only) 31.9 % (37.0-47.0); Hemoglobin 11.1 g/dl (12.0-16.0); Immature Granulocytes % (auto) 1.9 %; Lymphocytes # (auto) 1.17 K/uL (1.20-3.40); Lymphocytes % (auto) 5.5 %; Mean Corpuscular Hemoglobin 33.6 pg (25.0-34.0); Mean Corpuscular Hgb Conc 34.8 g/dL (32.0-36.0); Mean Corpuscular Volume 96.7 fL (80.0-100.0); Mean Platelet Volume 12.3 fL (9.4-12.4); Monocytes # (auto) 1.14 K/uL (0.11-0.59); Monocytes % (auto) 5.4 %; Neutrophils # (auto) 18.38 K/uL (1.40-6.50); Neutrophils % (auto) 86.5 %; Platelet Count 304 K/uL (130-400); White Blood Count 21.23 K/ul (4.8-10.8)
[2024-01-31 08:02] LABS: Albumin Globulin Ratio 0.8 (0.9-2); Albumin Level 2.8 gm/dl (3.4-5.0); Bilirubin,Total 12.9 mg/dl (0.2-1.0); Calcium 8.1 mg/dl (8.6-10.3); Creatinine Clr Calc Pharmacy 110.8 ml/min; Est GFR (African American) 138.4 ml/min; Est GFR (Non-African American) 119.4 ml/min; Globulin 3.5 gm/dl (2.5-4.0); Potassium 3.8 mmol/L (3.5-5.1); Total Protein 6.3 gm/dl (6.0-8.3)
[2024-01-31 08:08] LABS: Anisocytosis Present; Target Cells 1+
[2024-01-31 08:10] LABS: INR 1.6 (0.9-1.1); Prothrombin Time 17.1 Seconds (9.0-12.0)
[2024-01-31 08:16] LABS: Thyroid Stimulating Hormone 7.919 uIu/ml (0.300-4.500)
[2024-01-31 08:51] LABS: T4 Free Thyroxine 1.21 ng/dl (0.61-1.60)
--- NOTE | 2024-01-31 21:51 | Hospitalist Progress Note ---
Date of Service January 31, 2024 Assessment & Plan (1) Acute liver failure: Plan: Pt with recurrent alcoholic hepatitis that may have been exacerbated by taking PCN for dental infection vs infection itself? CT A/P with evidence of severe fatty liver, with likely developing cirrhosis, and evidence of portal HTN with mild splenomegaly and abdominal and pelvic varices. No ascites. There is also a 3.3 x 1.7 cm hypodense subcapsular segment 8 hepatic lesion, slightly more conspicuous than on prior exams. This may reflect a complex cystic lesion. Although not overtly suspicious, a nonemergent liver protocol MRI is recommended-can be done as an outpt TBili 22 on admission, INR 2.0--> Maddrey's score 53 on admission which is a very poor prognosis--> started prednisolone 40mg daily and would continue for one month TBili continues to be trending downward teach day-now 11, INR lower at 1.8 GI consult appreciated Needs to continue to abstain from EtOH, f/u outpt with GI-she has an appt in Mar she thinks at [facility] in [place] Follow CBC, CMP, INR Continue Miralax prn for daily BM as lactulose made her have explosive diarrhea- moved bowels twice on 01/27 and again 01/29 Continue PPI while on steroids (2) Dental abscess: Plan: Left maxilla, with pain, swelling, no fevers. Treated a few weeks ago with PCN VK and had improvement but recurred CT face shows left maxillary abscess 1.6cm and dental caries Appreciate OMFS consult-now s/p multiple teeth extracted and I&D of abscesses left maxilla and right lower Continue clindamycin 300mg po qid x 10 day course Continue on low dose tylenol and IV toradol prn Continue icing, f/u with OMFS in office after discharge Still having a lot of facial pain and swelling--> not ready to go home. Would send home Wednesday with ibuprofen, tyleno if feeling betterl (3) UTI (urinary tract infection): Plan: Ur cx with E. 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 No evidence of withdrawal here thus far-can dc AWSS and IV ativan prn-none needed continue thiamine, Folic acid, MVI counseled on cessation and encouraged ongoing outpt therapy, AA meetings encouraged Plan Dispo-continued stay medical/surgical unit for pain control after oral surgery, likely dc to home Wednesday Admission and Anticipated Discharge Date Admission Date: January 23, 2024 Subjective Patient continues to complain of pain. She has no new complaints. Review of Systems Review of Systems: All systems reviewed & are unremarkable except as noted in HPI & below Physical Exam Constitutional: no acute distress Eyes: + scleral abnormality (icterus) ENMT: packing with bloody surgicell in place in molar regions, no drainage bilat facial/cheek swelling Respiratory: normal respiratory effort, lungs clear to auscultation Cardiovascular: RRR, no murmur, no edema Gastrointestinal (Abdomen): Inspection/Auscultation: + abdomen distended (but less so than previous) and normal bowel sounds Percussion/Palpation: + abdomen tender (mid right and upper abdomen but improved), abdomen soft and + hepatomegaly; no guarding Skin: + jaundice Psychiatric: A+Ox3, euthymic affect Results & Data Results & Data Vital Signs (Past 12 Hours) Vital Signs Temp Pulse Resp BP Pulse Ox O2 Del Method 01/31/24 19:54 36.3 C L 74 16 95/65 L 97 Room Air 01/31/24 15:18 36.6 C 78 18 103/64 94 Room Air PG Care Time/CCT Total # of Minutes Spent Total Time Spent with Patient: Total time spent is greater than 50% in coordination of care (as documented) at patient's floor/unit and/or counseling patient: Coding Level of Care Code 88935 SUB INP/OBS CARE 2/35MIN Diagnoses Acute liver failure K72.00 Dental abscess K04.7 UTI (urinary tract infection) N39.0 Hyponatremia E87.1 Methadone use F11.90 Alcohol use disorder F10.90
[2024-02-01 08:05] LABS: Hematocrit (blood only) 31.3 % (37.0-47.0); Hemoglobin 10.8 g/dl (12.0-16.0); Mean Corpuscular Hemoglobin 34.1 pg (25.0-34.0); Mean Corpuscular Hgb Conc 34.5 g/dL (32.0-36.0); Mean Corpuscular Volume 98.7 fL (80.0-100.0); Mean Platelet Volume 12.1 fL (9.4-12.4); Platelet Count 255 K/uL (130-400); Red Blood Count 3.17 M/uL (4.20-5.40); White Blood Count 21.45 K/ul (4.8-10.8)
[2024-02-01 08:32] LABS: Albumin Globulin Ratio 0.8 (0.9-2); Albumin Level 2.7 gm/dl (3.4-5.0); BUN Creatinine Ratio 26.4 (10-20); Bilirubin,Total 12.3 mg/dl (0.2-1.0); Calcium 8.1 mg/dl (8.6-10.3); Creatinine Clr Calc Pharmacy 121.2 ml/min; Est GFR (African American) 142.6 ml/min; Globulin 3.2 gm/dl (2.5-4.0); Potassium 4.1 mmol/L (3.5-5.1); Total Protein 5.9 gm/dl (6.0-8.3)
--- NOTE | 2024-02-01 10:05 | Oral/Maxillofacial Progress Nt ---
Date of Service February 01, 2024 Assessment & Plan Admission and Anticipated Discharge Date Admission Date: January 23, 2024 Subjective POST OP NOTE at 1 week The patient did very well post operatively, healing is excellent. Oral care is good, minimal swelling as expected. Tissue tone =healthy normal tissue No sinus or nerve complications noted Excellent ROM Sutures are in the process of dissolving Reviewed oral care Reviewed diet, massage, exercise and continued home/oral care She will see me in the office next week Overall: Excellent healing from recent oral surgery Minimal swelling Reassured her she is healing very well. If she is still in the hospital I will see her for suture removal. Results & Data Vital Signs (Past 12 Hours) Vital Signs Temp Pulse Resp BP Pulse Ox O2 Del Method 02/01/24 07:35 36.8 C 76 16 97/64 L 97 Room Air PG Care Time/CCT Total # of Minutes Spent Total Time Spent with Patient: Total time spent is greater than 50% in coordination of care (as documented) at patient's floor/unit and/or counseling patient: Coding Level of Care Code None
[2024-02-01] MEDS: SPIRONOLACTONE 100 MG TAB PO SCH (10:53)
[2024-02-01] MEDS: FUROSEMIDE 40 MG TAB PO SCH (10:53)
[2024-02-01] MEDS ORDERED: Nursing to Pharmacy Communication SCH (14:45)
--- NOTE | 2024-02-01 14:50 | Ultrasound Report ---
Limited abdominal ultrasound INDICATION: Paracentesis requested FINDINGS: Real-time ultrasound imaging in all 4 abdominal quadrants demonstrates no significant ascit es fluid. IMPRESSION: No ascites fluid to perform paracentesis. Performed, dictated, and signed by Greg Suárez PA-C; to be co-signed by Dr. Pola Dickinson. Electronically signed by: Pola Dickinson M.D. 02/01/2024 4:05 PM
[2024-02-01] MEDS: prednisoLONE sod phosphate 15 MG/5 ML PO ONE (15:20)
--- NOTE | 2024-02-01 22:46 | Hospitalist Progress Note ---
Date of Service February 01, 2024 Assessment & Plan (1) Acute liver failure: Plan: Pt with recurrent alcoholic hepatitis that may have been exacerbated by taking PCN for dental infection vs infection itself? CT A/P with evidence of severe fatty liver, with likely developing cirrhosis, and evidence of portal HTN with mild splenomegaly and abdominal and pelvic varices. No ascites. There is also a 3.3 x 1.7 cm hypodense subcapsular segment 8 hepatic lesion, slightly more conspicuous than on prior exams. This may reflect a complex cystic lesion. Although not overtly suspicious, a nonemergent liver protocol MRI is recommended-can be done as an outpt TBili 22 on admission, INR 2.0--> Maddrey's score 53 on admission which is a very poor prognosis--> started prednisolone 40mg daily and would continue for one month TBili continues to be trending downward teach day-now 11, INR lower at 1.8 GI consult appreciated Needs to continue to abstain from EtOH, f/u outpt with GI-she has an appt in Mar she thinks at [facility] in [place] Follow CBC, CMP, INR Continue Miralax prn for daily BM as lactulose made her have explosive diarrhea- moved bowels twice on 01/27 and again 01/29 Continue PPI while on steroids On 01/31 Patient is having more edema on her lower extremities and more abdominal distention. Concerned for ascities and possible sbp GIVEN LEUKOCYTOSIS. ORDERED PARACENTHESIS, will be completed in AM. Resume corticosteroid, was held at 9 but resume shortly thereafter. Patient agrees. Added spironolactone and lasix. (2) Dental abscess: Plan: Left maxilla, with pain, swelling, no fevers. Treated a few weeks ago with PCN VK and had improvement but recurred CT face shows left maxillary abscess 1.6cm and dental caries Appreciate OMFS consult-now s/p multiple teeth extracted and I&D of abscesses left maxilla and right lower Continue clindamycin 300mg po qid x 10 day course Continue on low dose tylenol and IV toradol prn Continue icing, f/u with OMFS in office after discharge Still having a lot of facial pain and swelling improved but ascitiesWould send home Wednesday with ibuprofen, tyleno if feeling betterl (3) UTI (urinary tract infection): Plan: Ur cx with E. coli- ceftriaxone x 3 day course is now completed resolved. 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 No evidence of withdrawal here thus far-can dc AWSS and IV ativan prn-none needed continue thiamine, Folic acid, MVI counseled on cessation and encouraged ongoing outpt therapy, AA meetings encouraged Plan Dispo-continued stay medical/surgical unit for pain control after oral surgery, likely dc to home Wednesday Admission and Anticipated Discharge Date Admission Date: January 23, 2024 Subjective Patient complains of more swelling. Concerned this is due to the corticosteroid. Review of Systems Review of Systems: All systems reviewed & are unremarkable except as noted in HPI & below Physical Exam Constitutional: no acute distress Eyes: + scleral abnormality (icterus) Respiratory: normal respiratory effort, lungs clear to auscultation Cardiovascular: RRR, no murmur, no edema Gastrointestinal (Abdomen): Inspection/Auscultation: + abdomen distended (appears to be more distended) and normal bowel sounds Percussion/Palpation: + abdomen tender (mid right and upper abdomen but improved), abdomen soft and + hepatomegaly; no guarding Skin: + jaundice Psychiatric: A+Ox3, euthymic affect Results & Data Results & Data Vital Signs (Past 12 Hours) Vital Signs Temp Pulse Resp BP BP Pulse Ox O2 Del Method 02/01/24 19:33 36.7 C 70 16 97/67 L 96 Room Air 02/01/24 14:26 97/59 L 02/01/24 14:17 36.8 C 84 16 81/52 L 96 Room Air 02/01/24 10:59 101/64 PG Care Time/CCT Total # of Minutes Spent Total Time Spent with Patient: Total time spent is greater than 50% in coordination of care (as documented) at patient's floor/unit and/or counseling patient: Coding Level of Care Code 41167 SUB INP/OBS CARE 3/50MIN Diagnoses Acute liver failure K72.00 Dental abscess K04.7 UTI (urinary tract infection) N39.0 Hyponatremia E87.1 Methadone use F11.90 Alcohol use disorder F10.90 Time Spent (min) 50
[2024-02-02 06:29] LABS: Hematocrit (blood only) 32.2 % (37.0-47.0); Hemoglobin 11.2 g/dl (12.0-16.0); Mean Corpuscular Hemoglobin 33.9 pg (25.0-34.0); Mean Corpuscular Hgb Conc 34.8 g/dL (32.0-36.0); Mean Corpuscular Volume 97.6 fL (80.0-100.0); Mean Platelet Volume 11.9 fL (9.4-12.4); Platelet Count 255 K/uL (130-400); White Blood Count 23.43 K/ul (4.8-10.8)
[2024-02-02 06:51] LABS: Amylase 56 U/L (25-115)
[2024-02-02 06:52] LABS: Alanine Aminotransferase 78 U/L (7-52); Albumin Globulin Ratio 0.8 (0.9-2); Albumin Level 2.9 gm/dl (3.4-5.0); Alkaline Phosphatase 185 U/L (34-104); Anion Gap 7 (3-11); Aspartate Aminotransferase 152 U/L (13-39); BUN Creatinine Ratio 23.1 (10-20); Bilirubin,Total 13.6 mg/dl (0.2-1.0); Blood Urea Nitrogen 12 mg/dl (6-23); Calcium 8.6 mg/dl (8.6-10.3); Carbon Dioxide 31 mmol/L (21-32); Chloride 99 mmol/L (98-107); Creatinine Clr Calc Pharmacy 123.6 ml/min; Est GFR (African American) 143.5 ml/min; Est GFR (Non-African American) 123.8 ml/min; Globulin 3.6 gm/dl (2.5-4.0); Glucose 68 mg/dl (70-99(Fasting)); Lactate Dehydrogenase 194 U/L (86-244); Potassium 4.6 mmol/L (3.5-5.1); Sodium 137 mmol/L (136-145); Total Protein 6.5 gm/dl (6.0-8.3)
[2024-02-02 06:55] LABS: INR 1.7 (0.9-1.1)
--- NOTE | 2024-02-02 12:09 | Hospitalist Progress Note ---
Date of Service February 02, 2024 Assessment & Plan (1) Acute liver failure: Plan: Pt with recurrent alcoholic hepatitis that may have been exacerbated by taking PCN for dental infection vs infection itself? CT A/P with evidence of severe fatty liver, with likely developing cirrhosis, and evidence of portal HTN with mild splenomegaly and abdominal and pelvic varices. No ascites. There is also a 3.3 x 1.7 cm hypodense subcapsular segment 8 hepatic lesion, slightly more conspicuous than on prior exams. This may reflect a complex cystic lesion. Although not overtly suspicious, a nonemergent liver protocol MRI is recommended-can be done as an outpt TBili 22 on admission, INR 2.0--> Maddrey's score 53 on admission which is a very poor prognosis--> started prednisolone 40mg daily and would continue for one month TBili continues to be trending downward teach -now 11, INR lower at 1.8 GI consult appreciated Needs to continue to abstain from EtOH, f/u outpt with GI-she has an appt in Mar she thinks at [facility] in [place] Follow CBC, CMP, INR Continue Miralax prn for daily BM as lactulose made her have explosive diarrhea- moved bowels twice on 01/27 and again 01/29 Continue PPI while on steroids On 02/01 Patient continues to have edema on her lower extremities U/S of abdomen did not appreciate ascities, Patient does have trace fluid in pelvis on ct scan. Contiue spironolactone and lasix however will be keeping a closeeye on her potassium as it is slightly higher today. Will contiue prednisolone. (2) Dental abscess: Plan: Left maxilla, with pain, swelling, no fevers. Treated a few weeks ago with PCN VK and had improvement but recurred CT face shows left maxillary abscess 1.6cm and dental caries Appreciate OMFS consult-now s/p multiple teeth extracted and I&D of abscesses left maxilla and right lower Continue clindamycin 300mg po qid x 10 day course Continue on low dose tylenol and IV toradol prn Continue icing, f/u with OMFS in office after discharge Still having a lot of facial pain and swelling improved; once discharged will send home with ibuprofen, tyleno if feeling betterl (3) UTI (urinary tract infection): Plan: Ur cx with E. coli- ceftriaxone x 3 day course is now completed resolved. 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 No evidence of withdrawal here thus far-can dc AWSS and IV ativan prn-none needed continue thiamine, Folic acid, MVI counseled on cessation and encouraged ongoing outpt therapy, AA meetings encouraged Plan Dispo-continued stay medical/surgical unit for pain control after oral surgery, likely dc to home Admission and Anticipated Discharge Date Admission Date: January 23, 2024 Subjective Patient reports no new symptoms. Review of Systems Review of Systems: All systems reviewed & are unremarkable except as noted in HPI & below Physical Exam Constitutional: no acute distress Eyes: + scleral abnormality (icterus) Respiratory: normal respiratory effort, lungs clear to auscultation Cardiovascular: RRR, no murmur, no edema Gastrointestinal (Abdomen): Inspection/Auscultation: + abdomen distended (appears to be more distended) and normal bowel sounds Percussion/Palpation: + abdomen tender (mid right and upper abdomen but improved), abdomen soft and + hepatomegaly; no guarding Skin: + jaundice Psychiatric: A+Ox3, euthymic affect Results & Data Results & Data Vital Signs (Past 12 Hours) Vital Signs Temp Pulse Resp BP Pulse Ox O2 Del Method 02/02/24 06:59 36.5 C 74 15 104/71 97 Room Air PG Care Time/CCT Total # of Minutes Spent Total Time Spent with Patient: Total time spent is greater than 50% in coordination of care (as documented) at patient's floor/unit and/or counseling patient: Coding Level of Care Code 95468 SUB INP/OBS CARE 2/35MIN Diagnoses Acute liver failure K72.00 Dental abscess K04.7 UTI (urinary tract infection) N39.0 Hyponatremia E87.1 Methadone use F11.90 Alcohol use disorder F10.90
[2024-02-03] MEDS: HYDROmorphone INJ 0.5 MG/0.5 ML SYR IV STA (06:34)
[2024-02-03 08:24] LABS: Hematocrit (blood only) 35.5 % (37.0-47.0); Mean Corpuscular Hgb Conc 33.8 g/dL (32.0-36.0); Mean Corpuscular Volume 100.6 fL (80.0-100.0); Mean Platelet Volume 12.5 fL (9.4-12.4); Platelet Count 288 K/uL (130-400); RDW Coefficient of Variation 25.2 % (11.5-14.5); RDW Standard Deviation 89.9 fL (36.4-46.3); Red Blood Count 3.53 M/uL (4.20-5.40); White Blood Count 25.42 K/ul (4.8-10.8)
[2024-02-03 08:45] LABS: INR 1.7 (0.9-1.1); Prothrombin Time 17.2 Seconds (9.0-12.0)
[2024-02-03 08:49] LABS: Albumin Globulin Ratio 0.8 (0.9-2); Albumin Level 2.9 gm/dl (3.4-5.0); BUN Creatinine Ratio 20.3 (10-20); Bilirubin,Total 13.7 mg/dl (0.2-1.0); Calcium 8.7 mg/dl (8.6-10.3); Creatinine Clr Calc Pharmacy 100.4 ml/min; Est GFR (Non-African American) 115.6 ml/min; Globulin 3.6 gm/dl (2.5-4.0); Potassium 4.6 mmol/L (3.5-5.1); Total Protein 6.5 gm/dl (6.0-8.3)
[2024-02-03 09:39] LABS: C Reactive Protein 6.75 mg/dl (0-0.5)
--- NOTE | 2024-02-03 11:25 | Oral/Maxillofacial Progress Nt ---
Date of Service February 03, 2024 Assessment & Plan Admission and Anticipated Discharge Date Admission Date: January 23, 2024 Subjective POST OP NOTE at 9 day The patient doing well post operatively Oral care is good, minimal swelling as expected. Tissue tone =still clots due to INR of 1.7 Oozing is controlled with pressure No sinus or nerve complications noted Excellent ROM Sutures dissolved and some removed. Reviewed oral care Reviewed diet, massage, exercise and continued home/oral care RTC to see Dr Pacheco in 10-14 days she has my office information Overall: Slow healing from recent oral surgery secondary to Liver and coagulation issues Results & Data Vital Signs (Past 12 Hours) Vital Signs Pulse Resp BP Pulse Ox O2 Del Method 02/03/24 06:53 74 16 95/62 L 98 Room Air PG Care Time/CCT Total # of Minutes Spent Total Time Spent with Patient: Total time spent is greater than 50% in coordination of care (as documented) at patient's floor/unit and/or counseling patient: Coding Level of Care Code 19488 SUB INP/OBS CARE 1/25MIN
[2024-02-03] MEDS: oxyCODONE HCL IR 5 MG TAB (IMMEDIATE RELEASE) PO ONE (13:34)
--- NOTE | 2024-02-03 13:39 | Discharge Summary ---
Date of Service February 03, 2024 Admission HPI Per Admitting Provider 33 yo female with alcoholic hepatitis, liver failure presents with increased jaundice, denies drinking alcohol for 1 month, she started having left facial pain, swelling, started taking antibiotics for tooth infection , denies fever, chills. denies nausea, vomiting, diarrhea, reports being more sleepy lately, her ammonia level is elevated. Total bilirubin is 20 from 9. Principal Diagnosis alcoholic hepatitis Discharge Exam Constitutional no acute distress Eyes + scleral abnormality (icterus) Respiratory normal respiratory effort, lungs clear to auscultation Cardiovascular RRR, no murmur, no edema Gastrointestinal (Abdomen) Inspection/Auscultation: + abdomen distended (appears to be more distended) and normal bowel sounds Percussion/Palpation: + abdomen tender (mid right and upper abdomen but improved), abdomen soft and + hepatomegaly; no guarding Skin + jaundice Psychiatric A+Ox3, euthymic affect Discharge Data Allergies Allergy/AdvReac Type Severity Reaction Status Date / Time adhesive Allergy Intermediate Hives Verified 01/23/24 15:07 Consultations 01/23/24 14:41 ED Decision to Admit Stat 01/23/24 15:14 Consult Gastroenterology Routine 01/25/24 08:46 Consult Oromaxillofacial Surgery Routine Procedures Performed Operation Date: 01/28/24 13:50 Actual Procedures p Incision and Drainage of Left Upper Face,(Left) - Alfredo Pacheco DMD s Extraction of Teeth # 14, 18, 19, 30, 31 - Alfredo Pacheco DMD Ordered Studies 01/23/24 12:10 CT abd pelvis IV con only Stat 01/24/24 18:28 CT facial bones w con Routine 02/01/24 10:36 US abdomen ltd ascites Routine Hospital Course (1) Acute liver failure: Pt with recurrent alcoholic hepatitis that may have been exacerbated by taking PCN for dental infection vs infection itself? CT A/P with evidence of severe fatty liver, with likely developing cirrhosis, and evidence of portal HTN with mild splenomegaly and abdominal and pelvic varices. No ascites. There is also a 3.3 x 1.7 cm hypodense subcapsular segment 8 hepatic lesion, slightly more conspicuous than on prior exams. This may reflect a complex cystic lesion. Although not overtly suspicious, a nonemergent liver protocol MRI is recommended-can be done as an outpt TBili 22 on admission, INR 2.0--> Maddrey's score 53 on admission which is a very poor prognosis--> started prednisolone 40mg daily and would continue for one month TBili continues to be trending downward teach day-now 11, INR lower at 1.8 GI consult appreciated Needs to continue to abstain from EtOH, f/u outpt with GI-she has an appt in [facility] ept she thinks at [facility] in [place] Continue PPI while on steroids Patient with edema on her lower extremities U/S of abdomen did not appreciate ascites, Patient does have trace fluid in pelvis on ct scan. Continue spironolactone and lasix but will decrease her spironolactone and lasix to 50/20mg due to potassium being in the upper third of the normal range. Will continue prednisolone. (2) Dental abscess: Left maxilla, with pain, swelling, no fevers. Treated a few weeks ago with PCN VK and had improvement but recurred CT face shows left maxillary abscess 1.6cm and dental caries Appreciate OMFS consult-now s/p multiple teeth extracted and I&D of abscesses left maxilla and right lower Completed clindamycin 300mg po qid Continue on low dose tylenol and IV toradol prn Continue icing, f/u with OMFS in office after discharge (3) UTI (urinary tract infection): Ur cx with E. coli- ceftriaxone x 3 day course is now completed resolved. 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 No evidence of withdrawal here thus far-can dc AWSS and IV ativan prn-none needed continue thiamine, Folic acid, MVI counseled on cessation and encouraged ongoing outpt therapy, AA meetings encouraged Total Time Total Time Spent Total Time Spent (In Minutes): 32 Discharge Plan Discharge Items Patient Disposition: Home - Self-Care Reason For Visit: ALCOHOL ABUSE Discharge Diagnosis: alcohol abuse Condition on Discharge: Fair Activity: Resume your previous activity Non-emergency contact: Primary Care Provider Call non-emergency contact if: you have any medication questions Follow-up/Referrals: Alfredo Pacheco DMD [Physician] - 02/17/24 3:30 pm Ricotta,Zana J., PA-C [Primary Care Provider] - 02/16/24 10:30 am Diet: Low Fat Ambulatory Orders: Basic Metabolic Panel (Routine) Timeframe: 1 Week Location: Determined by Patient Ordered By: Roberth Leal Attending Provider Instructions: pressure to control the oozing Followup with Dr. Pacheco. Recommend followup with PCP in 1-2 weeks. Recommend followup with Gastroenteroology. Recommend repeat blood work in 1 week Pending Studies at Discharge: No Stand-Alone Forms: [facility], Work/School Release, Smoking Cessation Medications and DC Order Prescriptions: New nicotine 7 mg/24 hr Patch 24 Hour 1 patch transdermal QAM 28 Days Qty: 28 0RF spironolactone 50 mg tablet 50 mg PO DAILY Qty: 30 0RF furosemide 20 mg tablet 20 mg PO DAILY Qty: 30 0RF prednisolone 5 mg tablet 40 mg PO DAILY 28 Days Qty: 224 0RF Rx Instructions: this will need to be tapered after this has been completed thiamine HCl (vitamin B1) 100 mg Tablet 200 mg PO QAM Qty: 30 0RF Continued cyanocobalamin (vitamin B-12) [Vitamin B-12] 1,000 mcg Tablet 1,000 mcg PO DAILY folic acid 800 mcg Tablet 0.8 mg PO DAILY methadone 10 mg/mL Concentrate 49 mg PO DAILY Rx Instructions: [facility] Discontinued penicillin V potassium 500 mg tablet 500 mg PO BID Rx Instructions: PER PT "STARTED ON 12/30/23, DID NOT FINISH SCRIPT SUPPOSE TO, HAD 5 TABLETS LEFT, STARTED 01/22/24, AM, TAKING REST OF SCRIPT". 2 TABS LEFT IN BOTTLE. Discharge Orders: Discharge Order (Routine); Ordered 02/03/24 Ordered By: Roberth Mccray/Other Patient Handouts: How the Liver Works, Tests for Liver Disease, Dental Abscess Admission Data Admit Date/Time: 01/23/24 15:14 Attending Provider: Roberth Gore Admit Provider: Pema Bateman Primary Care Provider: Zana Wayne Other Providers: Figueroa Clifton Jr; Alfredo Pacheco Other Interventions: Discharge Summary Assessment (RN) Last Done: 02/03/24 11:51 Coding Level of Care Code 63365 INP/OBS DISCH >30 MIN Diagnoses Acute liver failure K72.00 Dental abscess K04.7 UTI (urinary tract infection) N39.0 Hyponatremia E87.1 Methadone use F11.90 Alcohol use disorder F10.90
== END 2024-02-03 17:57 | disposition home or self-care (01) | DRG 987 ==
LOC: ED 11:55 → 2S 15:14 → SUATTDRO 15:14 → 2S 16:42 → 3N 01-25 21:03